=== PATIENT | female | born 1960 ===

== ENCOUNTER → 2020-05-23 11:11 | Outpatient (BNVA) | payer MEDICARE, SELFPAY | PROVIDERS: PCP Internal Medicine; Referring Provider Internal Medicine; Visit Provider Orthopaedic Surgery | DX: Z48.89 Encounter for other specified surgical aftercare (principal); L08.9 Local infection of the skin and subcutaneous tissue, unspecified | CPT/HCPCS: 99024; 99212 ==

== ENCOUNTER → 2020-05-30 13:20 | Outpatient (BNVA) | payer MEDICARE, SELFPAY | PROVIDERS: PCP Internal Medicine; Visit Provider Physician Assistant | DX: T84.7XXD Infection and inflammatory reaction due to other internal orthopedic prosthetic devices, implants and grafts, subsequent encounter (principal) | CPT/HCPCS: 99212 ==

== ENCOUNTER 2020-06-13 12:09 | Outpatient (REF) | payer MEDICARE, SELFPAY ==
--- NOTE | 2020-06-13 12:11 | XR_ITS ---
EXAMINATION: XR HAND, LEFT CLINICAL INFORMATION: Infection and inflammatory reaction due to orthopedic prosthetic devices. COMPARISON: 05/13/2020 and 04/15/2020 TECHNIQUE: PA, lateral and oblique views of the left hand. FINDINGS: There is again noted to be a healing fracture involving the left 3rd middle phalanx. There remain some lucent regions, however, there appears to be some progression in periosteal new bone formation. No significant degenerative change is seen involving the remainder of the left hand since previous study. There remains volar displacement of the major distal fracture fragment by approximately 2 mm. There remains stable medial angulation of the distal fracture fragment. There is some improvement in the soft tissue swelling compared to previous study. No gas within the soft tissues is evident. There is osteopenia of the visualized bones. XR/XR hand LT min 3V IMPRESSION: Progression in healing without change in alignment of fracture involving the left 3rd middle phalanx with some improvement in soft tissue swelling and no evidence of new erosive change.
== END 2020-06-13 12:10 | disposition home or self-care (01) ==
LOC: HO.XRAY 12:09
PROVIDERS: PCP Internal Medicine; Referring Provider Internal Medicine; Visit Provider Orthopaedic Surgery
DX: T84.7XXA Infection and inflammatory reaction due to other internal orthopedic prosthetic devices, implants and grafts, initial encounter (principal)
CPT/HCPCS: 73130; 99212

== ENCOUNTER 2020-06-19 08:21 | Outpatient (REF) | payer MEDICARE, SELFPAY ==
[2020-06-19 09:53] LABS: Anion Gap 11 (12-20); Blood Urea Nitrogen 23 mg/dL (9-16); Calcium 8.4 mg/dL (8.4-10.2); Carbon Dioxide 28 mmol/L (22-29); Chloride 107 mmol/L (96-108); Estimated Glomerular Filt Rate 58; Glucose Random 93 mg/dL (60-115); Potassium 4.4 mmol/l (3.3-5.1); Sodium 142 mmol/L (135-145)
[2020-06-19 10:18] LABS: Free T4 (Free Thyroxine) 1.13 ng/dL (0.71-1.85); Thyroid Stimulating Hormone 6.09 mIU/mL (0.32-4.0); Vitamin D 25-OH Total 30.2 ng/mL (>30)
== END 2020-06-19 08:22 | disposition home or self-care (01) ==
LOC: HO.LAB 08:21
PROVIDERS: PCP Internal Medicine; Visit Provider Internal Medicine
DX: E16.1 Other hypoglycemia (principal); E55.9 Vitamin D deficiency, unspecified; E03.9 Hypothyroidism, unspecified
CPT/HCPCS: 80048; 82306; 84439; 84443

== ENCOUNTER 2020-07-11 10:11 | Outpatient (REF) | payer MEDICARE, SELFPAY ==
--- NOTE | 2020-07-11 10:12 | XR_ITS ---
EXAMINATION: XR HAND, LEFT CLINICAL INFORMATION: Infection of the skin. COMPARISON: 06/13/2020 TECHNIQUE: PA, lateral, and oblique views of the left hand. FINDINGS: Irregularity of the third digit middle phalanx is again noted. This is consistent with healing fracture. There is some fragmentation remaining, though there is increased osseous bridging from prior. Soft tissue swelling noted. Remaining joint spaces are maintained. No acute osseous erosion. XR/XR hand LT min 3V IMPRESSION: Continued partial healing of the third digit middle phalanx fracture. Mild soft tissue swelling.
== END 2020-07-11 10:12 | disposition home or self-care (01) ==
LOC: HO.HOSX 10:11
PROVIDERS: Visit Provider Orthopaedic Surgery
DX: L08.9 Local infection of the skin and subcutaneous tissue, unspecified (principal)
CPT/HCPCS: 73130; 99212

== ENCOUNTER 2020-07-17 08:43 | Outpatient (REF) | payer MEDICARE, SELFPAY ==
[2020-07-17 09:32] LABS: MANUAL DIFF FLAG NO
[2020-07-17 09:35] LABS: Basophils Percent Auto 0.5 % (0-2); Eosinophils Absolute Auto 0.2 X10*3/uL (0.0-0.4); Eosinophils Percent Auto 5.7 % (0-4); Hematocrit 31.3 % (37-47); Hemoglobin 9.5 g/dl (12.0-16.0); Lymphocytes Absolute Auto 1.4 X10*3/uL (1.2-4.9); Lymphocytes Percent Auto 35.7 % (20-40); Mean Corpuscular HGB Conc 30.4 g/dl (31.0-35.0); Mean Corpuscular Hemoglobin 24.1 pg (27.0-33.0); Mean Corpuscular Volume 79.4 fL (80-98); Mean Platelet Volume 10.5 fL (9.4-12.3); Monocytes Absolute Auto 0.3 X10*3/uL (0.1-1.2); Monocytes Percent Auto 8.2 % (2-11); Neutrophils Percent Auto 49.9 % (45-73); Platelet Count 196 X10*3/uL (160-400); Red Blood Count 3.94 X10*6/uL (4.20-5.50); Red Cell Distribution Width 15.4 % (11.0-16.0)
[2020-07-17 09:44] LABS: Glucose Urine UA NEG (NEG); Leukocyte Esterase Urine NEG (NEG); Nitrite Urine NEG (NEG); Specific Gravity - Urine >= 1.030 (1.005-1.025); Urine Blood NEG (NEG); Urine Ketones NEG (NEG); Urine Protein NEG (NEG-TRACE)
[2020-07-17 09:46] LABS: Estimated Average Glucose 108 mg/dL; Hemoglobin A1c % 5.4 %
[2020-07-17 09:49] LABS: Appearance Urine CLEAR; Color Urine YELLOW
[2020-07-17 09:59] LABS: RBC Urine 0 /HPF (0); Squamous Epithelial Cell Urine 2+ /LPF; WBC Urine 0-2 /HPF (0-4)
[2020-07-17 10:00] LABS: Mucus Urine TRACE /LPF
[2020-07-17 10:05] LABS: Alanine Aminotransferase 18 U/L (0-31); Albumin Level 3.8 g/dL (3.5-5.0); Alkaline Phosphatase 117 U/L (39-117); Anion Gap 9 (12-20); Aspartate Amino Transferase 19 U/L (5-31); Bilirubin Total 0.3 mg/dL (0.0-1.0); Blood Urea Nitrogen 22 mg/dL (9-16); Calcium 8.7 mg/dL (8.4-10.2); Carbon Dioxide 31 mmol/L (22-29); Chloride 107 mmol/L (96-108); Cholesterol 138 mg/dL; Estimated Glomerular Filt Rate > 60; Glucose Fasting 104 mg/dL (60-99); HDL Cholesterol 51 mg/dL; LDL Cholesterol Calculated 70 mg/dl; Potassium 4.3 mmol/l (3.3-5.1); Sodium 143 mmol/L (135-145); Total Protein 6.6 g/dL (6.5-8.0); Triglycerides 86 mg/dL
[2020-07-17 10:24] LABS: Free T4 (Free Thyroxine) 1.22 ng/dL (0.71-1.85); Thyroid Stimulating Hormone 1.73 uIU/mL (0.32-4.0); Vitamin D 25-OH Total 30.3 ng/mL (>30)
[2020-07-17 10:37] LABS: Erythrocyte Sedimentation Rate 20 MM/HR (0-20)
== END 2020-07-17 08:44 | disposition home or self-care (01) ==
LOC: HO.LAB 08:43
PROVIDERS: PCP Internal Medicine; Visit Provider Internal Medicine
DX: E78.5 Hyperlipidemia, unspecified (principal); I10 Essential (primary) hypertension; R73.01 Impaired fasting glucose; E03.9 Hypothyroidism, unspecified; E66.9 Obesity, unspecified; M79.7 Fibromyalgia; K21.9 Gastro-esophageal reflux disease without esophagitis; N32.81 Overactive bladder; E55.9 Vitamin D deficiency, unspecified
CPT/HCPCS: 36415; 80053; 80061; 81001; 82306; 83036; 84439; 84443; 85025; 85652

== ENCOUNTER 2020-08-12 07:50 | Outpatient (REF) | payer MEDICARE, SELFPAY ==
--- NOTE | 2020-08-12 09:43 | XR_ITS ---
EXAMINATION: XR HAND, LEFT CLINICAL INFORMATION: Infection COMPARISON: 07/11/2020 and studies dating back to 03/15/2020. TECHNIQUE: PA, lateral, and oblique views of the left hand. FINDINGS: There is progression in healing of comminuted fracture involving the third middle phalanx which is intra-articular in the proximal interphalangeal joint. There is more bone fill-in with bony union. Fracture lines are still evident. No change in alignment. Mild soft tissue prominence remains. No gas within the soft tissues. No erosive changes appreciated. There is some spurring of the first carpometacarpal joint. Joint spaces are maintained. XR/XR hand LT min 3V IMPRESSION: Progression in healing of left third middle phalanx fracture. There remains some mild soft tissue prominence involving the third proximal interphalangeal joint.
== END 2020-08-12 07:51 | disposition home or self-care (01) ==
LOC: HO.HOSX 07:50
PROVIDERS: Visit Provider Orthopaedic Surgery
DX: T84.7XXA Infection and inflammatory reaction due to other internal orthopedic prosthetic devices, implants and grafts, initial encounter (principal); L08.9 Local infection of the skin and subcutaneous tissue, unspecified
CPT/HCPCS: 73130; 99212

== ENCOUNTER 2020-09-24 16:20 | Outpatient (REF) | payer MEDICARE, SELFPAY ==
--- NOTE | 2020-09-24 | MM_ITS ---
EXAMINATION: MM SCREENING DIGITAL BREAST TOMOSYNTHESIS, BILATERAL CLINICAL INFORMATION: Screening. Asymptomatic. The lifetime risk of breast cancer based on the Tyrer-Cuzick Model is 7.6%. COMPARISON: Mammography: September 22, 2019 and studies dating back to December 09, 2013 TECHNIQUE: Digital breast tomosynthesis is performed in both the craniocaudal and mediolateral oblique views along with computer-aided detection (CAD). Synthesized 2D images are generated from the tomosynthesis. FINDINGS: The breasts are almost entirely fatty (ACR BI-RADS breast composition Category a). There are no significant masses, abnormal calcifications, or other abnormalities. MM/MM tomosynthesis screening BI IMPRESSION: There are no significant changes from prior study. ASSESSMENT: BI-RADS 1: Negative RECOMMENDATION: Routine annual mammography screening. This patient's information was entered into a reminder system with a target due date for their next mammogram.
== END 2020-09-24 16:21 | disposition home or self-care (01) ==
LOC: HO.MAMMO 16:20
PROVIDERS: PCP Internal Medicine; Visit Provider Internal Medicine
DX: Z12.31 Encounter for screening mammogram for malignant neoplasm of breast (principal)
CPT/HCPCS: 77063; 77067

== ENCOUNTER 2020-10-16 10:07 | Outpatient (REF) | payer MEDICARE, SELFPAY ==
[2020-10-16 10:49] LABS: MANUAL DIFF FLAG NO
[2020-10-16 10:56] LABS: Basophils Percent Auto 0.5 % (0-2); Eosinophils Absolute Auto 0.2 X10*3/uL (0.0-0.4); Eosinophils Percent Auto 2.3 % (0-4); Hematocrit 31.4 % (37-47); Hemoglobin 9.4 g/dl (12.0-16.0); Imm Gran Abs Auto 0.03 X10*3/uL (0.00-0.03); Imm Gran Pct Auto 0.5 % (0.0-0.4); Lymphocytes Absolute Auto 1.7 X10*3/uL (1.2-4.9); Lymphocytes Percent Auto 26.8 % (20-40); Mean Corpuscular HGB Conc 29.9 g/dl (31.0-35.0); Mean Platelet Volume 9.7 fL (9.4-12.3); Monocytes Absolute Auto 0.4 X10*3/uL (0.1-1.2); Monocytes Percent Auto 6.6 % (2-11); Neutrophils Absolute Auto 4.1 X10*3/uL (2.0-8.3); Neutrophils Percent Auto 63.3 % (45-73); Platelet Count 285 X10*3/uL (160-400); Red Blood Count 4.08 X10*6/uL (4.20-5.50); Red Cell Distribution Width 17.6 % (11.0-16.0); White Blood Count 6.4 X10*3/uL (4.8-10.8)
[2020-10-16 11:23] LABS: Alanine Aminotransferase 45 U/L (0-31); Alkaline Phosphatase 121 U/L (39-117); Anion Gap 12 (12-20); Aspartate Amino Transferase 41 U/L (5-31); Bilirubin Total 0.3 mg/dL (0.0-1.0); Blood Urea Nitrogen 15 mg/dL (9-16); Calcium 9.1 mg/dL (8.4-10.2); Carbon Dioxide 28 mmol/L (22-29); Chloride 106 mmol/L (96-108); Cholesterol 167 mg/dL; Estimated Glomerular Filt Rate > 60; Glucose Fasting 98 mg/dL (60-99); HDL Cholesterol 56 mg/dL; LDL Cholesterol Calculated 81 mg/dl; Potassium 4.2 mmol/L (3.3-5.1); Sodium 142 mmol/L (135-145); Triglycerides 150 mg/dL
[2020-10-16 11:47] LABS: Free T4 (Free Thyroxine) 0.93 ng/dL (0.71-1.85); Thyroid Stimulating Hormone 3.62 uIU/mL (0.32-4.0)
== END 2020-10-16 10:08 | disposition home or self-care (01) ==
LOC: HO.LAB 10:07
PROVIDERS: PCP Internal Medicine; Referring Provider Internal Medicine; Visit Provider Internal Medicine
DX: E03.9 Hypothyroidism, unspecified (principal); E78.00 Pure hypercholesterolemia, unspecified; I10 Essential (primary) hypertension
CPT/HCPCS: 36415; 80053; 80061; 84439; 84443; 85025

== ENCOUNTER 2021-01-13 08:31 | Outpatient (REF) | payer MEDICARE, SELFPAY ==
[2021-01-13 09:07] LABS: MANUAL DIFF FLAG NO
[2021-01-13 09:20] LABS: Basophils Percent Auto 0.4 % (0-2); Eosinophils Absolute Auto 0.2 X10*3/uL (0.0-0.4); Eosinophils Percent Auto 3.3 % (0-4); Hematocrit 38.6 % (37-47); Hemoglobin 12.2 g/dl (12.0-16.0); Imm Gran Abs Auto 0.01 X10*3/uL (0.00-0.03); Imm Gran Pct Auto 0.2 % (0.0-0.4); Lymphocytes Absolute Auto 1.6 X10*3/uL (1.2-4.9); Lymphocytes Percent Auto 29.7 % (20-40); Mean Corpuscular HGB Conc 31.6 g/dl (31.0-35.0); Mean Corpuscular Hemoglobin 26.3 pg (27.0-33.0); Mean Corpuscular Volume 83.2 fL (80-98); Mean Platelet Volume 10.4 fL (9.4-12.3); Monocytes Absolute Auto 0.5 X10*3/uL (0.1-1.2); Monocytes Percent Auto 8.4 % (2-11); Neutrophils Absolute Auto 3.2 X10*3/uL (2.0-8.3); Platelet Count 218 X10*3/uL (160-400); Red Blood Count 4.64 X10*6/uL (4.20-5.50); Red Cell Distribution Width 17.7 % (11.0-16.0); White Blood Count 5.5 X10*3/uL (4.8-10.8)
[2021-01-13 09:35] LABS: Alanine Aminotransferase 23 U/L (0-31); Alkaline Phosphatase 141 U/L (39-117); Anion Gap 12 (12-20); Aspartate Amino Transferase 19 U/L (5-31); Bilirubin Total 0.5 mg/dL (0.0-1.0); Blood Urea Nitrogen 16 mg/dL (9-16); Calcium 9.1 mg/dL (8.4-10.2); Carbon Dioxide 26 mmol/L (22-29); Chloride 106 mmol/L (96-108); Cholesterol 155 mg/dL; Estimated Glomerular Filt Rate > 60; Glucose Fasting 107 mg/dL (60-99); HDL Cholesterol 58 mg/dL; Iron 68 mcg/dL (30-160); LDL Cholesterol Calculated 67 mg/dl; Percent Iron Saturation 19 % (15-50); Potassium 4.3 mmol/L (3.3-5.1); Sodium 140 mmol/L (135-145); Total Iron Binding Capacity 360 mcg/dL (228-428); Triglycerides 153 mg/dL; Unsaturated Iron Binding 292 ug/dL
[2021-01-13 11:01] LABS: Folate 17.3 ng/mL (> or = 4.0); Vitamin B12 666 pg/mL (200-900)
[2021-01-13 13:48] LABS: Free T4 (Free Thyroxine) 1.08 ng/dL (0.71-1.85); Thyroid Stimulating Hormone 0.69 uIU/mL (0.32-4.0)
== END 2021-01-13 08:32 | disposition home or self-care (01) ==
LOC: HO.LAB 08:31
PROVIDERS: Absent Provider Internal Medicine; PCP Internal Medicine; Visit Provider Internal Medicine
DX: E78.00 Pure hypercholesterolemia, unspecified (principal); D50.9 Iron deficiency anemia, unspecified; K90.9 Intestinal malabsorption, unspecified; R73.01 Impaired fasting glucose; I10 Essential (primary) hypertension; E03.9 Hypothyroidism, unspecified
CPT/HCPCS: 36415; 80053; 80061; 82607; 82746; 83540; 84439; 84443; 85025

== ENCOUNTER 2021-05-05 10:12 | Outpatient (REF) | payer MEDICARE, SELFPAY ==
[2021-05-05 10:53] LABS: MANUAL DIFF FLAG NO
[2021-05-05 10:59] LABS: Basophils Percent Auto 0.5 % (0-2); Eosinophils Absolute Auto 0.3 X10*3/uL (0.0-0.4); Eosinophils Percent Auto 6.3 % (0-4); Hematocrit 35.4 % (37-47); Hemoglobin 11.3 g/dl (12.0-16.0); Lymphocytes Absolute Auto 1.4 X10*3/uL (1.2-4.9); Lymphocytes Percent Auto 31.7 % (20-40); Mean Corpuscular HGB Conc 31.9 g/dl (31.0-35.0); Mean Corpuscular Volume 87.8 fL (80-98); Mean Platelet Volume 10.1 fL (9.4-12.3); Monocytes Absolute Auto 0.4 X10*3/uL (0.1-1.2); Monocytes Percent Auto 9.2 % (2-11); Neutrophils Absolute Auto 2.2 X10*3/uL (2.0-8.3); Neutrophils Percent Auto 52.3 % (45-73); Platelet Count 227 X10*3/uL (160-400); Red Blood Count 4.03 X10*6/uL (4.20-5.50); Red Cell Distribution Width 14.2 % (11.0-16.0); White Blood Count 4.3 X10*3/uL (4.8-10.8)
[2021-05-05 11:41] LABS: Alanine Aminotransferase 21 U/L (0-31); Albumin Level 3.9 g/dL (3.5-5.0); Alkaline Phosphatase 120 U/L (39-117); Anion Gap 12 (12-20); Aspartate Amino Transferase 21 U/L (5-31); Bilirubin Total 0.5 mg/dL (0.0-1.0); Blood Urea Nitrogen 16 mg/dL (9-16); Carbon Dioxide 26 mmol/L (22-29); Chloride 108 mmol/L (96-108); Cholesterol 140 mg/dL; Estimated Glomerular Filt Rate > 60; Glucose Fasting 100 mg/dL (60-99); HDL Cholesterol 58 mg/dL; Iron 51 mcg/dL (30-160); LDL Cholesterol Calculated 60 mg/dl; Percent Iron Saturation 14 % (15-50); Potassium 4.6 mmol/L (3.3-5.1); Sodium 141 mmol/L (135-145); Total Iron Binding Capacity 358 mcg/dL (228-428); Total Protein 6.7 g/dL (6.5-8.0); Triglycerides 112 mg/dL; Unsaturated Iron Binding 307 ug/dL
[2021-05-05 11:46] LABS: Erythrocyte Sedimentation Rate 23 MM/HR (0-20)
[2021-05-05 11:55] LABS: Estimated Average Glucose 108 mg/dL; Hemoglobin A1c % 5.4 %
[2021-05-05 12:02] LABS: Free T4 (Free Thyroxine) 1.08 ng/dL (0.71-1.85); Thyroid Stimulating Hormone 1.14 uIU/mL (0.32-4.0); Vitamin D 25-OH Total 26.7 ng/mL (>30)
[2021-05-05 12:20] LABS: Appearance Urine HAZY; Color Urine YELLOW; Glucose Urine UA NEG (NEG); Leukocyte Esterase Urine 2+ (NEG); Nitrite Urine POS (NEG); PH 5.5 (5.0-8.0); Specific Gravity - Urine >= 1.030 (1.005-1.025); UACC Culture Trigger YES; Urine Blood NEG (NEG); Urine Ketones NEG (NEG); Urine Protein NEG (NEG-TRACE)
[2021-05-05 12:33] LABS: Bacteria Urine 4+ /LPF; RBC Urine 0 /HPF (0); Squamous Epithelial Cell Urine 3+ /LPF
== END 2021-05-05 10:13 | disposition home or self-care (01) ==
LOC: HO.LAB 10:12
PROVIDERS: PCP Internal Medicine; Visit Provider Internal Medicine
DX: D50.9 Iron deficiency anemia, unspecified (principal); K21.9 Gastro-esophageal reflux disease without esophagitis; K52.839 Microscopic colitis, unspecified; E78.00 Pure hypercholesterolemia, unspecified; E03.9 Hypothyroidism, unspecified; E66.9 Obesity, unspecified; I10 Essential (primary) hypertension; R73.01 Impaired fasting glucose; M79.7 Fibromyalgia; E55.9 Vitamin D deficiency, unspecified
CPT/HCPCS: 36415; 80053; 80061; 81001; 82306; 83036; 83540; 84439; 84443; 85025; 85652; 87086

== ENCOUNTER 2021-05-19 10:39 | Outpatient (REF) | payer MEDICARE, SELFPAY ==
[2021-05-22 05:26] LABS: HPV mRNA E6/E7 rflx Not Detected (Not Detected)
== END 2021-05-19 10:40 | disposition home or self-care (01) ==
LOC: HO.LAB 10:39
PROVIDERS: PCP Internal Medicine; Visit Provider Obstetrics & Gynecology
DX: Z01.419 Encounter for gynecological examination (general) (routine) without abnormal findings (principal); Z11.51 Encounter for screening for human papillomavirus (HPV); N95.9 Unspecified menopausal and perimenopausal disorder; E66.9 Obesity, unspecified; E03.9 Hypothyroidism, unspecified; E78.00 Pure hypercholesterolemia, unspecified; E16.2 Hypoglycemia, unspecified; I10 Essential (primary) hypertension; Z68.41 Body mass index [BMI] 40.0-44.9, adult; Z88.6 Allergy status to analgesic agent
CPT/HCPCS: 87624; 88142

== ENCOUNTER → 2021-06-30 08:36 | Outpatient (BNVA) | payer MEDICARE, SELFPAY | PROVIDERS: PCP Internal Medicine; Visit Provider Internal Medicine | DX: E03.9 Hypothyroidism, unspecified (principal); E16.2 Hypoglycemia, unspecified; E55.9 Vitamin D deficiency, unspecified | CPT/HCPCS: Q3014 ==

== ENCOUNTER 2021-08-04 10:49 | Outpatient (REF) | payer MEDICARE, SELFPAY ==
[2021-08-04 11:11] LABS: MANUAL DIFF FLAG NO
[2021-08-04 11:56] LABS: Basophils Percent Auto 0.6 % (0-2); Eosinophils Absolute Auto 0.2 X10*3/uL (0.0-0.4); Eosinophils Percent Auto 3.6 % (0-4); Hematocrit 37.4 % (37.0-47.0); Hemoglobin 11.7 g/dl (12.0-16.0); Imm Gran Abs Auto 0.02 X10*3/uL (0.00-0.03); Imm Gran Pct Auto 0.4 % (0.0-0.4); Lymphocytes Absolute Auto 1.6 X10*3/uL (1.2-4.9); Lymphocytes Percent Auto 33.3 % (20-40); Mean Corpuscular HGB Conc 31.3 g/dl (31.0-35.0); Mean Corpuscular Hemoglobin 27.1 pg (27.0-33.0); Mean Corpuscular Volume 86.6 fL (80.0-98.0); Mean Platelet Volume 10.1 fL (9.4-12.3); Monocytes Absolute Auto 0.4 X10*3/uL (0.1-1.2); Monocytes Percent Auto 8.3 % (2-11); Neutrophils Absolute Auto 2.5 x10*3/uL (2.0-8.3); Neutrophils Percent Auto 53.8 % (45-73); Platelet Count 223 X10*3/uL (160-400); Red Blood Count 4.32 X10*6/uL (4.20-5.50); Red Cell Distribution Width 14.1 % (11.0-16.0); White Blood Count 4.7 X10*3/uL (4.8-10.8)
[2021-08-04 12:32] LABS: Anion Gap 11 (12-20); Blood Urea Nitrogen 15 mg/dL (9-16); Calcium 9.3 mg/dL (8.4-10.2); Carbon Dioxide 26 mmol/L (22-29); Chloride 109 mmol/L (96-108); Cholesterol 166 mg/dL; Estimated Glomerular Filt Rate > 60; Glucose Fasting 106 mg/dL (60-99); HDL Cholesterol 53 mg/dL; LDL Cholesterol Calculated 83 mg/dl; Potassium 4.3 mmol/L (3.3-5.1); Sodium 142 mmol/L (135-145); Triglycerides 151 mg/dL
[2021-08-04 12:33] LABS: Estimated Average Glucose 117 mg/dL; Hemoglobin A1c % 5.7 %; TSH reflex Free T4 1.72 uIU/mL (0.32-4.0)
== END 2021-08-04 10:50 | disposition home or self-care (01) ==
LOC: HO.LAB 10:49
PROVIDERS: PCP Internal Medicine; Visit Provider Nurse Practitioner Family
DX: E55.9 Vitamin D deficiency, unspecified (principal); D64.9 Anemia, unspecified; E03.9 Hypothyroidism, unspecified; R73.01 Impaired fasting glucose; I10 Essential (primary) hypertension; E70.0 Classical phenylketonuria
CPT/HCPCS: 36415; 80048; 80061; 82947; 83036; 84443; 85025

== ENCOUNTER 2021-09-25 15:47 | Outpatient (REF) | payer MEDICARE, SELFPAY ==
--- NOTE | ~2021-09-25 | MM_ITS ---
EXAMINATION: MM SCREENING DIGITAL BREAST TOMOSYNTHESIS, BILATERAL CLINICAL INFORMATION: Screening. Asymptomatic. The lifetime risk of breast cancer based on the Tyrer-Cuzick Model is 7.6%. COMPARISON: Mammography: September 24, 2020 and studies dating back to December 09, 2013 TECHNIQUE: Digital breast tomosynthesis is performed in both the craniocaudal and mediolateral oblique views along with computer-aided detection (CAD). Synthesized 2D images are generated from the tomosynthesis. FINDINGS: The breasts are almost entirely fatty (ACR BI-RADS breast composition Category a). There are no significant masses, abnormal calcifications, or other abnormalities. MM/MM tomosynthesis screening BI IMPRESSION: There are no significant changes from prior study. ASSESSMENT: BI-RADS 1: Negative RECOMMENDATION: Routine annual mammography screening. This patient's information was entered into a reminder system with a target due date for their next mammogram.
== END 2021-09-25 15:48 | disposition home or self-care (01) ==
LOC: HO.MAMMO 15:47
PROVIDERS: Visit Provider Internal Medicine
DX: Z12.31 Encounter for screening mammogram for malignant neoplasm of breast (principal); R35.0 Frequency of micturition; R32 Unspecified urinary incontinence
CPT/HCPCS: 51798; 77063; 77067; 99202

== ENCOUNTER 2021-09-30 08:22 | Outpatient (REF) | payer MEDICARE, SELFPAY ==
--- NOTE | ~2021-09-30 | US_ITS ---
EXAMINATION: US ABDOMEN COMPLETE CLINICAL INFORMATION: Right upper quadrant pain. COMPARISON: CT abdomen without and with contrast dated 11/10/2019. Ultrasound abdomen complete dated 11/03/2018 and 12/20/2015. TECHNIQUE: Real-time imaging of the abdominal viscera. FINDINGS: PANCREAS: Normal. ABDOMINAL AORTA: The proximal, mid, and distal segments are normal in caliber. INFERIOR VENA CAVA: Visualized portions are normal. LIVER: The liver is normal in size. The liver contour is normal. Parenchymal echogenicity is normal. There is no intrahepatic biliary duct dilatation seen. GALLBLADDER: The gallbladder is physiologically distended without evidence of stones, sludge, wall thickening or pericholecystic fluid. There are 2 small echogenic densities adjacent to the gallbladder wall measuring 3 and 4 mm that do not move or shadow probably representing gallbladder wall polyps. COMMON BILE DUCT: Normal in caliber measuring 0.47 cm in diameter. RIGHT KIDNEY: There is a 1.6 x 2.2 x 2 cm upper pole peripelvic cyst. No hydronephrosis or renal calculi. The kidney measures 10.3 cm in maximum dimension. LEFT KIDNEY: Normal. No hydronephrosis. No renal calculi or focal parenchymal lesions. The kidney measures 10.9 cm in maximum dimension. SPLEEN: Normal. The spleen measures 12.4 cm in maximum dimension. FREE FLUID: None. US/US abdomen complete IMPRESSION: Small gallbladder wall polyps. Right renal cyst.
== END 2021-09-30 08:23 | disposition home or self-care (01) ==
LOC: HO.HMGCX 08:22
PROVIDERS: PCP Internal Medicine; Visit Provider Nurse Practitioner Acute Care
DX: R10.11 Right upper quadrant pain (principal)
CPT/HCPCS: 76700

== ENCOUNTER → 2021-10-20 11:25 | Outpatient (BNVA) | payer MEDICARE, SELFPAY | PROVIDERS: PCP Internal Medicine; Referring Provider Internal Medicine; Visit Provider Surgery | DX: K82.4 Cholesterolosis of gallbladder (principal) | CPT/HCPCS: 99202 ==

== ENCOUNTER 2021-11-13 08:18 | Outpatient (REF) | payer MEDICARE, SELFPAY ==
[2021-11-13 08:46] LABS: MANUAL DIFF FLAG NO
[2021-11-13 09:21] LABS: Estimated Average Glucose 111 mg/dL; Hemoglobin A1c % 5.5 %
[2021-11-13 09:22] LABS: Basophils Percent Auto 0.4 % (0-2); Eosinophils Absolute Auto 0.3 X10*3/uL (0.0-0.4); Eosinophils Percent Auto 5.7 % (0-4); Hematocrit 37.4 % (37.0-47.0); Imm Gran Abs Auto 0.01 X10*3/uL (0.00-0.03); Imm Gran Pct Auto 0.2 % (0.0-0.4); Lymphocytes Absolute Auto 1.5 X10*3/uL (1.2-4.9); Lymphocytes Percent Auto 31.4 % (20-40); Mean Corpuscular HGB Conc 32.1 g/dl (31.0-35.0); Mean Corpuscular Hemoglobin 28.4 pg (27.0-33.0); Mean Corpuscular Volume 88.6 fL (80.0-98.0); Monocytes Absolute Auto 0.4 X10*3/uL (0.1-1.2); Monocytes Percent Auto 8.4 % (2-11); Neutrophils Absolute Auto 2.6 x10*3/uL (2.0-8.3); Neutrophils Percent Auto 53.9 % (45-73); Platelet Count 189 X10*3/uL (160-400); Red Blood Count 4.22 X10*6/uL (4.20-5.50); Red Cell Distribution Width 13.7 % (11.0-16.0); White Blood Count 4.9 X10*3/uL (4.8-10.8)
[2021-11-13 09:24] LABS: Appearance Urine HAZY; Color Urine YELLOW; Glucose Urine UA NEG (NEG); Leukocyte Esterase Urine TRACE (NEG); Nitrite Urine POS (NEG); PH 5.5 (5.0-8.0); Specific Gravity - Urine >= 1.030 (1.005-1.025); UACC Culture Trigger YES; Urine Blood NEG (NEG); Urine Ketones NEG (NEG); Urine Protein NEG (NEG-TRACE)
[2021-11-13 09:37] LABS: Bacteria Urine 3+ /LPF; Mucus Urine 2+ /LPF; RBC Urine 0 /HPF (0); Squamous Epithelial Cell Urine 3+ /LPF
[2021-11-13 09:56] LABS: Alanine Aminotransferase 25 U/L (0-31); Albumin Level 3.9 g/dL (3.5-5.0); Alkaline Phosphatase 106 U/L (39-117); Anion Gap 11 (12-20); Aspartate Amino Transferase 20 U/L (5-31); Bilirubin Total 0.4 mg/dL (0.0-1.0); Blood Urea Nitrogen 22 mg/dL (9-16); Calcium 9.1 mg/dL (8.4-10.2); Carbon Dioxide 25 mmol/L (22-29); Chloride 110 mmol/L (96-108); Cholesterol 147 mg/dL; Estimated Glomerular Filt Rate > 60; Glucose Fasting 106 mg/dL (60-99); HDL Cholesterol 54 mg/dL; LDL Cholesterol Calculated 68 mg/dl; Potassium 4.3 mmol/L (3.3-5.1); Sodium 142 mmol/L (135-145); Total Protein 6.7 g/dL (6.5-8.0); Triglycerides 129 mg/dL
[2021-11-13 10:09] LABS: Free T4 (Free Thyroxine) 1.01 ng/dL (0.71-1.85); Thyroid Stimulating Hormone 4.75 uIU/mL (0.32-4.0)
[2021-11-13 10:33] LABS: Creatinine Urine 152.96 mg/dL; Microalbum/Creatinine Ratio Ur 5.2 ug/mg cr
[2021-11-13 14:53] LABS: Vitamin D 25-OH Total 25.3 ng/mL (>30)
== END 2021-11-13 08:19 | disposition home or self-care (01) ==
LOC: HO.LAB 08:18
PROVIDERS: PCP Internal Medicine; Visit Provider Internal Medicine
DX: I10 Essential (primary) hypertension (principal); E78.00 Pure hypercholesterolemia, unspecified; E03.9 Hypothyroidism, unspecified; E11.9 Type 2 diabetes mellitus without complications; E55.9 Vitamin D deficiency, unspecified
CPT/HCPCS: 36415; 80053; 80061; 81001; 81003; 82043; 82306; 83036; 84439; 84443; 85025; 87086

== ENCOUNTER → 2021-12-26 09:48 | Outpatient (BNVA) | payer MEDICARE, SELFPAY | PROVIDERS: PCP Internal Medicine | DX: Z13.89 Encounter for screening for other disorder (principal) | CPT/HCPCS: Q3014 ==

== ENCOUNTER 2022-02-03 08:07 | Outpatient (REF) | payer MEDICARE, SELFPAY ==
[2022-02-03 08:43] LABS: MANUAL DIFF FLAG NO
[2022-02-03 09:30] LABS: Basophils Percent Auto 0.8 % (0-2); Eosinophils Absolute Auto 0.2 X10*3/uL (0.0-0.4); Eosinophils Percent Auto 4.8 % (0-4); Hematocrit 35.9 % (37.0-47.0); Hemoglobin 11.3 g/dl (12.0-16.0); Imm Gran Abs Auto 0.01 X10*3/uL (0.00-0.03); Imm Gran Pct Auto 0.3 % (0.0-0.4); Lymphocytes Absolute Auto 1.4 X10*3/uL (1.2-4.9); Lymphocytes Percent Auto 34.5 % (20-40); Mean Corpuscular HGB Conc 31.5 g/dl (31.0-35.0); Mean Corpuscular Volume 89.1 fL (80.0-98.0); Monocytes Absolute Auto 0.3 X10*3/uL (0.1-1.2); Monocytes Percent Auto 8.4 % (2-11); Neutrophils Percent Auto 51.2 % (45-73); Platelet Count 197 X10*3/uL (160-400); Red Blood Count 4.03 X10*6/uL (4.20-5.50); Red Cell Distribution Width 14.1 % (11.0-16.0); White Blood Count 3.9 X10*3/uL (4.8-10.8)
[2022-02-03 09:48] LABS: Estimated Average Glucose 108 mg/dL; Hemoglobin A1c % 5.4 %
[2022-02-03 10:04] LABS: Alanine Aminotransferase 39 U/L (0-31); Albumin Level 3.8 g/dL (3.5-5.0); Alkaline Phosphatase 123 U/L (39-117); Anion Gap 12 (12-20); Aspartate Amino Transferase 24 U/L (5-31); Bilirubin Total 0.4 mg/dL (0.0-1.0); Blood Urea Nitrogen 19 mg/dL (9-16); Calcium 8.9 mg/dL (8.4-10.2); Carbon Dioxide 26 mmol/L (22-29); Chloride 109 mmol/L (96-108); Cholesterol 145 mg/dL; Estimated Glomerular Filt Rate > 60; Glucose Fasting 113 mg/dL (60-99); HDL Cholesterol 49 mg/dL; LDL Cholesterol Calculated 63 mg/dl; Potassium 4.3 mmol/L (3.3-5.1); Sodium 143 mmol/L (135-145); Total Protein 6.6 g/dL (6.5-8.0); Triglycerides 166 mg/dL
[2022-02-03 10:08] LABS: Free T4 (Free Thyroxine) 1.17 ng/dL (0.71-1.85); Vitamin D 25-OH Total 21.8 ng/mL (>30)
[2022-02-03 10:39] LABS: Appearance Urine HAZY; Color Urine YELLOW; Glucose Urine UA NEG (NEG); Leukocyte Esterase Urine NEG (NEG); Nitrite Urine NEG (NEG); Specific Gravity - Urine 1.025 (1.005-1.025); Urine Blood NEG (NEG); Urine Ketones NEG (NEG); Urine Protein NEG (NEG-TRACE)
[2022-02-03 11:31] LABS: Creatinine Urine 95.56 mg/dL; Microalbumin Urine < 5.0 mg/L
== END 2022-02-03 08:08 | disposition home or self-care (01) ==
LOC: HO.LAB 08:07
PROVIDERS: PCP Internal Medicine; Visit Provider Internal Medicine
DX: I10 Essential (primary) hypertension (principal); E55.9 Vitamin D deficiency, unspecified; E78.00 Pure hypercholesterolemia, unspecified; E11.9 Type 2 diabetes mellitus without complications; E03.9 Hypothyroidism, unspecified
CPT/HCPCS: 36415; 80053; 80061; 81003; 82043; 82306; 83036; 84439; 84443; 85025

== ENCOUNTER 2022-02-04 11:55 | Outpatient (REF) | payer MEDICARE, SELFPAY ==
--- NOTE | ~2022-02-04 | XR_ITS ---
EXAMINATION: XR KNEE, BILATERAL CLINICAL INFORMATION: Bilateral knee pain. COMPARISON: 04/27/2019 TECHNIQUE: AP, lateral and sunrise views of each knee. FINDINGS: Right knee: Alignment is normal. No displaced fracture. Moderate patellofemoral joint space narrowing with marginal osteophytes. No significant joint effusion. Left knee: Alignment is normal. No displaced fracture. Mild medial tibiofemoral cartilage space loss. Moderate patellofemoral cartilage space loss. Tricompartmental osteophytes are present. No significant joint effusion. XR/XR knee LT 3V IMPRESSION: Moderate osteoarthritis of bilateral knees.
--- NOTE | ~2022-02-04 | XR_ITS ---
EXAMINATION: XR KNEE, BILATERAL CLINICAL INFORMATION: Bilateral knee pain. COMPARISON: 04/27/2019 TECHNIQUE: AP, lateral and sunrise views of each knee. FINDINGS: Right knee: Alignment is normal. No displaced fracture. Moderate patellofemoral joint space narrowing with marginal osteophytes. No significant joint effusion. Left knee: Alignment is normal. No displaced fracture. Mild medial tibiofemoral cartilage space loss. Moderate patellofemoral cartilage space loss. Tricompartmental osteophytes are present. No significant joint effusion. XR/XR knee RT 3V IMPRESSION: Moderate osteoarthritis of bilateral knees.
== END 2022-02-04 11:56 | disposition home or self-care (01) ==
LOC: HO.XRAY 11:55
PROVIDERS: PCP Internal Medicine; Visit Provider Internal Medicine
DX: M25.561 Pain in right knee (principal); M25.562 Pain in left knee
CPT/HCPCS: 73562

== ENCOUNTER 2022-03-14 10:55 | Outpatient (REF) | payer MEDICARE, SELFPAY ==
--- NOTE | ~2022-03-14 | XR_ITS ---
EXAMINATION: XR KNEE, RIGHT CLINICAL INFORMATION: Pain. COMPARISON: Most recent right knee radiographs dated 02/04/2022. TECHNIQUE: Four views of the right knee. FINDINGS: No acute fracture or dislocation. Tricompartmental joint space narrowing with marginal osteophytes, most prominent within the patellofemoral compartment. Redemonstration of lateral patellar unfused osteophytes versus loose bodies, unchanged. Trace joint effusion. XR/XR knee RT 4V IMPRESSION: Tricompartmental osteoarthritis and trace joint effusion, unchanged.
== END 2022-03-14 10:56 | disposition home or self-care (01) ==
LOC: HO.HMGCX 10:55
PROVIDERS: PCP Internal Medicine; Visit Provider Physician Assistant Medical
DX: M25.561 Pain in right knee (principal)
CPT/HCPCS: 73564

== ENCOUNTER 2022-04-30 10:36 | Outpatient (REF) | payer MEDICARE, SELFPAY ==
--- NOTE | 2022-05-01 08:37 | MHC.AU.AEV ---
Adult Audiological Evaluation Date of Visit: 04/30/22 Reason for Appointment: Patient has been noticing gradually increasing hearing difficulty. It has caused disagreements at home over words that were misheard or over the volume of the television. 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 Does patient feel they have a hearing loss?: Yes If Yes, Which Ear?: Both Ears When Was Hearing Difficulty First Noticed?: Several years Hearing Handicap Inventory Does a hearing problem cause you to feel embarrassed when meeting new people?: No Does a hearing problem cause you to feel frustrated when talking to members of your family?: Yes Do you have difficulty when someone speaks in a whisper?: Yes Do you feel handicapped by a hearing problem?: Sometimes Does a hearing problem cause you difficulty when visiting friends, relatives, or neighbors?: Yes Does a hearing problem cause you to attend faith service services less often than you would like?: Sometimes Does a hearing problem cause you to have arguments with family members?: Yes Does a hearing problem cause you difficulty when listening to TV or radio?: Yes Do you feel that any difficult with your hearing limits or hampers your personal or social life?: Yes Does a hearing problem cause you difficulty when in a restaurants with relatives or friends?: Yes HHIE SCORE: 32 Based on HHIE score, patient has: Severe perceived hearing handicap Ear History: Ear Deformity: None Reported Recent Ear Drainage: None Reported Recent Ear Pain: None Reported Family History of Hearing Loss?: Yes: Sisters and brother Recent Ear Infections: None Reported Ear Infections in Childhood: None Reported History of Ear Wax Buildup: None Reported Previous Ear Surgery: None Reported Bothersome Tinnitus/Ringing/Noises in Ears: None Reported Ear used on the phone: Right Ear Blocked/Full Sensation in Ear(s): None Reported History of occupational noise exposure?: Yes History: No Medical History: Medical History: Headache, High Blood Pressure, Thyroid Disease Otoscopy: Right Ear: Unremarkable Left Ear: Unremarkable Tympanometry: Tympanometry performed due to: To assess integrity of the middle ear system Right Ear: Normal Middle Ear System (Type A) Left Ear: Normal Middle Ear System (Type A) Hearing Evaluation: Transducer(s) Used: Insert Earphones Method: Conventional Audiometry Stimuli Used: Pure Tones Right Ear: Description of Hearing: Mild sensorineural hearing loss Left Ear: Description of Hearing: Mild sensorineural hearing loss Speech Recognition Threshold (SRT): Method Used: Recorded Lists Stimuli Used: Spondee Words Right Ear: 30 dBHL Left Ear: 30 dBHL Word Discrimination: Method: Recorded Lists Word Lists Used:: W-22 Right Ear: 96% at 70 dBHL Left Ear: 96% at 70 dBHL Most Comfortable Level (MCL): Right Ear: 70 dBHL Left Ear: 70 dBHL Recommendations: Audiological re-evaluation in one year. Patient is interested in amplification, as she feels the mild hearing loss is staring to impact her daily life. It is recommended that she contact her insurance to inquire about hearing aid benefits. If her insurance does not offer benefits, she would qualify for use of OTC hearing aids. As the FDA only recently approved the use of OTC hearing aids for mild hearing loss, they are not yet on the market, but this will change manager the next year as more companies receive FDA approval for their products. A product such as TV Ears may help with hearing the television. Diagnosis: Primary Diagnosis: H90.3 Bilateral Sensorineural Hearing Loss Signature: Provider: Hermelindo Hartman, CCC-A
== END 2022-04-30 10:37 | disposition home or self-care (01) ==
LOC: HO.SH 10:36
PROVIDERS: Visit Provider Internal Medicine
DX: Z01.118 Encounter for examination of ears and hearing with other abnormal findings (principal); H90.3 Sensorineural hearing loss, bilateral
CPT/HCPCS: 92557; 92567

== ENCOUNTER 2022-05-21 10:36 | Outpatient (REF) | payer MEDICARE, SELFPAY ==
[2022-05-22 09:20] LABS: BV Int Neg Control Negative (Negative); BV Int Pos Control Positive (Positive)
== END 2022-05-21 10:37 | disposition home or self-care (01) ==
LOC: HO.LNP 10:36
PROVIDERS: Visit Provider Advanced Practice Midwife
DX: N90.89 Other specified noninflammatory disorders of vulva and perineum (principal)
CPT/HCPCS: 87480; 87510; 87660

== ENCOUNTER 2022-06-08 11:43 | Outpatient (REF) | payer MEDICARE, SELFPAY ==
[2022-06-08 11:58] LABS: MANUAL DIFF FLAG NO
[2022-06-08 12:58] LABS: Basophils Percent Auto 0.7 % (0-2); Eosinophils Absolute Auto 0.2 X10*3/uL (0.0-0.4); Eosinophils Percent Auto 3.7 % (0-4); Hematocrit 37.8 % (37.0-47.0); Hemoglobin 12.2 g/dl (12.0-16.0); Imm Gran Abs Auto 0.02 X10*3/uL (0.00-0.03); Imm Gran Pct Auto 0.5 % (0.0-0.4); Lymphocytes Absolute Auto 1.5 X10*3/uL (1.2-4.9); Lymphocytes Percent Auto 34.3 % (20-40); Mean Corpuscular HGB Conc 32.3 g/dl (31.0-35.0); Mean Corpuscular Hemoglobin 27.7 pg (27.0-33.0); Mean Corpuscular Volume 85.9 fL (80.0-98.0); Mean Platelet Volume 10.3 fL (9.4-12.3); Monocytes Absolute Auto 0.3 X10*3/uL (0.1-1.2); Monocytes Percent Auto 7.7 % (2-11); Neutrophils Absolute Auto 2.3 x10*3/uL (2.0-8.3); Neutrophils Percent Auto 53.1 % (45-73); Platelet Count 216 X10*3/uL (160-400); White Blood Count 4.3 X10*3/uL (4.8-10.8)
[2022-06-08 13:25] LABS: Estimated Average Glucose 114 mg/dL; Hemoglobin A1c % 5.6 %
[2022-06-08 13:30] LABS: Alanine Aminotransferase 27 U/L (0-31); Alkaline Phosphatase 127 U/L (39-117); Anion Gap 15 (12-20); Aspartate Amino Transferase 23 U/L (5-31); Bilirubin Total 0.4 mg/dL (0.0-1.0); Blood Urea Nitrogen 20 mg/dL (9-16); Carbon Dioxide 27 mmol/L (22-29); Chloride 104 mmol/L (96-108); Cholesterol 177 mg/dL; Estimated Glomerular Filt Rate > 60; Glucose Fasting 113 mg/dL (60-99); HDL Cholesterol 56 mg/dL; LDL Cholesterol Calculated 97 mg/dl; Potassium 4.4 mmol/L (3.3-5.1); Sodium 142 mmol/L (135-145); Total Protein 6.9 g/dL (6.5-8.0); Triglycerides 122 mg/dL
[2022-06-08 13:31] LABS: Appearance Urine Cloudy; Color Urine Yellow; Glucose Urine UA Negative (Negative); Leukocyte Esterase Urine Large (3+) (Negative); Nitrite Urine Negative (Negative); PH 5.5 (5.0-9.0); Specific Gravity - Urine 1.025 (1.005-1.025); UMIC TRIGGER UACC YES; Urine Blood Negative (Negative); Urine Ketones Negative (Negative); Urine Protein Negative (Neg-Trace)
[2022-06-08 13:36] LABS: Bacteria Urine 1+ (None Seen); Hyaline Casts Urine 0-2 /LPF (0-2); RBC Urine 0-2 /HPF (0-2); UACC Culture Trigger YES; WBC Urine 21-50 /HPF (0-5)
[2022-06-08 13:50] LABS: Free T4 (Free Thyroxine) 0.85 ng/dL (0.71-1.85); Vitamin D 25-OH Total 24.3 ng/mL (>30)
[2022-06-08 13:54] LABS: Erythrocyte Sedimentation Rate 18 MM/HR (0-20)
== END 2022-06-08 11:44 | disposition home or self-care (01) ==
LOC: HO.LAB 11:43
PROVIDERS: Absent Provider Internal Medicine; PCP Internal Medicine; Visit Provider Internal Medicine
DX: E03.9 Hypothyroidism, unspecified (principal); R73.01 Impaired fasting glucose; I10 Essential (primary) hypertension; M25.561 Pain in right knee; M25.562 Pain in left knee; E55.9 Vitamin D deficiency, unspecified; E78.00 Pure hypercholesterolemia, unspecified
CPT/HCPCS: 36415; 80053; 80061; 81001; 82306; 83036; 84439; 84443; 85025; 85652; 87086; 87088; 87147; 87186

== ENCOUNTER 2022-06-14 09:53 | Emergency (ER) | payer MEDICARE, SELFPAY ==
--- NOTE | ~2022-06-14 | XR_ITS ---
EXAMINATION: LEFT ANKLE AND RIGHT ANKLE CLINICAL INFORMATION: Pain COMPARISON: Right foot from 08/15/2018 TECHNIQUE: 3 views of right ankle FINDINGS: There is soft tissue swelling laterally not associated with acute fracture there is healed fracture deformity of right C6 metatarsal bone with callus formation and linear lucency laterally as a residual from the fracture seen in 2018. Ankle mortise is unremarkable medial malleolus is normal. There is plantar calcaneal spur XR/XR ankle RT min 3V IMPRESSION: Soft tissue swelling. Healed fracture deformity of the fifth metatarsal bone and calcaneus spur. Left ankle 3 views CLINICAL INFORMATION: pain COMPARISON: October 2014 FINDINGS: Patient is status post repair of fifth metatarsal tarsal bone with [id number]. There is linear lucencies through the medial malleolus suggestive for acute fracture. There is no displacement of fragments. Lateral malleolus demonstrate no fractures. There is plantar calcaneal spur. IMPRESSION: undisplaced fracture of the medial malleolus
--- NOTE | ~2022-06-14 | XR_ITS ---
EXAMINATION: LEFT ANKLE AND RIGHT ANKLE CLINICAL INFORMATION: Pain COMPARISON: Right foot from 08/15/2018 TECHNIQUE: 3 views of right ankle FINDINGS: There is soft tissue swelling laterally not associated with acute fracture there is healed fracture deformity of right C6 metatarsal bone with callus formation and linear lucency laterally as a residual from the fracture seen in 2018. Ankle mortise is unremarkable medial malleolus is normal. There is plantar calcaneal spur XR/XR ankle LT min 3V IMPRESSION: Soft tissue swelling. Healed fracture deformity of the fifth metatarsal bone and calcaneus spur. Left ankle 3 views CLINICAL INFORMATION: pain COMPARISON: October 2014 FINDINGS: Patient is status post repair of fifth metatarsal tarsal bone with [id number]. There is linear lucencies through the medial malleolus suggestive for acute fracture. There is no displacement of fragments. Lateral malleolus demonstrate no fractures. There is plantar calcaneal spur. IMPRESSION: undisplaced fracture of the medial malleolus
--- NOTE | ~2022-06-14 | CT_ITS ---
EXAMINATION: CT HEAD WITHOUT CONTRAST CT CERVICAL SPINE WITHOUT CONTRAST CLINICAL INFORMATION: Status post fall. Right-sided neck pain. COMPARISON: No relevant prior imaging. TECHNIQUE: Leather Cartridge Belt Maker images were obtained. CT imaging of the head and cervical spine was performed without contrast. Data was reformatted into multiplanar images at the acquisition workstation. This CT examination was performed using dose optimization techniques as appropriate, including one or more of the following: Automated exposure control, iterative reconstruction, and adjustment of technique factors (mA and/or kVp) according to patient size (this includes techniques or standardized protocols for targeted exams where dose is matched to indication/reason for exam). Fleischner Society criteria for the followup of incidental pulmonary nodules was implemented if appropriate. DLP: 1288 mGy-cm. FINDINGS: Head: There is no acute intracranial hemorrhage or abnormal extra-axial collection. No intracranial mass effect or midline shift. Lateral and third ventricles are normal. No hydrocephalus. Cervantes-white matter differentiation is preserved and there is no evidence of acute territorial infarct. The calvarium and skull base are intact. Mastoid air cells and middle ear cavities are well aerated. No active paranasal sinus disease. Cervical spine: Alignment is normal. Vertebral body heights are preserved. No acute fracture. No abnormal prevertebral soft tissue swelling. There is loss of intervertebral disc height with associated hypertrophic disc osteophyte spurring with associated sclerotic degenerative endplate changes and disc osteophyte spurring at C5-C6 and C6-C7. Canal patency is not well assessed on this examination due to inherent limitations of CT without intrathecal contrast. Soft tissues of the neck including the thyroid gland are normal. Grossly no pathologically enlarged cervical lymph nodes. Lung apices are clear. CT/CT head/brain wo IV con IMPRESSION: Unremarkable examination in that there is no acute intracranial hemorrhage. No acute cervical spine fracture.
--- NOTE | ~2022-06-14 | CT_ITS ---
EXAMINATION: CT HEAD WITHOUT CONTRAST CT CERVICAL SPINE WITHOUT CONTRAST CLINICAL INFORMATION: Status post fall. Right-sided neck pain. COMPARISON: No relevant prior imaging. TECHNIQUE: Student Ministries Director images were obtained. CT imaging of the head and cervical spine was performed without contrast. Data was reformatted into multiplanar images at the acquisition workstation. This CT examination was performed using dose optimization techniques as appropriate, including one or more of the following: Automated exposure control, iterative reconstruction, and adjustment of technique factors (mA and/or kVp) according to patient size (this includes techniques or standardized protocols for targeted exams where dose is matched to indication/reason for exam). Fleischner Society criteria for the followup of incidental pulmonary nodules was implemented if appropriate. DLP: 1288 mGy-cm. FINDINGS: Head: There is no acute intracranial hemorrhage or abnormal extra-axial collection. No intracranial mass effect or midline shift. Lateral and third ventricles are normal. No hydrocephalus. Cervantes-white matter differentiation is preserved and there is no evidence of acute territorial infarct. The calvarium and skull base are intact. Mastoid air cells and middle ear cavities are well aerated. No active paranasal sinus disease. Cervical spine: Alignment is normal. Vertebral body heights are preserved. No acute fracture. No abnormal prevertebral soft tissue swelling. There is loss of intervertebral disc height with associated hypertrophic disc osteophyte spurring with associated sclerotic degenerative endplate changes and disc osteophyte spurring at C5-C6 and C6-C7. Canal patency is not well assessed on this examination due to inherent limitations of CT without intrathecal contrast. Soft tissues of the neck including the thyroid gland are normal. Grossly no pathologically enlarged cervical lymph nodes. Lung apices are clear. CT/CT cervical spine wo IV con IMPRESSION: Unremarkable examination in that there is no acute intracranial hemorrhage. No acute cervical spine fracture.
--- NOTE | ~2022-06-14 | XR_ITS ---
EXAMINATION: XR KNEE, RIGHT CLINICAL INFORMATION: Bilateral knee pain status post fall. COMPARISON: Right knee radiographs dated 04/27/2019. TECHNIQUE: Four views of the right knee. FINDINGS: There is generalized osteopenia. Mild to moderate tricompartmental degenerative joint changes are seen, most pronounced in the patellofemoral joint space. There is no acute fracture or dislocation. Trace suprapatellar joint effusion. The soft tissues are unremarkable. XR/XR knee RT 2V IMPRESSION: [id number] tricompartmental degenerative joint changes without acute osseous abnormality. Trace suprapatellar joint effusion without significant change.
--- NOTE | ~2022-06-14 | XR_ITS ---
EXAMINATION: XR KNEE, LEFT CLINICAL INFORMATION: Fall, knee pain COMPARISON: 02/04/2022 TECHNIQUE: Four views of the left knee. FINDINGS: No fracture or dislocation. Small to moderate suprapatellar joint effusion, new or increased in conspicuity from the prior study. Again seen is tricompartmental osteoarthritis greatest in the patellofemoral compartment. XR/XR knee LT 2V IMPRESSION: No fracture or dislocation. Tricompartmental osteoarthritis greatest in the patellofemoral compartment, similar to prior study 02/04/2022. New/increased suprapatellar joint effusion.
[2022-06-14 09:57] VITALS: BP 118/52; PULSE 65; RESP 16; TEMP 36.6; O2SAT 98; BMI 41.1
[2022-06-14] MEDS: Acetaminophen 325 MG TABLET 975 MG PO (12:01)
[2022-06-14] MEDS: Cyclobenzaprine HCl 10 MG TABLET PO (12:02)
--- NOTE | 2022-06-14 12:17 | ED_ITS ---
HPI - Fall General Chief Complaint: Fall Stated Complaint: Fall/Neck pain/Knee pain Time Seen by Provider: 06/14/22 11:35 Source: patient Mode of arrival: ambulatory Limitations: no limitations History of Present Illness HPI Narrative: 62yoF c PMHx of acquired hypothyroidism, anemia, anxiety, HTN, bradycardia, depression, fibromyalgia, GERD, HLD, overactive bladder, colitis, insomnia, vitamin-D deficiency and obesity who is presenting to the ER with complaints of right-sided neck pain and bilateral knee and ankle pain after she had a mechanical fall prior to arrival this morning. She reports that she was leaving her house in the concrete/sidewalk is uneven and she fell onto her bilateral knees and rolled onto her neck. She denies head injury loss of consciousness. She denies being on any blood thinners. She denies any symptoms prior to the fall. She denies any other symptoms after the fall other than pain to her neck and bilateral knees and ankle. She denies prolonged down time. 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 Fall witnessed: yes, by family Place fall occurred: home and street Loss of consciousness: none Prolonged down time: no Symptoms prior to fall: none Context: tripped/slipped Location of injury: neck Location of injury - extremities: bilateral: knee and ankle Severity: moderate Quality: aching and spasming Associated symptoms (after fall): neck pain Related Data Home Medications Medication Instructions Recorded Confirmed cholecalciferol (vitamin D3) 50 50 mcg PO DAILY 05/23/20 02/27/22 mcg (2,000 unit) capsule Previous Rx's Medication Instructions Recorded nitrofurantoin macrocrystal 100 mg 100 mg PO Q12H 5 days #10 caps 05/08/21 capsule acarbose 50 mg tablet 50 mg PO TID 90 days #270 tabs 06/30/21 levothyroxine 150 mcg tablet 150 mcg PO DAILY 30 days #30 tabs 06/30/21 ferrous sulfate 325 mg (65 mg 325 mg PO DAILY #90 tabs 11/25/21 iron) tablet naproxen 500 mg tablet 500 mg PO Q12H PRN for pain #180 11/25/21 tabs sertraline 100 mg tablet 200 mg PO DAILY 90 days #180 tabs 11/25/21 mirtazapine 7.5 mg tablet 7.5 mg PO BEDTIME 30 days #30 tabs 12/02/21 mirabegron 25 mg tablet,extended 25 mg PO DAILY 30 days #90 tabs 01/20/22 release 24 hr (Myrbetriq) meloxicam 7.5 mg tablet 7.5 mg PO DAILY #14 tabs 03/14/22 atorvastatin 40 mg tablet 40 mg PO DAILY #90 tabs 04/15/22 lisinopril 10 mg tablet 10 mg PO DAILY #90 tabs 05/03/22 omeprazole 40 mg capsule,delayed 40 mg PO DAILY #90 caps 05/03/22 release lorazepam 0.5 mg tablet 0.5 mg PO BID PRN anxiety 30 days 06/01/22 #60 tabs pregabalin 75 mg capsule (Lyrica) 75 mg PO TID 30 days #90 caps 06/01/22 acetaminophen 500 mg tablet 1,000 mg PO QID PRN fever or pain 06/14/22 (Tylenol Extra Strength) #14 tabs cyclobenzaprine 10 mg tablet 10 mg PO Q8H Muscle spasm #14 tabs 06/14/22 oxycodone 5 mg tablet 5 mg PO Q6H PRN pain #14 tabs 06/14/22 Allergies Allergy/AdvReac Type Severity Reaction Status Date / Time fentanyl AdvReac Unknown Nausea and Verified 05/21/22 10:14 Vomiting Review of Systems Review of Systems: Constitutional : No trauma, No Weight loss, No Fever, No Chills, ENT/Mouth : No Hearing loss, No Ear Pain, No Nasal Congestion, No Sinus Pain, No Hoarseness, No sore throat, No Rhinorrhea, No Swallowing Difficulty Cardiovascular : No Chest Pain, No SOB Respiratory : No Cough, No Dyspnea Gastrointestinal : No Nausea, No Vomiting, No Diarrhea, No abdominal Pain, No Hematochezia, No Melena Genitourinary : No Dysuria, No Urinary Frequency, No Hematuria, No Urinary or Bowel Incontinence/retention Musculoskeletal : + Neck pain, +b/l knee/ankle pain, No Back pain, No joint stiffness, No joint swelling Skin : No Skin Lesions, No rash or signs of infection Neuro : nO Tingling to b/l arms/legs, No Weakness, No radiation, No Numbness, No headache, no loss of bowel or bladder incontinence, no saddle anesthesia Denies history of IV drug usage. Yes all other systems are reviewed and are negative [facility] Past Medical History Attestation statement: The following information was validated with the patient. Source: old records reviewed, obtained from family and nursing notes reviewed Medical History Acquired hypothyroidism Anemia Anxiety ASCUS of cervix with negative high risk HPV Benign essential hypertension Bradycardia Depression Fibromyalgia GERD without esophagitis High cholesterol Hypertension Hypoglycemia Hypothyroidism Impaired fasting glucose Infected finger Infection at site of external fixator pin Microscopic colitis Obesity (BMI 30-39.9) Overactive bladder Primary insomnia Pure hypercholesterolemia Vitamin D deficiency Surgical History H/O arthroscopy of left knee H/O section History of colonoscopy History of gastrointestinal tract bypass History of hemorrhoidectomy Hx of bilateral breast reduction surgery S/P ORIF (open reduction internal fixation) fracture Status post debridement Family History Family History Father Diabetes Mental health disorder Mother CVD (cardiovascular disease) Myocardial infarction Mental health disorder Brother Colon cancer Social History Social History Household Members: Significant Other and Family Housing: House Alcohol intake: current Alcohol intake frequency: holidays/special occasions only Patient Tobacco Use Status: Never used Tobacco e-Cigarette/Vaping Use: Never Used Second Hand Smoke Exposure: No Advance Directives: No Advance Directives Information Provided: Yes service: No Current occupational status: disabled Cognitive needs: No Hearing needs: Yes Vision needs: Yes Physical Exam Vital Signs: Vital Signs: Last Vital Signs Temp 98 F 06/14/22 09:57 Pulse 65 06/14/22 09:57 Resp 16 06/14/22 09:57 BP 118/52 L 06/14/22 09:57 Pulse Ox 98 06/14/22 09:57 O2 Del Method 06/14/22 09:57 BMI result Body Mass Index 41.1 vital signs have been reviewed as normal and appeared to be correct. Blood p ressure 118/52. Heart rate normal. Respiration rate normal. Temperature normal. Oxygen saturation normal. Appearance: Alert. Oriented X3. No acute distress. Head: Normal external exam. Normocephalic. Atraumatic. Eyes: PERRLA. EOMI. Conjunctiva and sclera normal. Eyelids normal. No Nguyễn sign noted. No raccoon eyes noted. ENT: Pharynx normal. Uvula midline. Moist mucous membranes. No trismus noted. No drooling noted. No muffled voice noted. Neck: Normal inspection. Neck supple. FROM. No adenopathy. Thyroid Normal. Trachea midline. No meningeal signs. No neck mass noted. Tender to palpation of bilateral paracervical musculature and mid cervical tenderness. No step-offs or deformities noted. Patient neuro intact bilaterally and distally on all 4 ex tremities. Reflexes intact bilaterally and distally in all 4 extremities. No rashes/lesion/induration/fluctuance or signs of infection noted. No edema noted. CVS: Normal heart rate and rhythm. Heart sound normal. No murmurs noted. Pulses normal throughout. Respiratory: No respiratory distress. Painless inspiration. Breath sounds normal. No wheezes/rales/rhonchi noted. Chest nontender. No accessory muscle usage noted or decreased air movement noted. Back: Full range of motion noted. No obvious deformities, or edema. Full ROM in back and lower extremities. Skin: Skin warm and dry. Normal skin color. Normal skin turgor. No rashes/lesions/lacerations noted. Extremities: Patient mild tenderness palpation to bilateral knees and bilateral ankles although no obvious ligamentous or tendon injury noted. No obvious deformities noted to bilateral knees or ankles. Achilles tendon is intact not perforated. Negative Neumann test bilaterally. No obvious joint effusion noted. She has full range of motion of bilateral knees and bilateral ankle and foot joints. Otherwise all other extremities exhibit normal range of motion nontender. There is no lower extremity edema noted. Neuro: Oriented X 3. No motor deficit. No sensory deficit. Reflexes normal. Normal steady gait. Course Course Course Narrative: 11:50am - 62yoF c PMHx of acquired hypothyroidism, anemia, anxiety, HTN, bradycardia, depression, fibromyalgia, GERD, HLD, overactive bladder, colitis, insomnia, vitamin-D deficiency and obesity who is presenting to the ER with complaints of right-sided neck pain and bilateral knee and ankle pain after she had a mechanical fall prior to arrival this morning. She reports that she was leaving her house in the concrete/sidewalk is uneven and she fell onto her bilateral knees and rolled onto her neck. Bilateral knee x-rays obtained while the patient was in triage revealed [id number] tricompartmental degenerative joint changes without acute osseous abnormalities. Trace suprapatellar joint effusion without significant change to the right knee. Left knee revealed tricompartmental osteoarthritis with new/increased suprapatellar joint effusion. Otherwise no other acute processes noted. Plan: Therefore at this time will obtain a CT scan of brain/cervical spine and x-rays of bilateral ankles. Provide 975 mg of Tylenol and 10 mg of Flexeril and re-evaluate. Reevaluation(s) Reevaluation #1: - CT scan of brain/cervical spine negative for any acute processes only chronic changes noted. - right ankle x-ray revealed chronic changes no acute processes only soft tissue swelling noted. - left ankle x-ray reveals undisplaced fracture of the medial malleolus. Otherwise no other acute processes noted. - therefore at this time will place in an ortho boot. Treat symptomatic and in structed follow-up with PCP/Orthopedics and to return if any new or worsening symptoms. Patient understands agrees with this plan. Time: 13:39 Procedures Orthopedic Splinting/Casting Injury #1: Side: left Lower Extremity Injury Location: ankle Lower Extremity Immobilizer: boot orthosis MDM - Fall Medical Records Attestation: I reviewed the patient's medical records. Imaging Data Bilateral knee x-rays: Attestation: I personally reviewed and interpreted this imaging study as follows: Radiologist's impression: FINDINGS: There is generalized osteopenia. Mild to moderate tricompartmental degenerative joint changes are seen, most pronounced in the patellofemoral joint space. There is no acute fracture or dislocation. Trace suprapatellar joint effusion. The soft tissues are unremarkable. XR/XR knee RT 2V IMPRESSION: [id number] tricompartmental degenerative joint changes without acute osseous abnormality. Trace suprapatellar joint effusion without significant change. FINDINGS: No fracture or dislocation. Small to moderate suprapatellar joint effusion, new or increased in conspicuity from the prior study. Again seen is tricompartmental osteoarthritis greatest in the patellofemoral compartment. XR/XR knee LT 2V IMPRESSION: No fracture or dislocation. ? Tricompartmental osteoarthritis greatest in the patellofemoral compartment, similar to prior study 02/04/2022. ? New/increased suprapatellar joint effusion. CT scan of brain/cervical spine without contrast: Attestation: I personally reviewed and interpreted this imaging study as follows: Radiologist's impression: FINDINGS: Head: There is no acute intracranial hemorrhage or abnormal extra-axial collection. No intracranial mass effect or midline shift. Lateral and third ventricles are normal. No hydrocephalus. Cervantes-white matter differentiation is preserved and there is no evidence of acute territorial infarct. The calvarium and skull base are intact. Mastoid air cells and middle ear cavities are well aerated. No active paranasal sinus disease. Cervical spine: Alignment is normal. Vertebral body heights are preserved. No acute fracture. No abnormal prevertebral soft tissue swelling. There is loss of intervertebral disc height with associated hypertrophic disc osteophyte spurring with associated sclerotic degenerative endplate changes and disc osteophyte spurring at C5-C6 and C6-C7. Canal patency is not well assessed on this examination due to inherent limitations of CT without intrathecal contrast. Soft tissues of the neck including the thyroid gland are normal. Grossly no pathologically enlarged cervical lymph nodes. Lung apices are clear. CT/CT head/brain wo IV con IMPRESSION: Unremarkable examination in that there is no acute intracranial hemorrhage. No acute cervical spine fracture.? Bilateral ankle x-rays: Attestation: I personally reviewed and interpreted this imaging study as follows: Radiologist's impression: FINDINGS: There is soft tissue swelling laterally not associated with acute fracture there is healed fracture deformity of right C6 metatarsal bone with callus formation and linear lucency laterally as a residual from the fracture seen in 2018. Ankle mortise is unremarkable medial malleolus is normal. There is plantar calcaneal spur? XR/XR ankle RT min 3V IMPRESSION: Soft tissue swelling. Healed fracture deformity of the fifth metatarsal bone and calcaneus spur. ? Left ankle 3 views ? CLINICAL INFORMATION: pain ? COMPARISON: October 2014 ? FINDINGS: Patient is status post repair of fifth metatarsal tarsal bone with [id number]. There is linear lucencies through the medial malleolus suggestive for acute fracture. There is no displacement of fragments. Lateral malleolus demonstrate no fractures. There is plantar calcaneal spur. ? IMPRESSION: undisplaced fracture of the medial malleolus Discharge Plan Discharge Clinical Impression: Fall, Knee sprain, bilateral, Right ankle sprain, Cervical strain, Joint effusion, knee, Fracture of ankle, medial malleolus, left, closed Patient Disposition: Home, Self-Care Instructions: Cervical Strain (ED), Ankle Fracture (ED), Knee Sprain (ED), Swollen Knee Joint (ED) Prescriptions: New acetaminophen [Tylenol Extra Strength] 500 mg tablet 1,000 mg PO QID PRN (Reason: fever or pain) Qty: 14 0RF cyclobenzaprine 10 mg tablet 10 mg PO Q8H Qty: 14 0RF oxycodone 5 mg tablet 5 mg PO Q6H PRN (Reason: pain) Qty: 14 0RF Rx Instructions: Partial Fill upon patient request. No Action naproxen 500 mg tablet 500 mg PO Q12H PRN (Reason: for pain) Qty: 180 1RF sertraline 100 mg tablet 200 mg PO DAILY 90 Days Qty: 180 1RF ferrous sulfate 325 mg (65 mg iron) tablet 325 mg PO DAILY Qty: 90 1RF mirtazapine 7.5 mg tablet 7.5 mg PO BEDTIME 30 Days Qty: 30 3RF Myrbetriq 25 mg tablet extended release 24 hr 25 mg PO DAILY 30 Days Qty: 90 2RF atorvastatin 40 mg tablet 40 mg PO DAILY Qty: 90 0RF omeprazole 40 mg capsule,delayed release(DR/EC) 40 mg PO DAILY Qty: 90 3RF lisinopril 10 mg tablet 10 mg PO DAILY Qty: 90 3RF pregabalin [Lyrica] 75 mg capsule 75 mg PO TID 30 Days Qty: 90 1RF lorazepam 0.5 mg tablet 0.5 mg PO BID PRN (Reason: anxiety) 30 Days Qty: 60 0RF nitrofurantoin macrocrystal 100 mg capsule 100 mg PO Q12H 5 Days Qty: 10 0RF Rx Instructions: must administer with a meal/food meloxicam 7.5 mg tablet 7.5 mg PO DAILY Qty: 14 0RF cholecalciferol (vitamin D3) 50 mcg (2,000 unit) capsule 50 mcg PO DAILY levothyroxine 150 mcg tablet 150 mcg PO DAILY 30 Days Qty: 30 11RF acarbose 50 mg tablet 50 mg PO TID 90 Days Qty: 270 11RF Referrals: [facility] [Provider Group] (Call to make a follow-up appointment within the next few weeks for left ankle fracture) Obdulio Patel MD [Primary Care Provider] - 2 days Print Language: Sami
--- NOTE | 2022-06-14 14:34 | PC.NURSE ---
correction boot and amilcar applied to left ext
== END 2022-06-14 14:34 | disposition home or self-care (01) ==
PROVIDERS: Emergency Provider Emergency Medicine; PCP Internal Medicine
DX: S82.892A Other fracture of left lower leg, initial encounter for closed fracture (principal); S93.401A Sprain of unspecified ligament of right ankle, initial encounter; S93.402A Sprain of unspecified ligament of left ankle, initial encounter; S13.4XXA Sprain of ligaments of cervical spine, initial encounter; M25.572 Pain in left ankle and joints of left foot; M25.571 Pain in right ankle and joints of right foot; R51.9 Headache, unspecified; M54.2 Cervicalgia; W01.0XXA Fall on same level from slipping, tripping and stumbling without subsequent striking against object, initial encounter; Y93.9 Activity, unspecified; Y92.9 Unspecified place or not applicable; Y99.9 Unspecified external cause status; Z79.899 Other long term (current) drug therapy
CPT/HCPCS: 70450; 72125; 73560; 73610; 99283

== ENCOUNTER 2022-06-15 11:02 | Outpatient (REF) | payer MEDICARE, SELFPAY ==
--- NOTE | ~2022-06-15 | XR_ITS ---
EXAMINATION: XR WRIST, LEFT CLINICAL INFORMATION: Left wrist pain COMPARISON: 08/12/2020 TECHNIQUE: PA, lateral, and oblique views of the left wrist. FINDINGS: The bones and soft tissues are normal. No fracture. Alignment is anatomic with normal joint spaces. No erosions or abnormal soft tissue calcifications. XR/XR wrist LT min 3V IMPRESSION: Normal left wrist.
== END 2022-06-15 11:03 | disposition home or self-care (01) ==
LOC: HO.XRAY 11:02
PROVIDERS: PCP Internal Medicine; Visit Provider Internal Medicine
DX: M25.532 Pain in left wrist (principal); Z91.81 History of falling
CPT/HCPCS: 73110

== ENCOUNTER 2022-06-25 08:40 | Outpatient (REF) | payer MEDICARE, SELFPAY ==
--- NOTE | ~2022-06-25 | XR_ITS ---
EXAMINATION: XR KNEE AP STANDING CLINICAL INFORMATION: Pain COMPARISON: Right and left knee radiographs from 06/14/2022 TECHNIQUE: AP bilateral standing view of the knees was obtained. FINDINGS: No acute visible fracture or dislocation. Bilateral moderate multicompartment degenerative changes with narrowing of the medial femorotibial compartment, left greater than right and periarticular osteophytes along the tibial plateau, distal femoral condyle, and patella. Joint spaces and alignment are otherwise maintained. Soft tissues are unremarkable. XR/XR knee standing BI IMPRESSION: 1. No acute visible fracture or dislocation. 2. Bilateral moderate multicompartment degenerative changes.
== END 2022-06-25 08:41 | disposition home or self-care (01) ==
LOC: HO.HOSX 08:40
PROVIDERS: Visit Provider Orthopaedic Surgery
DX: M17.0 Bilateral primary osteoarthritis of knee (principal); R53.81 Other malaise; S93.402A Sprain of unspecified ligament of left ankle, initial encounter; X58.XXXA Exposure to other specified factors, initial encounter; Y93.9 Activity, unspecified; Y92.9 Unspecified place or not applicable; Y99.9 Unspecified external cause status
CPT/HCPCS: 20610; 73565; 99212; J1100

== ENCOUNTER → 2022-06-29 09:38 | Outpatient (BNVA) | payer MEDICARE, SELFPAY | PROVIDERS: PCP Internal Medicine; Visit Provider Internal Medicine | DX: E03.9 Hypothyroidism, unspecified (principal); E16.2 Hypoglycemia, unspecified | CPT/HCPCS: 99212 ==

== ENCOUNTER → 2022-07-24 14:30 | Outpatient (BNVA) | payer MEDICARE, SELFPAY | PROVIDERS: PCP Internal Medicine; Visit Provider Urology | DX: N32.81 Overactive bladder (principal); N39.41 Urge incontinence | CPT/HCPCS: Q3014 ==

== ENCOUNTER 2022-08-12 11:00 | Outpatient (RCR) | payer MEDICARE, SELFPAY ==
--- NOTE | 2022-07-15 12:07 | MHC.PT.EP ---
[facility] [place] Office [place] Office [place] Office [address] Vanita Arce [address] [phone] F: [phone] F: [phone] F: [phone] F: [phone] Physical Therapy Plan of Care Date of Evaluation: Date of Surgery: Diagnosis: bilateral primary OA of knees Sprain of unspecified ligament L ankle (x-ray shows med malleoli fx) Assessment: Patient is pleasant 62 y/o female who is referred to PT by Dr. Anthony Spangler MD with Dx of bilateral knee OA and L ankle sprain, PT diagnosis is consistent with MD referral for knee OA, however, imaging showed fx of L ankle medial malleoli vs sprain. Her current impairments include pain, weakness, limited ROM, gait and reduced balance. Her current functional limitations include difficulty walking, performing reciprocal stairs, squats, prolonged standing, getting in/out of tub. Skilled PT will address impairments and functional limitations to meet goals. Frequency and Duration: The patient will be seen 1x/week for 6 weeks Short Term Goals: 3 weeks Patient presents with increased ankle DF 0 degrees to improve heel to toe gait pattern with cane use. Patient demonstrates consistency and independence with HEP to self manage chronic symptoms of OA. Correction Goals: 6 weeks Patient presents with increased bilateral knee extension 0 degrees to be able to ambulate level surfaces with LRAD safely. Patient presents with increased bilateral knee extension 4+/5 to be able to perform reciprocal steps at home with railing. Treatment Plan: Modalities to reduce pain, spasms and effusion. Manual therapy to restore motion and function. Therapeutic exercise to improve strength and flexibility. Neuromuscular re-education for posture and balance. Therapeutic activities to return to functional activities of daily living. Electronically signed by: Kristian Ferro, PT, DPT Please sign and return to therapist. Thank you for your referral.
--- NOTE | 2022-09-14 10:19 | MHC.PT.EP ---
[facility] [place] Office [place] [facility] [place] [facility] [address] Vanita Arce [address] [phone] F: [phone] F: [phone] F: [phone] F: [phone] Physical Therapy Plan of Care Date of Evaluation: Date of Surgery: Diagnosis: bilateral primary OA of knees Sprain of unspecified ligament L ankle (x-ray shows med malleoli fx) Assessment: Patient is pleasant 62 y/o female who is referred to PT by Dr. Anthony Spangler MD with Dx of bilateral knee OA and L ankle sprain, PT diagnosis is consistent with MD referral for knee OA, however, imaging showed fx of L ankle medial malleoli vs sprain. Her current impairments include pain, weakness, limited ROM, gait and reduced balance. Her current functional limitations include difficulty walking, performing reciprocal stairs, squats, prolonged standing, getting in/out of tub. Skilled PT will address impairments and functional limitations to meet goals. Frequency and Duration: The patient will be seen 1x/week for 6 weeks Short Term Goals: 3 weeks Patient presents with increased ankle DF 0 degrees to improve heel to toe gait pattern with cane use. Patient demonstrates consistency and independence with HEP to self manage chronic symptoms of OA. Chcf Goals: 6 weeks Patient presents with increased bilateral knee extension 0 degrees to be able to ambulate level surfaces with LRAD safely. Patient presents with increased bilateral knee extension 4+/5 to be able to perform reciprocal steps at home with railing. Treatment Plan: Modalities to reduce pain, spasms and effusion. Manual therapy to restore motion and function. Therapeutic exercise to improve strength and flexibility. Neuromuscular re-education for posture and balance. Therapeutic activities to return to functional activities of daily living. Electronically signed by: Kristian Ferro, PT, DPT Please sign and return to therapist. Thank you for your referral.
--- NOTE | 2022-09-14 10:20 | MHC.PT.DC ---
[facility] [place] Office [place] Office [place] Office [address] Vanita Arce [address] [phone] F: [phone] F: [phone] F: [phone] F: [phone] Physical Therapy Discharge Report Diagnosis: bilateral primary OA of knees Sprain of unspecified ligament L ankle (x-ray shows med malleoli fx) Date of Surgery: Date of Evaluation: 07/15/22 Date of Discharge: 09/14/22 Treatments to Date: 3 Cancellations to Date: No Shows to Date: Discharge Status: Improved Function Independent with HEP Discharge Summary: From patient's last treatment on 08/12/22: Pt exs at home. Pt I with HEP. Pt wishes to cont with program I. No pain after RX, only c/o fatigue. Pt challenged with balance exs. Electronically signed by: Kristian eFrro, PT, DPT Please sign and return to therapist. Thank you for your referral.
== END 2022-09-14 10:20 | disposition home or self-care (01) ==
LOC: HO.PTCHIC 11:00
PROVIDERS: PCP Internal Medicine; Visit Provider Orthopaedic Surgery
DX: M17.0 Bilateral primary osteoarthritis of knee (principal); R53.81 Other malaise; S93.402A Sprain of unspecified ligament of left ankle, initial encounter
CPT/HCPCS: 97110; 97112; 97116; 97162

== ENCOUNTER 2022-09-07 09:35 | Day surgery (SDC) | payer MEDICARE, SELFPAY ==
--- NOTE | 2022-09-04 09:07 | P.CONAN_ITS ---
Documented by User: Marcy Pfeiffer NP 09/04/22 09:09 HPI - Anesthesia Eval Consult details Narrative: 62yo F for Colonoscopy PMFSH Active Problems Active Problems: All Active Problems (Updated 07/24/22 @ 15:01 by Isidro Weems MD) Urge incontinence of urine (Acute) OAB (overactive bladder) (Acute) Neck muscle strain (Acute) Left ankle sprain (Acute) Bilateral primary osteoarthritis of knee (Acute) Status post fall (Acute) Left wrist pain (Acute) Primary osteoarthritis of right knee (Acute) Closed left ankle fracture (Acute) Vulvar irritation (Acute) Encounter for annual routine gynecological examination (Acute) Screening for colon cancer (Acute) Morbid obesity with BMI of 40.0-44.9, adult (Acute) Hearing impairment (Acute) Knee pain, bilateral (Acute) Gallbladder polyp (Acute) Right upper quadrant abdominal pain (Acute) Mucocele of salivary gland (Acute) Well woman exam (Acute) Urinary incontinence in female (Acute) Urinary frequency (Acute) Adult general medical exam (Acute) Cervical cancer screening (Acute) Anemia (Acute) Infection at site of external fixator pin (Acute) Obesity (BMI 30-39.9) (Acute) Depression (Acute) Anxiety (Acute) Primary insomnia (Acute) Microscopic colitis (Acute) GERD without esophagitis (Acute) Fibromyalgia (Acute) Acquired hypothyroidism (Acute) Impaired fasting glucose (Acute) Benign essential hypertension (Acute) Pure hypercholesterolemia (Acute) Hypoglycemia (Acute) Hypothyroidism (Acute) Vitamin D deficiency (Acute) Overactive bladder (Acute) Past Medical History Medical History Acquired hypothyroidism Anemia Anxiety ASCUS of cervix with negative high risk HPV Benign essential hypertension Bradycardia Depression Fibromyalgia GERD without esophagitis High cholesterol Hypertension Hypoglycemia Hypothyroidism Impaired fasting glucose Infected finger Infection at site of external fixator pin Microscopic colitis Obesity (BMI 30-39.9) Overactive bladder Primary insomnia Pure hypercholesterolemia Vitamin D deficiency Family History Family History Father Diabetes Mental health disorder Mother CVD (cardiovascular disease) Myocardial infarction Mental health disorder Brother Colon cancer Surgical History Surgical History H/O arthroscopy of left knee H/O section History of colonoscopy History of gastrointestinal tract bypass History of hemorrhoidectomy Hx of bilateral breast reduction surgery S/P ORIF (open reduction internal fixation) fracture Status post debridement Social History Social History Household Members: Significant Other and Family Housing: House Alcohol intake: current Alcohol intake frequency: holidays/special occasions only Patient Tobacco Use Status: Never used Tobacco e-Cigarette/Vaping Use: Never Used Second Hand Smoke Exposure: No Use of substances other than those prescribed or required for medical reasons: No Are you DNR?: No Advance Directives: No Advance Directives Information Provided: Yes service: No Current occupational status: disabled Cognitive needs: No Hearing needs: Yes Vision needs: Yes Meds Allergies Allergy/AdvReac Type Severity Reaction Status Date / Time fentanyl AdvReac Unknown Nausea and Verified 07/24/22 14:34 Vomiting Home Medications Medication Instructions Recorded Confirmed Last Taken Type cholecalciferol (vitamin D3) 50 50 mcg PO DAILY 05/23/20 09/07/22 Unknown History mcg (2,000 unit) capsule Exam Exam Date and Time: September 04, 2022 09 Pertinent Lab Results Pertinent Lab Results: Laboratory Tests 06/08/22 06/08/22 11:57 11:57 WBC 4.3 L Hgb 12.2 Hct 37.8 Plt Count 216 Sodium 142 Potassium 4.4 Chloride 104 Carbon Dioxide 27 BUN 20 H Creatinine 0.95 Assessment and Plan Assessment Anesthesia Assessment: Chart Reviewed Documented by User: Mae Hankins MD 09/07/22 12:08 [facility] Past Medical History Medical History Acquired hypothyroidism Anemia Anxiety ASCUS of cervix with negative high risk HPV Benign essential hypertension Bradycardia Depression Fibromyalgia GERD without esophagitis High cholesterol Hypertension Hypoglycemia Hypothyroidism Impaired fasting glucose Infected finger Infection at site of external fixator pin Microscopic colitis Obesity (BMI 30-39.9) Overactive bladder Primary insomnia Pure hypercholesterolemia Vitamin D deficiency Family History Family History Father Diabetes Mental health disorder Mother CVD (cardiovascular disease) Myocardial infarction Mental health disorder Brother Colon cancer Family history of problems with anesthesia: No Surgical History Surgical History H/O arthroscopy of left knee H/O section History of colonoscopy History of gastrointestinal tract bypass History of hemorrhoidectomy Hx of bilateral breast reduction surgery S/P ORIF (open reduction internal fixation) fracture Status post debridement History of Problems with Anesthesia: Yes (Nausa) Social History Social History Household Members: Significant Other and Family Housing: House Alcohol intake: current Alcohol intake frequency: holidays/special occasions only Patient Tobacco Use Status: Never used Tobacco e-Cigarette/Vaping Use: Never Used Second Hand Smoke Exposure: No Use of substances other than those prescribed or required for medical reasons: No Are you DNR?: No Advance Directives: No Advance Directives Information Provided: Yes service: No Current occupational status: disabled Cognitive needs: No Hearing needs: Yes Vision needs: Yes Meds Allergies Allergy/AdvReac Type Severity Reaction Status Date / Time fentanyl AdvReac Unknown Nausea and Verified 07/24/22 14:34 Vomiting Home Medications Medication Instructions Recorded Confirmed Last Taken Type cholecalciferol (vitamin D3) 50 50 mcg PO DAILY 05/23/20 09/07/22 Unknown History mcg (2,000 unit) capsule Exam Airway Mallampati Class: II TM Dist: >3cm Neck ROM: Full Denture: Upper and Lower Loose/Missing/Broken Teeth: Upper and Lower Assessment and Plan Final Anesthetic Review Family History of Problems with Anesthesia: No History of Problems with Anesthesia: Yes (Nausa) NPO: Yes ASA Class: III Final Preanesthetic Review: No Changes in Pt Med Stat, Meds/Allgs Chart Reviewed, Consent Obtained/Reviewed and Anes Risks/Benef Reviewed Patient Risk: Low Procedure Risk: Low Anesthetic Plan Anesthetic Plan: MAC:
[2022-09-07 09:55] VITALS: BP 111/62; PULSE 88; RESP 18; TEMP 35.9; O2SAT 98
[2022-09-07 10:40] VITALS: BMI 40.6
[2022-09-07] MEDS: Lactated Ringers 1,000 ML 100 ML IVCONT (10:42)
--- NOTE | 2022-09-07 12:35 | P.BOP_ITS ---
Brief Operative Note Date of Service: 09/07/22 Pre-op diagnosis: Screening Post-op diagnosis: other (Diverticulosis) Procedure: Colonoscopy to the cecum and TI Surgeon: Mickey Kline Anesthesia: MAC Was an [employer] used for this Procedure?: No Estimated blood loss (mL): 0 Pathology: none sent Condition: stable Disposition: PACU
[2022-09-07 12:37] VITALS: BP 101/39; PULSE 52; RESP 16; TEMP 37; O2SAT 96
[2022-09-07 12:52] VITALS: BP 104/57; PULSE 59; RESP 16; TEMP 37; O2SAT 96
--- NOTE | 2022-09-07 22:21 | OP_ITS ---
SURGEON: Mickey Kline MD INDICATIONS: The patient presents for evaluation of colorectal cancer screening. Full consent has been obtained from her for this, including risks of bleeding and perforation. PREOPERATIVE DIAGNOSIS: Colorectal cancer screening. POSTOPERATIVE DIAGNOSIS: Colorectal cancer screening, sigmoid diverticulosis, and internal hemorrhoids. PROCEDURE PERFORMED: Colonoscopy to the cecum and terminal ileum. ESTIMATED BLOOD LOSS: COMPLICATIONS: ANESTHESIA: Monitored anesthesia care. ASSISTANTS: SPECIMENS: DESCRIPTION OF PROCEDURE: The patient was placed in the left lateral decubitus position. The digital rectal exam revealed no abnormalities. The Olympus video pediatric colonoscope was entered into the rectum and advanced easily to the cecum. Once in the cecum, I did identify normal-appearing cecal pouch with appendiceal orifice and a normal-appearing ileocecal valve. The terminal ileum was cannulated and appeared normal. Scope withdrawn back in the colon. The entire cecum and ileocecal valve appeared normal. The scope was slowly withdrawn assessing all mucosal surfaces carefully. Preparation was excellent. I did not visualize any sign of polyps, colitis, nor angiodysplasia. There was a mild amount of sigmoid diverticulosis. In the rectum, scope was retroflexed visualizing small internal hemorrhoids, but no other pathology. The rectal mucosa appeared normal. The scope was straightened and withdrawn from the patient. She tolerated the procedure well and was returned to the recovery area in stable condition. IMPRESSION: 1. Sigmoid diverticulosis. 2. Internal hemorrhoids. PLAN: Given today's negative exam and negative family history, I would recommend a followup colonoscopy in 10 years for further screening. She will otherwise see me on a p.r.n. basis. MD DAYNA Tay/BEVL / [id number]
== END 2022-09-07 13:38 | disposition home or self-care (01) ==
PROVIDERS: PCP Internal Medicine; Visit Provider Internal Medicine
PROC: 0DJD8ZZ Inspection of Lower Intestinal Tract, Via Natural or Artificial Opening Endoscopic (ICD-10-PCS; CPT 45378; principal; 2022-09-07 10:50)
DX: Z12.11 Encounter for screening for malignant neoplasm of colon (principal); Z83.71 Family history of colonic polyps; K57.30 Diverticulosis of large intestine without perforation or abscess without bleeding; K64.8 Other hemorrhoids; K52.89 Other specified noninfective gastroenteritis and colitis; K21.9 Gastro-esophageal reflux disease without esophagitis; M79.7 Fibromyalgia; E03.9 Hypothyroidism, unspecified; E78.00 Pure hypercholesterolemia, unspecified; F41.8 Other specified anxiety disorders; Z79.899 Other long term (current) drug therapy; Z79.84 Long term (current) use of oral hypoglycemic drugs
CPT/HCPCS: G0105; J2405

== ENCOUNTER → 2022-09-28 14:00 | Outpatient (BNVA) | payer MEDICARE, SELFPAY | PROVIDERS: PCP Internal Medicine; Visit Provider Orthopaedic Surgery | DX: M17.0 Bilateral primary osteoarthritis of knee (principal) | CPT/HCPCS: 20610; 99212; J1100 ==

== ENCOUNTER 2022-10-01 15:45 | Outpatient (REF) | payer MEDICARE, SELFPAY ==
--- NOTE | ~2022-10-01 | MM_ITS ---
EXAMINATION: MM SCREENING DIGITAL BREAST TOMOSYNTHESIS, BILATERAL CLINICAL INFORMATION: Screening. Asymptomatic. First bilateral breast reduction surgery. The lifetime risk of breast cancer based on the Tyrer-Cuzick Model is 7.1%. COMPARISON: Mammography: September 25, 2021 and studies dating back to March 18, 2016 TECHNIQUE: Digital breast tomosynthesis is performed in both the craniocaudal and mediolateral oblique views along with computer-aided detection (CAD). Synthesized 2D images are generated from the tomosynthesis. FINDINGS: The breasts are almost entirely fatty (ACR BI-RADS breast composition Category a). There are no new significant masses, abnormal calcifications, or other abnormalities. Stable postsurgical change noted bilaterally. MM/MM tomosynthesis screening BI IMPRESSION: No significant changes from prior exam. ASSESSMENT: BI-RADS 2: Benign RECOMMENDATION: Routine annual mammography screening. This patient's information was entered into a reminder system with a target due date for their next mammogram.
== END 2022-10-01 15:46 | disposition home or self-care (01) ==
LOC: HO.MAMMO 15:45
PROVIDERS: PCP Internal Medicine; Visit Provider Internal Medicine
DX: Z12.31 Encounter for screening mammogram for malignant neoplasm of breast (principal)
CPT/HCPCS: 77063; 77067

== ENCOUNTER 2022-10-06 08:07 | Outpatient (REF) | payer MEDICARE, SELFPAY ==
[2022-10-06 10:19] LABS: Alanine Aminotransferase 25 U/L (0-31); Albumin Level 3.9 g/dL (3.5-5.0); Alkaline Phosphatase 102 U/L (39-117); Anion Gap 14 (12-20); Aspartate Amino Transferase 21 U/L (5-31); Bilirubin Total 0.5 mg/dL (0.0-1.0); Blood Urea Nitrogen 24 mg/dL (9-16); Calcium 8.9 mg/dL (8.4-10.2); Carbon Dioxide 21 mmol/L (22-29); Chloride 110 mmol/L (96-108); Cholesterol 146 mg/dL; Estimated Glomerular Filt Rate 59; Glucose Fasting 105 mg/dL (60-99); HDL Cholesterol 44 mg/dL; LDL Cholesterol Calculated 75 mg/dl; Potassium 4.1 mmol/L (3.3-5.1); Sodium 141 mmol/L (135-145); Total Protein 6.8 g/dL (6.5-8.0); Triglycerides 135 mg/dL
[2022-10-06 10:36] LABS: Thyroid Stimulating Hormone 4.16 uIU/mL (0.32-4.0)
[2022-10-06 10:42] LABS: Free T4 (Free Thyroxine) 0.92 ng/dL (0.71-1.85)
== END 2022-10-06 08:08 | disposition home or self-care (01) ==
LOC: HO.LAB 08:07
PROVIDERS: Internal Medicine; PCP Internal Medicine; Visit Provider Internal Medicine
DX: E78.00 Pure hypercholesterolemia, unspecified (principal); E03.9 Hypothyroidism, unspecified
CPT/HCPCS: 36415; 80053; 80061; 84439; 84443

== ENCOUNTER → 2022-11-09 09:22 | Outpatient (BNVA) | payer MEDICARE, SELFPAY | PROVIDERS: PCP Internal Medicine; Visit Provider Urology | DX: N32.81 Overactive bladder (principal); N39.41 Urge incontinence | CPT/HCPCS: 51798; 99212 ==

== ENCOUNTER → 2022-11-11 14:20 | Outpatient (BNVA) | payer MEDICARE, SELFPAY | PROVIDERS: PCP Internal Medicine; Visit Provider Orthopaedic Surgery | DX: Z01.812 Encounter for preprocedural laboratory examination (principal) ==

== ENCOUNTER 2022-11-11 15:17 | Outpatient (REF) | payer MEDICARE, SELFPAY ==
--- NOTE | 2022-11-11 15:24 | ECG_ITS ---
Test Reason : preop Blood Pressure : / mmHG Vent. Rate : 064 BPM Atrial Rate : 064 BPM P-R Int : 174 ms QRS Dur : 082 ms QT Int : 414 ms P-R-T Axes : 051 025 043 degrees QTc Int : 427 ms Normal sinus rhythm Normal ECG When compared with ECG of 01-JUL-2019 19:43, QRS duration has decreased QT has shortened Referred By: Anthony Spangler Electronically Signed By:CATHY ROBLEDO MD
[2022-11-11 15:36] LABS: MANUAL DIFF FLAG NO
[2022-11-11 16:04] LABS: Basophils Percent Auto 0.5 % (0-2); Eosinophils Absolute Auto 0.1 X10*3/uL (0.0-0.4); Hemoglobin 12.1 g/dl (12.0-16.0); Imm Gran Abs Auto 0.01 X10*3/uL (0.00-0.03); Imm Gran Pct Auto 0.2 % (0.0-0.4); Lymphocytes Absolute Auto 1.9 X10*3/uL (1.2-4.9); Lymphocytes Percent Auto 32.5 % (20-40); Mean Corpuscular HGB Conc 31.8 g/dl (31.0-35.0); Mean Corpuscular Hemoglobin 28.5 pg (27.0-33.0); Mean Corpuscular Volume 89.6 fL (80.0-98.0); Mean Platelet Volume 10.6 fL (9.4-12.3); Monocytes Absolute Auto 0.6 X10*3/uL (0.1-1.2); Monocytes Percent Auto 9.9 % (2-11); Neutrophils Absolute Auto 3.3 x10*3/uL (2.0-8.3); Neutrophils Percent Auto 54.9 % (45-73); Platelet Count 189 X10*3/uL (160-400); Red Blood Count 4.24 X10*6/uL (4.20-5.50); Red Cell Distribution Width 13.5 % (11.0-16.0); White Blood Count 5.9 X10*3/uL (4.8-10.8)
[2022-11-11 16:13] LABS: Estimated Average Glucose 111 mg/dL; Hemoglobin A1c % 5.5 %
[2022-11-11 16:39] LABS: Anion Gap 13 (12-20); Blood Urea Nitrogen 25 mg/dL (9-16); Calcium 9.3 mg/dL (8.4-10.2); Carbon Dioxide 26 mmol/L (22-29); Chloride 107 mmol/L (96-108); Estimated Glomerular Filt Rate > 60; Glucose Random 92 mg/dL (60-115); Potassium 4.3 mmol/L (3.3-5.1); Sodium 142 mmol/L (135-145)
== END 2022-11-11 15:18 | disposition home or self-care (01) ==
LOC: HO.LAB 15:17
PROVIDERS: PCP Internal Medicine; Visit Provider Orthopaedic Surgery
DX: Z01.818 Encounter for other preprocedural examination (principal); E11.9 Type 2 diabetes mellitus without complications
CPT/HCPCS: 36415; 80048; 83036; 85025; 93005

== ENCOUNTER → 2022-12-10 13:22 | Outpatient (BNVA) | payer MEDICARE, SELFPAY | PROVIDERS: PCP Internal Medicine; Visit Provider Physician Assistant | DX: Z01.818 Encounter for other preprocedural examination (principal); M17.12 Unilateral primary osteoarthritis, left knee | CPT/HCPCS: 99212 ==

== ENCOUNTER 2022-12-15 08:24 | Inpatient (IN) | payer MEDICARE, SELFPAY ==
[2022-12-01 12:20] VITALS: BP 103/60; PULSE 63; RESP 16; O2SAT 97; BMI 41.8
--- NOTE | 2022-12-01 12:40 | P.CONAN_ITS ---
Documented by User: Marcy Pfeiffer NP 12/09/22 08:29 HPI - Anesthesia Eval Consult details Narrative: 62yo F for Left Knee Replacement Total 12/15/22 PCP cleared Hx N/V with spinal in 2012 [facility] Active Problems Active Problems: All Active Problems (Updated 11/24/22 @ 14:24 by Obdulio Patel MD) Cervical cancer screening (Acute) Adult general medical exam (Acute) Urinary frequency (Acute) Urinary incontinence in female (Acute) Well woman exam (Acute) Mucocele of salivary gland (Acute) Right upper quadrant abdominal pain (Acute) Gallbladder polyp (Acute) Knee pain, bilateral (Acute) Hearing impairment (Acute) Morbid obesity with BMI of 40.0-44.9, adult (Acute) Screening for colon cancer (Acute) Encounter for annual routine gynecological examination (Acute) Vulvar irritation (Acute) Closed left ankle fracture (Acute) Primary osteoarthritis of right knee (Acute) Left wrist pain (Acute) Status post fall (Acute) Bilateral primary osteoarthritis of knee (Acute) Left ankle sprain (Acute) Neck muscle strain (Acute) OAB (overactive bladder) (Acute) Urge incontinence of urine (Acute) Bronchitis (Acute) Preoperative examination (Acute) Anemia (Acute) Infection at site of external fixator pin (Acute) Obesity (BMI 30-39.9) (Acute) Depression (Acute) Anxiety (Acute) Primary insomnia (Acute) Microscopic colitis (Acute) GERD without esophagitis (Acute) Fibromyalgia (Acute) Acquired hypothyroidism (Acute) Impaired fasting glucose (Acute) Benign essential hypertension (Acute) Pure hypercholesterolemia (Acute) Hypoglycemia (Acute) Hypothyroidism (Acute) Vitamin D deficiency (Acute) Overactive bladder (Acute) Past Medical History Medical History Acquired hypothyroidism Anemia Anxiety ASCUS of cervix with negative high risk HPV Benign essential hypertension Bradycardia Depression Fibromyalgia GERD without esophagitis Hypoglycemia Hypothyroidism Impaired fasting glucose Infection at site of external fixator pin Microscopic colitis Obesity (BMI 30-39.9) OSMANI (obstructive sleep apnea) Overactive bladder Primary insomnia Pure hypercholesterolemia Vitamin D deficiency Family History Family History Father Diabetes Mental health disorder Mother CVD (cardiovascular disease) Myocardial infarction Mental health disorder Brother Colon cancer Family history of problems with anesthesia: No Surgical History Surgical History H/O arthroscopy of left knee H/O section History of colonoscopy History of gastrointestinal tract bypass History of hemorrhoidectomy Hx of bilateral breast reduction surgery Hx of cystoscopy Hx of foot surgery Hx of foot surgery S/P ORIF (open reduction internal fixation) fracture Status post debridement History of Problems with Anesthesia: Yes (N/V with spinal) Social History Social History Household Members: Significant Other and Family Housing: House Are you a primary small animal caretaker to a significant other at home: No Do you presently have visiting nurse or other home services: No Alcohol intake: current Alcohol intake frequency: holidays/special occasions only Patient Tobacco Use Status: Never used Tobacco e-Cigarette/Vaping Use: Never Used Second Hand Smoke Exposure: No Use of substances other than those prescribed or required for medical reasons: No Have you been hit, kicked, punched, or otherwise hurt by someone within the past year? If so, by whom?: No Are you DNR?: No Advance Directives: No Advance Directives Information Provided: Yes Advance Directives on File: No Recently lost weight without trying: No service: No Current occupational status: disabled Cognitive needs: No Hearing needs: Yes Vision needs: Yes Narrative Narrative: No recent illness No CP/SOB with Water aerobics Meds Allergies Allergy/AdvReac Type Severity Reaction Status Date / Time fentanyl AdvReac Unknown Nausea and Verified 12/10/22 13:30 Vomiting Home Medications Medication Instructions Recorded Confirmed Last Taken Type cholecalciferol (vitamin D3) 50 50 mcg PO DAILY 05/23/20 12/10/22 12/01/22 History mcg (2,000 unit) capsule Exam Exam Date and Time: December 01, 2022 1240 Height,Weight and Vital Signs: Height 5 ft Weight 97.2 kg Last Vital Signs Pulse 63 12/01/22 12:20 Resp 16 12/01/22 12:20 BP 103/60 12/01/22 12:20 Pulse Ox 97 12/01/22 12:20 O2 Del Method Room Air 12/01/22 12:20 Pertinent Lab Results Pertinent Lab Results: Laboratory Tests 11/11/22 11/11/22 15:33 15:33 WBC 5.9 Hgb 12.1 Hct 38.0 Plt Count 189 Sodium 142 Potassium 4.3 Chloride 107 Carbon Dioxide 26 BUN 25 H Creatinine 0.92 Narrative Narrative: EKG 10/2022 Vent. Rate : 064 BPM ? ? Atrial Rate : 064 BPM ?? P-R Int : 174 ms? QRS Dur : 082 ms ? ? QT Int : 414 ms ? ? ? P-R-T Axes : 051 025 043 degrees ?? QTc Int : 427 ms ? Normal sinus rhythm Normal ECG When compared with ECG of 01-JUL-2019 19:43, QRS duration has decreased QT has shortened Airway Mallampati Class: I TM Dist: >3cm Neck ROM: Limited Denture: Upper and Lower Heart: RRR Lungs: CTAB Assessment and Plan Assessment Anesthesia Assessment: Anesthesia Plan Discussed and PAT Visit Final Anesthetic Review Family History of Problems with Anesthesia: No History of Problems with Anesthesia: Yes (N/V with spinal) Documented by User: Jann Barth MD 12/15/22 11:20 PMFSH Past Medical History Medical History Acquired hypothyroidism Anemia Anxiety ASCUS of cervix with negative high risk HPV Benign essential hypertension Bradycardia Depression Fibromyalgia GERD without esophagitis Hypoglycemia Hypothyroidism Impaired fasting glucose Infection at site of external fixator pin Microscopic colitis Obesity (BMI 30-39.9) OSMANI (obstructive sleep apnea) Overactive bladder Primary insomnia Pure hypercholesterolemia Vitamin D deficiency Family History Family History Father Diabetes Mental health disorder Mother CVD (cardiovascular disease) Myocardial infarction Mental health disorder Brother Colon cancer Surgical History Surgical History H/O arthroscopy of left knee H/O section History of colonoscopy History of gastrointestinal tract bypass History of hemorrhoidectomy Hx of bilateral breast reduction surgery Hx of cystoscopy Hx of foot surgery Hx of foot surgery S/P ORIF (open reduction internal fixation) fracture Status post debridement Social History Social History Household Members: Significant Other and Family Housing: House Are you a primary small animal caretaker to a significant other at home: No Do you presently have visiting nurse or other home services: No Alcohol intake: current Alcohol intake frequency: holidays/special occasions only Patient Tobacco Use Status: Never used Tobacco e-Cigarette/Vaping Use: Never Used Second Hand Smoke Exposure: No Use of substances other than those prescribed or required for medical reasons: No Have you been hit, kicked, punched, or otherwise hurt by someone within the past year? If so, by whom?: No Are you DNR?: No Advance Directives: No Advance Directives Information Provided: Yes Advance Directives on File: No Recently lost weight without trying: No service: No Current occupational status: disabled Cognitive needs: No Hearing needs: Yes Vision needs: Yes Meds Allergies Allergy/AdvReac Type Severity Reaction Status Date / Time fentanyl AdvReac Unknown Nausea and Verified 12/10/22 13:30 Vomiting Home Medications Medication Instructions Recorded Confirmed Last Taken Type cholecalciferol (vitamin D3) 50 50 mcg PO DAILY 05/23/20 12/10/22 12/01/22 History mcg (2,000 unit) capsule Assessment and Plan Final Anesthetic Review NPO: Yes ASA Class: III Final Preanesthetic Review: No Changes in Pt Med Stat, Meds/Allgs Chart Reviewed, Consent Obtained/Reviewed and Anes Risks/Benef Reviewed Patient Risk: Intermediate Procedure Risk: Intermediate Anesthetic Plan Anesthetic Plan: MAC:, Spinal and Regional Block Disposition: Standard PACU
[2022-12-01 14:48] LABS: MRSA Nasal PCR NEGATIVE (Negative); SA Nasal PCR NEGATIVE (Negative)
[2022-12-15] VITALS (16 sets, daily range): BP systolic 106–158; BP diastolic 41–89; PULSE 44–82; RESP 16–20; TEMP 36.2–36.8; O2SAT 61–99
--- NOTE | ~2022-12-15 | XR_ITS ---
EXAMINATION: XR KNEE, LEFT CLINICAL INFORMATION: Postop COMPARISON: 06/25/2022 TECHNIQUE: Four views of the left knee. FINDINGS: Prosthetic components of the left total knee arthroplasty are appropriately aligned. No periprosthetic fracture. Gas from recent surgery is present in the joint and surrounding soft tissues. A joint effusion is present. XR/XR knee LT 2V IMPRESSION: Appropriate alignment of the left total knee arthroplasty.
--- NOTE | 2022-12-15 08:39 | PHA.MEDREC ---
Pharmacy Consult ? Medication Reconciliation Pharmacy has completed the medication reconciliation. Reviewed med rec done by nursing
[2022-12-15 10:02] LABS: Hematocrit 39.4 % (37.0-47.0); Hemoglobin 12.7 g/dl (12.0-16.0)
[2022-12-15] MEDS: Lactated Ringers 1,000 ML 100 ML IVCONT ×2 (10:10→14:28)
--- NOTE | 2022-12-15 10:19 | MHC.SHP ---
Pre-Procedural Eval Section A Date of Service: 12/15/22 The patient is an INPATIENT: No Changes since office visit: No Cold of Flu in the past 2 weeks, No New Medical Problems, No Changes in Medication and No Patient answered all questions The History & Physical has been completed within 30 days and I have reviewed it.: Yes Section B Chief Complaint: LT TKA Allergies: Allergies Allergy/AdvReac Type Severity Reaction Status Date / Time fentanyl AdvReac Unknown Nausea and Verified 12/10/22 13:30 Vomiting Plan I have reviewed the history and physical and performed a pertinent physical examination on my patient. No changes have occurred unless specified. Time Spent With Patient Time: Total time managing care of this patient today ____ minutes.
--- NOTE | 2022-12-15 12:20 | P.BOP_ITS ---
Brief Operative Note Date of Service: 12/15/22 Pre-op diagnosis: Left knee OA Post-op diagnosis: same Procedure: Left TKA Implants: [place] Triathlon Press fit posterior stabilized 10/24/11S/a Surgeon: Anthony Spangler MD Anesthesia: regional and spinal Was an Medical Assistant Ob Gyn used for this Procedure?: Yes Medical Assistant Ob Gyn: Alber Walters Estimated blood loss (mL): 200 IV fluids (mL): 1,000 Pathology: other Condition: stable Disposition: PACU
[2022-12-15] MEDS: HYDROmorphone HCl 0.5 MG/0.5 ML SYRINGE 0.25 MG IVPUSH ×6 (12:58→19:34)
[2022-12-15] MEDS: oxyCODONE HCl Immed Release 5 MG TABLET PO ×3 (12:58→22:12)
[2022-12-15] MEDS: Acetaminophen 1,000 MG/100 ML PIGGYBACK 400 MG IV (13:10)
--- NOTE | 2022-12-15 14:50 | HO.PM.IMCN ---
History of Present Illness Data of Consult Service Date: 12/15/22 Requesting physician: Alber Walters Primary Care Provider: Obdulio Patel MD HPI Reason for consult: medical management 62-year-old female with history of hypertension, hypothyroidism, vitamin-D deficiency, GERD, fibromyalgia, depression/anxiety, insomnia, impaired flashing glucose, hyperlipidemia, and urinary urgency admitted to Orthopedic surgery for management of osteoarthritis of the left knee s/p TKA with consult placed to hospitalist service for medical management. At this time, she is reporting mild discomfort in the left knee but otherwise has no complaints. Denies any alcohol use, illicit drug use, marijuana use, or cigarette smoking. Review of Systems Review of Systems: General: No fevers, malaise, unintentional weight loss HEENT: No blurred vision, diplopia. No sore throat, nasal congestion, rhinorrhea, sinus pain, ear pain Cardiovascular: No chest pain, palpitations, or leg edema Respiratory: No shortness of breath, wheezing, cough GI: No abdominal pain, nausea, vomiting, diarrhea, constipation, melena, hematochezia : No dysuria, hematuria, increased urinary frequency, decreased urinary output MSK: No myalgia, back pain. +left knee pain Neuro: No headaches, weakness, paresthesias Skin: No rashes or lesions PMFSH Medical History Acquired hypothyroidism Anemia Anxiety ASCUS of cervix with negative high risk HPV Benign essential hypertension Bradycardia Depression Fibromyalgia GERD without esophagitis Hypoglycemia Hypothyroidism Impaired fasting glucose Infection at site of external fixator pin Microscopic colitis Obesity (BMI 30-39.9) OSMANI (obstructive sleep apnea) Overactive bladder Primary insomnia Pure hypercholesterolemia Vitamin D deficiency Family History Father Diabetes Mental health disorder Mother CVD (cardiovascular disease) Myocardial infarction Mental health disorder Brother Colon cancer Surgical History H/O arthroscopy of left knee H/O section History of colonoscopy History of gastrointestinal tract bypass History of hemorrhoidectomy Hx of bilateral breast reduction surgery Hx of cystoscopy Hx of foot surgery Hx of foot surgery S/P ORIF (open reduction internal fixation) fracture Status post debridement Social History Household Members: Spouse and Children Housing: House Are you a primary child care leader to a significant other at home: No Do you presently have visiting nurse or other home services: No Alcohol intake: current Alcohol intake frequency: holidays/special occasions only Patient Tobacco Use Status: Never used Tobacco e-Cigarette/Vaping Use: Never Used Second Hand Smoke Exposure: No Use of substances other than those prescribed or required for medical reasons: No Have you been hit, kicked, punched, or otherwise hurt by someone within the past year? If so, by whom?: No Do you feel safe in your current relationship?: Yes Is there a partner from a previous relationship who is making you feel unsafe now?: No Are you made to feel afraid or neglected: No Are you DNR?: No Advance Directives: No Advance Directives Information Provided: Yes Advance Directives on File: No Do you have thoughts of harming others: None Do you have a plan to hurt others: No Plan Recently lost weight without trying: No How much weight loss: Not applicable Eating poorly because of decreased appetite: No Nutrition screen score: 0 Nutrition Risks: No Nutritional Risk Patient : No : No Poor oral hygiene: No service: No Current occupational status: disabled Cognitive needs: No Hearing needs: Yes Vision needs: Yes Meds Allergies Allergy/AdvReac Type Severity Reaction Status Date / Time fentanyl AdvReac Unknown Nausea and Verified 12/10/22 13:30 Vomiting Active Medications: Current Medications Acetaminophen (Acetaminophen 325 Mg Tablet) 650 mg PO Q6H PRN PRN Reason: Pain, Mild (Pain Scale 1-3) Celecoxib (Celecoxib 200 Mg Capsule) 200 mg PO BID [place]ANS[place] Docusate Sodium (Docusate Sodium 100 Mg Capsule) 100 mg PO BID [place]ANS[place] Enoxaparin Sodium (Enoxaparin Sodium 40 Mg/0.4 Ml Syringe) 40 mg SUBCUT Q24H [place]ANS[place] Ferrous Sulfate (Ferrous Sulfate 324 Mg Tablet.Dr) 324 mg PO DAILY [place]ANS[place] Hydromorphone HCl (Hydromorphone Hcl 0.5 Mg/0.5 Ml Syringe) 0.25 mg IVPUSH Q4H PRN; Protocol PRN Reason: Pain, Severe (Pain Scale 7-10) Lactated Ringer's (Lr) 1,000 mls @ 100 mls/hr IVCONT .Q10H FRANSICO Stop: 12/16/22 13:59 Last Admin: 12/15/22 14:28 Dose: 100 mls/hr Cefazolin Sodium/Dextrose (Ancef) 2 gm in 50 mls @ 100 mls/hr IV POSTOP ONE Stop: 12/15/22 17:14 Levothyroxine Sodium (Levothyroxine Sodium 175 Mcg Tablet) 175 mcg PO DAILY@0600 [facility] Lorazepam (Lorazepam 0.5 Mg Tablet) 0.5 mg PO BID PRN PRN Reason: anxiety Mirtazapine (Mirtazapine 7.5 Mg Tablet) 7.5 mg PO BEDTIME [facility] Omeprazole (Omeprazole 40 Mg Capsule.Dr) 40 mg PO DAILY@0630 [facility] Ondansetron HCl (Ondansetron Hcl 4 Mg/2 Ml Vial) 4 mg IVPUSH Q8H PRN PRN Reason: Nausea and Vomiting Oxybutynin Chloride (Oxybutynin Chloride Er 5 Mg Tab.Er.24) 15 mg PO DAILY [facility] Oxycodone HCl (Oxycodone Hcl Immed Release 5 Mg Tablet) 5 mg PO Q4H PRN PRN Reason: Pain, Moderate (Pain Scale 4-6 Oxycodone HCl (Oxycodone Hcl Er 10 Mg Tab.Er.12h) 10 mg PO BID [facility] Pregabalin (Pregabalin 75 Mg Capsule) 75 mg PO TID [facility] Sertraline HCl (Sertraline Hcl 100 Mg Tablet) 200 mg PO DAILY [facility] Sodium Chloride (0.9 % Sodium Chloride Flush 3 Ml Syringe) 3 ml IVFLUSH QSHIFT [facility] Home Medications Medication Instructions Recorded Confirmed Last Taken Type cholecalciferol (vitamin D3) 50 50 mcg PO DAILY 05/23/20 12/10/22 12/01/22 History mcg (2,000 unit) capsule Physical Exam Vital Signs and Narrative: Vital Signs: Last Vital Signs Temp 97.1 F 12/15/22 13:53 Pulse 50 12/15/22 13:53 Resp 16 12/15/22 13:53 BP 152/62 H 12/15/22 13:53 Pulse Ox 98 12/15/22 13:53 O2 Del Method Room Air 12/15/22 13:53 BMI result Body Mass Index 41.8 Constitutional - Awake and Alert, No apparent distress Eyes - PERRLA, EOMI Cardiovascular - S1S2, RRR, 1+ble edema Respiratory - Normal lung expansion, Normal respiratory effort, No respiratory distress, CTA bilaterally Gastrointestinal - NT / ND; +BS; No rebound or guarding Extremities - no calf tenderness bilaterally Musculoskeletal - post-op bandage and compression wrap in place left knee Skin - Warm/Dry Neurological - Alert & oriented x3 Psychological - Appropriate affect Results Labs 12/15/22 09:58 12/15/22 14:26 Assessment and Plan (1) Osteoarthritis of left knee: Status: Acute Plan 62-year-old female with history of hypertension, hypothyroidism, vitamin-D deficiency, GERD, fibromyalgia, depression/anxiety, insomnia, impaired flashing glucose, hyperlipidemia, and urinary urgency admitted to Orthopedic surgery for management of osteoarthritis of the left knee s/p TKA with consult placed to hospitalist service for medical management. # osteoarthritis left knee s/p TKA pod 0 -plan per orthopedic surgery # hypertension-reasonably controlled -resume antihypertensives a.m. # hypothyroidism -continue Synthroid # GERD -continue PPI # urinary urgency -continue oxybutynin # fibromyalgia/mood disorder -continue home meds Thank you for allowing me to participate in this consult. Signing off at this time. Please do not hesitate to call for further questions. Time Spent With Patient Time: Total time managing care of this patient today ____ minutes.
[2022-12-15] MEDS: 0.9 % Sodium Chloride Flush 3 ML SYRINGE IVFLUSH ×2 (15:11→19:35)
[2022-12-15 15:12] LABS: Creatinine Clr Calc Pharmacy 63.8; Estimated Glomerular Filt Rate 58
[2022-12-15] MEDS: ceFAZolin Sodium/Dextrose,Iso 2 GM/50 ML PIGGYBACK IV (16:31)
[2022-12-15] MEDS: Pregabalin 75 MG CAPSULE PO ×2 (17:54→19:35)
[2022-12-15] MEDS: Celecoxib 200 MG CAPSULE PO (19:34)
[2022-12-15] MEDS: oxyCODONE HCl ER 10 MG TAB.ER.12H PO (19:34)
[2022-12-15] MEDS: Docusate Sodium 100 MG CAPSULE PO (19:34)
[2022-12-15] MEDS: Mirtazapine 7.5 MG TABLET PO (19:35)
[2022-12-15] MEDS: Acetaminophen 325 MG TABLET 650 MG PO (22:12)
[2022-12-16] MEDS: Lactated Ringers 1,000 ML 100 ML IVCONT ×2 (00:39→09:34)
[2022-12-16] MEDS: HYDROmorphone HCl 0.5 MG/0.5 ML SYRINGE 0.25 MG IVPUSH ×2 (00:44→07:47)
[2022-12-16 03:43] VITALS: BP 153/76; PULSE 68; RESP 18; TEMP 36.8; O2SAT 98
[2022-12-16] MEDS: Acetaminophen 325 MG TABLET 650 MG PO ×3 (04:13→18:11)
[2022-12-16] MEDS: oxyCODONE HCl Immed Release 5 MG TABLET PO ×4 (04:13→20:21)
[2022-12-16] MEDS: Levothyroxine Sodium 175 MCG TABLET PO (05:44)
[2022-12-16] MEDS: Omeprazole 40 MG CAPSULE.DR PO (05:44)
--- NOTE | 2022-12-16 05:49 | P.PNOP_ITS ---
Subjective Subjective Date of Service: 12/16/22 Interval history: POD 1 s/p LT TKA Physical Exam Vital Signs: Vital Signs: Last Vital Signs Temp 98.3 F 12/16/22 03:43 Pulse 68 12/16/22 03:43 Resp 18 12/16/22 03:43 BP 153/76 H 12/16/22 03:43 Pulse Ox 98 12/16/22 03:43 O2 Del Method Room Air 12/16/22 03:43 BMI result Body Mass Index 41.8 Const: General: cooperative, healthy appearing and no acute distress Resp: Effort & Inspection: normal respiratory effort and able to speak in c omplete sentences Cardio: Rate: regular rate Peripheral pulses: Peripheral pulses 2+ throughout GI: Palpation (GI): Soft to palpation Skin: General skin exam: no rashes or lesions noted Extrem: Other: bandage clean dry and intact. [place] intact. No erythema or joint effusion. Calf supple nontender. Ankle and foot ROM intact. Neurovascularly intact. Progress Note: A&P Assessment and plan (1) Status post total left knee replacement: Status: Acute Assessment and Plan: * Continue pain mgmnt * Begin Lovenox for dvt ppx * begin PT for LT TKA * Dispo planning-Pending PT eval, pain mgmnt Time Spent With Patient Time: Total time managing care of this patient today ____ minutes.
[2022-12-16 06:38] LABS: MANUAL DIFF FLAG NO
[2022-12-16 07:00] LABS: Basophils Percent Auto 0.2 % (0-2); Eosinophils Percent Auto 0.2 % (0-4); Hematocrit 29.9 % (37.0-47.0); Hemoglobin 9.7 g/dl (12.0-16.0); Imm Gran Abs Auto 0.01 X10*3/uL (0.00-0.03); Imm Gran Pct Auto 0.2 % (0.0-0.4); Lymphocytes Percent Auto 14.9 % (20-40); Mean Corpuscular HGB Conc 32.4 g/dl (31.0-35.0); Mean Corpuscular Hemoglobin 28.4 pg (27.0-33.0); Mean Corpuscular Volume 87.7 fL (80.0-98.0); Mean Platelet Volume 10.3 fL (9.4-12.3); Monocytes Absolute Auto 0.8 X10*3/uL (0.1-1.2); Monocytes Percent Auto 12.1 % (2-11); Neutrophils Absolute Auto 4.6 x10*3/uL (2.0-8.3); Neutrophils Percent Auto 72.4 % (45-73); Platelet Count 171 X10*3/uL (160-400); Red Blood Count 3.41 X10*6/uL (4.20-5.50); Red Cell Distribution Width 13.6 % (11.0-16.0); White Blood Count 6.4 X10*3/uL (4.8-10.8)
--- NOTE | 2022-12-16 07:05 | PM.PNORT ---
Subjective Subjective Date of Service: 12/16/22 Interval history: POD1 s/p LTKA. Patient is resting in bed comfortably. No overnight events. Pain is managed. No additional complaints. Physical Exam Vital Signs: Vital Signs: Last Vital Signs Temp 98.3 F 12/16/22 03:43 Pulse 68 12/16/22 03:43 Resp 18 12/16/22 03:43 BP 153/76 H 12/16/22 03:43 Pulse Ox 98 12/16/22 03:43 O2 Del Method Room Air 12/16/22 03:43 BMI result Body Mass Index 41.8 Const: General: cooperative, healthy appearing and no acute distress Resp: Effort & Inspection: normal respiratory effort and able to speak in complete sentences Cardio: Rate: regular rate Peripheral pulses: Peripheral pulses 2+ throughout GI: Palpation (GI): Soft to palpation Skin: Lesions: no lesions Rashes: no rashes Extrem: Other: Left knee Aquacel is c/d/i. Able to dorsiflex and plantarflex. NVI. Procedures Date of Service Date of Service: 12/16/22 Progress Note: A&P Assessment and plan (1) Status post total left knee replacement: Status: Acute Plan Continue pain mgmnt Begin Lovenox for dvt ppx begin PT for LTKA Dispo planning-Pending PT eval, pain mgmnt Time Spent With Patient Time: Total time managing care of this patient today ____ minutes. Quality Stroke Does the patient have a stroke diagnosis?: No VTE Prior VTE?: No VTE Risk Level:: Medical - moderate - high VTE Device Contraindication: N/A - Device Ordered VTE Drug Contraindication: N/A - Med Ordered
[2022-12-16 07:09] VITALS: BP 143/70; PULSE 72; RESP 19; TEMP 36.1; O2SAT 97
[2022-12-16 07:19] LABS: Anion Gap 13 (12-20); Blood Urea Nitrogen 12 mg/dL (9-16); Calcium 8.1 mg/dL (8.4-10.2); Carbon Dioxide 24 mmol/L (22-29); Chloride 106 mmol/L (96-108); Estimated Glomerular Filt Rate > 60; Glucose Fasting 113 mg/dL (60-99); Potassium 4.3 mmol/L (3.3-5.1); Sodium 139 mmol/L (135-145)
[2022-12-16] MEDS: oxyBUTYnin chloride ER 5 MG TAB.ER.24 15 MG PO (07:44)
[2022-12-16] MEDS: Ferrous Sulfate 324 MG TABLET.DR PO (07:45)
[2022-12-16] MEDS: Docusate Sodium 100 MG CAPSULE PO ×2 (07:45→19:37)
[2022-12-16] MEDS: Sertraline HCL 100 MG TABLET 200 MG PO (07:45)
[2022-12-16] MEDS: oxyCODONE HCl ER 10 MG TAB.ER.12H PO ×2 (07:45→19:38)
[2022-12-16] MEDS: Celecoxib 200 MG CAPSULE PO ×2 (07:45→19:37)
[2022-12-16] MEDS: 0.9 % Sodium Chloride Flush 3 ML SYRINGE IVFLUSH ×3 (07:46→23:00)
[2022-12-16] MEDS: Pregabalin 75 MG CAPSULE PO ×3 (07:46→19:37)
[2022-12-16 09:41] VITALS: PULSE 84; O2SAT 98
[2022-12-16] MEDS: Enoxaparin Sodium 40 MG/0.4 ML SYRINGE SUBCUT (11:16)
--- NOTE | 2022-12-16 12:41 | HO.POSTANES ---
Post Anesthesia Evaluation Post Anesthesia Evaluation Vital Signs: Vital Signs Temp Pulse Resp BP Pulse Ox O2 Del Method 12/16/22 09:41 84 98 12/16/22 07:09 97 F 72 19 143/70 H 97 Room Air 12/16/22 03:43 98.3 F 68 18 153/76 H 98 Room Air Anesthesia: Spinal and Nerve Block Mental Status: Awake Pain Control: Satisfactory Nausea/Vomiting: None Hydration: Adequate Anesthesia-Related Issues: No Anes. Related Issues
--- NOTE | 2022-12-16 13:37 | MHC.CM.PN ---
IMM 12/16/22 Female 62 S/P L TKA She lives w spouse. Needs assist adls. HCP on file vaxxed x 5 DP home with family support and transport. [facility] referred for home services as Pts request.
--- NOTE | 2022-12-16 14:34 | MHC.CM.PN ---
Addendum entered by Elyssa Joshi 12/17/22 10:14: NOTE WRITTEN ON WRONG PT. DCP: HOME WITH PT Original Note: pt will need 6 weeks iv antibiotics referral to [facility]
[2022-12-16 15:41] VITALS: BP 143/67; PULSE 70; RESP 18; TEMP 37; O2SAT 98
[2022-12-16] MEDS: Mirtazapine 7.5 MG TABLET PO (19:37)
[2022-12-16 20:00] VITALS: BP 101/50; PULSE 92; RESP 17; TEMP 36.1; O2SAT 97
[2022-12-17 03:27] VITALS: BP 151/65; PULSE 66; RESP 18; TEMP 36.6; O2SAT 97
[2022-12-17] MEDS: Levothyroxine Sodium 175 MCG TABLET PO (05:12)
[2022-12-17] MEDS: Omeprazole 40 MG CAPSULE.DR PO (05:13)
[2022-12-17 06:53] LABS: MANUAL DIFF FLAG NO
[2022-12-17 07:01] LABS: Basophils Percent Auto 0.3 % (0-2); Eosinophils Percent Auto 0.5 % (0-4); Hematocrit 30.4 % (37.0-47.0); Hemoglobin 9.8 g/dl (12.0-16.0); Imm Gran Abs Auto 0.01 X10*3/uL (0.00-0.03); Imm Gran Pct Auto 0.2 % (0.0-0.4); Lymphocytes Absolute Auto 1.2 X10*3/uL (1.2-4.9); Lymphocytes Percent Auto 19.5 % (20-40); Mean Corpuscular HGB Conc 32.2 g/dl (31.0-35.0); Mean Corpuscular Hemoglobin 27.8 pg (27.0-33.0); Mean Corpuscular Volume 86.4 fL (80.0-98.0); Mean Platelet Volume 10.7 fL (9.4-12.3); Monocytes Absolute Auto 0.8 X10*3/uL (0.1-1.2); Monocytes Percent Auto 12.4 % (2-11); Neutrophils Absolute Auto 4.3 x10*3/uL (2.0-8.3); Neutrophils Percent Auto 67.1 % (45-73); Platelet Count 169 X10*3/uL (160-400); Red Blood Count 3.52 X10*6/uL (4.20-5.50); Red Cell Distribution Width 13.9 % (11.0-16.0); White Blood Count 6.4 X10*3/uL (4.8-10.8)
[2022-12-17 07:12] VITALS: BP 155/71; PULSE 90; RESP 16; TEMP 36.1; O2SAT 96
[2022-12-17 07:15] LABS: Anion Gap 14 (12-20); Blood Urea Nitrogen 11 mg/dL (9-16); Calcium 8.2 mg/dL (8.4-10.2); Carbon Dioxide 24 mmol/L (22-29); Chloride 106 mmol/L (96-108); Creatinine Clr Calc Pharmacy 85.6; Estimated Glomerular Filt Rate > 60; Glucose Fasting 118 mg/dL (60-99); Potassium 3.9 mmol/L (3.3-5.1); Sodium 140 mmol/L (135-145)
[2022-12-17] MEDS: oxyCODONE HCl Immed Release 5 MG TABLET PO ×2 (07:37→11:15)
[2022-12-17] MEDS: Acetaminophen 325 MG TABLET 650 MG PO (07:38)
[2022-12-17] MEDS: oxyCODONE HCl ER 10 MG TAB.ER.12H PO (07:38)
[2022-12-17] MEDS: Sertraline HCL 100 MG TABLET 200 MG PO (07:38)
[2022-12-17] MEDS: Pregabalin 75 MG CAPSULE PO (07:38)
[2022-12-17] MEDS: Celecoxib 200 MG CAPSULE PO (07:38)
[2022-12-17] MEDS: Docusate Sodium 100 MG CAPSULE PO (07:39)
[2022-12-17] MEDS: oxyBUTYnin chloride ER 5 MG TAB.ER.24 15 MG PO (07:39)
[2022-12-17] MEDS: Ferrous Sulfate 324 MG TABLET.DR PO (07:39)
[2022-12-17] MEDS: 0.9 % Sodium Chloride Flush 3 ML SYRINGE IVFLUSH (07:43)
--- NOTE | 2022-12-17 08:51 | P.DS_ITS ---
DS: Providers Provider Date of Service: 12/17/22 Date of admission: 12/15/22 08:24 Primary care physician: Obdulio Patel MD Consults: 12/15/22 14:00 Consult to Hospitalist Routine Comment: Consulting Provider: Hospitalist Reason For Exam: medical management - h/o dumping syndrome DS: Diagnosis Discharge Diagnosis (1) Status post total left knee replacement: Status: Acute DS: Summary Hospital Course Hospital Course: The patient underwent a successful left total knee arthroplasty, they were transferred to PACU and then to the floor to recover. During their stay, their vitals were stable, afebrile at 96.9. Labs were unremarkable, H/H 9.8/30.4. POD 1 they were started on Lovenox for DVT ppx, they also received Physical Therapy services twice a day. Prior to discharge, their dressing was changed, incision clean dry and intact, new Aquacel dressing applied and the plan was to be discharged home with [facility] services. Time Spent with Patient Time attestation: Total time managing care of this patient today ____ minutes. Discharge coordination time: Less than 30 minutes Quality: Safe Use of Opioids Does Pt have an Active Cancer Diagnosis on the Problem List?: No Quality: Stroke Does the patient have a stroke diagnosis?: No Physical Exam Vital Signs: Vital Signs: Last Vital Signs Temp 96.9 F 12/17/22 07:12 Pulse 90 12/17/22 07:12 Resp 16 12/17/22 07:12 BP 155/71 H 12/17/22 07:12 Pulse Ox 96 12/17/22 07:12 O2 Del Method Room Air 12/17/22 07:12 BMI result Body Mass Index 41.8 Const: General: cooperative, healthy appearing and no acute distress Resp: Effort & Inspection: normal respiratory effort and able to speak in complete sentences Cardio: Rate: regular rate Peripheral pulses: Peripheral pulses 2+ throughout GI: Palpation (GI): Soft to palpation Skin: Lesions: no lesions Rashes: no rashes Extrem: Other: Left knee Aquacel is c/d/i. Able to dorsiflex and plantarflex. [place] intact. No signs of infection. NVI. DS: Data Data Completed and Pending Pending studies at discharge: Pending at discharge 12/15/22 11:45 Surgical [PTH] Routine Labs on day of discharge: Laboratory Results - last 24 hr 12/17/22 12/17/22 05:47 05:47 WBC 6.4 RBC 3.52 L Hgb 9.8 L Hct 30.4 L MCV 86.4 MCH 27.8 MCHC 32.2 RDW 13.9 Plt Count 169 MPV 10.7 Immature Gran % (Auto) 0.2 Neut % (Auto) 67.1 Lymph % (Auto) 19.5 L [place] % (Auto) 12.4 H Eos % (Auto) 0.5 Baso % (Auto) 0.3 Lymph # (Auto) 1.2 [place] # (Auto) 0.8 Eos # (Auto) 0.0 Baso # (Auto) 0.0 Abs Immat Gran (auto) 0.01 Absolute Neuts (auto) 4.3 Absolute Nucleated RBC 0.000 Nucleated RBC % (auto) 0.0 Sodium 140 Potassium 3.9 Chloride 106 Carbon Dioxide 24 Anion Gap 14 BUN 11 Creatinine 0.73 Estim Creat Clear Calc 85.6 Estimated GFR > 60 Fasting Glucose 118 H Calcium 8.2 L Discharge Plan Discharge Anticipated Discharge Date/Time: 12/17/22 08:45 Patient Disposition: Left Against Medical Advice Discharge Diagnosis: s/p LTKA Referrals: Alber Walters PA-C [Physician Blow Mold Machine Operator] - 12/31/22 1:30 pm Discharge Medications: New enoxaparin 40 mg/0.4 mL Syringe 40 mg subcut Q24H 42 Days Qty: 16.8 0RF celecoxib 200 mg Capsule 200 mg PO BID 30 Days Qty: 60 0RF acetaminophen 325 mg Tablet 650 mg PO Q6H PRN (Reason: Pain, Mild (Pain Scale 1-3)) Qty: 240 0RF docusate sodium 100 mg Capsule 100 mg PO BID 30 Days Qty: 60 0RF oxycodone 5 mg Tablet 5 mg PO Q4H PRN (Reason: Pain, Moderate (Pain Scale 4-6) 7 Days Qty: 42 0RF Rx Instructions: Partial Fill upon patient request. Continued ferrous sulfate 325 mg (65 mg iron) tablet 325 mg PO DAILY Qty: 90 1RF omeprazole 40 mg capsule,delayed release(DR/EC) 40 mg PO DAILY Qty: 90 3RF lisinopril 10 mg tablet 10 mg PO DAILY Qty: 90 3RF sertraline 100 mg tablet 200 mg PO DAILY 90 Days Qty: 180 1RF atorvastatin 40 mg tablet 40 mg PO DAILY Qty: 90 1RF acarbose 50 mg tablet 50 mg PO TID 90 Days Qty: 270 11RF levothyroxine 175 mcg tablet 175 mcg PO DAILY 30 Days Qty: 30 3RF oxybutynin chloride 15 mg tablet extended release 24hr 15 mg PO DAILY Qty: 90 2RF mirtazapine 7.5 mg tablet 7.5 mg PO BEDTIME 30 Days Qty: 30 3RF lorazepam 0.5 mg tablet 0.5 mg PO BID PRN (Reason: anxiety) 30 Days Qty: 60 0RF pregabalin [Lyrica] 75 mg capsule 75 mg PO TID 30 Days Qty: 90 1RF (DME) LIGHTWEIGHT CANE See Rx Instructions .Route .MEDSUPPLY Qty: 1 0RF Rx Instructions: As directed cholecalciferol (vitamin D3) 50 mcg (2,000 unit) capsule 50 mcg PO DAILY Discontinued naproxen 500 mg tablet 500 mg PO Q12H PRN (Reason: for pain) Qty: 180 1RF acetaminophen [Tylenol Extra Strength] 500 mg tablet 1,000 mg PO QID PRN (Reason: fever or pain) Qty: 14 0RF Discharge Orders: Discharge Order (Routine); Ordered 12/17/22 Ordered By: Candace Escobar Diet: Advance to usual diet Activity on Discharge: Use cane or walker Stand Alone Forms: Patient Portal Discharge page Care Plan Goals: Restore fxn to left knee Health Concerns: None Plan of Treatment: Physical Therapy for ROM 0-120, quad strength, gait training. Use walker for ambulation Limit stair climbing, No shower, No tub bath, No driving Continue anticoagulant Keep Aquacel dressing clean, dry and intact. Follow up with orthopedics in 2 weeks Assessment: Stable for d/c
--- NOTE | 2022-12-17 08:52 | W.MHC.F2F ---
Service Date Service Date: 12/17/22 Encounter Date of encounter: 12/17/22 Reasons for Services Signs and symptoms assessed: S/p LTKA. Pt. is considered homebound due to recent surgery. Unable to drive, poor balance, poor gait mechanics. Reason for physical therapy: home safety and mobility, therapeutic exercises, restore joint function, gait/transfer training, assess need for DME and ADL training Homebound: Leaving the home is medically contraindicated at this time without the asist of a device and/or another person due th the listed conditions above and below. Reason homebound: unsteady gait / fall risk, leg weakness, pain with ambulation, pain with transfers, poor balance / fall risk and unable to drive Certification: Based on the above findings, I certify that this patient is confined to the home and needs intermittent intermediate care, physical therapy and/or speech therapy, or continues to need occupational therapy. The patient is under my care, and I have initiated the establishment of the plan of care. The patient will be followed by a physician who will periodically review the plan of care. Time Spent With Patient Time: Total time managing care of this patient today ____ minutes.
[2022-12-17] MEDS: Enoxaparin Sodium 40 MG/0.4 ML SYRINGE SUBCUT (11:05)
--- NOTE | 2022-12-17 11:12 | MHC.CM.PN ---
IMM 12/16/22 Female S/P LTKA is discharged to home with [facility]. Transportation will be provided by the pts .
--- NOTE | 2022-12-21 15:13 | P.OP_ITS ---
Operative Note Operative Note Date of Service: 12/15/22 Narrative: Date of Service: 12/15/22 Pre-op diagnosis: Left knee OA Post-op diagnosis: same Procedure: Left TKA Implants: [place] Triathlon Press fit posterior stabilized 10/23/12PS/32a Surgeon: Anthony Spangler MD Anesthesia: regional and spinal Was an Workday Senior Associate used for this Procedure?: Yes Workday Senior Associate: Alber Walters Estimated blood loss (mL): 200 IV fluids (mL): 1,000 Pathology: other Condition: stable Disposition: PACU Procedure in detail: The patient was brought to the operating room and prepped and draped in standard sterile fashion. A time-out was called to identify proper site proper procedure proper surgeon and IV antibiotics were administered. 1 g of IV tranexamic acid was administered. I began by making a midline incision to the retinaculum and performed a medial parapatellar arthrotomy. The patella was translated laterally and the knee was flexed up. There was tricompartmental OA. I performed a small medial peel and resected the infrapatellar fat pad. Geneva's line was then used to drill my intramedullary femoral guide and my distal femur cut of 12 mm was made in 5 degrees of valgus while protecting the soft tissues. I then measured a # 3 femur and placed my cutting guide and made my anterior posterior and chamfer cuts protecting the soft tissues at all times. I then made my box but removing the PCL. Once I was satisfied with my cuts I turned my attention to the tibia. I removed the meniscus medially and laterally and , using an external cutting guide, in line with the tibial crest and the third ray, I made my distal tibial cut in 0 deg slope of while protecting the posterior soft tissues at all times. An extension block was used to confirm appropriate amount of bony resection. I then sized a #3 tibia and once I was satisfied that there was complete tibial coverage I placed my trial and with the trial femur in place took the knee through range of motion. I was satisfied with the extension and flexion as well as the stability at 0, 30 and 90 degrees. I then turned my attention to the patella where I removed 1 cm from the undersurface of the patella and then trialed a 32a patellar button. Again the knee was taken through range of motion I was satisfied with the tracking. I then returned to the femur and drilled my femoral lug holes and prepared the tibia. A femoral bone plug was placed and the knee was irrigated copiously. I then press fit the patella, tibia and femur in standard fashion. I trialed different inserts until I selected a #12 insert. The final insert was placed and a 3 minutes iodine soak with local TXA was performed. A Werewolf cautery wand was used to maintain hemostasis over the capsule and meniscal beds, the gutters and peripatellar soft tissues. The knee was then closed with a running Quill suture, a 3 0 Vicryl and gael on the skin. Patient was then placed in sterile dressing and brought to recovery room in stable condition there were no known complications.
== END 2022-12-17 13:15 | disposition home health service (06) | DRG 470 ==
LOC: HO.SSSA 08:25 → HO.S3 13:51
PROVIDERS: Physician Assistant; Admitting Provider Orthopaedic Surgery; PCP Internal Medicine; Visit Provider Orthopaedic Surgery
PROC: 0SRD0JA Replacement of Left Knee Joint with Synthetic Substitute, Uncemented, Open Approach (ICD-10-PCS; CPT 27447; principal; 2022-12-15 11:50)
DX: M17.12 Unilateral primary osteoarthritis, left knee (principal); Z68.41 Body mass index [BMI] 40.0-44.9, adult; E03.9 Hypothyroidism, unspecified; M79.7 Fibromyalgia; E66.01 Morbid (severe) obesity due to excess calories; G47.33 Obstructive sleep apnea (adult) (pediatric); R39.15 Urgency of urination; F41.9 Anxiety disorder, unspecified; F32.A Depression, unspecified; Z88.5 Allergy status to narcotic agent; Z79.890 Hormone replacement therapy; Z79.899 Other long term (current) drug therapy
CPT/HCPCS: 36415; 73560; 80048; 82565; 85014; 85018; 85025; 86850; 86900; 86901; 87640; 87641; 88305; 88311; 97110; 97116; 97162; 97530; C1776; J0131; J0690; J1100; J1170; J1650; J2250; J2550; J2795

== ENCOUNTER → 2022-12-31 13:01 | Outpatient (BNVA) | payer MEDICARE, SELFPAY | PROVIDERS: PCP Internal Medicine; Visit Provider Physician Assistant | DX: Z96.652 Presence of left artificial knee joint (principal) | CPT/HCPCS: 99212 ==

== ENCOUNTER 2023-01-06 07:18 | Outpatient (REF) | payer MEDICARE, SELFPAY ==
[2023-01-06 07:37] LABS: MANUAL DIFF FLAG NO
[2023-01-06 08:10] LABS: Basophils Percent Auto 0.5 % (0-2); Eosinophils Absolute Auto 0.2 X10*3/uL (0.0-0.4); Hematocrit 36.1 % (37.0-47.0); Hemoglobin 11.1 g/dl (12.0-16.0); Imm Gran Abs Auto 0.01 X10*3/uL (0.00-0.03); Imm Gran Pct Auto 0.3 % (0.0-0.4); Lymphocytes Absolute Auto 1.7 X10*3/uL (1.2-4.9); Lymphocytes Percent Auto 42.8 % (20-40); Mean Corpuscular HGB Conc 30.7 g/dl (31.0-35.0); Mean Corpuscular Hemoglobin 27.6 pg (27.0-33.0); Mean Corpuscular Volume 89.8 fL (80.0-98.0); Mean Platelet Volume 9.5 fL (9.4-12.3); Monocytes Absolute Auto 0.3 X10*3/uL (0.1-1.2); Monocytes Percent Auto 7.8 % (2-11); Neutrophils Absolute Auto 1.8 x10*3/uL (2.0-8.3); Neutrophils Percent Auto 44.6 % (45-73); Platelet Count 275 X10*3/uL (160-400); Red Blood Count 4.02 X10*6/uL (4.20-5.50); Red Cell Distribution Width 14.6 % (11.0-16.0)
[2023-01-06 08:11] LABS: Appearance Urine Cloudy; Color Urine Dark Yellow; Glucose Urine UA Negative (Negative); Leukocyte Esterase Urine Moderate (2+) (Negative); Nitrite Urine Negative (Negative); PH 5.5 (5.0-9.0); Specific Gravity - Urine >= 1.030 (1.005-1.025); UMIC TRIGGER UACC YES; Urine Blood Negative (Negative); Urine Ketones Trace mg/dL (Negative); Urine Protein Trace mg/dL (Neg-Trace)
[2023-01-06 08:14] LABS: Bacteria Urine 4+ (None Seen); Hyaline Casts Urine 0-2 /LPF (0-2); RBC Urine 0-2 /HPF (0-2); UACC Culture Trigger YES; WBC Urine 21-50 /HPF (0-5)
[2023-01-06 08:39] LABS: Estimated Average Glucose 97 mg/dL
[2023-01-06 08:53] LABS: Alanine Aminotransferase 29 U/L (0-31); Alkaline Phosphatase 131 U/L (39-117); Anion Gap 12 (12-20); Aspartate Amino Transferase 22 U/L (5-31); Bilirubin Total 0.4 mg/dL (0.0-1.0); Blood Urea Nitrogen 23 mg/dL (9-16); Calcium 9.5 mg/dL (8.4-10.2); Carbon Dioxide 29 mmol/L (22-29); Chloride 106 mmol/L (96-108); Cholesterol 167 mg/dL; Estimated Glomerular Filt Rate > 60; Glucose Fasting 103 mg/dL (60-99); HDL Cholesterol 52 mg/dL; LDL Cholesterol Calculated 87 mg/dl; Potassium 4.5 mmol/L (3.3-5.1); Sodium 142 mmol/L (135-145); Total Protein 6.9 g/dL (6.5-8.0); Triglycerides 142 mg/dL
[2023-01-06 09:14] LABS: Free T4 (Free Thyroxine) 1.02 ng/dL (0.71-1.85); Thyroid Stimulating Hormone 8.04 uIU/mL (0.32-4.0); Vitamin D 25-OH Total 33.7 ng/mL (>30)
== END 2023-01-06 07:19 | disposition home or self-care (01) ==
LOC: HO.LAB 07:18
PROVIDERS: PCP Internal Medicine; Referring Provider Internal Medicine; Visit Provider Internal Medicine
DX: E03.9 Hypothyroidism, unspecified (principal); E78.00 Pure hypercholesterolemia, unspecified; E55.9 Vitamin D deficiency, unspecified; I10 Essential (primary) hypertension; R73.01 Impaired fasting glucose; R82.90 Unspecified abnormal findings in urine
CPT/HCPCS: 36415; 80053; 80061; 81001; 82306; 83036; 84439; 84443; 85025; 87086; 87088; 87186

== ENCOUNTER → 2023-01-14 09:38 | Outpatient (BNVA) | payer MEDICARE, SELFPAY | PROVIDERS: PCP Internal Medicine; Visit Provider Physician Assistant | DX: Z47.1 Aftercare following joint replacement surgery (principal); Z96.652 Presence of left artificial knee joint | CPT/HCPCS: 99212 ==

== ENCOUNTER → 2023-01-28 15:02 | Outpatient (BNVA) | payer MEDICARE, SELFPAY | PROVIDERS: PCP Internal Medicine; Visit Provider Physician Assistant | DX: Z47.1 Aftercare following joint replacement surgery (principal); Z96.652 Presence of left artificial knee joint | CPT/HCPCS: 99212 ==

== ENCOUNTER 2023-02-02 11:00 | Outpatient (RCR) | payer MEDICARE, SELFPAY ==
--- NOTE | 2022-12-31 14:25 | MHC.PT.EP ---
[facility] [place] Office [place] Office [place] Office [address] [phone] F: [phone] F: [phone] F: [phone] F: [phone] Physical Therapy Plan of Care Date of Evaluation: Date of Surgery: 12/15/22 Diagnosis: S/P LEFT TKA Assessment: 62 YO FEMALE REF TO PT S/P Lt TKR ON 12/15/22- SHE RESIDES W HER SPOUSE IN A 1 LEVEL HOME AND IS CURRENTLY AMB W A W/WALKER . OBJECTIVE FINDINGS: LIMITED AROM Lt KNEE, TIGHT PSOAS MM MOHSEN AND DECR ANKLE DF MOHSEN; DECR STRENGTH IN PROX / LUMBOPELVIC AND Lt LE, POST-OP PAIN IN LEFT KNEE ,AND HEALING ANT Lt KNEE INCISION. FUNCTIONALLY, Pt IS AMB W A W/WALKER- SHE HAS COMPENSATORY GAIT, MODIFIED STAIR MGMT, DECR STANDING, SLEEPING, AND DECR KENNY TO ADLs REQ Rt KNEE FLEX. Pt IS A VERY GOOD PT CANDIDATE TO GUIDE HER IN HER POST-OP TKR COURSE, ADDRESSING THE ABOVE FINDINGS, PAIN MGMT, AND MAXIMIZING FUNCTIONAL INDEPENDENCE. Frequency and Duration: The patient will be seen 2 x WK x 10 WKS Short Term Goals: *Pt'S LEFT KNEE PAIN DECR TO 2-3/10 *Pt INCREASE Lt KNEE ROM -> 0* EXTEN AND PROGRESSIVELY TO 120* FLEX *INCR FLEXIB IN PSOAS/ CALF MM TO IMPROVE EFFICIENCY OF GAIT ON LEVEL AND STAIRS *REDUCE Lt LE EDEMA AND MONITOR/ ADDRESS SCAR MOB NEEDED Copy Cutter Goals: Pt INDEP W HEP PROGRESSION AND SELF-SX MGMT STRATEGIES IN 10 WKS Pt RESUME REG ADLs EVIDENT W IMPROVED LEFI SCORE BY 8-10 POINTS (AT EVAL 12/ ) IN 10 WKS Pt INCR LEFT LE STRENGTH BY 1 GRADE IN 10 WKS Treatment Plan: Modalities to reduce pain, spasms and effusion. Manual therapy to restore motion and function. Therapeutic exercise to improve strength and flexibility. Neuromuscular re-education for posture and balance. Therapeutic activities to return to functional activities of daily living. Electronically signed by: QUEENIE BURNS,PT Please sign and return to therapist. Thank you for your referral.
--- NOTE | 2023-03-05 10:28 | MHC.PT.DC ---
[facility] [place] Office [place] Office [place] Office [address] Vanita Arce [address] [phone] F: [phone] F: [phone] F: [phone] F: [phone] Physical Therapy Discharge Report Diagnosis: S/P LEFT TKA Date of Surgery: 12/15/22 Date of Evaluation: 12/31/22 Date of Discharge: 03/05/23 Treatments to Date: 7 Cancellations to Date: 0 No Shows to Date: 0 Discharge Status: Achieved Goals Improved Function Independent with HEP Patient Elected to Stop Discharge Summary: Educated on importance of continuation of HEP, also educated on application of KT and to call our office if needed (will keep her chart open for 30 days). She tolerated 0-120 degs today with OP from PT and 118 with strap on own. She is an avid gym goer. DC to HEP. Electronically signed by: Dawn Walsh PT Please sign and return to therapist. Thank you for your referral.
== END 2023-03-05 10:28 | disposition home or self-care (01) ==
LOC: HO.PTCHIC 11:00
PROVIDERS: Visit Provider Physician Assistant
DX: M17.0 Bilateral primary osteoarthritis of knee (principal)
CPT/HCPCS: 97110; 97140; 97162; 97530

== ENCOUNTER 2023-02-13 08:30 | Outpatient (REF) | payer MEDICARE, SELFPAY ==
[2023-02-13 10:32] LABS: Free T4 (Free Thyroxine) 1.39 ng/dL (0.71-1.85); Thyroid Stimulating Hormone 0.08 uIU/mL (0.32-4.0)
== END 2023-02-13 08:31 | disposition home or self-care (01) ==
LOC: HO.LAB 08:30
PROVIDERS: PCP Internal Medicine; Visit Provider Internal Medicine
DX: E03.9 Hypothyroidism, unspecified (principal)
CPT/HCPCS: 36415; 84439; 84443

== ENCOUNTER 2023-03-02 10:09 | Outpatient (AMB) | payer MEDICARE, SELFPAY ==
[2023-03-02 10:11] VITALS: BP 118/74; PULSE 69; O2SAT 97; BMI 36.2
--- NOTE | 2023-03-02 10:11 | A.OFFVIS_ITS ---
Intake Vital Signs 03/02/23 10:11 Height 5 ft 2 in Weight 198 lb BMI 36.2 BP 118/74 Blood Pressure Location Lt brachial Position Sitting Pulse 69 Pulse Source Pulse Oximeter Temp Source Skin Pulse Oximetry (%) 97 Oxygen Delivery Method Room Air Intake Visit Reasons: [facility] G0439 Intake Note: Patient is here for an Annual Wellness Visit. 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: No Allergies fentanyl Adverse Reaction (Unknown, Verified 03/02/23 10:26) Nausea and Vomiting Medication List - Last Reconciled 03/02/23 by JINNY Winston acarbose 50 mg PO TID 90 days acetaminophen 650 mg (2 x 325 mg) PO Q6H PRN atorvastatin 40 mg PO DAILY celecoxib 200 mg PO BID 30 days cholecalciferol (vitamin D3) 50 mcg PO DAILY docusate sodium 100 mg PO BID 30 days ferrous sulfate 325 mg PO DAILY levothyroxine 175 mcg PO DAILY 3 months [LIGHTWEIGHT CANE As directed] lisinopril 10 mg PO DAILY lorazepam 0.5 mg PO BID PRN 30 days mirtazapine 7.5 mg PO BEDTIME 30 days omeprazole 40 mg PO DAILY oxybutynin chloride ER 15 mg PO DAILY oxycodone 5 mg PO Q6H PRN 7 days pregabalin (Lyrica) 75 mg PO TID 30 days sertraline 200 mg (2 x 100 mg) PO DAILY 90 days Fall Risk Assessment Fall risk assessment: No Falls in past year Date Fall Risk Assessed: 03/02/23 HPI [facility] G0439 HPI Details Patient is a 63-year-old female presents today for subsequent wellness visit. Patient of Dr. Patel. Patient is up-to-date with her health preventative screenings and immunizations. Pap smear normal 04/2021 with [facility]. Mammogram normal 09/2022. Up-to-date with colonoscopy. Up-to-date with immunizations. [place] of care was reviewed with the patient and she was provided with a screening schedule. End of life planning was discussed the patient and she was provided with healthcare proxy and MOLST forms. [facility] Medical History (Updated 03/02/23 @ 13:29 by JINNY Winston) Acquired hypothyroidism Anemia Anxiety ASCUS of cervix with negative high risk HPV Benign essential hypertension Bradycardia Depression Fibromyalgia GERD without esophagitis Hypoglycemia Hypothyroidism Impaired fasting glucose Infection at site of external fixator pin Microscopic colitis Morbid obesity with BMI of 40.0-44.9, adult Obesity (BMI 30-39.9) OSMANI (obstructive sleep apnea) Osteoarthritis of left knee Overactive bladder Primary insomnia Pure hypercholesterolemia Vitamin D deficiency Surgical History (Updated 03/02/23 @ 13:29 by JINNY Winston) H/O arthroscopy of left knee H/O section History of colonoscopy History of gastrointestinal tract bypass History of hemorrhoidectomy Hx of bilateral breast reduction surgery Hx of cystoscopy Hx of foot surgery Hx of foot surgery S/P ORIF (open reduction internal fixation) fracture Status post debridement Status post total left knee replacement (~12/15/22) Family History Father Diabetes Mental health disorder Mother CVD (cardiovascular disease) Myocardial infarction Mental health disorder Brother Colon cancer Social History Household Members: Spouse and Children Housing: House Are you a primary progressive care unit registered nurse to a significant other at home: No Do you presently have visiting nurse or other home services: No Alcohol intake: current Alcohol intake frequency: holidays/special occasions only Patient Tobacco Use Status: Never used Tobacco e-Cigarette/Vaping Use: Never Used Second Hand Smoke Exposure: No service: No Current occupational status: disabled Cognitive needs: No Hearing needs: Yes Vision needs: Yes Female Reproductive History Menstrual Age of Menarche: 14 Questionnaire Medicare Wellness Checkup What [age] What gender do you identify with?: female During the past 4 weeks, how much have you been bothered by emotional problems such as feeling anxious, depressed, irritable, sad or downhearted, and blue?: slightly During the past 4 weeks, has your physical & emotional health limited your social activities with family, friends, neighbors, or groups?: slightly During the past 4 weeks, how much bodily pain have you generally had?: mild pain During the past 4 weeks, was someone available to help you if you needed & wanted help?: yes, a little During the past 4 weeks, what was the hardest physical activity you could do for at least 2 minutes?: light Can you get to places out of walking distance without help? (For eg., can you travel alone on buses, taxis or drive your car?): Yes Can you go shopping for groceries or clothes without someone's help?: Yes Can you prepare your own meals?: Yes Can you do your housework without help?: Yes Because of any health problems, do you need the help of another person with your personal care needs such as eating, bathing, dressing or getting around the house?: No Can you handle your own money without help?: Yes During the past 4 weeks, how would you rate your health in general?: good During the past 4 weeks how have things been going for you?: good & bad parts about equal Are you having difficulties driving your car?: not applicable, I don't use a car Do you always fasten your seat belt when you are in a car?: yes, usually During past 4 weeks, have you been bothered by the following: never: Falling or dizzy when standing up, Sexual problems?, Trouble eating well?, Teeth or denture problems?, Problems using the telephone? and Tiredness or fatigue? Have you fallen 2 or more times in the past year?: No Are you afraid of falling?: Yes Are you a smoker?: no During the past 4 weeks, how many drinks of wine, beer, or other alcoholic beverages did you have?: no alcohol at all Do you exercise for about 20 minutes 3 or more times a week?: yes, some of the time Have you been given information to help with the following?: no: Hazards in your house that might hurt you? and no: Keeping track of your medications? How often do you have trouble taking medicines the way you have been told to take them?: I always take medicine as prescribed How confident are you that you can control & manage most of your health problems?: very confident What is your race?: White Mini Mental State Exam (MMSE) Orientation What is the (year) (season) (date) (day) (month)?: year, season, date, day and month Score Score: 5 Activity of Daily Living Bathing - sponge bath, tub bath or shower: receives no assistance (gets in/out by self, if usual bathing means Dressing - getting clothes from closets & drawers, including inner/outer garments & fasteners.: gets clothes & gets completely dressed without help Toileting - going to the 'toilet room' for urine/bowel elimination & cleaning self/arranging clothes: goes to toilet room, cleans self, arranges clothes without help Transfer: moves in & out of bed and chair without help (may use support object) Continence: controls urination/bowel movements completely by self Feeding: feeds self without help Total Score: 0 Information obtained from: patient Using telephone: independent Traveling: dependent Shopping: independent Preparing meals: independent Housework: independent Taking medicine: independent Managing money: independent PHQ-9 Over the last 2 weeks, how often have you been bothered by any of the following problems? 1. Little interest or pleasure in doing things: not at all 2. Feeling down, depressed, or hopeless: not at all 3. Trouble falling or staying asleep, or sleeping too much: not at all 4. Feeling tired or having little energy: not at all 5. Poor appetite or overeating: not at all 6. Feeling bad about yourself - or that you are a failure or have let yourself or your family down: not at all 7. Trouble concentrating on things, such as reading the newspaper or watching television: not at all 8. Moving or speaking so slowly that other people could have noticed. Or the opposite - being so fidgety or restless that you have been moving around a lot more than usual: not at all 9. Thoughts that you would be better off or of hurting yourself in some way: not at all Total score: 0 Depression Screening Interpretation: Negative 63211 - PHQ-9 Billing: Yes Source: Developed by Drs. Mickey Arce, Paige Barton, Luis A Hull and colleagues, with an educational roger from [employer]. EVANGELINA-7 AMB Questionnaire EVANGELINA-7 Date EVANGELINA - 7 assessed: 03/02/23 Feeling nervous, anxious, or on edge: 0 = Not at all Not being able to stop or control worryin = Not at all Worrying too much about different things: 0 = Not at all Trouble relaxin = Not at all Being so restless that it is hard to sit still: 0 = Not at all Becoming easily annoyed or irritable: 0 = Not at all Feeling afraid as if something awful might happen: 0 = Not at all Total EVANGELINA-7 score (0-4 normal; 5-9 mild; 10-14 moderate; 15-21 severe): 0 Source: Developed by Drs. Mickey Arce, Paige Barton, Luis A Hull and colleagues, with an educational roger from [employer]. EVANGELINA-7 Assessment Billing EVANGELINA-7 Assessment Tool: EVANGELINA-7 Assessment 22953 AUDIT C Alcohol Use Questionnaire (AUDIT-C) 1. How often do you have a drink containing alcohol?: Never 3. How often do you have six or more drinks on one occasion?: Never Total Score: 0 Score Reviewed/Action Taken: No Thrive Questionnaire Date Thrive assessed: 03/02/23 I am a: Patient What is your living situation today?: I have a steady place to live Within the past 12 months, did the food you bought not last and you didn't have the money to get more?: Never true Within the past 12 months, did you worry whether your food would run out before you got money to buy more?: Never true Currently or been in a relationship where the following occur: no concerns reported Physical Exam Vital Signs: Last Vital Signs Pulse 69 03/02/23 10:11 BP 118/74 03/02/23 10:11 Pulse Ox 97 03/02/23 10:11 Oxygen Delivery Method Room Air 03/02/23 10:11 BMI result Body Mass Index 36.2 Const General: cooperative and no acute distress Orientation/consciousness: patient oriented x3 HEENT Other: Whisper test: fail Neuro Other: Balance: Normal Get up and walk: unable to Romberg: negative Tandem gait: able to General: patient oriented x3 Assessment & Plan Assessment & Plan (1) Urinary incontinence in female: Code(s): R32 - Unspecified urinary incontinence Plan: Continue to follow-up with urology as scheduled (2) Adult general medical exam: Code(s): Z00.00 - Encounter for general adult medical examination without abnormal findings (3) Depression: Code(s): F32.9 - Major depressive disorder, single episode, unspecified Qualifiers: Depression Type: major depressive disorder Major depression recurrence: recurrent Active/Remission status: currently active Major depression episode severity: unspecified Qualified Code(s): F33.9 - Major depressive disorder, recurrent, unspecified Plan: Continue sertraline 200 mg daily (4) Anxiety: Code(s): F41.9 - Anxiety disorder, unspecified Plan: Continue lorazepam 0.5 mg b.i.d. as needed (5) Primary insomnia: Code(s): F51.01 - Primary insomnia Plan: Continue mirtazapine 7.5 mg at bedtime Reinforced sleep hygiene (6) GERD without esophagitis: Code(s): K21.9 - Gastro-esophageal reflux disease without esophagitis Plan: Omeprazole 40 mg daily Encouraged to avoid GERD trigger foods Do not lay down 2-3 hours after evening meal (7) Fibromyalgia: Code(s): M79.7 - Fibromyalgia Plan: Continue Lyrica 75 mg t.i.d. (8) Acquired hypothyroidism: Code(s): E03.9 - Hypothyroidism, unspecified Plan: Levothyroxine 175 mcg daily (9) Impaired fasting glucose: Code(s): R73.01 - Impaired fasting glucose Plan: A1c 5 12/2022 Low-carbohydrate diet (10) Benign essential hypertension: Code(s): I10 - Essential (primary) hypertension Plan: Lisinopril 10 mg daily Low-sodium diet (11) Pure hypercholesterolemia: Code(s): E78.00 - Pure hypercholesterolemia, unspecified Plan: Atorvastatin 40 mg daily Low-cholesterol diet (12) Hypoglycemia: Code(s): E16.2 - Hypoglycemia, unspecified Plan: Acarbose 50 mg t.i.d. Continue to follow-up with endocrinology (13) Obesity (BMI 30-39.9): Code(s): E66.9 - Obesity, unspecified Plan: Healthy food choices and exercise as tolerated Quality Reporting (2019) Fall Risk Screening ([facility] 139) Last assessed Fall Risk: 03/02/23 Fall risk assessment: No Falls in past year Depression/Bipolar (159/160/161/177) PHQ-9: Total score: 0 Coding Level of Care Code Medicare Subsequent (G0439) Diagnoses Urinary incontinence in female R32 Adult general medical exam Z00.00 Depression F33.9 Depression Type: major depressive disorder Major depression recurrence: recurrent Active/Remission status: currently active Major depression episode severity: unspecified Anxiety F41.9 Primary insomnia F51.01 GERD without esophagitis K21.9 Fibromyalgia M79.7 Acquired hypothyroidism E03.9 Impaired fasting glucose R73.01 Benign essential hypertension I10 Pure hypercholesterolemia E78.00 Hypoglycemia E16.2 Obesity (BMI 30-39.9) E66.9 CPT Codes Advance Care Planning - Time spent: 1-15 minutes, not on file ([id number]) Additional Codes EVANGELINA-7 Assessment Billing - EVANGELINA-7 Assessment Tool: EVANGELIAN-7 Assessment 69411 ([id number]) Advance Care Planning Date of discussion: 03/02/23 Who was present: 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
== END 2023-03-02 10:38 | disposition home or self-care (01) ==
PROVIDERS: PCP Internal Medicine; Visit Provider Nurse Practitioner Family
DX: R32 Unspecified urinary incontinence (principal); Z00.00 Encounter for general adult medical examination without abnormal findings; F33.9 Major depressive disorder, recurrent, unspecified; F41.9 Anxiety disorder, unspecified; F51.01 Primary insomnia; K21.9 Gastro-esophageal reflux disease without esophagitis; M79.7 Fibromyalgia; E03.9 Hypothyroidism, unspecified; R73.01 Impaired fasting glucose; I10 Essential (primary) hypertension; E78.00 Pure hypercholesterolemia, unspecified; E16.2 Hypoglycemia, unspecified
CPT/HCPCS: 1124F; G0439

== ENCOUNTER 2023-03-11 09:41 | Outpatient (AMB) | payer MEDICARE, SELFPAY ==
--- NOTE | 2023-03-11 09:59 | MHC.OFFVIS ---
Intake Vital Signs 03/11/23 10:03 Height 5 ft 2 in Weight 198 lb BMI 36.2 Intake Visit Reasons: 6 wk postop LT TKA 12/15/22 NE Intake Note: Lolly is a 63 year old female who presents today for a post operative follow up of her left knee. Left TKA 12/15/22. Patient reports that she is doing well overall. She has some mild pain on the medial aspect of the knee. She is no longer working with physical therapy but she is active in water aerobics and home exercise program given by physical therapy. Allergies fentanyl Adverse Reaction (Unknown, Verified 03/11/23 10:04) Nausea and Vomiting HPI 6 wk postop LT TKA 12/15/22 NE HPI Details Lolly is a 63 year old woman who presents ~3 months left TKA. She says she is doing well, with only some mild medial knee pain. She has completed her course of PT, and continues to stay active with water aerobics and at-home activities. [facility] Medical History (Updated 03/02/23 @ 13:29 by JINNY Winston) Acquired hypothyroidism Anemia Anxiety ASCUS of cervix with negative high risk HPV Benign essential hypertension Bradycardia Depression Fibromyalgia GERD without esophagitis Hypoglycemia Hypothyroidism Impaired fasting glucose Infection at site of external fixator pin Microscopic colitis Morbid obesity with BMI of 40.0-44.9, adult Obesity (BMI 30-39.9) OSMANI (obstructive sleep apnea) Osteoarthritis of left knee Overactive bladder Primary insomnia Pure hypercholesterolemia Vitamin D deficiency Surgical History (Updated 03/02/23 @ 13:29 by JINNY Winston) H/O arthroscopy of left knee H/O section History of colonoscopy History of gastrointestinal tract bypass History of hemorrhoidectomy Hx of bilateral breast reduction surgery Hx of cystoscopy Hx of foot surgery Hx of foot surgery S/P ORIF (open reduction internal fixation) fracture Status post debridement Status post total left knee replacement (~12/15/22) Family History Father Diabetes Mental health disorder Mother CVD (cardiovascular disease) Myocardial infarction Mental health disorder Brother Colon cancer Social History Household Members: Spouse and Children Housing: House Are you a primary personal care service provider to a significant other at home: No Do you presently have visiting nurse or other home services: No Alcohol intake: current Alcohol intake frequency: holidays/special occasions only Patient Tobacco Use Status: Never used Tobacco e-Cigarette/Vaping Use: Never Used Second Hand Smoke Exposure: No service: No Current occupational status: disabled Cognitive needs: No Hearing needs: Yes Vision needs: Yes Female Reproductive History Menstrual Age of Menarche: 14 Review of Systems Const All systems reviewed & are unremarkable except as noted in HPI and below Physical Exam Vital Signs: BMI result Body Mass Index 36.2 Const General: no acute distress and alert Orientation/consciousness: patient oriented x3 Neuro General: patient oriented x3 Extrem Other: Left Knee: Well healed incision 0-130 degrees ROM Stable to V/V stress No effusion Psych Appearance: grossly normal Affect: normal affect Attitude: cooperative Assessment & Plan Assessment & Plan (1) Status post total left knee replacement: Onset Date: ~12/15/22 Code(s): Z96.652 - Presence of left artificial knee joint Plan: This is a 63 year old woman S/P left TKA, DOS: 12/15/22. She is doing very well, with mild occasional medial knee pain, but she says this is tolerable. She has finished her PT and continues to stay active with at-home exercises & water aerobics. I recommend she continue to remain active. She can follow up in 1 year. Discussed dental prophylaxis. Plan Scribed for Anthony Spangler MD by Jarred Del Real, medical billing coordinator, on 03/11/23 at 10:15 AM, EST. Coding Level of Care Code Global (62572) Diagnoses Status post total left knee replacement Z96.652
[2023-03-11 10:03] VITALS: BMI 36.2
== END 2023-03-11 10:20 | disposition home or self-care (01) ==
LOC: HO.HOS 09:41
PROVIDERS: PCP Internal Medicine; Visit Provider Orthopaedic Surgery
DX: Z96.652 Presence of left artificial knee joint (principal)
CPT/HCPCS: 99024

== ENCOUNTER → 2023-03-11 09:41 | Outpatient (BNVA) | payer MEDICARE, SELFPAY | PROVIDERS: PCP Internal Medicine; Visit Provider Orthopaedic Surgery ==

== ENCOUNTER 2023-03-16 08:36 | Outpatient (AMB) | payer MEDICARE, SELFPAY ==
--- NOTE | 2023-03-16 09:16 | MHC.OFFWIV ---
Intake Vital Signs 03/16/23 09:18 BP 116/76 Blood Pressure Location Lt brachial Position Sitting Pulse 65 Pulse Source Pulse Oximeter Temp 98.2 F Temp Source Oral Pulse Oximetry (%) 96 Oxygen Delivery Method Room Air Intake Visit Reasons: EP RT foot pain Intake Note: Patient here because she had a fall about 1 week ago and her right foot was painful and some swelling around ankle and hard to walk. She states it is very tender now under the right foot and hard to put pressure on it. Patient Tobacco Use Status: Never used Tobacco Allergies fentanyl Adverse Reaction (Unknown, Verified 03/16/23 09:17) Nausea and Vomiting Do you need a note to return to daycare/school/sports/work: No HPI HPI Comments History of Present Illness Details 63-year-old female presents with right-sided foot pain that started about a week ago. Patient states that she tripped while she was walking, and for the 1st 2 days could not put any weight on it. She presents today because the pain persists. She has been using a compression bandage, and does ambulate with a cane. She does not report any swelling or bruising, but is concerned that there might be a fracture. She does not report loss of sensation, or loss of balance. [facility] Medical History Acquired hypothyroidism Anemia Anxiety ASCUS of cervix with negative high risk HPV Benign essential hypertension Bradycardia Depression Fibromyalgia GERD without esophagitis Hypoglycemia Hypothyroidism Impaired fasting glucose Infection at site of external fixator pin Microscopic colitis Morbid obesity with BMI of 40.0-44.9, adult Obesity (BMI 30-39.9) OSMANI (obstructive sleep apnea) Osteoarthritis of left knee Overactive bladder Primary insomnia Pure hypercholesterolemia Vitamin D deficiency Surgical History H/O arthroscopy of left knee H/O section History of colonoscopy History of gastrointestinal tract bypass History of hemorrhoidectomy Hx of bilateral breast reduction surgery Hx of cystoscopy Hx of foot surgery Hx of foot surgery S/P ORIF (open reduction internal fixation) fracture Status post debridement Status post total left knee replacement (~12/15/22) Family History Father Diabetes Mental health disorder Mother CVD (cardiovascular disease) Myocardial infarction Mental health disorder Brother Colon cancer Social History Household Members: Spouse and Children Housing: House Are you a primary career services representative to a significant other at home: No Do you presently have visiting nurse or other home services: No Alcohol intake: current Alcohol intake frequency: holidays/special occasions only Patient Tobacco Use Status: Never used Tobacco e-Cigarette/Vaping Use: Never Used Second Hand Smoke Exposure: No service: No Current occupational status: disabled Cognitive needs: No Hearing needs: Yes Vision needs: Yes Female Reproductive History Menstrual Age of Menarche: 14 Review of Systems Const Details: Constitutional: No Fever, No Chills Musculoskeletal: positive right foot pain, No Myalgias, No Joint Swelling Skin: No Skin lacerations, No rash Neuro: No Weakness, No Numbness, No Paresthesias All systems reviewed & are unremarkable except as noted in HPI and below Physical Exam Vital Signs: Last Vital Signs Temp 98.2 F 03/16/23 09:18 Pulse 65 03/16/23 09:18 BP 116/76 03/16/23 09:18 Pulse Ox 96 03/16/23 09:18 Oxygen Delivery Method Room Air 03/16/23 09:18 Appearance: Alert. Oriented X3. No acute distress. Eyes: Pupils equal, round and reactive to light. Neck: Normal inspection. Neck supple. CVS: Normal heart rate and rhythm. Pulses normal. Respiratory: No respiratory distress. Skin: Skin warm and dry. Normal skin color. Normal skin turgor. Extremities: No lower extremity edema. Gait balance and coordinated with assistive device. Patient has full flexion-extension internal-external rotation of the foot. No tenderness to the 5th metatarsal space. Able to flex and extend all toes without difficulty. Neuro: No motor deficit. No sensory deficit. Cranial nerves 2-12 intact. Assessment & Plan Assessment & Plan (1) Foot pain, right: Code(s): M79.671 - Pain in right foot Plan 63-year-old female presents with over 1 week of right-sided foot pain. States that she tripped last Wednesday, and had some pain in the middle of her foot. She was unable to ambulate on the foot for the 2 days, has been using a compression bandage for comfort. She presents today because pain is still present, mostly on ambulation. She is concerned about fracture. She does not report any loss of sensation, or decreased range of motion to the foot. Patient has tenderness to the arch, has full flexion and extension of the toes. I do have concerns for possible fracture. Will order x-ray. X-rays are negative for acute findings. Will place patient in an Kishore wrap, supportive measures with Tylenol, Motrin, rest ice and elevation. Patient verbalized understanding of discharge instructions. Verbalized understandings of signs and symptoms indicating need for emergent intervention. 11:09 FINDINGS: There is no acute fracture or dislocation. Old proximal fifth metatarsal fracture with associated chronic deformity without significant change. The tarsal bones are normally aligned. Moderate plantar and small retrocalcaneal spurs. Mild dilatation proximally in the plantar fossa. The soft tissues are unremarkable. XR/XR foot RT min 3V IMPRESSION: Chronic changes detailed above most of which show no significant change. Mild increased calcifications proximally in the plantar fossa. No definitive acute abnormality. Orders: Orders XR foot RT min 3V Today M79.671 - Pain in right foot Patient Instructions: You were evaluated for right-sided foot pain. X-rays indicate an old fracture, but does not report anything new or acute. Please keep Kishore wrap in place as needed for comfort. Rest ice and elevate the extremity to help reduce pain and swelling. Alternate Tylenol 650 mg every 6 hours and Motrin 600 mg every 6 hours as needed for pain management. Consider taking these medications 3 hours apart so you have pain and fever management every 3 hours. Write down what time you take these medications to prevent accidental overdose. Motrin is the same medication as Advil and ibuprofen. Tylenol is the same medication as acetaminophen. Thank you for choosing this urgent care for evaluation. Please follow-up with primary care physician as needed. Return to the emergency department for any new, concerning, or worsening symptoms. Coding Level of Care Code Est Pt Level 3 (47652) Diagnoses Foot pain, right M79.671
[2023-03-16 09:18] VITALS: BP 116/76; PULSE 65; TEMP 36.8; O2SAT 96
== END 2023-03-16 11:16 | disposition home or self-care (01) ==
PROVIDERS: PCP Internal Medicine; Visit Provider Nurse Practitioner Family
DX: M79.671 Pain in right foot (principal)
CPT/HCPCS: 99213

== ENCOUNTER 2023-03-16 09:36 | Outpatient (REF) | payer MEDICARE, SELFPAY ==
--- NOTE | ~2023-03-16 | XR_ITS ---
EXAMINATION: XR FOOT, RIGHT CLINICAL INFORMATION: Right foot pain. COMPARISON: Right ankle radiographs dated 06/14/2022. TECHNIQUE: AP, lateral, and oblique views of the right foot. FINDINGS: There is no acute fracture or dislocation. Old proximal fifth metatarsal fracture with associated chronic deformity without significant change. The tarsal bones are normally aligned. Moderate plantar and small retrocalcaneal spurs. Mild dilatation proximally in the plantar fossa. The soft tissues are unremarkable. XR/XR foot RT min 3V IMPRESSION: Chronic changes detailed above most of which show no significant change. Mild increased calcifications proximally in the plantar fossa. No definitive acute abnormality.
== END 2023-03-16 09:37 | disposition home or self-care (01) ==
LOC: HO.HMGCX 09:36
PROVIDERS: PCP Internal Medicine; Visit Provider Nurse Practitioner Family
DX: M79.671 Pain in right foot (principal)
CPT/HCPCS: 73630

== ENCOUNTER 2023-05-14 10:02 | Outpatient (AMB) | payer MEDICARE, SELFPAY ==
--- NOTE | 2023-05-14 10:08 | A.OFFVIS_ITS ---
Intake Intake Visit Reasons: 6m/OAB Intake Note: Patient presents today for a follow-up on OAB: Meds- Oxybutynin Allergies to Antibiotic- No Known Allergies Blood Thinner- None PVR- 251 Allergies fentanyl Adverse Reaction (Unknown, Verified 06/17/23 09:59) Nausea and Vomiting HPI HPI Comments History of Present Illness Details Lolly is a 63-year-old female who presents today to the office for a follow-up. 05/14/2023- She is followed today for OAB. She was last seen by me on 11/09/2022 and was advised to continue Anticholinergic management during that time.?She has been taking oxybutynin daily with benefit. She mentions having urine leakage at night time. She denies any urine leakage during the day. She denies any other urinary tract infections at this time. She has had symptoms of dry mouth. I reviewed the urine culture results from 01/06/2023 which came back Escherichia coli? > 100,000 cfu/mL 05/14/2023: Evaluation today?UA? luekocy delia: 15 Jackelyn; blood: negative. 05/14/2023: Plan: Ordered Gemtesa 75 mg daily. Discontinue taking oxybutynin 15 mg. Advised the patient to limit caffeine, and alcohol intake in the evening time. Follow-up in 6 months. [facility] Medical History Osteoarthritis of left knee OSMANI (obstructive sleep apnea) Morbid obesity with BMI of 40.0-44.9, adult ASCUS of cervix with negative high risk HPV Anemia Obesity (BMI 30-39.9) Depression Anxiety Primary insomnia Microscopic colitis GERD without esophagitis Fibromyalgia Acquired hypothyroidism Impaired fasting glucose Benign essential hypertension Pure hypercholesterolemia Vitamin D deficiency Hypothyroidism Hypoglycemia Bradycardia Infection at site of external fixator pin Overactive bladder Surgical History Status post total left knee replacement (~12/15/22) Hx of cystoscopy Hx of foot surgery Hx of foot surgery History of colonoscopy History of gastrointestinal tract bypass S/P ORIF (open reduction internal fixation) fracture History of hemorrhoidectomy Hx of bilateral breast reduction surgery H/O section H/O arthroscopy of left knee Status post debridement Family History Father Diabetes Mental health disorder Mother CVD (cardiovascular disease) Myocardial infarction Mental health disorder Brother Colon cancer Social History Household Members: Spouse and Children Housing: House Are you a primary care administrative tech to a significant other at home: No Do you presently have visiting nurse or other home services: No Alcohol intake: current Alcohol intake frequency: holidays/special occasions only Patient Tobacco Use Status: Never used Tobacco e-Cigarette/Vaping Use: Never Used Second Hand Smoke Exposure: No service: No Current occupational status: disabled Cognitive needs: No Hearing needs: Yes Vision needs: Yes Female Reproductive History Menstrual Age of Menarche: 14 Review of Systems Const All systems reviewed & are unremarkable except as noted in HPI and below Reports no additional complaints Eyes Reports no additional complaints ENT Reports no additional complaints Card Denies dyspnea Resp Denies cough and Denies dyspnea GI Reports no additional complaints Reports no additional complaints Musc Reports no additional complaints Skin/Breast Details: Denies rash and Denies unusual bruising Neuro Reports no additional complaints Psych Reports no additional complaints Endo Reports no additional complaints Tray/Lymph Reports no additional complaints Aller/Immun Reports no additional complaints Physical Exam Const General: cooperative, healthy appearing and no acute distress Orientation/consciousness: patient oriented x3 HEENT Head: Yes normal to inspection, Yes normocephalic and Yes atraumatic Eyes Conjunctivae: conjunctivae normal Neck Neck: Yes normal visual inspection and Yes trachea midline Chest Chest palpation & inspection: normal inspection of the chest Resp Effort & Inspection: normal respiratory effort Cardio Rate: regular rate GI Inspection: Yes normal to inspection Skin General skin exam: no rashes or lesions noted Neuro General: patient oriented x3 Extrem General: No edema Psych Appearance: grossly normal Results AMB Urinalysis, Automated UA Leukoctes 15 Jackelyn/uL Last Edit by KELLY James on 05/14/23 16:20 UA Nitrite Negative Last Edit by KELLY James on 05/14/23 16:20 UA Urobilinogen 0.2 mg/dL Last Edit by KELLY James on 05/14/23 16:2 0 UA Protein 0 mg/dL Last Edit by KELLY James on 05/14/23 16:20 UA pH 6.0 Last Edit by Roldan Bazziirez, RMA on 05/14/23 16:20 UA Blood 0 John/uL Last Edit by Roldan Lafleur, RMA on 05/14/23 16:20 UA Specific [place] 1.030 Last Edit by Perlaerik Miquel, RMA on 05/14/23 16: 20 UA Ketone Negative Last Edit by Roldan Miquel, RMA on 05/14/23 16:20 UA Bilirubin 0 mg/dL Last Edit by Perlaerik Miquel, RMA on 05/14/23 16:20 UA Glucose 0 mg/dL Last Edit by Roldan Lafleur, RMA on 05/14/23 16:20 Results Reviewed Results Reviewed: Laboratory Last Values Urine pH (Auto) 6.0 05/14/23 16:19 Specific [place] (Auto) 1.030 05/14/23 16:19 Urine Protein (Auto) 0 mg/dL 05/14/23 16:19 Glucose (UA)(Auto) 0 mg/dL 05/14/23 16:19 Urine Ketones (Auto) Negative 05/14/23 16:19 Urine Blood (Auto) 0 John/uL 05/14/23 16:19 Urine Nitrite (Auto) Negative 05/14/23 16:19 Urine Bilirubin (Auto) 0 mg/dL 05/14/23 16:19 Urine Urobilinogen (Auto) 0.2 mg/dL 05/14/23 16:19 Leukocyte Esterase (Auto) 15 Jackelyn/uL 05/14/23 16:19 Ordered:? Urine Culture? Procedure?Result?Verified?Site ? Urine Culture? Final?01/08/23-748 ? ? ?Organism 1?Escherichia coli ? Quant?> 100,000 cfu/mL ? E coli? M.I.C.? ? RX? --------- ---?Ampicillin?>=32?R?Ceftriaxone? <=0.25? ? ?S?Gentamicin?<=1? S?Levofloxacin?<=0.12? ? ?S?Nitrofurantoin?<=16?S?Trimethoprim/Sulfamethoxazole? <=20?S Assessment & Plan Assessment & Plan (1) OAB (overactive bladder): Code(s): N32.81 - Overactive bladder (2) Urge incontinence of urine: Code(s): N39.41 - Urge incontinence Plan Ordered Gemtesa 75 mg daily. Discontinue taking oxybutynin 15 mg. Advised the patient to limit caffeine, and alcohol intake in the evening time. Follow-up in 6 months. Orders: Orders AMB Post Void Residual by ultrasound 05/14/23 R32 - Unspecified urinary incontinence AMB Urinalysis Automated 05/14/23 Z13.9 - Encounter for screening, unspecified Medications: New vibegron (Gemtesa) to replace the oxybutynin 75 mg PO DAILY 90 tabs 1RF Discontinued oxybutynin chloride ER Discontinued Reason: Doctor's Order 15 mg PO DAILY 90 tabs 2RF Patient Instructions: The patient had an opportunity to ask questions regarding treatment plan. All questions were answered. Imaging, Laboratory studies and physical exam results were discussed and reviewed in detail. No major barriers to understanding were identified. The patient expressed understanding and agreement with the above stiven atment plan.? ? ? The patient is aware they should contact our office by phone for worsening of their current condition or the appearance of new symptoms. Compliance is encouraged with any medications and followup testing that is ordered.? ? ? It is a privilege to be allowed the opportunity to participate in the urologic care of your patient. If you have any questions or concerns regarding treatment for the above conditions please do not hesitate to contact me. The office telephone contact is [phone].? ? ? This note is constructed in part using voice recognition software. While every effort has been made to ensure accuracy carpenter general errors may have been included.? ? ? Yours sincerely,? ? ? Isidro Weems MD? Coding Level of Care Code Est Pt Level 4 (32285) Diagnoses OAB (overactive bladder) N32.81 Urge incontinence of urine N39.41
== END 2023-05-14 10:49 | disposition home or self-care (01) ==
PROVIDERS: PCP Internal Medicine; Visit Provider Urology
DX: N32.81 Overactive bladder (principal); N39.41 Urge incontinence
CPT/HCPCS: 99214

== ENCOUNTER → 2023-05-14 10:02 | Outpatient (BNVA) | payer MEDICARE, SELFPAY | PROVIDERS: Visit Provider Urology | DX: N32.81 Overactive bladder (principal); N39.41 Urge incontinence | CPT/HCPCS: 81003; 99212 ==

== ENCOUNTER 2023-06-17 09:37 | Outpatient (AMB) | payer MEDICARE, SELFPAY ==
[2023-06-17 09:40] VITALS: BP 124/86; PULSE 68; O2SAT 96; BMI 34.9
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
== END 2023-06-17 10:11 | disposition home or self-care (01) ==
PROVIDERS: PCP Internal Medicine; Visit Provider Internal Medicine
DX: R07.81 Pleurodynia (principal); F33.9 Major depressive disorder, recurrent, unspecified; E66.01 Morbid (severe) obesity due to excess calories; Z68.41 Body mass index [BMI] 40.0-44.9, adult; E78.00 Pure hypercholesterolemia, unspecified; E03.9 Hypothyroidism, unspecified; I10 Essential (primary) hypertension; R73.01 Impaired fasting glucose; D50.8 Other iron deficiency anemias; K21.9 Gastro-esophageal reflux disease without esophagitis; M17.0 Bilateral primary osteoarthritis of knee; M79.7 Fibromyalgia
CPT/HCPCS: 99214

== ENCOUNTER 2023-06-17 10:30 | Outpatient (REF) | payer MEDICARE, SELFPAY ==
--- NOTE | ~2023-06-17 | XR_ITS ---
EXAMINATION: XR RIBS, LEFT CLINICAL INFORMATION: Pleurodynia COMPARISON: None available. TECHNIQUE: 4 views of the left ribs were obtained. FINDINGS: No focal consolidation. No pneumothorax. Trachea is midline. Cardiac mediastinal silhouette is not enlarged. No large pleural effusion. Soft tissues are unremarkable. Surgical clips in the left upper abdomen. Osseous structures are intact. No acute left-sided rib fractures. XR/XR ribs LT min 3V w CXR1V IMPRESSION: 1. No acute cardiopulmonary process. 2. No acute left-sided rib fractures.
--- NOTE | ~2023-06-17 | XR_ITS ---
EXAMINATION: XR FOOT, RIGHT CLINICAL INFORMATION: Pain right foot COMPARISON: Right foot radiograph from 03/16/2023 TECHNIQUE: AP, lateral, and oblique views of the right foot. FINDINGS: Redemonstration of chronic changes/fracture of the base of the fifth metatarsal, stable. No acute visible fracture or dislocation. Plantar calcaneal heel spur with calcified calcification is along the plantar aponeurosis. Enthesopathy at the Achilles tendon insertion site. Joint spaces and alignment are otherwise maintained. Soft tissues are unremarkable. XR/XR foot RT min 3V IMPRESSION: 1. No acute visible fracture or dislocation. 2. Redemonstration of chronic changes/fracture of the base of the fifth metatarsal, stable. 3. Plantar calcaneal heel spur with calcified calcification is along the plantar aponeurosis.
== END 2023-06-17 10:31 | disposition home or self-care (01) ==
LOC: HO.HMGCX 10:30
PROVIDERS: PCP Internal Medicine; Visit Provider Internal Medicine
DX: M79.671 Pain in right foot (principal); R07.81 Pleurodynia
CPT/HCPCS: 71101; 73630

== ENCOUNTER 2023-07-01 10:01 | Outpatient (AMB) | payer MEDICARE, SELFPAY ==
--- NOTE | 2023-07-01 10:03 | A.OFFVIS_ITS ---
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 Naturopathic Physician: Naturopathic Physician Present (Nathalie) Allergies fentanyl Adverse Reaction (Unknown, Verified 07/01/23 10:22) Nausea and Vomiting HPI HPI Comments History of Present Illness Details She is a postmenopausal woman presenting for annual exam. Doing well with no research and development researcher concerns. Tries to eat healthy and stays active with exercise. She performs swimming and Yoga. She has medical management trainer for exercises. She reports eating well with adequate calcium and vitamin D intake. , not sexually active. Denies vaginal itching and irritation. She has occasional vaginal itching. Denies family hx of colon or ovarian cancer. Her sister was diagnosed with breast cancer. Last pap smear 2020-negative. She takes calcium supplement and protein shake in the morning. She has an intimate relationship with . Vaginal dryness, itching, or drainage. Colonoscopy UTD ~ 2022. [facility] Medical History Osteoarthritis of left knee OSMANI (obstructive sleep apnea) Morbid obesity with BMI of 40.0-44.9, adult ASCUS of cervix with negative high risk HPV Anemia Obesity (BMI 30-39.9) Depression Anxiety Primary insomnia Microscopic colitis GERD without esophagitis Fibromyalgia Acquired hypothyroidism Impaired fasting glucose Benign essential hypertension Pure hypercholesterolemia Vitamin D deficiency Hypothyroidism Hypoglycemia Bradycardia Infection at site of external fixator pin Overactive bladder Surgical History Status post total left knee replacement (~12/15/22) Hx of cystoscopy Hx of foot surgery Hx of foot surgery History of colonoscopy History of gastrointestinal tract bypass S/P ORIF (open reduction internal fixation) fracture History of hemorrhoidectomy Hx of bilateral breast reduction surgery H/O section H/O arthroscopy of left knee Status post debridement Family History Father Diabetes Mental health disorder Mother CVD (cardiovascular disease) Myocardial infarction Mental health disorder Brother Colon cancer Sister Lung cancer Social History Household Members: Spouse and Children Housing: House Are you a primary lawn care worker to a significant other at home: No Do you presently have visiting nurse or other home services: No Alcohol intake: current Alcohol intake frequency: holidays/special occasions only Patient Tobacco Use Status: Never used Tobacco e-Cigarette/Vaping Use: Never Used Second Hand Smoke Exposure: No service: No Current occupational status: disabled Cognitive needs: No Hearing needs: Yes Vision needs: Yes Female Reproductive History Menstrual Age of Menarche: 14 Menopause type: natural Total pregnancies: 2 Full term: 2 Number of Living Children: 2 Date of last pap smear: 05/19/21 (neg pap and hpv) Date of Mammogram: 10/01/22 (Birad 2) Review of Systems Const All systems reviewed & are unremarkable except as noted in HPI and below Reports as per HPI Eyes Reports no additional complaints ENT Reports no additional complaints Card Reports no additional complaints Resp Reports no additional complaints GI Reports no additional complaints Reports as per HPI Musc Reports no additional complaints Skin/Breast Reports as per HPI Neuro Reports no additional complaints Psych Reports no additional complaints Endo Reports no additional complaints Tray/Lymph Reports no additional complaints Aller/Immun Reports no additional complaints Physical Exam Vital Signs: Last Vital Signs BP 120/80 07/01/23 10:18 BMI result Body Mass Index 35.7 Const General: cooperative, healthy appearing, no acute distress, well developed and alert Orientation/consciousness: patient oriented x3 HEENT Head: Yes normal to inspection Eyes General: appearance normal, both eyes and all related structures Neck Neck: Yes normal visual inspection Thyroid: Thyroid normal Chest Chest palpation & inspection: normal inspection of the chest Breast/axilla inspection: normal inspection of the breasts (no puckering, dimpling, peau de orange, retraction, discharge, masses) and Other (She has bilateral breast reduction scarring.) Breast/axilla palpation: normal palpation of the breasts Resp Effort & Inspection: normal respiratory effort GI Inspection: Yes normal to inspection Palpation (GI): Soft to palpation Rectal Exam - Female: deferred Other: Vaginal atrophic changes. General: Yes bladder normal to palpation External Female Exam: normal external appearance and normal appearance of the urethra Speculum Exam - Vagina: normal appearance of the vagina, normal palpation and normal vaginal discharge Speculum Exam - Cervix: normal appearance of the cervix and normal palpation Bimanual exam- vagina & uterus: normal bimanual exam, normal palpation, uterine size normal, bladder normal to palpation and normal palpation Bimanual Exam- Adnexa, other: normal adnexae and no masses Skin General skin exam: no rashes or lesions noted Neuro General: patient oriented x3 Cognition (Neuro): normal cognition Extrem General: Yes normal to inspection Psych Attitude: cooperative Thought process: Normal thought process present Assessment & Plan Assessment & Plan (1) Encounter for annual routine gynecological examination: Code(s): Z01.419 - Encounter for gynecological examination (general) (routine) without abnormal findings Plan: Discussed: Current recommendations for pap smears per ASCCP guidelines. Breast awareness and periodic self breast exams. Encouraged yearly mammograms. Maintaining a healthy lifestyle including a well balanced diet including Calcium and Vitamin D and routine exercise. Contact office with any PMB. All of her questions and concerns were addressed to the best of my ability. RTO in one year for AG. Coding Level of Care Code Est Pt Prev Care 40-64y(51176) Diagnoses Encounter for annual routine gynecological examination Z01.419
[2023-07-01 10:18] VITALS: BP 120/80; BMI 35.7
== END 2023-07-01 10:47 | disposition home or self-care (01) ==
PROVIDERS: PCP Internal Medicine; Visit Provider Advanced Practice Midwife
DX: Z01.419 Encounter for gynecological examination (general) (routine) without abnormal findings (principal)
CPT/HCPCS: 99396

== ENCOUNTER → 2023-07-01 10:01 | Outpatient (BNVA) | payer MEDICARE, SELFPAY | PROVIDERS: PCP Internal Medicine; Visit Provider Advanced Practice Midwife ==

== ENCOUNTER 2023-08-25 16:43 | Emergency (ER) | payer MEDICARE, SELFPAY ==
--- NOTE | 2023-08-25 16:48 | ED.GENADULT ---
HPI - General Adult General Chief complaint: Syncope Stated complaint: blacked out/ fell. Time Seen by Provider: 08/26/23 02:31 Source: patient Mode of arrival: ambulatory Limitations: no limitations History of Present Illness HPI narrative: Patient history of vertigo stood up to turn on the light, became lightheaded felt dizzy everything spinning around and collapse without hitting her head history of same in the past no chest pain or palpitation patient had similar history in the past Related Data Home Medications Medication Instructions Recorded Confirmed cholecalciferol (vitamin D3) 50 50 mcg PO DAILY 05/23/20 06/17/23 mcg (2,000 unit) capsule Previous Rx's Medication Instructions Recorded ferrous sulfate 325 mg (65 mg 325 mg PO DAILY #90 tabs 11/25/21 iron) tablet LIGHTWEIGHT CANE #1 ea 06/15/22 acarbose 50 mg tablet 50 mg PO TID 90 days #270 tabs 07/22/22 mirtazapine 7.5 mg tablet 7.5 mg PO BEDTIME 30 days #30 tabs 11/30/22 acetaminophen 325 mg tablet 650 mg (2 x 325 mg) PO Q6H PRN 12/17/22 Pain, Mild (Pain Scale 1-3) #240 tabs docusate sodium 100 mg capsule 100 mg PO BID 30 days #60 caps 12/17/22 celecoxib 200 mg capsule 200 mg PO BID 30 days #60 caps 03/11/23 atorvastatin 40 mg tablet 40 mg PO DAILY #90 tabs 04/04/23 lisinopril 10 mg tablet 10 mg PO DAILY #90 tabs 05/03/23 omeprazole 40 mg capsule,delayed 40 mg PO DAILY #90 caps 05/03/23 release lorazepam 0.5 mg tablet 0.5 mg PO BID PRN anxiety 30 days 05/05/23 #60 tabs tizanidine 4 mg tablet 4 mg PO Q8H PRN muscle spasms 10 06/08/23 days #30 tabs mirabegron 50 mg tablet,extended 50 mg PO DAILY 30 days #30 tabs 06/09/23 release 24 hr (Myrbetriq) solifenacin 5 mg tablet (Vesicare) 5 mg PO DAILY 30 days #30 tabs 06/09/23 levothyroxine 200 mcg tablet 200 mcg PO DAILY #90 tabs 07/21/23 pregabalin 75 mg capsule (Lyrica) 75 mg PO TID 30 days #90 caps 08/10/23 sertraline 100 mg tablet 200 mg (2 x 100 mg) PO DAILY 90 08/10/23 days #180 tabs meclizine 25 mg tablet 25 mg PO TID PRN dizziness #20 tabs 08/26/23 Allergies Allergy/AdvReac Type Severity Reaction Status Date / Time fentanyl AdvReac Unknown Nausea and Verified 08/25/23 16:52 Vomiting Review of Systems Review of Systems: Yes all other systems are reviewed and are negative PMFSH Past Medical History Onset Date is defined in the Problem List Problems that require an onset date and time if occurred within 24 hrs of arrival to the ED Aortic Dissection and Rupture; Neurologic impairment; Cardiopulmonary Arrest; Endotracheal Intubation; Insertion or Replacement of Mechanical Circulatory Assist Device Medical History Osteoarthritis of left knee OSMANI (obstructive sleep apnea) Morbid obesity with BMI of 40.0-44.9, adult ASCUS of cervix with negative high risk HPV Anemia Obesity (BMI 30-39.9) Depression Anxiety Primary insomnia Microscopic colitis GERD without esophagitis Fibromyalgia Acquired hypothyroidism Impaired fasting glucose Benign essential hypertension Pure hypercholesterolemia Vitamin D deficiency Hypothyroidism Hypoglycemia Bradycardia Infection at site of external fixator pin Overactive bladder Surgical History Status post total left knee replacement (~12/15/22) Hx of cystoscopy Hx of foot surgery Hx of foot surgery History of colonoscopy History of gastrointestinal tract bypass S/P ORIF (open reduction internal fixation) fracture History of hemorrhoidectomy Hx of bilateral breast reduction surgery H/O section H/O arthroscopy of left knee Status post debridement Family History Family History Father Diabetes Mental health disorder Mother CVD (cardiovascular disease) Myocardial infarction Mental health disorder Brother Colon cancer Sister Lung cancer Social History Social History Household Members: Spouse and Children Housing: House Are you a primary health careers instructor to a significant other at home: No Do you presently have visiting nurse or other home services: No Alcohol intake: current Alcohol intake frequency: holidays/special occasions only Comment: aware of trip hazards Patient Tobacco Use Status: Never used Tobacco e-Cigarette/Vaping Use: Never Used Second Hand Smoke Exposure: No Advance Directives: No Advance Directives Information Provided: Yes service: No Current occupational status: disabled Cognitive needs: No Hearing needs: Yes Vision needs: Yes Physical Exam ED Vital Signs: Vital Signs - 24 hr 08/25/23 16:50 08/26/23 03:09 08/26/23 03:14 Temperature 96.4 F L 98.1 F Pulse Rate 67 52 52 Respiratory Rate 18 18 Blood Pressure 114/62 130/51 L 115/76 Pulse Oximetry 96 97 Oxygen Delivery Method Room Air Room Air 08/26/23 03:55 08/26/23 03:56 08/26/23 03:56 Temperature Pulse Rate 49 L 54 58 Respiratory Rate Blood Pressure 138/62 128/65 136/70 Pulse Oximetry Oxygen Delivery Method BMI result Body Mass Index 34.7 Appearance: Alert. Oriented X3. No acute distress. Eyes: PERRLA, No Nystagmus ENT: Pharynx normal. Oral Mucosa moist Neck: Normal inspection. Neck supple. CVS: Normal heart rate and rhythm. Pulses normal. Respiratory: No respiratory distress. Equal air entry bilateral, no wheezing/rales/rhonchi Abdomen: Soft and nontender. Bowel sounds are present, no mass palpable, no CVA tenderness Skin: Skin warm and dry. Normal skin color. Normal skin turgor. Extremities: No lower extremity edema. No calf tenderness Neuro: Oriented X 3. No motor deficit. 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 admits to increasing dizziness & lightheadedness x3 days. Admits to hx sugar issues in the past requiring ICU stay. denies head trauma, or taking AC. Also reports DOYLE EKG, labs, UA, CXR, orthos ordered Full HPI, ROS and PE to be performed by primary ED provider. Medications Administered Discontinued Medications Generic Name Dose Route Start Last Admin Trade Name Freq PRN Reason Stop Dose Admin Lorazepam 1 mg 08/26/23 05:22 08/26/23 05:34 Lorazepam 1 Mg Tablet PO 08/26/23 05:23 1 mg ONCE ONE Administration Meclizine HCl 25 mg 08/26/23 02:47 08/26/23 03:06 Meclizine Hcl 25 Mg Tablet PO 08/26/23 02:48 25 mg ONCE ONE Administration Medical Decision Making Medical Decision Making [facility] Narrative: Patient with benign positional vertigo with similar episodes in the past comes in with acute onset of dizziness with near fall patient feeling better with meclizine no orthostatic hypotension will discharge patient home on meclizine patient's orthostatics were normal Differential Diagnosis Differential Diagnoses: The differential diagnosis associated with the presentation includes Benign positional vertigo/near syncope/dizziness Lab Data [facility] Lab Attestation statement: I reviewed the patient's lab results. 08/25/23 17:08 08/25/23 17:08 Labs: Lab Results 08/25/23 08/25/23 Range/Units 17:05 17:08 WBC 4.2 L (4.8-10.8) X10*3/uL RBC 4.45 (4.20-5.50) X10*6/uL Hgb 12.3 (12.0-16.0) g/dl Hct 38.4 (37.0-47.0) % MCV 86.3 (80.0-98.0) fL MCH 27.6 (27.0-33.0) pg MCHC 32.0 (31.0-35.0) g/dl RDW 13.2 (11.0-16.0) % Plt Count 172 D (160-400) X10*3/uL MPV 10.5 (9.4-12.3) fL Immature Gran % (Auto) 0.2 (0.0-0.4) % Neut % (Auto) 51.6 (45-73) % Lymph % (Auto) 37.0 (20-40) % Owsley % (Auto) 8.6 (2-11) % Eos % (Auto) 2.1 (0-4) % Baso % (Auto) 0.5 (0-2) % Lymph # (Auto) 1.6 (1.2-4.9) X10*3/uL Owsley # (Auto) 0.4 (0.1-1.2) X10*3/uL Eos # (Auto) 0.1 (0.0-0.4) X10*3/uL Baso # (Auto) 0.0 (0.0-0.2) X10*3/uL Abs Immat Gran (auto) 0.01 (0.00-0.03) X10*3/uL Absolute Neuts (auto) 2.2 (2.0-8.3) x10*3/uL Absolute Nucleated RBC 0.000 (0.0-0.012) X10*3/uL Nucleated RBC % (auto) 0.0 (0.0-0.2) /100WBC PT 12.2 (11.1-13.3) SEC INR 1.0 (0.9-1.1) Sodium 145 (135-145) mmol/L Potassium 4.3 (3.3-5.1) mmol/L Chloride 108 (96-108) mmol/L Carbon Dioxide 30 H (22-29) mmol/L Anion Gap 11 L (12-20) BUN 21 H (9-16) mg/dL Creatinine 0.85 (0.5-1.4) mg/dL Estim Creat Clear Calc 70.8 Estimated GFR > 60 Random Glucose 93 (60-115) mg/dL Calcium 9.4 (8.4-10.2) mg/dL Magnesium 2.0 (1.6-2.6) mg/dL Total Bilirubin 0.3 (0.0-1.0) mg/dL Direct Bilirubin 0.1 (0.0-0.5) mg/dL AST 25 (5-31) U/L ALT 25 (0-31) U/L Alkaline Phosphatase 122 H (39-117) U/L Troponin I High Sens < 2.7 (<3.5-17.0) ng/L Total Protein 7.5 (6.5-8.0) g/dL Albumin 4.2 (3.5-5.0) g/dL Influenza Type A (PCR) NEGATIVE (Negative) Influenza Type B (PCR) NEGATIVE (Negative) RSV RNA Qual (PCR) NEGATIVE (Negative) SARS-CoV-2 RNA (RT-PCR) NEGATIVE (Negative) Independent Interpretation I performed an independent interpretation of an: EKG Interpretation: Normal sinus rhythm heart rate 66 beats per minute normal interval normal axis no acute ST-T changes of acute ischemia Discharge Plan Discharge Clinical Impression: Benign paroxysmal positional vertigo Patient Disposition: Home, Self-Care Instructions: Benign Paroxysmal Positional Vertigo (ED) Additional Instructions: Care and caution is advised Take meclizine 1 tablet every 8 hours as needed for severe dizziness Follow up with your PCP as needed Prescriptions: New meclizine 25 mg tablet 25 mg PO TID PRN (Reason: dizziness) Qty: 20 0RF No Action ferrous sulfate 325 mg (65 mg iron) tablet 325 mg PO DAILY Qty: 90 1RF acarbose 50 mg tablet 50 mg PO TID 90 Days Qty: 270 11RF mirtazapine 7.5 mg tablet 7.5 mg PO BEDTIME 30 Days Qty: 30 3RF celecoxib 200 mg capsule 200 mg PO BID 30 Days Qty: 60 3RF atorvastatin 40 mg tablet 40 mg PO DAILY Qty: 90 1RF omeprazole 40 mg capsule,delayed release(DR/EC) 40 mg PO DAILY Qty: 90 3RF lisinopril 10 mg tablet 10 mg PO DAILY Qty: 90 3RF lorazepam 0.5 mg tablet 0.5 mg PO BID PRN (Reason: anxiety) 30 Days Qty: 60 0RF tizanidine 4 mg tablet 4 mg PO Q8H PRN (Reason: muscle spasms) 10 Days Qty: 30 3RF solifenacin [Vesicare] 5 mg tablet 5 mg PO DAILY 30 Days Qty: 30 1RF Rx Instructions: take in PM Myrbetriq 50 mg tablet extended release 24 hr 50 mg PO DAILY 30 Days Qty: 30 1RF Rx Instructions: take in AM levothyroxine 200 mcg tablet 200 mcg PO DAILY Qty: 90 1RF sertraline 100 mg tablet 200 mg PO DAILY 90 Days Qty: 180 1RF pregabalin [Lyrica] 75 mg capsule 75 mg PO TID 30 Days Qty: 90 1RF acetaminophen 325 mg Tablet 650 mg PO Q6H PRN (Reason: Pain, Mild (Pain Scale 1-3)) Qty: 240 0RF docusate sodium 100 mg Capsule 100 mg PO BID 30 Days Qty: 60 0RF (DME) LIGHTWEIGHT CANE See Rx Instructions .Route .MEDSUPPLY Qty: 1 0RF Rx Instructions: As directed cholecalciferol (vitamin D3) 50 mcg (2,000 unit) capsule 50 mcg PO DAILY
[2023-08-25 16:50] VITALS: BP 114/62; PULSE 67; RESP 18; TEMP 35.8; O2SAT 96; BMI 34.7
[2023-08-26 03:09] VITALS: BP 130/51; PULSE 52
[2023-08-26 03:14] VITALS: BP 115/76; PULSE 52; RESP 18; TEMP 36.7; O2SAT 97
--- NOTE | 2023-08-26 03:21 | PC.NURSE ---
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 pt reports sitting up felt too dizzy. will recheck dr strange made aware
[2023-08-26 03:55] VITALS: BP 138/62; PULSE 49
[2023-08-26 03:56] VITALS: BP 128/65; BP 136/70; PULSE 54; PULSE 58
--- NOTE | 2023-08-26 03:56 | MHC.EDTECH ---
Ortho Static vitals were completed, patient was dizzy on sitting,RN made aware.
--- NOTE | 2023-08-26 05:17 | PC.NURSE ---
pt sat up and still felt funkie dizzy per pt. Provider and rn made aware.
--- NOTE | 2023-08-26 06:25 | PC.NURSE ---
ambulation trial done at discharge. pt calm and cooperative utilized wheelchair at discharge. pt at bedside for discharge. pt provided with discharge packet pt verbalized understanding of discharge plan
== END 2023-08-26 06:25 | disposition home or self-care (01) ==
PROVIDERS: Emergency Provider Internal Medicine; PCP Internal Medicine
DX: H81.10 Benign paroxysmal vertigo, unspecified ear (principal); Z20.822 Contact with and (suspected) exposure to COVID-19; Z20.828 Contact with and (suspected) exposure to other viral communicable diseases; R55 Syncope and collapse; I10 Essential (primary) hypertension; E78.00 Pure hypercholesterolemia, unspecified; E55.9 Vitamin D deficiency, unspecified; D64.9 Anemia, unspecified; Z79.02 Long term (current) use of antithrombotics/antiplatelets; Z79.899 Other long term (current) drug therapy
CPT/HCPCS: 0241U; 71045; 80048; 80076; 83735; 84484; 85025; 85610; 93005; 99283; 99284

== ENCOUNTER → 2023-08-25 16:52 | Outpatient (BNV) | payer MEDICARE, SELFPAY | PROVIDERS: Emergency Provider Internal Medicine; PCP Internal Medicine; Visit Provider Internal Medicine Cardiovascular Disease | DX: R55 Syncope and collapse (principal) | CPT/HCPCS: 93010 ==

== ENCOUNTER 2023-08-31 11:04 | Outpatient (REF) | payer MEDICARE, SELFPAY ==
[2023-08-31 11:18] LABS: MANUAL DIFF FLAG NO
[2023-08-31 11:39] LABS: Basophils Percent Auto 0.2 % (0-2); Eosinophils Absolute Auto 0.1 X10*3/uL (0.0-0.4); Eosinophils Percent Auto 3.2 % (0-4); Hematocrit 38.2 % (37.0-47.0); Hemoglobin 12.3 g/dl (12.0-16.0); Imm Gran Abs Auto 0.01 X10*3/uL (0.00-0.03); Imm Gran Pct Auto 0.2 % (0.0-0.4); Lymphocytes Absolute Auto 1.5 X10*3/uL (1.2-4.9); Lymphocytes Percent Auto 36.9 % (20-40); Mean Corpuscular HGB Conc 32.2 g/dl (31.0-35.0); Mean Corpuscular Volume 86.8 fL (80.0-98.0); Mean Platelet Volume 10.5 fL (9.4-12.3); Monocytes Absolute Auto 0.3 X10*3/uL (0.1-1.2); Monocytes Percent Auto 7.5 % (2-11); Neutrophils Absolute Auto 2.1 x10*3/uL (2.0-8.3); Platelet Count 178 X10*3/uL (160-400); Red Cell Distribution Width 12.7 % (11.0-16.0); White Blood Count 4.1 X10*3/uL (4.8-10.8)
[2023-08-31 12:05] LABS: Estimated Average Glucose 108 mg/dL; Hemoglobin A1c % 5.4 % (<6.0)
[2023-08-31 12:56] LABS: Appearance Urine Cloudy; Color Urine Yellow; Glucose Urine UA Negative (Negative); Leukocyte Esterase Urine Small (1+) (Negative); Nitrite Urine Positive (Negative); PH 5.5 (5.0-9.0); UMIC TRIGGER UACC YES; Urine Blood Negative (Negative); Urine Ketones Negative (Negative); Urine Protein Negative (Neg-Trace)
[2023-08-31 13:13] LABS: Bacteria Urine 4+ (None Seen); Hyaline Casts Urine 0-2 /LPF (0-2); RBC Urine 0-2 /HPF (0-2); UACC Culture Trigger YES; WBC Urine 0-5 /HPF (0-5)
[2023-08-31 13:47] LABS: Alanine Aminotransferase 26 U/L (0-31); Albumin Level 3.7 g/dL (3.5-5.0); Alkaline Phosphatase 118 U/L (39-117); Anion Gap 10 (12-20); Aspartate Amino Transferase 22 U/L (5-31); Bilirubin Total 0.4 mg/dL (0.0-1.0); Blood Urea Nitrogen 14 mg/dL (9-16); Carbon Dioxide 29 mmol/L (22-29); Chloride 108 mmol/L (96-108); Cholesterol 136 mg/dL (<200); Estimated Glomerular Filt Rate > 60; Glucose Fasting 105 mg/dL (60-99); HDL Cholesterol 45 mg/dL (>40); LDL Cholesterol Calculated 61 mg/dL (<100); Potassium 3.9 mmol/L (3.3-5.1); Sodium 143 mmol/L (135-145); Total Protein 6.8 g/dL (6.5-8.0); Triglycerides 152 mg/dL (<150)
[2023-08-31 13:49] LABS: Free T4 (Free Thyroxine) 1.38 ng/dL (0.71-1.85); Thyroid Stimulating Hormone 0.04 uIU/mL (0.32-4.0); Vitamin D 25-OH Total 22.4 ng/mL (>30)
== END 2023-08-31 11:05 | disposition home or self-care (01) ==
LOC: HO.LAB 11:04
PROVIDERS: PCP Internal Medicine; Visit Provider Internal Medicine
DX: E03.9 Hypothyroidism, unspecified (principal); E78.00 Pure hypercholesterolemia, unspecified; R73.01 Impaired fasting glucose; E55.9 Vitamin D deficiency, unspecified; I10 Essential (primary) hypertension; R82.90 Unspecified abnormal findings in urine
CPT/HCPCS: 36415; 80053; 80061; 81001; 82306; 83036; 84439; 84443; 85025; 87086

== ENCOUNTER 2023-09-03 15:00 | Outpatient (AMB) | payer MEDICARE, SELFPAY ==
--- NOTE | 2023-09-03 15:01 | A.OFFPC_ITS ---
Vital Signs 09/03/23 15:02 Height 5 ft 2 in Weight 189 lb BMI 34.6 BP 114/64 Blood Pressure Location Lt brachial Position Sitting Pulse 69 Pulse Source Pulse Oximeter Pulse Oximetry (%) 98 Oxygen Delivery Method Room Air Intake Visit Reasons: ED follow up Roller Printer Required: No Accompanied by: Self / Same As Patient Allergies fentanyl Adverse Reaction (Unknown, Verified 09/07/23 09:47) Nausea and Vomiting Medication List - Last Reconciled 09/03/23 by Obdulio Patel MD acarbose 50 mg PO TID 90 days acetaminophen 650 mg (2 x 325 mg) PO Q6H PRN atorvastatin 40 mg PO DAILY celecoxib 200 mg PO BID 30 days cholecalciferol (vitamin D3) 50 mcg PO DAILY docusate sodium 100 mg PO BID 30 days ferrous sulfate 325 mg PO DAILY levothyroxine 200 mcg PO DAILY [LIGHTWEIGHT CANE As directed] lisinopril 10 mg PO DAILY lorazepam 0.5 mg PO BID PRN 30 days meclizine 25 mg PO TID PRN mirabegron ER (Myrbetriq) 50 mg PO DAILY 30 days mirtazapine 7.5 mg PO BEDTIME 30 days omeprazole 40 mg PO DAILY pregabalin (Lyrica) 75 mg PO TID 30 days sertraline 200 mg (2 x 100 mg) PO DAILY 90 days solifenacin (Vesicare) 5 mg PO DAILY 30 days tizanidine 4 mg PO Q8H PRN 10 days Tobacco use date assessed: 09/03/23 Dental Screening Dental Screen Date: 09/03/23 Did you have a dental visit in the last 12 months?: Yes Did you have a dental problem in the last 6 months where you did not have access to dental care?: No Was dental information given to patient?: Patient has dentist HPI ED follow up HPI Details Patient comes in today for her HDF follow up visit Patient went to the ER last week when she suddenly became lightheaded and dizzy after standing up to turn on the light at home Relates that she collapsed but did not hit her head when she fell She was examined in the ER and had some labs / work ups done - her lab results all came back normal; EKG was also normal with no acute changes Patient also reports experiencing similar symptoms in the past Was diagnosed with paroxysmal vertigo and she was discharged home with some Rx for Meclizine States that her symptoms gradually subsided over the next few days and so far have not recurred since and states that she presently feels okay She currently denies any headaches or dizziness Denies any chest pains, no SOB No nausea/vomiting, no abdominal pain No change in bowel habits noted PENDING SALE TO [facility] Medical History Osteoarthritis of left knee OSMANI (obstructive sleep apnea) Morbid obesity with BMI of 40.0-44.9, adult ASCUS of cervix with negative high risk HPV Anemia Obesity (BMI 30-39.9) Depression Anxiety Primary insomnia Microscopic colitis GERD without esophagitis Fibromyalgia Acquired hypothyroidism Impaired fasting glucose Benign essential hypertension Pure hypercholesterolemia Vitamin D deficiency Hypothyroidism Hypoglycemia Bradycardia Infection at site of external fixator pin Overactive bladder Surgical History Status post total left knee replacement (~12/15/22) Hx of cystoscopy Hx of foot surgery Hx of foot surgery History of colonoscopy History of gastrointestinal tract bypass S/P ORIF (open reduction internal fixation) fracture History of hemorrhoidectomy Hx of bilateral breast reduction surgery H/O section H/O arthroscopy of left knee Status post debridement Family History Father Diabetes Mental health disorder Mother CVD (cardiovascular disease) Myocardial infarction Mental health disorder Brother Colon cancer Sister Lung cancer Social History Household Members: Spouse and Children Housing: House Are you a primary youth care professional to a significant other at home: No Do you presently have visiting nurse or other home services: No Alcohol intake: current Alcohol intake frequency: does not drink Comment: aware of trip hazards Patient Tobacco Use Status: Never used Tobacco e-Cigarette/Vaping Use: Never Used Second Hand Smoke Exposure: No service: No Current occupational status: disabled Cognitive needs: No Hearing needs: Yes Vision needs: Yes Female Reproductive History Menstrual Age of Menarche: 14 Questionnaire PHQ-9 Over the last 2 weeks, how often have you been bothered by any of the following problems? 1. Little interest or pleasure in doing things: not at all 2. Feeling down, depressed, or hopeless: not at all 3. Trouble falling or staying asleep, or sleeping too much: not at all 4. Feeling tired or having little energy: not at all 5. Poor appetite or overeating: not at all 6. Feeling bad about yourself - or that you are a failure or have let yourself or your family down: not at all 7. Trouble concentrating on things, such as reading the newspaper or watching television: not at all 8. Moving or speaking so slowly that other people could have noticed. Or the opposite - being so fidgety or restless that you have been moving around a lot more than usual: not at all 9. Thoughts that you would be better off or of hurting yourself in some way: not at all Total score: 0 Depression Screening Interpretation: Negative Depression Screening Done: Yes 64938 - PHQ-9 Billing: Yes Source: Developed by Drs. Mickey Arce, Paige Barton, Luis A Hull and colleagues, with an educational roger from [employer]. Thrive Questionnaire Date Thrive assessed: 09/03/23 I am a: Patient What is your living situation today?: I have a steady place to live Within the past 12 months, did the food you bought not last and you didn't have the money to get more?: Never true Within the past 12 months, did you worry whether your food would run out before you got money to buy more?: Never true Do you have trouble paying for medicines?: No Do you have trouble getting transportation to medical appointments?: No Do you have trouble paying your heating and electricity bill?: No Do you have trouble taking care of your child, family member or friend?: No Do you have trouble with day-to-day activities such as bathing, preparing meals, shopping, managing finances, etc.?: No Are you currently unemployed and looking for a job?: No Are you interested in more education?: No Please select the resources that you would like help with: None Currently or been in a relationship where the following occur: no concerns reported AUDIT C Alcohol Use Questionnaire (AUDIT-C) 1. How often do you have a drink containing alcohol?: Never 3. How often do you have six or more drinks on one occasion?: Never Total Score: 0 Score Reviewed/Action Taken: Yes EVANGELINA-7 AMB Questionnaire EVANGELINA-7 Date EVANGELINA - 7 assessed: 09/03/23 Feeling nervous, anxious, or on edge: 0 = Not at all Not being able to stop or control worryin = Not at all Worrying too much about different things: 0 = Not at all Trouble relaxin = Not at all Being so restless that it is hard to sit still: 0 = Not at all Becoming easily annoyed or irritable: 0 = Not at all Feeling afraid as if something awful might happen: 0 = Not at all Total EVANGELINA-7 score (0-4 normal; 5-9 mild; 10-14 moderate; 15-21 severe): 0 Source: Developed by Drs. Mickey Arce, Paige Barton, Luis A Hull and colleagues, with an educational roger from [employer]. EVANGELINA-7 Assessment Billing EVANGELINA-7 Assessment Tool: EVANGELINA-7 Assessment 53570 Review of Systems Const Denies chills, Denies fatigue, Denies fever(s) and Denies headache(s) ENT Denies dysphagia, Denies dizziness, Denies otalgia, Denies headache(s), Reports hearing loss (in both ears), Denies neck pain, Denies odynophagia and Denies sore throat Card Denies chest pain, Denies palpitations and Denies dyspnea Resp Denies chest congestion, Denies cough and Denies dyspnea GI Denies abdominal pain, Denies bloating, Denies constipation, Denies dysphagia, Denies heartburn, Denies diarrhea, Denies nausea, Denies odynophagia and Denies vomiting Denies difficulty voiding, Reports nocturia (at times), Denies dysuria and Re ports urinary incontinence (mostly at night) Musc Reports arthralgias (both knees - s/p left knee TKA a few months ago) and Denies neck pain Skin/Breast Denies rash Neuro Denies dizziness and Denies headache(s) Psych Reports anxiety and Reports depression (better controlled) Endo Denies fatigue and Denies palpitations Physical exam (Primary Care) Vital Signs: Last Vital Signs Pulse 69 09/03/23 15:02 BP 114/64 09/03/23 15:02 Pulse Ox 98 09/03/23 15:02 Oxygen Delivery Method Room Air 09/03/23 15:02 BMI result Body Mass Index 34.6 Tobacco/Smoking Status: Tobacco use Status Tobacco use date assessed 09/03/23 09/03/23 15:08 Patient Tobacco Use Status Never used Tobacco 09/03/23 15:08 e-Cigarette/Vaping Use Never Used 09/03/23 15:08 PHQ-9: PHQ-9 Score PHQ-9: Total score 0 09/03/23 15:53 Depression Screening Interpretation: Negative Thrive Assessment: Date of Thrive Assessment Date Thrive assessed 09/03/23 09/03/23 15:08 Currently or been in a relationship where the following occur: no concerns reported Const General: no acute distress and alert HENMT Ears: TM's normal bilaterally and EAC's normal Throat: Yes posterior oropharynx normal and Yes tonsils normal (no TP congestion noted) Neck Neck: Yes no lymphadenopathy and Yes supple Resp Auscultation: clear to auscultation bilaterally, no rales and no wheezes Cardio Rate: regular rate Rhythm: regular rhythm Heart sounds: no murmurs GI Palpation (GI): Soft to palpation and nontender Auscultation: normal bowel sounds Back/Spine/Pelvis Cervical Spine: No Cervical spine tenderness Thoracic/Lumbar Spine: lumbar spinal tenderness Skin Rashes: no rashes Extrem General: Yes no clubbing, cyanosis or edema Results Reviewed Results Reviewed: Laboratory Tests 08/31/23 08/31/23 08/31/23 11:12 11:16 11:16 WBC 4.1 L Hgb 12.3 Hct 38.2 Plt Count 178 Sodium 143 Potassium 3.9 Creatinine 0.83 Estimated GFR > 60 Fasting Glucose 105 H Hemoglobin A1c % 5.4 Calcium 9.0 AST 22 ALT 26 Triglycerides 152 H Cholesterol 136 LDL Cholesterol, Calc 61 HDL Cholesterol 45 25-OH Vitamin D Total 22.4 L TSH 0.04 L Free T4 1.38 Ur Specific [place] 1.020 Urine Protein Negative Urine Glucose (UA) Negative Urine Blood Negative Assessment and Plan Assessment & Plan (1) Dizziness: Code(s): R42 - Dizziness and giddiness Plan: Discussed that her symptoms are likely due to benign paroxysmal vertigo, which can recur at any time with no advanced warning She has been seen by neurology in the past but last visit was over 4 years ago in 2019 Will refer her back to Dr. Martínez for neurology evaluation and management (2) Pure hypercholesterolemia: Code(s): E78.00 - Pure hypercholesterolemia, unspecified Plan: Reinforced low cholesterol diet Continue Atorvastatin 40 mg QD She is reminded to get her labs and fasting lipids done as scheduled next month for follow up (3) Benign essential hypertension: Code(s): I10 - Essential (primary) hypertension Plan: Reinforced low sodium diet - goal is systolic BP of at least 120 to 130 mm or less Continue Lisinopril 10 mg QD Patient is reminded to continue monitoring her blood pressure regularly (4) Impaired fasting glucose: Code(s): R73.01 - Impaired fasting glucose Plan: HgbA1c remained normal at 5.0% on her labs done a few months ago (was previously at 5.5%) - will continue to monitor her HgbA1c and blood sugar regularly Continue Acarbose 50 mg TID - was started on Acarbose 50 mg TID by endocrinology 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 Flood a few months ago Will continue to monitor her TFTs regularly Follow-up with endocrinology as scheduled (6) Anemia: Code(s): D64.9 - Anemia, unspecified Qualifiers: Anemia type: iron deficiency Iron deficiency anemia type: inadequate dietary iron intake Qualified Code(s): D50.8 - Other iron deficiency anemias Plan: Improved/corrected with iron supplementation Continue Ferrous Sulfate 325 mg QD Will continue to monitor her CBC regularly (7) GERD without esophagitis: Code(s): K21.9 - Gastro-esophageal reflux disease without esophagitis Plan: Dietary restrictions reinforced Continue Omeprazole 40 mg QD (8) Bilateral primary osteoarthritis of knee: Code(s): M17.0 - Bilateral primary osteoarthritis of knee Plan: S/P total left knee arthroplasty under general anesthesia with Dr. Spangler on 12/15/2022 Follow up with orthopedics as scheduled (9) Fibromyalgia: Code(s): M79.7 - Fibromyalgia Plan: Continue Lyrica 75 mg 3 times a day and Naproxen 500 mg twice a day with food as needed Patient is again encouraged to exercise regularly and to stay active to help manage her symptoms better (10) Vitamin D deficiency: Code(s): E55.9 - Vitamin D deficiency, unspecified Plan: Continue Vitamin D3 5000 units QD (11) Microscopic colitis: Code(s): K52.839 - Microscopic colitis, unspecified Qualifiers: Microscopic colitis type: unspecified Qualified Code(s): K52.839 - Microscopic colitis, unspecified Plan: In remission with no recent flare ups Follow-up with GI (Dr. Kline) as scheduled or as needed (12) Primary insomnia: Code(s): F51.01 - Primary insomnia Plan: Sleep hygiene reinforced Mirtazapine at bedtime is helping with her sleeping issues (13) Anxiety: Code(s): F41.9 - Anxiety disorder, unspecified Plan: Continue Lorazepam 0.5 mg BID PRN (14) Depression: Code(s): F32.9 - Major depressive disorder, single episode, unspecified Qualifiers: Depression Type: major depressive disorder Major depression recurrence: recurrent Active/Remission status: currently active Major depression episode severity: unspecified Qualified Code(s): F33.9 - Major depressive disorder, recurrent, unspecified Plan: Continue Mirtazapine 7.5 mg Q HS (15) Morbid obesity with BMI of 40.0-44.9, adult: Code(s): E66.01 - Morbid (severe) obesity due to excess calories; Z68.41 - Body mass index [BMI] 40.0-44.9, adult Plan: Reinforced diet/exercise as tolerated/lose weight Plan Follow up as scheduled next month Orders: Referrals Neurology Referral R42 - Dizziness and giddiness, R55 - Syncope and collapse Coding Level of Care Code Est Pt Level 3 (83753) Diagnoses Dizziness R42 Pure hypercholesterolemia E78.00 Benign essential hypertension I10 Impaired fasting glucose R73.01 Acquired hypothyroidism E03.9 Iron deficiency anemia secondary to inadequate dietary iron intake D50.8 Anemia type: iron deficiency Iron deficiency anemia type: inadequate dietary iron intake GERD without esophagitis K21.9 Bilateral primary osteoarthritis of knee M17.0 Fibromyalgia M79.7 Vitamin D deficiency E55.9 Microscopic colitis, unspecified microscopic colitis type K52.839 Microscopic colitis type: unspecified Primary insomnia F51.01 Anxiety F41.9 Episode of recurrent major depressive disorder, unspecified depression episode severity F33.9 Depression Type: major depressive disorder Major depression recurrence: recurrent Active/Remission status: currently active Major depression episode severity: unspecified Morbid obesity with BMI of 40.0-44.9, adult E66.01; Z68.41 Additional Codes EVANGELINA-7 Assessment Billing - EVANGELINA-7 Assessment Tool: EVANGELINA-7 Assessment [id number] ([id number])
[2023-09-03 15:02] VITALS: BP 114/64; PULSE 69; O2SAT 98; BMI 34.6
== END 2023-09-03 15:58 | disposition home or self-care (01) ==
PROVIDERS: PCP Internal Medicine; Visit Provider Internal Medicine
DX: R42 Dizziness and giddiness (principal); F33.9 Major depressive disorder, recurrent, unspecified; E66.01 Morbid (severe) obesity due to excess calories; Z68.41 Body mass index [BMI] 40.0-44.9, adult; E78.00 Pure hypercholesterolemia, unspecified; I10 Essential (primary) hypertension; R73.01 Impaired fasting glucose; E03.9 Hypothyroidism, unspecified; D50.8 Other iron deficiency anemias; K21.9 Gastro-esophageal reflux disease without esophagitis; M17.0 Bilateral primary osteoarthritis of knee; M79.7 Fibromyalgia
CPT/HCPCS: 99213

== ENCOUNTER 2023-09-07 09:35 | Outpatient (AMB) | payer MEDICARE, SELFPAY ==
[2023-09-07 09:39] VITALS: BP 120/58; PULSE 54; BMI 35.9
--- NOTE | 2023-09-07 09:39 | MHC.OFFVIS ---
Intake Vital Signs 09/07/23 09:39 Height 5 ft 2 in Weight 196 lb 6.91 oz BMI 35.9 BP 120/58 L Blood Pressure Location Lt brachial Position Sitting Pulse 54 Pulse Source Pulse Oximeter Intake Visit Reasons: F/U Hypoglycemia-confirmed Intake Note: Patient present today for Hypoglycemia follow up visit. Senior Contract Specialist Required: No Accompanied by: Spouse Allergies fentanyl Adverse Reaction (Unknown, Verified 09/07/23 09:47) Nausea and Vomiting Medication List - Last Reconciled 09/07/23 by Mickey Farnsworth MD acarbose 50 mg PO TID acetaminophen 650 mg (2 x 325 mg) PO Q6H PRN atorvastatin 40 mg PO DAILY celecoxib 200 mg PO BID 30 days cholecalciferol (vitamin D3) 50 mcg PO DAILY docusate sodium 100 mg PO BID 30 days ferrous sulfate 325 mg PO DAILY levothyroxine 200 mcg PO DAILY [LIGHTWEIGHT CANE As directed] lorazepam 0.5 mg PO BID PRN 30 days meclizine 25 mg PO TID PRN mirtazapine 7.5 mg PO BEDTIME 30 days omeprazole 40 mg PO DAILY pregabalin (Lyrica) 75 mg PO TID 30 days sertraline 200 mg (2 x 100 mg) PO DAILY 90 days tizanidine 4 mg PO Q8H PRN 10 days HPI HPI Comments History of Present Illness Details 63 YO Female with a PMHx of morbid obesity S/P Migdalia-En-Y gastric bypass surgery in 2015, after which she lost 130 lbs who is seen in F/U for Hypoglycemia. The patient last saw Dr. Flood 06/29/2022 Since 2019 she has been having episodes of loss of consciousness. The first episode happened while out for a walk with her when she lost consciousness and fell to the floor. EMS was called and she was brought to the ED. She underwent an extensive cardiac workup at that time and even wore a holter monitor 30 days. She reports no cardiac etiology was identified. The second episode happened 07/01/19 while cooking dinner with her . He noted she was slurring her speech and began to slump over. EMS was called. Blood sugar was noted to be 30. She was hypothyermic, hypotensive and bradycardic as well. She had no evidence of infectious etiology and was ruled out for sepsis. Cortisol was assesed (reported prior) to administering stress dose steroids and was noted to be 22. She was treated with stress dose steroids and IV antibiotics. She improved shortly after. She did undergo ACTH Stimulation testing 07/05/19 with baseline Cortisol 14.9, 30 min cortisol 26.3 and 60 minute cortisol 26.5. Baseline ACTH was 29. This was adequate for ruling out adrenal insufficiency. TSH was 2.01. She did have insulin and proinsulin levels checked, but there was no corresponding serum glucose to correlate these with. She was subsequently referred to Endocrinology. She was asked to continue to check finger sticks, and if she had another low sugar to present to the lab for evaluation. 10/02/2019 Serum Glucose was 65 with Proinsulin level 38.5, C peptide level 3.99 and Insulin level 10.7, consistent with insulin hypersecretion in the setting of hypoglycemia. She underwent a CT of the abdomen which revealed no mass within the pancreas, as we were concerned about insulinoma. She was diagnosed with NIPHS and was started on Acarbose 25 mg PO TID prior to each meal. She continued with hypoglycemia, so the dose was increased to 50 mg PO TID. She does report drastic improvement in her symptoms. She reports rare episodes of hypoglycemia only if she eats a carb heavy meal with low protein. If she sticks to the low carbohydrate high protein diet and uses her acarbose with every meal sugars remain at goal. She also has a history of hypothyroidism and is using Levothyroxine 200 mcg PO daily. She reports good compliance. TSH is in hypothyroid range. Labs: Laboratory Tests 06/08/22 11:57 Creatinine 0.95 Estimated GFR > 60 TSH 4.70 H Free T4 0.85 Had an episode of syncope. Hypoglycemia controlled with acarbose. [facility] Medical History Osteoarthritis of left knee OSMANI (obstructive sleep apnea) Morbid obesity with BMI of 40.0-44.9, adult ASCUS of cervix with negative high risk HPV Anemia Obesity (BMI 30-39.9) Depression Anxiety Primary insomnia Microscopic colitis GERD without esophagitis Fibromyalgia Acquired hypothyroidism Impaired fasting glucose Benign essential hypertension Pure hypercholesterolemia Vitamin D deficiency Hypothyroidism Hypoglycemia Bradycardia Infection at site of external fixator pin Overactive bladder Surgical History Status post total left knee replacement (~12/15/22) Hx of cystoscopy Hx of foot surgery Hx of foot surgery History of colonoscopy History of gastrointestinal tract bypass S/P ORIF (open reduction internal fixation) fracture History of hemorrhoidectomy Hx of bilateral breast reduction surgery H/O section H/O arthroscopy of left knee Status post debridement Family History Father Diabetes Mental health disorder Mother CVD (cardiovascular disease) Myocardial infarction Mental health disorder Brother Colon cancer Sister Lung cancer Social History Household Members: Spouse and Children Housing: House Are you a primary care program director to a significant other at home: No Do you presently have visiting nurse or other home services: No Alcohol intake: current Alcohol intake frequency: does not drink Comment: aware of trip hazards Patient Tobacco Use Status: Never used Tobacco e-Cigarette/Vaping Use: Never Used Second Hand Smoke Exposure: No service: No Current occupational status: disabled Cognitive needs: No Hearing needs: Yes Vision needs: Yes Female Reproductive History Menstrual Age of Menarche: 14 Physical Exam Vital Signs: Last Vital Signs Pulse 54 09/07/23 09:39 BP 120/58 L 09/07/23 09:39 BMI result Body Mass Index 35.9 Const Other: Thyroid gland is normal size weighs about 15 g . There are no thyroid nodules palpated Assessment & Plan Assessment & Plan (1) Acquired hypothyroidism: Code(s): E03.9 - Hypothyroidism, unspecified Plan: This 63-year-old white female with a history of hypothyroidism currently being treated with 200 mcg of levothyroxine. She appears to be clinically euthyroid but has suppressed TSH. Plan is to decrease levothyroxine to 175 mcg and recheck TSH and free T4 in 6 weeks time (2) Hypoglycemia: Code(s): E16.2 - Hypoglycemia, unspecified Plan: NIPHS currently being managed with acarbose good control. Continue current manage Orders: Orders Thyroid Stimulating Hormone 6 Weeks E03.9 - Hypothyroidism, unspecified Free T4 (Free Thyroxine) 6 Weeks E03.9 - Hypothyroidism, unspecified Medications: New levothyroxine 175 mcg PO DAILY 30 tabs 4RF Discontinued levothyroxine Discontinued Reason: Doctor's Order 200 mcg PO DAILY 90 tabs 1RF Coding Level of Care Code Est Pt Level 3 (46578) Diagnoses Acquired hypothyroidism E03.9 Hypoglycemia E16.2
== END 2023-09-07 10:10 | disposition home or self-care (01) ==
PROVIDERS: PCP Internal Medicine; Visit Provider Internal Medicine Endocrinology, Diabetes & Metabolism
DX: E03.9 Hypothyroidism, unspecified (principal); E16.2 Hypoglycemia, unspecified
CPT/HCPCS: 99213

== ENCOUNTER → 2023-09-07 09:35 | Outpatient (BNVA) | payer MEDICARE, SELFPAY | PROVIDERS: Visit Provider Internal Medicine Endocrinology, Diabetes & Metabolism | DX: E03.9 Hypothyroidism, unspecified (principal); E16.2 Hypoglycemia, unspecified; Z79.899 Other long term (current) drug therapy | CPT/HCPCS: 99212 ==

== ENCOUNTER 2023-09-23 10:39 | Outpatient (AMB) | payer MEDICARE, SELFPAY ==
[2023-09-23 10:42] VITALS: BP 120/60; PULSE 57; TEMP 36.6; O2SAT 97; BMI 35.5
--- NOTE | 2023-09-23 10:42 | MHC.OFFWIV ---
Intake Vital Signs 09/23/23 10:42 Height 5 ft 2 in Weight 194 lb BMI 35.5 BP 120/60 Blood Pressure Location Lt brachial Position Sitting Pulse 57 Pulse Source Pulse Oximeter Temp 97.8 F Temp Source Oral Pulse Oximetry (%) 97 Oxygen Delivery Method Room Air Intake Visit Reasons: EST/left shoulder pain (lobby) Intake Note: pt is here for c.o left should pain travels to arm. patient states she hit her left shoulder while sweeping and bent down and came up under a granite counter top. Patient Tobacco Use Status: Never used Tobacco Allergies fentanyl Adverse Reaction (Unknown, Verified 09/23/23 10:43) Nausea and Vomiting Medication List - Last Reconciled 09/23/23 by Debra Bach, KRISTY acarbose 50 mg PO TID acetaminophen 650 mg (2 x 325 mg) PO Q6H PRN atorvastatin 40 mg PO DAILY cholecalciferol (vitamin D3) 50 mcg PO DAILY docusate sodium 100 mg PO BID 30 days ferrous sulfate 325 mg PO DAILY levothyroxine 175 mcg PO DAILY [LIGHTWEIGHT CANE As directed] lorazepam 0.5 mg PO BID PRN 30 days meclizine 25 mg PO TID PRN mirtazapine 7.5 mg PO BEDTIME 30 days omeprazole 40 mg PO DAILY pregabalin (Lyrica) 75 mg PO TID 30 days sertraline 200 mg (2 x 100 mg) PO DAILY 90 days tizanidine 4 mg PO Q8H PRN 10 days Do you need a note to return to daycare/school/sports/work: No HPI HPI Comments History of Present Illness Details 63 y/o female patient presents to walk in clinic with c/o right shoulder pain. She injured it at home two days ago. Reports that pain is radiating down to her arm. [facility] Medical History Osteoarthritis of left knee OSMANI (obstructive sleep apnea) Morbid obesity with BMI of 40.0-44.9, adult ASCUS of cervix with negative high risk HPV Anemia Obesity (BMI 30-39.9) Depression Anxiety Primary insomnia Microscopic colitis GERD without esophagitis Fibromyalgia Acquired hypothyroidism Impaired fasting glucose Benign essential hypertension Pure hypercholesterolemia Vitamin D deficiency Hypothyroidism Hypoglycemia Bradycardia Infection at site of external fixator pin Overactive bladder Surgical History Status post total left knee replacement (~12/15/22) Hx of cystoscopy Hx of foot surgery Hx of foot surgery History of colonoscopy History of gastrointestinal tract bypass S/P ORIF (open reduction internal fixation) fracture History of hemorrhoidectomy Hx of bilateral breast reduction surgery H/O section H/O arthroscopy of left knee Status post debridement Family History Father Diabetes Mental health disorder Mother CVD (cardiovascular disease) Myocardial infarction Mental health disorder Brother Colon cancer Sister Lung cancer Social History Household Members: Spouse and Children Housing: House Are you a primary customer care representative to a significant other at home: No Do you presently have visiting nurse or other home services: No Alcohol intake: current Alcohol intake frequency: does not drink Comment: aware of trip hazards Patient Tobacco Use Status: Never used Tobacco e-Cigarette/Vaping Use: Never Used Second Hand Smoke Exposure: No service: No Current occupational status: disabled Cognitive needs: No Hearing needs: Yes Vision needs: Yes Female Reproductive History Menstrual Age of Menarche: 14 Review of Systems Const All systems reviewed & are unremarkable except as noted in HPI and below Physical Exam Vital Signs: Last Vital Signs Temp 97.8 F 09/23/23 10:42 Pulse 57 09/23/23 10:42 BP 120/60 09/23/23 10:42 Pulse Ox 97 09/23/23 10:42 Oxygen Delivery Method Room Air 09/23/23 10:42 BMI result Body Mass Index 35.5 Const Orientation/consciousness: patient oriented x3 Neuro General: patient oriented x3 Cranial nerves: Yes CN's II-XII intact bilaterally Gait exam (Neuro): Normal gait present Motor exam (neuro): 5/5 motor strength present throughout (RIGHT 5/5 AND LEFT 4/5 ) Extrem General: Yes normal to inspection, Yes no joint enlargement and Yes no clubbing, cyanosis or edema Right upper extremity: normal to inspection, full ROM, no joint enlargement and shoulder/upper arm Details: normal to inspection; no cyanosis and no edema Left upper extremity: normal to inspection and shoulder/upper arm Details: tenderness Location: of the proximal humerus, abnormal ROM (limited due to pain) and ecchymosis; no swelling, no crepitus, no deformity and no unsual warmth Assessment & Plan Assessment & Plan (1) Pain in left shoulder: Code(s): M25.512 - Pain in left shoulder Qualifiers: Chronicity: acute Qualified Code(s): M25.512 - Pain in left shoulder Plan: - Left shoulder Xrau negative - Warm/cold compress - Acetaminophen for pain relief. Orders: Orders XR shoulder LT min 2V Today M25.512 - Pain in left shoulder Medications: Refilled acetaminophen 650 mg (2 x 325 mg) PO Q6H PRN 60 tabs 0RF Pain, Mild (Pain Scale 1-3) tizanidine 4 mg PO Q8H 10 days PRN 30 tabs 3RF muscle spasms Coding Level of Care Code Est Pt Level 3 (58520) Diagnoses Acute pain of left shoulder M25.512 Chronicity: acute Comment 15
== END 2023-09-23 12:15 | disposition home or self-care (01) ==
PROVIDERS: PCP Internal Medicine; Visit Provider Nurse Practitioner Family
DX: M25.512 Pain in left shoulder (principal)
CPT/HCPCS: 99213

== ENCOUNTER 2023-09-23 11:01 | Outpatient (REF) | payer MEDICARE, SELFPAY ==
--- NOTE | ~2023-09-23 | XR_ITS ---
EXAMINATION: XR SHOULDER, LEFT CLINICAL INFORMATION: Pain in the left shoulder for 2 days COMPARISON: None available. TECHNIQUE: AP external rotation, Grashey, scapular Y, and axillary views of the left shoulder. FINDINGS: The bones and soft tissues are normal. No fracture. Glenohumeral and acromioclavicular alignment is anatomic with normal joint space. No abnormal soft tissue calcifications. XR/XR shoulder LT min 2V IMPRESSION: Normal left shoulder.
== END 2023-09-23 11:02 | disposition home or self-care (01) ==
LOC: HO.HMGCX 11:01
PROVIDERS: PCP Internal Medicine; Visit Provider Nurse Practitioner Family
DX: M25.512 Pain in left shoulder (principal)
CPT/HCPCS: 73030

== ENCOUNTER 2023-10-11 14:06 | Outpatient (REF) | payer MEDICARE, SELFPAY | END 2023-10-11 14:07 | disposition home or self-care (01) | LOC: HO.MAMMO 14:06 | PROVIDERS: PCP Internal Medicine; Visit Provider Internal Medicine | DX: Z12.31 Encounter for screening mammogram for malignant neoplasm of breast (principal) | CPT/HCPCS: 77063; 77067 ==

== ENCOUNTER → 2023-10-11 14:15 | Outpatient (BNV) | payer MEDICARE, SELFPAY | PROVIDERS: PCP Internal Medicine; Visit Provider Radiology Diagnostic Radiology | DX: Z12.31 Encounter for screening mammogram for malignant neoplasm of breast (principal) | CPT/HCPCS: 77063; 77067 ==

== ENCOUNTER 2023-10-12 09:28 | Outpatient (REF) | payer MEDICARE, SELFPAY ==
[2023-10-12 11:12] LABS: Free T4 (Free Thyroxine) 1.06 ng/dL (0.71-1.85); Thyroid Stimulating Hormone 0.18 uIU/mL (0.32-4.0)
== END 2023-10-12 09:29 | disposition home or self-care (01) ==
LOC: HO.LAB 09:28
PROVIDERS: PCP Internal Medicine; Visit Provider Internal Medicine Endocrinology, Diabetes & Metabolism
DX: E03.9 Hypothyroidism, unspecified (principal)
CPT/HCPCS: 36415; 84439; 84443

== ENCOUNTER 2023-10-15 09:41 | Outpatient (AMB) | payer MEDICARE, SELFPAY ==
--- NOTE | 2023-10-15 09:45 | MHC.PC.OV ---
Vital Signs 10/15/23 09:46 Height 5 ft 2 in Weight 189 lb 6 oz BMI 34.6 BP 110/68 Blood Pressure Location Lt brachial Position Sitting Respiration 17 Pulse 74 Pulse Source Pulse Oximeter Pulse Oximetry (%) 98 Oxygen Delivery Method Room Air Intake Visit Reasons: 4 month f/u Operating Room Assistant Required: No Accompanied by: Spouse Allergies fentanyl Adverse Reaction (Unknown, Verified 10/15/23 10:28) Nausea and Vomiting Medication List - Last Reconciled 10/15/23 by Obdulio Patel MD acarbose 50 mg PO TID acetaminophen 650 mg (2 x 325 mg) PO Q6H PRN atorvastatin 40 mg PO DAILY cholecalciferol (vitamin D3) 50 mcg PO DAILY docusate sodium 100 mg PO BID 30 days ferrous sulfate 325 mg PO DAILY levothyroxine 150 mcg PO DAILY [LIGHTWEIGHT CANE As directed] lorazepam 0.5 mg PO BID PRN 30 days meclizine 25 mg PO TID PRN mirtazapine 7.5 mg PO BEDTIME 30 days omeprazole 40 mg PO DAILY pregabalin (Lyrica) 75 mg PO TID 30 days sertraline 200 mg (2 x 100 mg) PO DAILY 90 days tizanidine 4 mg PO Q8H PRN 10 days Tobacco use date assessed: 09/03/23 HPI 4 month f/u HPI Details Patient comes in today for her follow up visit She continues to complain of increased diffuse pain, both of her multiple joints as well as myalgias She was recently instructed to try increasing her bedtime dose of Pregabalin from 75 mg to 150 mg and her states that this has at least allowed her to get some sleep at night She is now inquiring if her other doses can be increased as well She continues to complain of frequent numbness and tingling sensation in her hands as well as increased neck pain also She was also seen by Dr. Martínez a couple of weeks ago and was diagnosed with cerebellar ataxia Had her EEG done yesterday and states that she has a follow up appt with Dr. Martínez next Wednesday She denies any increased headaches; still has on and off dizziness Denies any chest pains, no increased SOB No nausea/vomiting, no abdominal pain No change in bowel habits noted PFSH Medical History Osteoarthritis of left knee OSMANI (obstructive sleep apnea) Morbid obesity with BMI of 40.0-44.9, adult ASCUS of cervix with negative high risk HPV Anemia Obesity (BMI 30-39.9) Depression Anxiety Primary insomnia Microscopic colitis GERD without esophagitis Fibromyalgia Acquired hypothyroidism Impaired fasting glucose Benign essential hypertension Pure hypercholesterolemia Vitamin D deficiency Hypothyroidism Hypoglycemia Bradycardia Infection at site of external fixator pin Overactive bladder Surgical History Status post total left knee replacement (~12/15/22) Hx of cystoscopy Hx of foot surgery Hx of foot surgery History of colonoscopy History of gastrointestinal tract bypass S/P ORIF (open reduction internal fixation) fracture History of hemorrhoidectomy Hx of bilateral breast reduction surgery H/O section H/O arthroscopy of left knee Status post debridement Family History Father Diabetes Mental health disorder Mother CVD (cardiovascular disease) Myocardial infarction Mental health disorder Brother Colon cancer Sister Lung cancer Social History Household Members: Spouse and Children Housing: House Are you a primary animal caretaker to a significant other at home: No Do you presently have visiting nurse or other home services: No Alcohol intake: current Alcohol intake frequency: does not drink Comment: aware of trip hazards Patient Tobacco Use Status: Never used Tobacco e-Cigarette/Vaping Use: Never Used Second Hand Smoke Exposure: No service: No Current occupational status: disabled Cognitive needs: No Hearing needs: Yes Vision needs: Yes Female Reproductive History Menstrual Age of Menarche: 14 Questionnaire PHQ-9 Over the last 2 weeks, how often have you been bothered by any of the following problems? 1. Little interest or pleasure in doing things: not at all 2. Feeling down, depressed, or hopeless: not at all 3. Trouble falling or staying asleep, or sleeping too much: not at all 4. Feeling tired or having little energy: not at all 5. Poor appetite or overeating: not at all 6. Feeling bad about yourself - or that you are a failure or have let yourself or your family down: not at all 7. Trouble concentrating on things, such as reading the newspaper or watching television: not at all 8. Moving or speaking so slowly that other people could have noticed. Or the opposite - being so fidgety or restless that you have been moving around a lot more than usual: not at all 9. Thoughts that you would be better off or of hurting yourself in some way: not at all Total score: 0 Depression Screening Interpretation: Negative Depression Screening Done: Yes 17584 - PHQ-9 Billing: Yes Source: Developed by Drs. Mickey Arce, Paige Barton, Luis A Hull and colleagues, with an educational roger from [employer]. Thrive Questionnaire Date Thrive assessed: 09/03/23 Currently or been in a relationship where the following occur: no concerns reported THRIVE Score: 0 EVANGELINA-7 AMB Questionnaire EVANGELINA-7 Date EVANGELINA - 7 assessed: 09/03/23 Source: Developed by Drs. Mickey Arce, Paige Barton, Luis A Hull and colleagues, with an educational roger from [employer]. Review of Systems Const Denies chills, Denies fatigue, Denies fever(s) and Denies headache(s) ENT Denies dysphagia, Reports dizziness (occasional), Denies otalgia, Denies headache(s), Reports hearing loss (in both ears), Denies neck pain, Denies odynophagia and Denies sore throat Card Denies chest pain, Denies palpitations and Denies dyspnea Resp Denies chest congestion, Denies cough and Denies dyspnea GI Denies abdominal pain, Denies bloating, Denies constipation, Denies dysphagia, Denies heartburn, Denies diarrhea, Denies nausea, Denies odynophagia and Denies vomiting Denies difficulty voiding, Reports nocturia (at times), Denies dysuria and Reports urinary incontinence (mostly at night) Musc Reports arthralgias (both knees - s/p left knee TKA a few months ago), Denies neck pain, Reports numbness (of fingers of both hands, recurrent) and Reports tingling (of fingers of both hands, recurrent) Skin/Breast Denies rash Neuro Reports dizziness (occasional), Denies headache(s), Reports numbness (of fingers of both hands, recurrent) and Reports tingling (of fingers of both hands, recurrent) Psych Reports anxiety and Reports depression (better controlled) Endo Denies fatigue and Denies palpitations Physical exam (Primary Care) Vital Signs: Last Vital Signs Pulse 74 10/15/23 09:46 Resp 17 10/15/23 09:46 BP 110/68 10/15/23 09:46 Pulse Ox 98 10/15/23 09:46 Oxygen Delivery Method Room Air 10/15/23 09:46 BMI result Body Mass Index 34.6 Tobacco/Smoking Status: Tobacco use Status Tobacco use date assessed 09/03/23 10/15/23 09:46 Patient Tobacco Use Status Never used Tobacco 10/15/23 09:46 e-Cigarette/Vaping Use Never Used 10/15/23 09:46 PHQ-9: PHQ-9 Score PHQ-9: Total score 0 10/15/23 10:56 Depression Screening Interpretation: Negative Thrive Assessment: Date of Thrive Assessment Date Thrive assessed 09/03/23 10/15/23 09:46 Currently or been in a relationship where the following occur: no concerns reported Const General: no acute distress and alert HENMT Ears: TM's normal bilaterally and EAC's normal Throat: Yes posterior oropharynx normal and Yes tonsils normal (no TP congestion noted) Neck Neck: Yes no lymphadenopathy Resp Auscultation: clear to auscultation bilaterally, no rales and no wheezes Cardio Rate: regular rate Rhythm: regular rhythm Heart sounds: no murmurs GI Palpation (GI): Soft to palpation and nontender Auscultation: normal bowel sounds Back/Spine/Pelvis Cervical Spine: Cervical spine tenderness Thoracic/Lumbar Spine: lumbar spinal tenderness Skin Rashes: no rashes Extrem General: Yes no clubbing, cyanosis or edema Assessment and Plan Assessment & Plan (1) Dizziness: Code(s): R42 - Dizziness and giddiness Plan: Her symptoms were initially thought to be due to benign paroxysmal vertigo but she was diagnosed with cerebellar ataxia at her recent office visit with neurology a couple of weeks ago on 10/01/2023 and this explains a lot of her recent symptoms States that she just had an EEG done by Dr. Martínez yesterday and she has a follow up appointment with Dr. Martínez to discuss this further next Wednesday (10/18/2023) It is also possible that her symptoms of neuropathy and unsteadiness may be related to her cerebellar ataxia (CANVAS - Cerebellar Ataxia, Neuropathy and Vestibular Areflexia Syndrome) Follow up with neurology as scheduled (2) Pure hypercholesterolemia: Code(s): E78.00 - Pure hypercholesterolemia, unspecified Plan: Reinforced low cholesterol diet Continue Atorvastatin 40 mg QD Will recheck her labs and fasting lipids in about 4 months for follow up (3) Benign essential hypertension: Code(s): I10 - Essential (primary) hypertension Plan: Reinforced low sodium diet - goal is systolic BP of at least 120 to 130 mm or less Continue Lisinopril 10 mg QD Patient is reminded to continue monitoring her blood pressure regularly (4) Impaired fasting glucose: Code(s): R73.01 - Impaired fasting glucose Plan: HgbA1c remained normal at 5.0% on her labs done a few months ago (was previously at 5.5%) - will continue to monitor her HgbA1c and blood sugar regularly Continue Acarbose 50 mg TID - was started on Acarbose 50 mg TID by endocrinology for NIPHS that appeared to be a complication of her bariatric surgery from a few years ago Patient recalls experiencing recurrent hypoglycemic symptoms initially when she started on the Rx but her symptoms have reportedly stabilized after some time Follow up with endocrinology as scheduled (5) Acquired hypothyroidism: Code(s): E03.9 - Hypothyroidism, unspecified Plan: Continue Levothyroxine 175 mcg QD Will continue to monitor her TFTs regularly Follow-up with endocrinology as scheduled (6) Anemia: Code(s): D64.9 - Anemia, unspecified Qualifiers: Anemia type: iron deficiency Iron deficiency anemia type: inadequate dietary iron intake Qualified Code(s): D50.8 - Other iron deficiency anemias Plan: Improved/corrected with iron supplementation Continue Ferrous Sulfate 325 mg QD Will continue to monitor her CBC regularly (7) GERD without esophagitis: Code(s): K21.9 - Gastro-esophageal reflux disease without esophagitis Plan: Dietary restrictions reinforced Continue Omeprazole 40 mg QD (8) Bilateral primary osteoarthritis of knee: Code(s): M17.0 - Bilateral primary osteoarthritis of knee Plan: S/P total left knee arthroplasty with Dr. Spangler on 12/15/2022 Follow up with orthopedics as scheduled (9) Fibromyalgia: Code(s): M79.7 - Fibromyalgia Plan: Continue Naproxen 500 mg twice a day with food as needed; will try increasing her Pregabalin gradually from 75 mg TID to 150 mg TID - she is instructed on titrating this up gradually to help avoid any side effects/adverse symptoms Patient is again encouraged to exercise regularly and to stay active to help manage her symptoms better but now with her diagnosis of cerebellar ataxia, reinforced fall precautions as well (10) Vitamin D deficiency: Code(s): E55.9 - Vitamin D deficiency, unspecified Plan: Continue Vitamin D3 5000 units QD (11) Microscopic colitis: Code(s): K52.839 - Microscopic colitis, unspecified Qualifiers: Microscopic colitis type: unspecified Qualified Code(s): K52.839 - Microscopic colitis, unspecified Plan: In remission with no recent flare ups Follow-up with GI (Dr. Kline) as scheduled or as needed (12) Primary insomnia: Code(s): F51.01 - Primary insomnia Plan: Sleep hygiene reinforced Mirtazapine at bedtime is helping with her sleeping issues (13) Anxiety: Code(s): F41.9 - Anxiety disorder, unspecified Plan: Continue Lorazepam 0.5 mg BID PRN (14) Depression: Code(s): F32.9 - Major depressive disorder, single episode, unspecified Qualifiers: Active/Remission status: currently active Depression Type: major depressive disorder Major depression episode severity: unspecified Major depression recurrence: recurrent Qualified Code(s): F33.9 - Major depressive disorder, recurrent, unspecified Plan: Continue Mirtazapine 7.5 mg Q HS (15) Obesity (BMI 30-39.9): Code(s): E66.9 - Obesity, unspecified Plan: Reinforced diet/exercise as tolerated/lose weight Plan To return as scheduled on 03/03/2024 for her annual Medicare Wellness Exam; will combine that with her regular 4 months' follow up visit to help cut down on her trips and appointments Orders: Orders Comprehensive [place]. Panel Fast 02/21/24 E78.00 - Pure hypercholesterolemia, unspecified, M25.50 - Pain in unspecified joint, M79.7 - Fibromyalgia Thyroid Stimulating Hormone 02/21/24 E03.9 - Hypothyroidism, unspecified, M25.50 - Pain in unspecified joint, M79.7 - Fibromyalgia UA CC w/rflx Micro + Cult 02/21/24 M25.50 - Pain in unspecified joint, M79.7 - Fibromyalgia, R30.0 - Dysuria Complete Blood Count Auto Diff 02/21/24 D64.9 - Anemia, unspecified, M25.50 - Pain in unspecified joint, M79.7 - Fibromyalgia Lipid Panel 02/21/24 E78.00 - Pure hypercholesterolemia, unspecified, M25.50 - Pain in unspecified joint, M79.7 - Fibromyalgia Free T4 (Free Thyroxine) 02/21/24 E03.9 - Hypothyroidism, unspecified, M25.50 - Pain in unspecified joint, M79.7 - Fibromyalgia Vitamin D 25-OH Total 02/21/24 E55.9 - Vitamin D deficiency, unspecified, M25.50 - Pain in unspecified joint, M79.7 - Fibromyalgia Hemoglobin A1c 02/21/24 E11.9 - Type 2 diabetes mellitus without complications, M25.50 - Pain in unspecified joint, M79.7 - Fibromyalgia C Reactive Protein 02/21/24 M25.50 - Pain in unspecified joint, M79.7 - Fibromyalgia Erythrocyte Sedimentation Rate 02/21/24 M25.50 - Pain in unspecified joint, M79.7 - Fibromyalgia Vitamin B12 and Folate 02/21/24 E53.8 - Deficiency of other specified B group vitamins Medications: Changed From pregabalin (Lyrica) 75 mg PO TID 30 days 90 caps 1RF M79.7 - Fibromyalgia To pregabalin 150 mg PO TID 30 days 90 caps 1RF M79.7 - Fibromyalgia Coding Level of Care Code Est Pt Level 4 (36941) Diagnoses Dizziness R42 Pure hypercholesterolemia E78.00 Benign essential hypertension I10 Impaired fasting glucose R73.01 Acquired hypothyroidism E03.9 Iron deficiency anemia secondary to inadequate dietary iron intake D50.8 Anemia type: iron deficiency Iron deficiency anemia type: inadequate dietary iron intake GERD without esophagitis K21.9 Bilateral primary osteoarthritis of knee M17.0 Fibromyalgia M79.7 Vitamin D deficiency E55.9 Microscopic colitis, unspecified microscopic colitis type K52.839 Microscopic colitis type: unspecified Primary insomnia F51.01 Anxiety F41.9 Episode of recurrent major depressive disorder, unspecified depression episode severity F33.9 Active/Remission status: currently active Depression Type: major depressive disorder Major depression episode severity: unspecified Major depression recurrence: recurrent Obesity (BMI 30-39.9) E66.9
[2023-10-15 09:46] VITALS: BP 110/68; PULSE 74; RESP 17; O2SAT 98; BMI 34.6
== END 2023-10-15 10:47 | disposition home or self-care (01) ==
PROVIDERS: PCP Internal Medicine; Visit Provider Internal Medicine
DX: R42 Dizziness and giddiness (principal); F33.9 Major depressive disorder, recurrent, unspecified; E78.00 Pure hypercholesterolemia, unspecified; I10 Essential (primary) hypertension; R73.01 Impaired fasting glucose; E03.9 Hypothyroidism, unspecified; D50.8 Other iron deficiency anemias; K21.9 Gastro-esophageal reflux disease without esophagitis; M17.0 Bilateral primary osteoarthritis of knee; M79.7 Fibromyalgia; E55.9 Vitamin D deficiency, unspecified; K52.839 Microscopic colitis, unspecified
CPT/HCPCS: 99214

== ENCOUNTER 2023-11-04 15:12 | Outpatient (REF) | payer MEDICARE, SELFPAY | END 2023-11-04 15:13 | disposition home or self-care (01) | LOC: HO.SH 15:12 | PROVIDERS: Visit Provider Internal Medicine | DX: Z01.118 Encounter for examination of ears and hearing with other abnormal findings (principal); H91.93 Unspecified hearing loss, bilateral | CPT/HCPCS: 92557 ==

== ENCOUNTER 2023-11-19 12:25 | Outpatient (AMB) | payer MEDICARE, SELFPAY ==
--- NOTE | 2023-11-19 12:29 | MHC.OFFVIS ---
Intake Intake Visit Reasons: 6M Follow-up Intake Note: Patient presents today for a follow-up on OAB: Meds- Oxybutynin Allergies to Antibiotic- No Known Allergies Blood Thinner- None PVR 0 mL Drywall Installer Required: No Accompanied by: Significant Other Allergies fentanyl Adverse Reaction (Unknown, Verified 11/29/23 09:43) Nausea and Vomiting Medication List - Last Reconciled 11/19/23 by Isidro Weems MD acarbose 50 mg PO TID acetaminophen 650 mg (2 x 325 mg) PO Q6H PRN atorvastatin 40 mg PO DAILY cholecalciferol (vitamin D3) 50 mcg PO DAILY docusate sodium 100 mg PO BID 30 days ferrous sulfate 325 mg PO DAILY levothyroxine 150 mcg PO DAILY [LIGHTWEIGHT CANE As directed] lorazepam 0.5 mg PO BID PRN 30 days meclizine 25 mg PO TID PRN mirtazapine 7.5 mg PO BEDTIME 30 days omeprazole 40 mg PO DAILY oxybutynin chloride ER 10 mg PO DAILY pregabalin 150 mg PO TID 30 days sertraline 200 mg (2 x 100 mg) PO DAILY 90 days tizanidine 4 mg PO Q8H PRN 10 days HPI HPI Comments History of Present Illness Details 11/19/2023 Lolly is a 63-year-old female who presents today to the office for a follow-up. She states the the co-payment on the [employer] co-pay was 200 dollars so she did not fill it. She wants to go back on the oxybutynin. We will try lower dose which has less side effects 10 mg of oxybutynin sent to the pharmacy. Review of chart: 05/14/2023- She is followed today for OAB. She was last seen by me on 11/09/2022 and was advised to continue Anticholinergic management during that time.?She has been taking oxybutynin daily with benefit. She mentions having urine leakage at night time. She denies any urine leakage during the day. She denies any other urinary tract infections at this time. She has had symptoms of dry mouth. I reviewed the urine culture results from 01/06/2023 which came back Escherichia coli? > 100,000 cfu/mL 05/14/2023: Evaluation today?UA? luekocytes: 15 Jackelyn; blood: negative. Plan-Ordered Gemtesa 75 mg daily. Discontinue taking oxybutynin 15 mg. Advised the patient to limit caffeine, and alcohol intake in the evening time. Follow-up in 6 months. 11/19/23-- Resume oxybutynin at decreased dose 10 mg daily PFSH Medical History Osteoarthritis of left knee OSMANI (obstructive sleep apnea) Morbid obesity with BMI of 40.0-44.9, adult ASCUS of cervix with negative high risk HPV Anemia Obesity (BMI 30-39.9) Depression Anxiety Primary insomnia Microscopic colitis GERD without esophagitis Fibromyalgia Acquired hypothyroidism Impaired fasting glucose Benign essential hypertension Pure hypercholesterolemia Vitamin D deficiency Hypothyroidism Hypoglycemia Bradycardia Infection at site of external fixator pin Overactive bladder Surgical History Status post total left knee replacement (~12/15/22) Hx of cystoscopy Hx of foot surgery Hx of foot surgery History of colonoscopy History of gastrointestinal tract bypass S/P ORIF (open reduction internal fixation) fracture History of hemorrhoidectomy Hx of bilateral breast reduction surgery H/O section H/O arthroscopy of left knee Status post debridement Family History Father Diabetes Mental health disorder Mother CVD (cardiovascular disease) Myocardial infarction Mental health disorder Brother Colon cancer Sister Lung cancer Social History Household Members: Spouse and Children Housing: House Are you a primary resident caregiver to a significant other at home: No Do you presently have visiting nurse or other home services: No Alcohol intake: current Alcohol intake frequency: does not drink Comment: aware of trip hazards Patient Tobacco Use Status: Never used Tobacco e-Cigarette/Vaping Use: Never Used Second Hand Smoke Exposure: No service: No Current occupational status: disabled Cognitive needs: No Hearing needs: Yes Vision needs: Yes Female Reproductive History Menstrual Age of Menarche: 14 Review of Systems Const All systems reviewed & are unremarkable except as noted in HPI and below Reports no additional complaints Eyes Reports no additional complaints ENT Reports no additional complaints Card Reports no additional complaints Resp Reports no additional complaints GI Reports no additional complaints Reports as per HPI Musc Reports no additional complaints Skin/Breast Reports system reviewed and no additional complaints, except as documented Neuro Reports no additional complaints Psych Reports no additional complaints Endo Reports no additional complaints Tray/Lymph Reports no additional complaints Aller/Immun Reports no additional complaints Office Procedures Post Void Residual Post Residual Void Post Void Residual (PVR): 0 [id number]-[id number] Void Residual by ultrasound Results AMB Urinalysis, Automated UA Leukoctes 15 Jackelyn/uL Last Edit by Roldan Lafleur Janelle on 11/19/23 13:06 UA Nitrite Negative Last Edit by Roldan Lafleur [facility] on 11/19/23 13:06 UA Urobilinogen 0.2 mg/dL Last Edit by Roldan Lafleur [facility] on 11/19/23 13:06 UA Protein 0 mg/dL Last Edit by Roldan Lafleur [facility] on 11/19/23 13:06 UA pH 6.0 Last Edit by Roldan Lafleur [facility] on 11/19/23 13:06 UA Blood 0 John/uL Last Edit by Roldan Lafleur Janelle on 11/19/23 13:06 UA Specific [place] 1.020 Last Edit by Roldan Lafleur [facility] on 11/19/23 13:06 UA Ketone Negative Last Edit by Roldan Lafleur [facility] on 11/19/23 13:06 UA Bilirubin 0 mg/dL Last Edit by Roldan Lafleur [facility] on 11/19/23 13:06 UA Glucose 0 mg/dL Last Edit by Roldan Lafleur [facility] on 11/19/23 13:06 Results Reviewed Results Reviewed: Laboratory Last Values Urine pH (Auto) 6.0 11/19/23 12:34 Specific [place] (Auto) 1.020 11/19/23 12:34 Urine Protein (Auto) 0 mg/dL 11/19/23 12:34 Glucose (UA)(Auto) 0 mg/dL 11/19/23 12:34 Urine Ketones (Auto) Negative 11/19/23 12:34 Urine Blood (Auto) 0 John/uL 11/19/23 12:34 Urine Nitrite (Auto) Negative 11/19/23 12:34 Urine Bilirubin (Auto) 0 mg/dL 11/19/23 12:34 Urine Urobilinogen (Auto) 0.2 mg/dL 11/19/23 12:34 Leukocyte Esterase (Auto) 15 Jackelyn/uL 11/19/23 12:34 Assessment & Plan Assessment & Plan (1) OAB (overactive bladder): Code(s): N32.81 - Overactive bladder (2) Urge incontinence of urine: Code(s): N39.41 - Urge incontinence Plan oxybutynin 10 mg daily Orders: Orders AMB Urinalysis Automated 11/19/23 Z13.9 - Encounter for screening, unspecified AMB Post Void Residual by ultrasound 11/19/23 N39.8 - Other specified disorders of urinary system Medications: New oxybutynin chloride ER 10 mg PO DAILY 90 tabs 3RF Patient Instructions: The patient had an opportunity to ask questions regarding treatment plan. All questions were answered. The patient expressed understanding and agreement with the above treatment plan. The patient is aware they should contact our office by phone for worsening of their current condition or the appearance of new symptoms. Compliance is encouraged with any medications and followup testing that is ordered. It is a privilege to be allowed the opportunity to participate in the urologic care of your patient. If you have any questions or concerns regarding treatment for the above conditions please do not hesitate to contact me. The office telephone contact is [phone]. This note is constructed in part using voice recognition software. While every effort has been made to ensure accuracy production worker errors may have been included. Yours sincerely, Isidro Weems MD Coding Level of Care Code Est Pt Level 4 (15973) Diagnoses OAB (overactive bladder) N32.81 Urge incontinence of urine N39.41 CPT Codes Post Residual Void - PVR CPT Code: 09380-[id number] Void Residual by ultrasound ([id number])
== END 2023-11-19 13:25 | disposition home or self-care (01) ==
PROVIDERS: PCP Internal Medicine; Visit Provider Urology
DX: N32.81 Overactive bladder (principal); N39.41 Urge incontinence
CPT/HCPCS: 99214

== ENCOUNTER → 2023-11-19 12:25 | Outpatient (BNVA) | payer MEDICARE, SELFPAY | PROVIDERS: PCP Internal Medicine; Visit Provider Urology | DX: N32.81 Overactive bladder (principal); N39.41 Urge incontinence; N39.8 Other specified disorders of urinary system; Z79.899 Other long term (current) drug therapy | CPT/HCPCS: 51798; 81003; 99212 ==

== ENCOUNTER 2023-11-24 10:00 | Outpatient (REF) | payer MEDICARE, SELFPAY ==
[2023-11-24 11:53] LABS: Free T4 (Free Thyroxine) 1.02 ng/dL (0.71-1.85); Thyroid Stimulating Hormone 1.74 uIU/mL (0.32-4.0)
== END 2023-11-24 10:01 | disposition home or self-care (01) ==
LOC: HO.LAB 10:00
PROVIDERS: PCP Internal Medicine; Visit Provider Internal Medicine Endocrinology, Diabetes & Metabolism
DX: E03.9 Hypothyroidism, unspecified (principal)
CPT/HCPCS: 36415; 84439; 84443

== ENCOUNTER 2023-11-29 08:55 | Outpatient (REF) | payer MEDICARE, SELFPAY ==
--- NOTE | ~2023-11-29 | XR_ITS ---
EXAMINATION: XR KNEE, LEFT CLINICAL INFORMATION: Pain unspecified knee. COMPARISON: X-ray of the left knee 12/15/2022. X-ray the right knee May 2022. TECHNIQUE: AP upright both knees with additional lateral and patellofemoral view of the left knee. FINDINGS: LEFT KNEE: There is a total knee arthroplasty in place. The components are in the usual position and are unchanged. There is no periprosthetic fracture or surrounding abnormal lucency. There is an ossification along the proximal pole of the patella, less evident previously and likely related to prior surgery, but cannot exclude fracture of the proximal pole of the patella. Correlate clinically. This could reflect heterotopic ossification. There is no effusion. The surrounding soft tissues are normal. LIMITED RIGHT KNEE: There is osteoarthritis of the medial and lateral compartments manifested by marginal osteophytes with additional joint space narrowing of the medial compartment. Possible loose body in the intercondylar notch. This is unchanged. XR/XR knee LT 3V IMPRESSION: LEFT KNEE: 1. Left total knee arthroplasty without complication by x-ray. 2. Ossification along the proximal pole of the patella less evident previously, likely related to prior surgery or heterotopic ossification, but cannot exclude fracture of the proximal pole of patella. Correlate clinically to help determine likelihood of fracture. RIGHT KNEE: 1. Stable osteoarthritis, possible loose body. This is unchanged.
== END 2023-11-29 08:56 | disposition home or self-care (01) ==
LOC: HO.HOSX 08:55
PROVIDERS: Visit Provider Orthopaedic Surgery
DX: R20.0 Anesthesia of skin (principal); Z47.1 Aftercare following joint replacement surgery; Z96.652 Presence of left artificial knee joint
CPT/HCPCS: 73562; 99212

== ENCOUNTER 2023-11-29 09:19 | Outpatient (AMB) | payer MEDICARE, SELFPAY ==
--- NOTE | 2023-11-29 09:22 | A.OFFVIS_ITS ---
Intake Vital Signs 11/29/23 09:40 Height 5 ft 2 in Weight 192 lb BMI 35.1 Intake Visit Reasons: OV-LT TKA 12/15/22 NE-F/U Intake Note: Lolly is a 63 year old female who presents today for a follow up of her left knee s/p Left TKA 12/15/22. Patient presents today with a walker for ambulation assistance, and states mild numbness on lateral aspect of left knee. Allergies fentanyl Adverse Reaction (Unknown, Verified 11/29/23 09:43) Nausea and Vomiting HPI OV-LT TKA 12/15/22 NE-F/U HPI Details Lolly is a 63 year old female who presents today for a follow up of her left knee s/p Left TKA 12/15/22. Patient presents today with a walker for ambulation assistance, and states mild numbness on lateral aspect of left knee. Overall she is doing well. [facility] Medical History Osteoarthritis of left knee OSMANI (obstructive sleep apnea) Morbid obesity with BMI of 40.0-44.9, adult ASCUS of cervix with negative high risk HPV Anemia Obesity (BMI 30-39.9) Depression Anxiety Primary insomnia Microscopic colitis GERD without esophagitis Fibromyalgia Acquired hypothyroidism Impaired fasting glucose Benign essential hypertension Pure hypercholesterolemia Vitamin D deficiency Hypothyroidism Hypoglycemia Bradycardia Infection at site of external fixator pin Overactive bladder Surgical History Status post total left knee replacement (~12/15/22) Hx of cystoscopy Hx of foot surgery Hx of foot surgery History of colonoscopy History of gastrointestinal tract bypass S/P ORIF (open reduction internal fixation) fracture History of hemorrhoidectomy Hx of bilateral breast reduction surgery H/O section H/O arthroscopy of left knee Status post debridement Family History Father Diabetes Mental health disorder Mother CVD (cardiovascular disease) Myocardial infarction Mental health disorder Brother Colon cancer Sister Lung cancer Social History Household Members: Spouse and Children Housing: House Are you a primary women's health care nurse practitioner to a significant other at home: No Do you presently have visiting nurse or other home services: No Alcohol intake: current Alcohol intake frequency: does not drink Comment: aware of trip hazards Patient Tobacco Use Status: Never used Tobacco e-Cigarette/Vaping Use: Never Used Second Hand Smoke Exposure: No service: No Current occupational status: disabled Cognitive needs: No Hearing needs: Yes Vision needs: Yes Female Reproductive History Menstrual Age of Menarche: 14 Physical Exam Vital Signs: BMI result Body Mass Index 35.1 Extrem Other: 0-125 deg motion Stable arc of motion Assessment & Plan Assessment & Plan (1) Status post total left knee replacement: Onset Date: ~12/15/22 Code(s): Z96.652 - Presence of left artificial knee joint Plan: S/p left TKA doing well She has ataxia and some unsteadiness with gait. This is chronic Continue activity as tolerated. May follow up as needed Orders: Orders XR knee standing BI Today M25.569 - Pain in unspecified knee Coding Level of Care Code Est Pt Level 3 (07627) Diagnoses Status post total left knee replacement Z96.652
[2023-11-29 09:40] VITALS: BMI 35.1
== END 2023-11-29 13:14 | disposition home or self-care (01) ==
PROVIDERS: PCP Internal Medicine; Visit Provider Orthopaedic Surgery
DX: Z47.1 Aftercare following joint replacement surgery (principal); Z96.652 Presence of left artificial knee joint
CPT/HCPCS: 99213

== ENCOUNTER 2024-02-23 08:49 | Outpatient (REF) | payer MEDICARE, SELFPAY ==
[2024-02-23 09:29] LABS: MANUAL DIFF FLAG NO
[2024-02-23 09:58] LABS: Basophils Percent Auto 0.9 % (0-2); Eosinophils Absolute Auto 0.2 X10*3/uL (0.0-0.4); Eosinophils Percent Auto 5.1 % (0-4); Hematocrit 36.3 % (37.0-47.0); Hemoglobin 11.6 g/dl (12.0-16.0); Imm Gran Abs Auto 0.01 X10*3/uL (0.00-0.03); Imm Gran Pct Auto 0.2 % (0.0-0.4); Lymphocytes Absolute Auto 1.2 X10*3/uL (1.2-4.9); Lymphocytes Percent Auto 26.7 % (20-40); Mean Corpuscular Hemoglobin 27.8 pg (27.0-33.0); Mean Corpuscular Volume 86.8 fL (80.0-98.0); Mean Platelet Volume 9.8 fL (9.4-12.3); Monocytes Absolute Auto 0.3 X10*3/uL (0.1-1.2); Monocytes Percent Auto 6.2 % (2-11); Neutrophils Absolute Auto 2.7 x10*3/uL (2.0-8.3); Neutrophils Percent Auto 60.9 % (45-73); Platelet Count 221 X10*3/uL (160-400); Red Blood Count 4.18 X10*6/uL (4.20-5.50); Red Cell Distribution Width 13.8 % (11.0-16.0); White Blood Count 4.5 X10*3/uL (4.8-10.8)
[2024-02-23 10:02] LABS: Appearance Urine Clear; Color Urine Yellow; Glucose Urine UA Negative (Negative); Leukocyte Esterase Urine Negative (Negative); Nitrite Urine Positive (Negative); PH 5.5 (5.0-9.0); UMIC TRIGGER UACC YES; Urine Blood Negative (Negative); Urine Ketones Negative (Negative); Urine Protein Negative (Neg-Trace)
[2024-02-23 10:06] LABS: Estimated Average Glucose 111 mg/dL; Hemoglobin A1c % 5.5 % (<6.0)
[2024-02-23 10:06] LABS: Bacteria Urine 4+ (None Seen); Hyaline Casts Urine 0-2 /LPF (0-2); RBC Urine 0-2 /HPF (0-2); UACC Culture Trigger YES; WBC Urine 0-5 /HPF (0-5)
[2024-02-23 10:37] LABS: Alanine Aminotransferase 19 U/L (0-31); Albumin Level 3.9 g/dL (3.5-5.0); Alkaline Phosphatase 118 U/L (39-117); Anion Gap 11 (12-20); Aspartate Amino Transferase 19 U/L (5-31); Bilirubin Total 0.3 mg/dL (0.0-1.0); Blood Urea Nitrogen 18 mg/dL (9-16); C Reactive Protein 0.82 mg/dL (< or = 0.50); Calcium 9.4 mg/dL (8.4-10.2); Carbon Dioxide 29 mmol/L (22-29); Chloride 106 mmol/L (96-108); Cholesterol 146 mg/dL (<200); Estimated Glomerular Filt Rate > 60; Glucose Fasting 107 mg/dL (60-99); HDL Cholesterol 63 mg/dL (>40); LDL Cholesterol Calculated 67 mg/dL (<100); Potassium 4.4 mmol/L (3.3-5.1); Sodium 142 mmol/L (135-145); Total Protein 6.9 g/dL (6.5-8.0); Triglycerides 84 mg/dL (<150)
[2024-02-23 10:44] LABS: Free T4 (Free Thyroxine) 0.96 ng/dL (0.71-1.85); Thyroid Stimulating Hormone 1.45 uIU/mL (0.32-4.0); Vitamin D 25-OH Total 36.3 ng/mL (>30)
[2024-02-23 10:54] LABS: Folate 8.9 ng/mL (> or = 4.0); Vitamin B12 294 pg/mL (200-900)
[2024-02-23 11:11] LABS: Erythrocyte Sedimentation Rate 27 MM/HR (0-20)
== END 2024-02-23 08:50 | disposition home or self-care (01) ==
LOC: HO.LAB 08:49
PROVIDERS: PCP Internal Medicine; Visit Provider Internal Medicine
DX: E78.00 Pure hypercholesterolemia, unspecified (principal); M79.7 Fibromyalgia; M25.50 Pain in unspecified joint; E03.9 Hypothyroidism, unspecified; D64.9 Anemia, unspecified; E55.9 Vitamin D deficiency, unspecified; E11.9 Type 2 diabetes mellitus without complications; E53.8 Deficiency of other specified B group vitamins; R30.0 Dysuria
CPT/HCPCS: 36415; 80053; 80061; 81001; 81003; 82306; 82607; 82746; 83036; 84439; 84443; 85025; 85652; 86140; 87086; 87088; 87186

== ENCOUNTER 2024-03-03 09:55 | Outpatient (AMB) | payer MEDICARE, SELFPAY ==
[2024-03-03 09:58] VITALS: BP 112/74; PULSE 54; O2SAT 98; BMI 38.5
--- NOTE | 2024-03-03 09:59 | A.OFFVIS_ITS ---
Intake Vital Signs 03/03/24 09:58 Height 5 ft 2 in Weight 210 lb 5.136 oz BMI 38.5 BP 112/74 Blood Pressure Location Lt brachial Position Sitting Pulse 54 Pulse Source Pulse Oximeter Pulse Oximetry (%) 98 Oxygen Delivery Method Room Air Intake Visit Reasons: PHILLIP G0439 Month F/U Intake Note: Patient is here for an Annual Wellness Visit. Allergies fentanyl Adverse Reaction (Unknown, Verified 03/03/24 11:03) Nausea and Vomiting Medication List - Last Reconciled 03/03/24 by Obdulio Patel MD acarbose 50 mg PO TID acetaminophen 650 mg (2 x 325 mg) PO Q6H PRN atorvastatin 40 mg PO DAILY cholecalciferol (vitamin D3) 50 mcg PO DAILY docusate sodium 100 mg PO BID 30 days ferrous sulfate 325 mg PO DAILY levothyroxine 150 mcg PO DAILY [LIGHTWEIGHT CANE As directed] lorazepam 0.5 mg PO BID PRN 30 days meclizine 25 mg PO TID PRN mirtazapine 7.5 mg PO BEDTIME 30 days omeprazole 40 mg PO DAILY oxybutynin chloride ER 10 mg PO DAILY pregabalin 150 mg PO TID 30 days sertraline 200 mg (2 x 100 mg) PO DAILY 90 days tizanidine 4 mg PO Q8H PRN 10 days HPI [facility] G0439 Month F/U HPI Details Patient comes in today for her Annual Medicare Wellness Exam AND follow up visit States that she feels okay except for increased pain over her neck again lately Relates that she has been feeling a lot of cracking in her neck lately even when she is just turning her head She denies any recent injury or trauma to her neck She denies any headaches or dizziness lately Denies any chest pains, no increased SOB No nausea/vomiting, no abdominal pain No change in bowel habits noted Need her Pregabalin Rx refilled Had her follow up labs done last week - to discuss her results She last had her annual mammogram done back in September 2023 Had her screening colonoscopy done with Dr. Kline last year in August 2022 - was advised to have repeat colonoscopy done in 10 yrs (2032) She has her annual gynecology exam and pap smear scheduled in June 2024 IPPE/AWV: c/o of Annual Wellness Visit, subsequent visit. Medical / Social History Reviewed Past Medical History Yes . [place] of Care / Care Team list updated Yes . Surgical/Hospitalization History Yes . Current Medications (including OTC and supplements) Yes . Family History Yes . Tobacco Control form Yes . AUDIT-C (Alcohol use) form Yes . Illicit drug use in Social History Yes . Current diagnosis of depression? No Appropriate PHQ2/PHQ9 completed Yes . Data entered by Ceo [employer] Board Director and reviewed by provider Home Safety Throw rugs? No Grab bars? No Raised toilet seats? No Working smoke detectors? Yes Working carbon monoxide detectors? Yes Data entered by Ceo & Board Director and reviewed by provider Activities of Daily Living (ADLs) Difficulty bathing or showering? No Difficulty dressing? No Difficulty using the toilet? No Difficulty getting in and out of bed? No Difficulty walking? No Receives help from another person with any of the above tasks? No Instrumental Activities of Daily Living (IADLs) Uses the telephone without help Gets to places out of walking distance without help Goes shopping for groceries without help Prepares own meals without help Does own minor home maintenance without help Does own laundry without help Does own housework without help Manages own money without help Currently takes medications? Yes Takes medication without help End-of-Life Planning Discussed advance directive Yes Advance directive on file Discussed wishes expressed in advance directive agreed to following patient's wishes Fall Risk: Fall History Have you had any falls with injury in the past year? No . Have you had two or more falls in the past year? No . Fall Risk Assessment: No falls in the past year . HRA filled out by the patient, reviewed by Provider and scanned. ON LICENSE OF [facility] Medical History (Updated 03/03/24 @ 12:17 by Obdulio Patel MD) Cerebellar ataxia Osteoarthritis of left knee OSMANI (obstructive sleep apnea) Morbid obesity with BMI of 40.0-44.9, adult ASCUS of cervix with negative high risk HPV Anemia Obesity (BMI 30-39.9) Depression Anxiety Primary insomnia Microscopic colitis GERD without esophagitis Fibromyalgia Acquired hypothyroidism Impaired fasting glucose Benign essential hypertension Pure hypercholesterolemia Vitamin D deficiency Hypothyroidism Hypoglycemia Bradycardia Infection at site of external fixator pin Overactive bladder Surgical History Status post total left knee replacement (~12/15/22) Hx of cystoscopy Hx of foot surgery Hx of foot surgery History of colonoscopy History of gastrointestinal tract bypass S/P ORIF (open reduction internal fixation) fracture History of hemorrhoidectomy Hx of bilateral breast reduction surgery H/O section H/O arthroscopy of left knee Status post debridement Family History Father Diabetes Mental health disorder Mother CVD (cardiovascular disease) Myocardial infarction Mental health disorder Brother Colon cancer Sister Lung cancer Social History Household Members: Spouse and Children Housing: House Are you a primary early breastfeeding care specialist to a significant other at home: No Do you presently have visiting nurse or other home services: No Alcohol intake: current Alcohol intake frequency: does not drink Comment: aware of trip hazards Patient Tobacco Use Status: Never used Tobacco e-Cigarette/Vaping Use: Never Used Second Hand Smoke Exposure: No service: No Current occupational status: disabled Cognitive needs: No Hearing needs: Yes Vision needs: Yes Female Reproductive History Menstrual Age of Menarche: 14 Questionnaire Medicare Wellness Checkup [age] What gender do you identify with?: female During the past 4 weeks, how much have you been bothered by emotional problems such as feeling anxious, depressed, irritable, sad or downhearted, and blue?: moderately During the past 4 weeks, has your physical & emotional health limited your social activities with family, friends, neighbors, or groups?: not at all During the past 4 weeks, how much bodily pain have you generally had?: severe pain During the past 4 weeks, was someone available to help you if you needed & wanted help?: yes, as much as I wanted During the past 4 weeks, what was the hardest physical activity you could do for at least 2 minutes?: light Can you get to places out of walking distance without help? (For eg., can you travel alone on buses, taxis or drive your car?): Yes Can you go shopping for groceries or clothes without someone's help?: No Can you prepare your own meals?: Yes Can you do your housework without help?: No Because of any health problems, do you need the help of another person with your personal care needs such as eating, bathing, dressing or getting around the house?: No Can you handle your own money without help?: Yes During the past 4 weeks, how would you rate your health in general?: poor During the past 4 weeks how have things been going for you?: good & bad parts about equal Are you having difficulties driving your car?: not applicable, I don't use a car Do you always fasten your seat belt when you are in a car?: yes, usually During past 4 weeks, have you been bothered by the following: never: Falling or dizzy when standing up, Sexual problems?, Trouble eating well?, Teeth or denture problems? and Problems using the telephone? and sometimes: Tiredness or fatigue? Have you fallen 2 or more times in the past year?: Yes Are you afraid of falling?: Yes Are you a smoker?: no During the past 4 weeks, how many drinks of wine, beer, or other alcoholic beverages did you have?: 1 drink or less per week Do you exercise for about 20 minutes 3 or more times a week?: no, I usually do not exercise this much Have you been given information to help with the following?: yes: Hazards in your house that might hurt you? and yes: Keeping track of your medications? How often do you have trouble taking medicines the way you have been told to take them?: I always take medicine as prescribed How confident are you that you can control & manage most of your health p angelic?: not very confident What is your race?: White Mini Mental State Exam (MMSE) Orientation What is the (year) (season) (date) (day) (month)?: year, season, date, day and month Where are we (state) (county) (town or city) (hospital) (floor)?: state, county, town or city, hospital/clinic and floor Score Score: 10 Activity of Daily Living Bathing - sponge bath, tub bath or shower: receives no assistance (gets in/out by self, if usual bathing means Dressing - getting clothes from closets & drawers, including inner/outer garments & fasteners.: gets clothes & gets completely dressed without help Toileting - going to the 'toilet room' for urine/bowel elimination & cleaning self/arranging clothes: goes to toilet room, cleans self, arranges clothes without help Transfer: moves in & out of bed and chair without help (may use support object) Continence: controls urination/bowel movements completely by self Feeding: feeds self without help Total Score: 0 Information obtained from: patient Using telephone: independent Traveling: dependent Shopping: independent Preparing meals: independent Housework: independent Taking medicine: independent Managing money: independent PHQ-9 Over the last 2 weeks, how often have you been bothered by any of the following problems? 1. Little interest or pleasure in doing things: several days 2. Feeling down, depressed, or hopeless: several days 3. Trouble falling or staying asleep, or sleeping too much: not at all 4. Feeling tired or having little energy: not at all 5. Poor appetite or overeating: not at all 6. Feeling bad about yourself - or that you are a failure or have let yourself or your family down: not at all 7. Trouble concentrating on things, such as reading the newspaper or watching television: not at all 8. Moving or speaking so slowly that other people could have noticed. Or the opposite - being so fidgety or restless that you have been moving around a lot more than usual: more than half the days 9. Thoughts that you would be better off or of hurting yourself in some way: not at all Total score: 4 Depression Screening Interpretation: Positive Depression Screening Follow-up: Existing condition and In treatment Depression Screening Done: Yes 97370 - PHQ-9 Billing: Yes Source: Developed by Drs. Mickey Arce, Paige Barton, Luis A Hull and colleagues, with an educational roger from [employer]. Review of Systems Const Denies chills, Denies fatigue, Denies fever(s) and Denies headache(s) ENT Denies dysphagia, Reports dizziness (occasionally), Denies otalgia, Denies headache(s), Reports hearing loss (in both ears), Reports neck pain (increased again lately), Denies odynophagia and Denies sore throat Card Denies chest pain, Denies palpitations and Denies dyspnea Resp Denies chest congestion, Denies cough and Denies dyspnea GI Denies abdominal pain, Denies bloating, Denies constipation, Denies dysphagia, Denies heartburn, Denies diarrhea, Denies nausea, Denies odynophagia and Denies vomiting Denies difficulty voiding, Reports nocturia (at times), Denies dysuria and Reports urinary incontinence (mostly at night) Musc Reports abnormal gait (unsteady - now uses a walker when ambulating), Reports arthralgias (both knees - s/p left knee TKA a few months ago), Reports neck pain (increased again lately), Reports numbness (of fingers of both hands, recurrent) and Reports tingling (of fingers of both hands, recurrent) Skin/Breast Denies rash Neuro Reports abnormal gait (unsteady - now uses a walker when ambulating), Reports dizziness (occasionally), Denies headache(s), Reports numbness (of fingers of both hands, recurrent) and Reports tingling (of fingers of both hands, recurrent) Psych Reports anxiety and Reports depression (better controlled) Endo Denies fatigue and Denies palpitations Physical Exam Vital Signs: Last Vital Signs Pulse 54 03/03/24 09:58 BP 112/74 03/03/24 09:58 Pulse Ox 98 03/03/24 09:58 Oxygen Delivery Method Room Air 03/03/24 09:58 BMI result Body Mass Index 38.5 IPPE/AWV: Balance Romberg No . Tandem walk No . Walk and Turn No . Rise from sit to stand Yes . Vision Corrective lens No Vision screen pass Hearing Whisper test pass . Urinary incont. no. EKG Not clinically necessary. Const General: no acute distress and alert Limitations: physical limitations (unsteady gait) and ambulation with walker HEENT Ears: TM's normal bilaterally and EAC's normal Throat: Yes posterior oropharynx normal and Yes tonsils normal (no TP congestion noted) Neck Neck: Yes no lymphadenopathy and Yes tender Thyroid: Thyroid normal Resp Auscultation: clear to auscultation bilaterally, no rales and no wheezes Cardio Rate: regular rate Rhythm: regular rhythm Heart sounds: no murmurs GI Palpation (GI): Soft to palpation and nontender Auscultation: normal bowel sounds General: Yes no CVA tenderness Back/Spine/Pelvis Back: no CVA tenderness Cervical Spine: cervical muscular tenderness and Cervical spine tenderness Thoracic/Lumbar Spine: No lumbar spinal tenderness Skin Rashes: no rashes Neuro Cognition (Neuro): normal cognition Extrem General: Yes no clubbing, cyanosis or edema Psych Thought process: Normal thought process present Thought content: Normal thought content present Results Reviewed Results Reviewed: Laboratory Tests 08/31/23 02/23/24 02/23/24 11:16 09:21 09:28 WBC 4.1 L 4.5 L Hgb 12.3 11.6 L Hct 36.3 L Plt Count 221 ESR 27 H Sodium 142 Potassium 4.4 Creatinine 0.93 Estimated GFR > 60 Fasting Glucose 107 H Hemoglobin A1c % 5.5 Calcium 9.4 AST 19 ALT 19 C-Reactive Protein 0.82 H Triglycerides 84 Cholesterol 146 LDL Cholesterol, Calc 67 HDL Cholesterol 63 Vitamin B12 294 25-OH Vitamin D Total 36.3 TSH 1.45 Free T4 0.96 Ur Specific [place] 1.020 Urine Protein Negative Urine Glucose (UA) Negative Urine Blood Negative Urine Nitrite Positive H Ur Leukocyte Esterase Negative Assessment & Plan Assessment & Plan (1) Medicare annual wellness visit, subsequent: Code(s): Z00.00 - Encounter for general adult medical examination without abnormal findings Plan: HRA form discussed with and completed with patient; form will be scanned into patient's chart She is currently up-to-date with all of her cancer screenings and exams (2) Cervical spine arthritis: Code(s): M47.812 - Spondylosis without myelopathy or radiculopathy, cervical region Plan: Cervical spine CT done back in May 2022 revealed (+) loss of intervertebral disc height with associated hypertrophic disc osteophyte spurring with associated sclerotic degenerative endplate changes and disc osteophyte spurring at C5-C6 and C6-C7 Will refer her to physical therapy for further evaluation and management (3) Cerebellar ataxia: Code(s): G11.9 - Hereditary ataxia, unspecified Plan: She was diagnosed with cerebellar ataxia by neurology (Dr. Martínez) on 10/01/2023 Follow up with neurology as scheduled (4) Pure hypercholesterolemia: Code(s): E78.00 - Pure hypercholesterolemia, unspecified Plan: Results of her labs done last week reviewed and discussed with patient Reinforced low cholesterol diet Continue Atorvastatin 40 mg QD Will recheck her labs and fasting lipids in 4 months for follow up (5) Benign essential hypertension: Code(s): I10 - Essential (primary) hypertension Plan: Reinforced low sodium diet - goal is systolic BP of at least 120 to 130 mm or less Continue Lisinopril 10 mg QD Patient is reminded to continue monitoring her blood pressure regularly (6) Impaired fasting glucose: Code(s): R73.01 - Impaired fasting glucose Plan: Her FBS was slightly elevated at 107 mg/dl but her HgbA1c was normal at 5.5% on her labs done last week Continue Acarbose 50 mg TID - she was started on Acarbose 50 mg TID by endocrinology for NIPHS that appeared to be a complication of her bariatric surgery from a few years ago Patient recalls experiencing recurrent hypoglycemic symptoms initially when she started on the Rx but her symptoms have reportedly stabilized after some time Follow up with endocrinology as scheduled (7) Acquired hypothyroidism: Code(s): E03.9 - Hypothyroidism, unspecified Plan: Continue Levothyroxine 175 mcg QD Will continue to monitor her TFTs regularly Follow-up with endocrinology as scheduled (8) Anemia: Code(s): D64.9 - Anemia, unspecified Qualifiers: Anemia type: iron deficiency Iron deficiency anemia type: inadequate dietary iron intake Qualified Code(s): D50.8 - Other iron deficiency anemias Plan: Her H/H was at 11.6/36.3 on her labs done last week Continue Ferrous Sulfate 325 mg QD Will continue to monitor her CBC regularly (9) GERD without esophagitis: Code(s): K21.9 - Gastro-esophageal reflux disease without esophagitis Plan: Dietary restrictions reinforced Continue Omeprazole 40 mg QD (10) Fibromyalgia: Code(s): M79.7 - Fibromyalgia Plan: Continue Naproxen 500 mg BID with food as needed and Pregabalin 150 mg TID (Rx refilled) Patient is again encouraged to exercise regularly and to stay active to help manage her symptoms better (11) Bilateral primary osteoarthritis of knee: Code(s): M17.0 - Bilateral primary osteoarthritis of knee Plan: S/P total left knee arthroplasty with Dr. Spangler on 12/15/2022 Follow up with orthopedics as scheduled (12) Microscopic colitis: Code(s): K52.839 - Microscopic colitis, unspecified Qualifiers: Microscopic colitis type: unspecified Qualified Code(s): K52.839 - Microscopic colitis, unspecified Plan: This remains in remission with no recent flare ups Follow-up with GI (Dr. Kline) as scheduled or as needed (13) Vitamin D deficiency: Code(s): E55.9 - Vitamin D deficiency, unspecified Plan: Continue Vitamin D3 5000 units QD (14) Overactive bladder: Code(s): N32.81 - Overactive bladder Plan: Continue Oxybutynin ER 10 mg QD Follow up with urology as scheduled (15) Primary insomnia: Code(s): F51.01 - Primary insomnia Plan: Sleep hygiene reinforced Mirtazapine at bedtime is helping with her sleep issues (16) Anxiety: Code(s): F41.9 - Anxiety disorder, unspecified Plan: Continue Lorazepam 0.5 mg BID PRN (17) Depression: Code(s): F32.9 - Major depressive disorder, single episode, unspecified Qualifiers: Depression Type: major depressive disorder Major depression recurrence: recurrent Active/Remission status: currently active Major depression episode severity: unspecified Qualified Code(s): F33.9 - Major depressive disorder, recurrent, unspecified Plan: Continue Mirtazapine 7.5 mg Q HS (18) Obesity (BMI 30-39.9): Code(s): E66.9 - Obesity, unspecified Plan: Reinforced diet; exercise and weight loss are not realistic at this time, especially given patient's gait instability and recent diagnosis of cerebellar ataxia Plan Follow up in 4 months Orders: Orders PT Evaluation and Treatment Today M47.812 - Spondylosis without myelopathy or radiculopathy, cervical region Lipid Panel 4 Months E78.00 - Pure hypercholesterolemia, unspecified Thyroid Stimulating Hormone 4 Months E03.9 - Hypothyroidism, unspecified Free T4 (Free Thyroxine) 4 Months E03.9 - Hypothyroidism, unspecified Complete Blood Count Auto Diff 4 Months D64.9 - Anemia, unspecified Comprehensive [place]. Panel Fast 4 Months E78.00 - Pure hypercholesterolemia, unspecified Medications: Refilled pregabalin 150 mg PO TID 30 days 90 caps 1RF M79.7 - Fibromyalgia Quality Reporting (2019) Depression/Bipolar (159/160/161/177) PHQ-9: Total score: 4 Coding Level of Care Code Medicare Subsequent (G0439) Est Pt Level 4 (99311) Diagnoses Medicare annual wellness visit, subsequent Z00.00 Cervical spine arthritis M47.812 Cerebellar ataxia G11.9 Pure hypercholesterolemia E78.00 Benign essential hypertension I10 Impaired fasting glucose R73.01 Acquired hypothyroidism E03.9 Iron deficiency anemia secondary to inadequate dietary iron intake D50.8 Anemia type: iron deficiency Iron deficiency anemia type: inadequate dietary iron intake GERD without esophagitis K21.9 Fibromyalgia M79.7 Bilateral primary osteoarthritis of knee M17.0 Microscopic colitis, unspecified microscopic colitis type K52.839 Microscopic colitis type: unspecified Vitamin D deficiency E55.9 Overactive bladder N32.81 Primary insomnia F51.01 Anxiety F41.9 Episode of recurrent major depressive disorder, unspecified depression episode severity F33.9 Depression Type: major depressive disorder Major depression recurrence: recurrent Active/Remission status: currently active Major depression episode severity: unspecified Obesity (BMI 30-39.9) E66.9
== END 2024-03-03 11:16 | disposition home or self-care (01) ==
PROVIDERS: PCP Internal Medicine; Visit Provider Internal Medicine
DX: Z00.00 Encounter for general adult medical examination without abnormal findings (principal); G11.9 Hereditary ataxia, unspecified; F33.9 Major depressive disorder, recurrent, unspecified; M47.812 Spondylosis without myelopathy or radiculopathy, cervical region; E78.00 Pure hypercholesterolemia, unspecified; I10 Essential (primary) hypertension; R73.01 Impaired fasting glucose; E03.9 Hypothyroidism, unspecified; D50.8 Other iron deficiency anemias; K21.9 Gastro-esophageal reflux disease without esophagitis; M79.7 Fibromyalgia; M17.0 Bilateral primary osteoarthritis of knee
CPT/HCPCS: 99214; G0439

== ENCOUNTER 2024-03-07 09:12 | Outpatient (AMB) | payer MEDICARE, SELFPAY ==
[2024-03-07 09:14] VITALS: BP 102/66; PULSE 90; BMI 38.3
--- NOTE | 2024-03-07 09:14 | MHC.OFFVIS ---
Vital Signs 03/07/24 09:14 Height 5 ft 2 in Weight 209 lb 10.554 oz BMI 38.3 BP 102/66 Blood Pressure Location Lt brachial Position Sitting Pulse 90 Pulse Source Pulse Oximeter Intake Visit Reasons: f/u hypothyroidism, post-bariatric hypoglycemia Intake Note: Patient present today for Hypothyroidism, post-bariatric hypoglycemia follow up visit. Fancy Stitcher Required: No Accompanied by: Spouse Allergies fentanyl Adverse Reaction (Unknown, Verified 03/07/24 09:19) Nausea and Vomiting Medication List - Last Reconciled 03/07/24 by Mickey Farnsworth MD acarbose 50 mg PO TID acetaminophen 650 mg (2 x 325 mg) PO Q6H PRN atorvastatin 40 mg PO DAILY cholecalciferol (vitamin D3) 50 mcg PO DAILY docusate sodium 100 mg PO BID 30 days ferrous sulfate 325 mg PO DAILY lamotrigine 50 mg PO DAILY levothyroxine 150 mcg PO DAILY [LIGHTWEIGHT CANE As directed] lorazepam 0.5 mg PO BID PRN 30 days meclizine 25 mg PO TID PRN mirtazapine 7.5 mg PO BEDTIME 30 days omeprazole 40 mg PO DAILY oxybutynin chloride ER 10 mg PO DAILY pregabalin 150 mg PO TID 30 days sertraline 200 mg (2 x 100 mg) PO DAILY 90 days tizanidine 4 mg PO Q8H PRN 10 days HPI Comments Details: 64 YO Female with a PMHx of morbid obesity S/P Migdalia-En-Y gastric bypass surgery in 2015, after which she lost 130 lbs who is seen in F/U for Hypoglycemia. Since 2019 she has been having episodes of loss of consciousness. The first episode happened while out for a walk with her when she lost consciousness and fell to the floor. EMS was called and she was brought to the ED. She underwent an extensive cardiac workup at that time and even wore a holter monitor 30 days. She reports no cardiac etiology was identified. The second episode happened 07/01/19 while cooking dinner with her . He noted she was slurring her speech and began to slump over. EMS was called. Blood sugar was noted to be 30. She was hypothyermic, hypotensive and bradycardic as well. She had no evidence of infectious etiology and was ruled out for sepsis. Cortisol was assesed (reported prior) to administering stress dose steroids and was noted to be 22. She was treated with stress dose steroids and IV antibiotics. She improved shortly after. She did undergo ACTH Stimulation testing 07/05/19 with baseline Cortisol 14.9, 30 min cortisol 26.3 and 60 minute cortisol 26.5. Baseline ACTH was 29. This was adequate for ruling out adrenal insufficiency. TSH was 2.01. She did have insulin and proinsulin levels checked, but there was no corresponding serum glucose to correlate these with. She was subsequently referred to Endocrinology. She was asked to continue to check finger sticks, and if she had another low sugar to present to the lab for evaluation. 10/02/2019 Serum Glucose was 65 with Proinsulin level 38.5, C peptide level 3.99 and Insulin level 10.7, consistent with insulin hypersecretion in the setting of hypoglycemia. She underwent a CT of the abdomen which revealed no mass within the pancreas, as we were concerned about insulinoma. She was diagnosed with NIPHS and was started on Acarbose 25 mg PO TID prior to each meal. She continued with hypoglycemia, so the dose was increased to 50 mg PO TID. She does report drastic improvement in her symptoms. She reports rare episodes of hypoglycemia only if she eats a carb heavy meal with low protein. If she sticks to the low carbohydrate high protein diet and uses her acarbose with every meal sugars remain at goal. She also has a history of hypothyroidism and is using Levothyroxine 1500 mcg PO daily. She reports good compliance. TSH is nl Labs: Laboratory Tests 06/08/22 11:57 Creatinine 0.95 Estimated GFR > 60 TSH 4.70 H Free T4 0.85 Had an episode of syncope. Hypoglycemia controlled with acarbose. [facility] Medical History (Updated 03/03/24 @ 12:17 by Obdulio Patel MD) Cerebellar ataxia Osteoarthritis of left knee OSMANI (obstructive sleep apnea) Morbid obesity with BMI of 40.0-44.9, adult ASCUS of cervix with negative high risk HPV Anemia Obesity (BMI 30-39.9) Depression Anxiety Primary insomnia Microscopic colitis GERD without esophagitis Fibromyalgia Acquired hypothyroidism Impaired fasting glucose Benign essential hypertension Pure hypercholesterolemia Vitamin D deficiency Hypothyroidism Hypoglycemia Bradycardia Infection at site of external fixator pin Overactive bladder Surgical History Status post total left knee replacement (~12/15/22) Hx of cystoscopy Hx of foot surgery Hx of foot surgery History of colonoscopy History of gastrointestinal tract bypass S/P ORIF (open reduction internal fixation) fracture History of hemorrhoidectomy Hx of bilateral breast reduction surgery H/O section H/O arthroscopy of left knee Status post debridement Family History Father Diabetes Mental health disorder Mother CVD (cardiovascular disease) Myocardial infarction Mental health disorder Brother Colon cancer Sister Lung cancer Social History Household Members: Spouse and Children Housing: House Are you a primary gericare aide teacher to a significant other at home: No Do you presently have visiting nurse or other home services: No Alcohol intake: current Alcohol intake frequency: does not drink Comment: aware of trip hazards Patient Tobacco Use Status: Never used Tobacco e-Cigarette/Vaping Use: Never Used Second Hand Smoke Exposure: No service: No Current occupational status: disabled Cognitive needs: No Hearing needs: Yes Vision needs: Yes Female Reproductive History Menstrual Age of Menarche: 14 Physical Exam Vital Signs: Last Vital Signs Pulse 90 03/07/24 09:14 BP 102/66 03/07/24 09:14 BMI result Body Mass Index 38.3 Const Other: Thyroid gland is normal size weighs about 15 g . There are no thyroid nodules palpated Assessment & Plan Assessment & Plan (1) Acquired hypothyroidism: Code(s): E03.9 - Hypothyroidism, unspecified Category: Medical Plan: This 63-year-old white female with a history of hypothyroidism currently being treated with 150 mcg of levothyroxine. She appears to be clinically and biochemically euthyroid Plan is to continue the current regimen. At this point, patient returned to the care of her primary care provider returned back to endocrinology as needed (2) Hypoglycemia: Code(s): E16.2 - Hypoglycemia, unspecified Category: Medical Plan: NIPHS currently being managed with acarbose good control. Continue current manage. Patient returned back to the care of her primary care provider and back to endocrinology as needed Coding Level of Care Code Est Pt Level 3 (45435) Diagnoses Acquired hypothyroidism E03.9 Hypoglycemia E16.2
== END 2024-03-07 09:28 | disposition home or self-care (01) ==
PROVIDERS: PCP Internal Medicine; Visit Provider Internal Medicine Endocrinology, Diabetes & Metabolism
DX: E03.9 Hypothyroidism, unspecified (principal); E16.2 Hypoglycemia, unspecified
CPT/HCPCS: 99213

== ENCOUNTER → 2024-03-07 09:12 | Outpatient (BNVA) | payer MEDICARE, SELFPAY | PROVIDERS: PCP Internal Medicine; Visit Provider Internal Medicine Endocrinology, Diabetes & Metabolism | DX: E03.9 Hypothyroidism, unspecified (principal); E16.2 Hypoglycemia, unspecified | CPT/HCPCS: 99212 ==

== ENCOUNTER 2024-06-15 15:35 | Outpatient (AMB) | payer MEDICARE, SELFPAY ==
--- NOTE | 2024-06-15 16:08 | MHC.OFFVIS ---
Intake Visit Reasons: 6m follow up/PVR Intake Note: Patient is Present for PVR Urology Med: Oxybutynin Antibiotic Allergy:None Blood Thinner:None Last PVR: 0 Todays PVR:20ml Patient states she has some slight burning when urinating Competitive Shopper Required: No Mold Clamper: Mold Clamper Present Accompanied by: Spouse Allergies fentanyl Adverse Reaction (Unknown, Verified 07/12/24 10:51) Nausea and Vomiting HPI Comments Details: 06/15/24--Lolly is a 64-year-old female who presents today to the office for a follow-up. She has been taking oxybutynin daily She is complaining of some irritative voiding symptoms. Will empirically start macrobid. US renal. Review of chart: 11/19/2023 Lolly is a 63-year-old female who presents today to the office for a follow-up. She states the the co-payment on the Gemtesa co-pay was 200 dollars so she did not fill it. She wants to go back on the oxybutynin. We will try lower dose which has less side effects 10 mg of oxybutynin sent to the pharmacy. 05/14/2023-She is followed today for OAB. She was last seen by me on 11/09/2022 and was advised to continue Anticholinergic management during that time.?She has been taking oxybutynin daily with benefit. She mentions having urine leakage at night time. She denies any urine leakage during the day. She denies any other urinary tract infections at this time. She has had symptoms of dry mouth. I reviewed the urine culture results from 01/06/2023 which came back Escherichia coli? > 100,000 cfu/mL 05/14/2023: Evaluation today?UA? luekocytes: 15 Jackelyn; blood: negative. Plan-Ordered Gemtesa 75 mg daily. Discontinue taking oxybutynin 15 mg. Advised the patient to limit caffeine, and alcohol intake in the evening time. Follow-up in 6 months. [facility] Medical History Cerebellar ataxia Osteoarthritis of left knee OSMANI (obstructive sleep apnea) Morbid obesity with BMI of 40.0-44.9, adult ASCUS of cervix with negative high risk HPV Anemia Obesity (BMI 30-39.9) Depression Anxiety Primary insomnia Microscopic colitis GERD without esophagitis Fibromyalgia Acquired hypothyroidism Impaired fasting glucose Benign essential hypertension Pure hypercholesterolemia Vitamin D deficiency Hypothyroidism Hypoglycemia Bradycardia Infection at site of external fixator pin Overactive bladder Surgical History Status post total left knee replacement (~12/15/22) Hx of cystoscopy Hx of foot surgery Hx of foot surgery History of colonoscopy History of gastrointestinal tract bypass S/P ORIF (open reduction internal fixation) fracture History of hemorrhoidectomy Hx of bilateral breast reduction surgery H/O section H/O arthroscopy of left knee Status post debridement Family History Father Diabetes Mental health disorder Mother CVD (cardiovascular disease) Myocardial infarction Mental health disorder Brother Colon cancer Sister Lung cancer Social History Household Members: Spouse and Children Housing: House Are you a primary child day care center worker to a significant other at home: No Do you presently have visiting nurse or other home services: No Alcohol intake: current Alcohol intake frequency: does not drink Comment: aware of trip hazards Patient Tobacco Use Status: Never used Tobacco e-Cigarette/Vaping Use: Never Used Second Hand Smoke Exposure: No service: No Current occupational status: disabled Cognitive needs: No Hearing needs: Yes Vision needs: Yes Female Reproductive History Menstrual Age of Menarche: 14 Review of Systems Const All systems reviewed & are unremarkable except as noted in HPI and below Reports no additional complaints Eyes Reports no additional complaints ENT Reports no additional complaints Card Reports no additional complaints Resp Reports no additional complaints GI Reports no additional complaints Reports as per HPI Musc Reports no additional complaints Skin/Breast Reports system reviewed and no additional complaints, except as documented Neuro Reports no additional complaints Psych Reports no additional complaints Endo Reports no additional complaints Tray/Lymph Reports no additional complaints Aller/Immun Reports no additional complaints Office Procedures Post Void Residual Post Residual Void Post Void Residual (PVR): 20 53688-[id number] Void Residual by ultrasound Results AMB Urinalysis, Automated UA Leukoctes 0 Jackelyn/uL Last Edit by KELLY La on 06/15/24 16:19 UA Nitrite Negative Last Edit by KELLY La on 06/15/24 16:19 UA Urobilinogen 0.2 mg/dL Last Edit by Torri Medrano, RMA on 06/15/24 16:19 UA Protein 0 mg/dL Last Edit by Torri Medrano, RMA on 06/15/24 16:19 UA pH 5.5 Last Edit by Torri Medrano, RMA on 06/15/24 16:19 UA Blood 10 John/uL Last Edit by Torri Medrano, RMA on 06/15/24 16:19 UA Specific Gilbert 1.030 Last Edit by Torrikareem Medrano, RMA on 06/15/24 16:19 UA Ketone Negative Last Edit by Torri Medrano, RMA on 06/15/24 16:19 UA Bilirubin 0 mg/dL Last Edit by Torri Medrano, RMA on 06/15/24 16:19 UA Glucose 0 mg/dL Last Edit by Torri Harkinsro, RMA on 06/15/24 16:19 Results Reviewed Results Reviewed: Laboratory Last Values Urine pH (Auto) 5.5 06/15/24 16:18 Specific Gilbert (Auto) 1.030 06/15/24 16:18 Urine Protein (Auto) 0 mg/dL 06/15/24 16:18 Glucose (UA)(Auto) 0 mg/dL 06/15/24 16:18 Urine Ketones (Auto) Negative 06/15/24 16:18 Urine Blood (Auto) 10 John/uL 06/15/24 16:18 Urine Nitrite (Auto) Negative 06/15/24 16:18 Urine Bilirubin (Auto) 0 mg/dL 06/15/24 16:18 Urine Urobilinogen (Auto) 0.2 mg/dL 06/15/24 16:18 Leukocyte Esterase (Auto) 0 Jackelyn/uL 06/15/24 16:18 Date of Service: 09/30/21 EXAMINATION: US ABDOMEN COMPLETE CLINICAL INFORMATION: Right upper quadrant pain. COMPARISON: CT abdomen without and with contrast dated 11/10/2019. Ultrasound abdomen complete dated 11/03/2018 and 12/20/2015. TECHNIQUE: Real-time imaging of the abdominal viscera. FINDINGS: PANCREAS: Normal. ABDOMINAL AORTA: The proximal, mid, and distal segments are normal in caliber. INFERIOR VENA CAVA: Visualized portions are normal. LIVER: The liver is normal in size. The liver contour is normal. Parenchymal echogenicity is normal. There is no intrahepatic biliary duct dilatation seen. GALLBLADDER: The gallbladder is physiologically distended without evidence of stones, sludge, wall thickening or pericholecystic fluid. There are 2 small echogenic densities adjacent to the gallbladder wall measuring 3 and 4 mm that do not move or shadow probably representing gallbladder wall polyps. COMMON BILE DUCT: Normal in caliber measuring 0.47 cm in diameter. RIGHT KIDNEY: There is a 1.6 x 2.2 x 2 cm upper pole peripelvic cyst. No hydronephrosis or renal calculi. The kidney measures 10.3 cm in maximum dimension. LEFT KIDNEY: Normal. No hydronephrosis. No renal calculi or focal parenchymal lesions. The kidney measures 10.9 cm in maximum dimension. SPLEEN: Normal. The spleen measures 12.4 cm in maximum dimension. FREE FLUID: None. IMPRESSION: Small gallbladder wall polyps. Right renal cyst. Assessment & Plan Assessment & Plan (1) Urinary frequency: Code(s): R35.0 - Frequency of micturition Category: Medical (2) OAB (overactive bladder): Code(s): N32.81 - Overactive bladder Category: Medical Plan Continue oxybutynin, US renal Orders: Orders US renal BI 06/22/24 R35.0 - Frequency of micturition, N39.0 - Urinary tract infection, site not specified, Z00.00 - Encounter for general adult medical examination without abnormal findings AMB Urinalysis Automated 06/15/24 Z13.9 - Encounter for screening, unspecified AMB Post Void Residual by ultrasound 06/15/24 R32 - Unspecified urinary incontinence Urine Culture 06/15/24 R32 - Unspecified urinary incontinence Medications: New nitrofurantoin monohyd/m-cryst 100 mg (Macrobid) must administer with a meal/food 100 mg PO BID 20 caps 0RF 10 days Refilled oxybutynin chloride ER 10 mg PO DAILY 90 tabs 3RF Patient Instructions: The patient had an opportunity to ask questions regarding treatment plan. The patient expressed understanding and agreement with the above treatment plan. The patient is aware they should contact our office by phone for worsening of their current condition or the appearance of new symptoms. Compliance is encouraged with any medications and followup testing that is ordered. It is a privilege to be allowed the opportunity to participate in the urologic care of your patient. If you have any questions or concerns regarding treatment for the above conditions please do not hesitate to contact me. The office telephone contact is [phone]. This note is constructed in part using voice recognition software. While every effort has been made to ensure accuracy technical sales support manager errors may have been included. Yours sincerely, Isidro Weems MD Coding Level of Care Code Est Pt Level 4 (68085) Diagnoses Urinary frequency R35.0 OAB (overactive bladder) N32.81 CPT Codes Post Residual Void - PVR CPT Code: 98349-[id number] Void Residual by ultrasound ([id number])
== END 2024-06-15 16:25 | disposition home or self-care (01) ==
PROVIDERS: PCP Internal Medicine; Visit Provider Urology
DX: R35.0 Frequency of micturition (principal); N32.81 Overactive bladder
CPT/HCPCS: 99214

== ENCOUNTER 2024-06-15 15:35 | Outpatient (REF) | payer MEDICARE, SELFPAY | END 2024-06-15 15:36 | disposition home or self-care (01) | LOC: HO.LAB 15:35 | PROVIDERS: PCP Internal Medicine; Visit Provider Urology | DX: R32 Unspecified urinary incontinence (principal); N32.81 Overactive bladder; N39.0 Urinary tract infection, site not specified; Z79.899 Other long term (current) drug therapy | CPT/HCPCS: 51798; 81003; 87086; 87088; 87186; 99212 ==

== ENCOUNTER 2024-06-22 12:04 | Outpatient (REF) | payer MEDICARE, SELFPAY | END 2024-06-22 12:05 | disposition home or self-care (01) | LOC: HO.US 12:04 | PROVIDERS: PCP Internal Medicine; Visit Provider Urology | DX: R35.0 Frequency of micturition (principal); N39.0 Urinary tract infection, site not specified | CPT/HCPCS: 76775 ==

== ENCOUNTER 2024-07-03 08:18 | Outpatient (REF) | payer MEDICARE, SELFPAY ==
[2024-07-03 10:11] LABS: MANUAL DIFF FLAG NO
[2024-07-03 10:18] LABS: Basophils Percent Auto 0.7 % (0-2); Eosinophils Absolute Auto 0.2 X10*3/uL (0.0-0.4); Eosinophils Percent Auto 3.1 % (0-4); Hematocrit 37.9 % (37.0-47.0); Hemoglobin 11.8 g/dl (12.0-16.0); Imm Gran Abs Auto 0.01 X10*3/uL (0.00-0.03); Imm Gran Pct Auto 0.2 % (0.0-0.4); Lymphocytes Absolute Auto 1.4 X10*3/uL (1.2-4.9); Lymphocytes Percent Auto 23.3 % (20-40); Mean Corpuscular HGB Conc 31.1 g/dl (31.0-35.0); Mean Corpuscular Hemoglobin 26.9 pg (27.0-33.0); Mean Corpuscular Volume 86.5 fL (80.0-98.0); Mean Platelet Volume 10.7 fL (9.4-12.3); Monocytes Absolute Auto 0.5 X10*3/uL (0.1-1.2); Neutrophils Absolute Auto 3.8 x10*3/uL (2.0-8.3); Neutrophils Percent Auto 64.7 % (45-73); Platelet Count 198 X10*3/uL (160-400); Red Blood Count 4.38 X10*6/uL (4.20-5.50); Red Cell Distribution Width 14.6 % (11.0-16.0); White Blood Count 5.8 X10*3/uL (4.8-10.8)
[2024-07-03 10:56] LABS: Alanine Aminotransferase 27 U/L (0-31); Albumin Level 3.8 g/dL (3.5-5.0); Alkaline Phosphatase 121 U/L (39-117); Anion Gap 11 (12-20); Aspartate Amino Transferase 26 U/L (5-31); Bilirubin Total 0.4 mg/dL (0.0-1.0); Blood Urea Nitrogen 13 mg/dL (9-16); Calcium 8.6 mg/dL (8.4-10.2); Carbon Dioxide 28 mmol/L (22-29); Chloride 108 mmol/L (96-108); Cholesterol 157 mg/dL (<200); Estimated Glomerular Filt Rate > 60; Glucose Fasting 101 mg/dL (60-99); HDL Cholesterol 57 mg/dL (>40); LDL Cholesterol Calculated 73 mg/dL (<100); Potassium 4.1 mmol/L (3.3-5.1); Sodium 143 mmol/L (135-145); Total Protein 6.9 g/dL (6.5-8.0); Triglycerides 138 mg/dL (<150)
[2024-07-03 11:27] LABS: Free T4 (Free Thyroxine) 0.96 ng/dL (0.71-1.85); Thyroid Stimulating Hormone 2.63 uIU/mL (0.32-4.0)
== END 2024-07-03 08:19 | disposition home or self-care (01) ==
LOC: HO.HMGCLDS 08:18
PROVIDERS: PCP Internal Medicine; Visit Provider Internal Medicine
DX: D64.9 Anemia, unspecified (principal); E78.00 Pure hypercholesterolemia, unspecified; E03.9 Hypothyroidism, unspecified
CPT/HCPCS: 36415; 80053; 80061; 84439; 84443; 85025

== ENCOUNTER 2024-07-07 07:51 | Outpatient (AMB) | payer MEDICARE, SELFPAY ==
--- NOTE | 2024-07-07 07:58 | A.OFFVIS_ITS ---
Vital Signs 07/07/24 08:02 Height 5 ft 2 in BP 118/72 Blood Pressure Location Lt brachial Position Standing Pulse 77 Pulse Source Pulse Oximeter Intake Visit Reasons: hypothyroidism, post-bariatric hypoglycemia-lvm Intake Note: Patient present today for Hypothyrodism, post-bariatric hypoglycemia office visit. Drapery And Upholstery Estimator Required: No Accompanied by: Spouse Allergies fentanyl Adverse Reaction (Unknown, Verified 07/07/24 08:06) Nausea and Vomiting Medication List - Last Reconciled 07/07/24 by Shirley Andrade MD acarbose 50 mg PO TID acetaminophen 650 mg (2 x 325 mg) PO Q6H PRN atorvastatin 40 mg PO DAILY cholecalciferol (vitamin D3) 50 mcg PO DAILY docusate sodium 100 mg PO BID 30 days ferrous sulfate 325 mg PO DAILY lamotrigine 50 mg PO DAILY levothyroxine 150 mcg PO DAILY [LIGHTWEIGHT CANE As directed] lisinopril 10 mg PO DAILY 90 days lorazepam 0.5 mg PO BID PRN 30 days mirtazapine 7.5 mg PO BEDTIME 30 days nitrofurantoin monohyd/m-cryst 100 mg (Macrobid) 100 mg PO BID 10 days omeprazole 40 mg PO DAILY oxybutynin chloride ER 10 mg PO DAILY pregabalin 150 mg PO TID 30 days sertraline 200 mg (2 x 100 mg) PO DAILY 90 days tizanidine 4 mg PO Q8H PRN 10 days HPI Comments Details: 64 YO Female with a PMHx of morbid obesity S/P Migdalia-En-Y gastric bypass surgery in 2016, followed for NIPHS and hypothyroidism. HPI from prior visit S/P Migdalia-En-Y gastric bypass surgery in 2016 after which she lost 130 lbs Since 2019 she has been having episodes of loss of consciousness. The first episode happened while out for a walk with her when she lost con sciousness and fell to the floor. EMS was called and she was brought to the ED. She underwent an extensive cardiac workup at that time and even wore a holter monitor 30 days. She reports no cardiac etiology was identified. The second episode happened 07/01/19 while cooking dinner with her . He noted she was slurring her speech and began to slump over. EMS was called. Blood sugar was noted to be 30. She was hypothyermic, hypotensive and bradycardic as well. She had no evidence of infectious etiology and was ruled out for sepsis. Cortisol was assesed (reported prior) to administering stress dose steroids and was noted to be 22. She was treated with stress dose steroids and IV antibiotics. She improved shortly after. She did undergo ACTH Stimulation testing 07/05/19 with baseline Cortisol 14.9, 30 min cortisol 26.3 and 60 minute cortisol 26.5. Baseline ACTH was 29. This was adequate for ruling out adrenal insufficiency. TSH was 2.01. She did have insulin and proinsulin levels checked, but there was no corresponding serum glucose to correlate these with. She was subsequently referred to Endocrinology. She was asked to continue to check finger sticks, and if she had another low s ugar to present to the lab for evaluation. 10/02/2019 Serum Glucose was 65 with Proinsulin level 38.5, C peptide level 3.99 and Insulin level 10.7, consistent with insulin hypersecretion in the setting of hypoglycemia. She underwent a CT of the abdomen which revealed no mass within the pancreas, as we were concerned about insulinoma. She was diagnosed with NIPHS and was started on Acarbose 25 mg PO TID prior to each meal. She continued with hypoglycemia, so the dose was increased to 50 mg PO TID. Subsequenlty had drastic improvement in her symptoms. Interval history No recent hypoglycemic episodes. continues on acarbose 50 mg TID Hypothyroidism She also has a history of hypothyroidism and is using Levothyroxine 150 mcg PO daily. She is taking it appropriately and reports good adherence. Earlier this year in 2023 she had fluctuations in TSH, requiring adjustment of levothyroxine dose up and down. However now has remained stable and TSH is nl from June 2024. Reports some weight gain, otherwise No symptoms of hypothyroidism or hyperthyroidism Physical exam General: sitting comfortably in no acute distress HEENT: normocephalic/atraumatic,moist oral mucosa Neck: supple, symmetrical, no thyromegaly , no dorsocervical or supraclavicular fat pads Cardiac: normal heart sounds Pulm: normal breath sounds B/L, no added breath sounds Abd: not distended, no tenderness Extremities: no edema, no signs of myxedema Neuro: AAO x3, Speech: normal, no facial droop Laboratory Tests 02/03/22 06/08/22 10/06/22 08:40 11:57 08:30 TSH 1.20 4.70 H 4.16 H Free T4 01/06/23 02/13/23 08/31/23 07:36 09:03 11:16 TSH 8.04 H 0.08 L 0.04 L Free T4 1.02 1.39 1.38 10/12/23 11/24/23 02/23/24 09:37 10:20 09:28 TSH 0.18 L 1.74 1.45 Free T4 1.06 1.02 0.96 Laboratory Tests 07/03/24 08:26 TSH 2.63 Free T4 0.96 Laboratory Tests 06/08/22 11:57 Creatinine 0.95 Estimated GFR > 60 TSH 4.70 H Free T4 0.85 PFSH Medical History Cerebellar ataxia Osteoarthritis of left knee OSMANI (obstructive sleep apnea) Morbid obesity with BMI of 40.0-44.9, adult ASCUS of cervix with negative high risk HPV Anemia Obesity (BMI 30-39.9) Depression Anxiety Primary insomnia Microscopic colitis GERD without esophagitis Fibromyalgia Acquired hypothyroidism Impaired fasting glucose Benign essential hypertension Pure hypercholesterolemia Vitamin D deficiency Hypothyroidism Hypoglycemia Bradycardia Infection at site of external fixator pin Overactive bladder Surgical History Status post total left knee replacement (~12/15/22) Hx of cystoscopy Hx of foot surgery Hx of foot surgery History of colonoscopy History of gastrointestinal tract bypass S/P ORIF (open reduction internal fixation) fracture History of hemorrhoidectomy Hx of bilateral breast reduction surgery H/O section H/O arthroscopy of left knee Status post debridement Family History Father Diabetes Mental health disorder Mother CVD (cardiovascular disease) Myocardial infarction Mental health disorder Brother Colon cancer Sister Lung cancer Social History Household Members: Spouse and Children Housing: House Are you a primary restorative care technician to a significant other at home: No Do you presently have visiting nurse or other home services: No Alcohol intake: current Alcohol intake frequency: does not drink Comment: aware of trip hazards Patient Tobacco Use Status: Never used Tobacco e-Cigarette/Vaping Use: Never Used Second Hand Smoke Exposure: No service: No Current occupational status: disabled Cognitive needs: No Hearing needs: Yes Vision needs: Yes Female Reproductive History Menstrual Age of Menarche: 14 Assessment & Plan Assessment & Plan (1) Acquired hypothyroidism: Code(s): E03.9 - Hypothyroidism, unspecified Category: Medical Plan: 64-year-old white female with a history of hypothyroidism currently being treated with 150 mcg of levothyroxine. Had fluctuations in TSH over this past year in 2023, however most recent TSH with a normal limits from June 2024. She is clinically and biochemically euthyroid Plan: -continue levothyroxine 150 mcg daily -TSH and free T4 to be done prior to annual follow up in 1 year (2) Hypoglycemia: Code(s): E16.2 - Hypoglycemia, unspecified Category: Medical Plan: NIPHS currently being managed with acarbose good control. Continue acarbose 50 mg t.i.d. before meals. Reiterated importance of following dietary management with low glycemic index foods, high protein diet. . Follow up in 1 year. Plan I spent 30 minutes in reviewing the record, seeing the patient and documenting in the medical record. Orders: Orders Free T4 (Free Thyroxine) 1 Year E03.9 - Hypothyroidism, unspecified Thyroid Stimulating Hormone 1 Year E03.9 - Hypothyroidism, unspecified Coding Level of Care Code Est Pt Level 4 (50863) Diagnoses Acquired hypothyroidism E03.9 Hypoglycemia E16.2 Time Spent (min) 30
[2024-07-07 08:02] VITALS: BP 118/72; PULSE 77
== END 2024-07-07 08:22 | disposition home or self-care (01) ==
PROVIDERS: PCP Internal Medicine; Visit Provider Student in an Organized Health Care Education/Training Program
DX: E03.9 Hypothyroidism, unspecified (principal); E16.2 Hypoglycemia, unspecified
CPT/HCPCS: 99214

== ENCOUNTER → 2024-07-07 07:51 | Outpatient (BNVA) | payer MEDICARE, SELFPAY | PROVIDERS: PCP Internal Medicine; Visit Provider Student in an Organized Health Care Education/Training Program | DX: E03.9 Hypothyroidism, unspecified (principal); E16.2 Hypoglycemia, unspecified | CPT/HCPCS: 99212 ==

== ENCOUNTER 2024-07-12 09:55 | Outpatient (AMB) | payer MEDICARE, SELFPAY ==
[2024-07-12 10:01] VITALS: BP 120/76; PULSE 57; O2SAT 97; BMI 39.0
--- NOTE | 2024-07-12 10:01 | A.OFFPC_ITS ---
Vital Signs 07/12/24 10:01 Height 5 ft 2 in Weight 213 lb 8 oz BMI 39.0 BP 120/76 Blood Pressure Location Lt brachial Position Sitting Pulse 57 Pulse Source Pulse Oximeter Pulse Oximetry (%) 97 Oxygen Delivery Method Room Air Intake Visit Reasons: 4 MO F/U hyperlipidemia, hypothyroidism Receiving Worker Required: No Accompanied by: Self / Same As Patient Allergies fentanyl Adverse Reaction (Unknown, Verified 07/12/24 10:51) Nausea and Vomiting Medication List - Last Reconciled 07/12/24 by Obdulio Patel MD acarbose 50 mg PO TID acetaminophen 650 mg (2 x 325 mg) PO Q6H PRN atorvastatin 40 mg PO DAILY cholecalciferol (vitamin D3) 50 mcg PO DAILY docusate sodium 100 mg PO BID 30 days ferrous sulfate 325 mg PO DAILY lamotrigine 50 mg PO DAILY levothyroxine 150 mcg PO DAILY [LIGHTWEIGHT CANE As directed] lisinopril 10 mg PO DAILY 90 days lorazepam 0.5 mg PO BID PRN 30 days mirtazapine 7.5 mg PO BEDTIME 30 days nitrofurantoin monohyd/m-cryst 100 mg (Macrobid) 100 mg PO BID 10 days omeprazole 40 mg PO DAILY oxybutynin chloride ER 10 mg PO DAILY pregabalin 150 mg PO TID 30 days sertraline 200 mg (2 x 100 mg) PO DAILY 90 days tizanidine 4 mg PO Q8H PRN 10 days Tobacco use date assessed: 07/12/24 Dental Screening Dental Screen Date: 07/12/24 Did you have a dental visit in the last 12 months?: No Did you have a dental problem in the last 6 months where you did not have access to dental care?: No Was dental information given to patient?: No HPI 4 MO F/U hyperlipidemia, hypothyroidism HPI Details Patient comes in today for her follow up visit States that she started bleeding rectally this morning after passing out some rubbery/plastic-like material (also rectally) for the second time States that she also passed out the same rubbery/plastic-like material last week while in the shower but did not have any rectal bleeding at the time She reports experiencing some right-sided and mid-abdominal cramping pain prior to passing out blood rectally this morning Relates (+) on and off diarrhea lately; denies any constipation; also denies any nausea or vomiting She denies any chest pains, no increased SOB and denies any headaches or dizziness lately She had her follow up labs done last week - to discuss her results [facility] Medical History Cerebellar ataxia Osteoarthritis of left knee OSMANI (obstructive sleep apnea) Morbid obesity with BMI of 40.0-44.9, adult ASCUS of cervix with negative high risk HPV Anemia Obesity (BMI 30-39.9) Depression Anxiety Primary insomnia Microscopic colitis GERD without esophagitis Fibromyalgia Acquired hypothyroidism Impaired fasting glucose Benign essential hypertension Pure hypercholesterolemia Vitamin D deficiency Hypothyroidism Hypoglycemia Bradycardia Infection at site of external fixator pin Overactive bladder Surgical History Status post total left knee replacement (~12/15/22) Hx of cystoscopy Hx of foot surgery Hx of foot surgery History of colonoscopy History of gastrointestinal tract bypass S/P ORIF (open reduction internal fixation) fracture History of hemorrhoidectomy Hx of bilateral breast reduction surgery H/O section H/O arthroscopy of left knee Status post debridement Family History Father Diabetes Mental health disorder Mother CVD (cardiovascular disease) Myocardial infarction Mental health disorder Brother Colon cancer Sister Lung cancer Social History Household Members: Spouse and Children Housing: House Are you a primary geriatric personal care aide to a significant other at home: No Do you presently have visiting nurse or other home services: No Alcohol intake: current Alcohol intake frequency: does not drink Comment: aware of trip hazards Patient Tobacco Use Status: Never used Tobacco e-Cigarette/Vaping Use: Never Used Second Hand Smoke Exposure: No service: No Current occupational status: disabled Cognitive needs: No Hearing needs: Yes Vision needs: Yes Female Reproductive History Menstrual Age of Menarche: 14 Questionnaire PHQ-9 Over the last 2 weeks, how often have you been bothered by any of the following problems? 1. Little interest or pleasure in doing things: several days 2. Feeling down, depressed, or hopeless: several days 3. Trouble falling or staying asleep, or sleeping too much: not at all 4. Feeling tired or having little energy: not at all 5. Poor appetite or overeating: not at all 6. Feeling bad about yourself - or that you are a failure or have let yourself or your family down: not at all 7. Trouble concentrating on things, such as reading the newspaper or watching television: not at all 8. Moving or speaking so slowly that other people could have noticed. Or the opposite - being so fidgety or restless that you have been moving around a lot more than usual: more than half the days 9. Thoughts that you would be better off or of hurting yourself in some way: not at all Total score: 4 Depression Screening Interpretation: Positive Depression Screening Follow-up: Existing condition and In treatment Depression Screening Done: Yes 63493 - PHQ-9 Billing: Yes Source: Developed by Drs. Mickey Arce, Paige Barton, Luis A uHll and colleagues, with an educational roger from [employer]. Thrive Questionnaire Date Thrive assessed: 07/12/24 I am a: Patient What is your living situation today?: I have a steady place to live Within the past 12 months, did the food you bought not last and you didn't have the money to get more?: Never true Within the past 12 months, did you worry whether your food would run out before you got money to buy more?: Never true Do you have trouble paying for medicines?: No Do you have trouble getting transportation to medical appointments?: No Do you have trouble paying your heating and electricity bill?: No Do you have trouble taking care of your child, family member or friend?: No Do you have trouble with day-to-day activities such as bathing, preparing meals, shopping, managing finances, etc.?: No Are you currently unemployed and looking for a job?: No Are you interested in more education?: No Please select the resources that you would like help with: None Currently or been in a relationship where the following occur: No concerns reported THRIVE Score: 0 AUDIT C Alcohol Use Questionnaire (AUDIT-C) 1. How often do you have a drink containing alcohol?: Never 3. How often do you have six or more drinks on one occasion?: Never Total Score: 0 Score Reviewed/Action Taken: Yes EVANGELINA-7 AMB Questionnaire EVANGELINA-7 Date EVANGELINA - 7 assessed: 07/12/24 Feeling nervous, anxious, or on edge: 0 = Not at all Not being able to stop or control worryin = Not at all Worrying too much about different things: 0 = Not at all Trouble relaxin = Not at all Being so restless that it is hard to sit still: 0 = Not at all Becoming easily annoyed or irritable: 0 = Not at all Feeling afraid as if something awful might happen: 0 = Not at all Total EVANGELINA-7 score (0-4 normal; 5-9 mild; 10-14 moderate; 15-21 severe): 0 Source: Developed by Drs. Mickey Arce, Paige Barton, Luis A Hull and colleagues, with an educational roger from [employer]. Review of Systems Const Denies chills, Denies fatigue, Denies fever(s) and Denies headache(s) ENT Denies dysphagia, Denies dizziness, Denies otalgia, Denies headache(s), Reports hearing loss (in both ears), Reports neck pain (chronic), Denies odynophagia and Denies sore throat Card Denies chest pain, Denies palpitations and Denies dyspnea Resp Denies chest congestion, Denies cough and Denies dyspnea GI Reports abdominal pain (as per HPI - right-sided and mid-abdominal cramping pain), Reports hematochezia (started this morning), Denies constipation, Denies dysphagia, Denies heartburn, Reports diarrhea (on and off lately), Denies nausea, Denies odynophagia and Denies vomiting Denies difficulty voiding, Reports nocturia (at times), Denies dysuria and Reports urinary incontinence (mostly at night) Musc Reports abnormal gait (unsteady - uses a walker or cane when ambulating), R eports arthralgias (both knees - s/p left knee TKA with (+)improvement of symptoms), Reports neck pain (chronic), Reports numbness (of fingers of both hands, recurrent) and Reports tingling (of fingers of both hands, recurrent) Skin/Breast Denies rash Neuro Reports abnormal gait (unsteady - uses a walker or cane when ambulating), Denies dizziness, Denies headache(s), Reports numbness (of fingers of both hands, recurrent) and Reports tingling (of fingers of both hands, recurrent) Psych Reports anxiety and Reports depression (better controlled) Endo Denies fatigue and Denies palpitations Physical exam (Primary Care) Vital Signs: Last Vital Signs Pulse 57 07/12/24 10:01 BP 120/76 07/12/24 10:01 Pulse Ox 97 07/12/24 10:01 Oxygen Delivery Method Room Air 07/12/24 10:01 BMI result Body Mass Index 39.0 Tobacco/Smoking Status: Tobacco use Status Tobacco use date assessed 07/12/24 07/12/24 10:07 Patient Tobacco Use Status Never used Tobacco 07/12/24 10:07 e-Cigarette/Vaping Use Never Used 07/12/24 10:07 PHQ-9: PHQ-9 Score PHQ-9: Total score 4 07/12/24 11:06 Depression Screening Interpretation: Positive Depression Screening Follow-up: Existing condition and In treatment Thrive Assessment: Date of Thrive Assessment Date Thrive assessed 07/12/24 07/12/24 10:07 Currently or been in a relationship where the following occur: No concerns reported Const General: no acute distress and alert HENMT Ears: TM's normal bilaterally and EAC's normal Throat: Yes posterior oropharynx normal and Yes tonsils normal (no TP congestion noted) Neck Neck: Yes no lymphadenopathy Thyroid: Thyroid normal Resp Auscultation: clear to auscultation bilaterally, no rales and no wheezes Cardio Rate: regular rate Rhythm: regular rhythm Heart sounds: no murmurs GI Palpation (GI): Soft to palpation and nontender Auscultation: normal bowel sounds General: Yes no CVA tenderness Back/Spine/Pelvis Back: no CVA tenderness Cervical Spine: Cervical spine tenderness Thoracic/Lumbar Spine: lumbar spinal tenderness Skin Rashes: no rashes Extrem General: Yes no clubbing, cyanosis or edema Results Reviewed Results Reviewed: Laboratory Tests 07/03/24 07/03/24 08:24 08:26 WBC 5.8 Hgb 11.8 L Hct 37.9 Plt Count 198 Sodium 143 Potassium 4.1 Creatinine 0.85 Estimated GFR > 60 Fasting Glucose 101 H Calcium 8.6 D AST 26 ALT 27 Triglycerides 138 Cholesterol 157 LDL Cholesterol, Calc 73 HDL Cholesterol 57 TSH 2.63 Free T4 0.96 Coding Level of Care Code Est Pt Level 4 (55197) Diagnoses Rectal bleeding K62.5 Microscopic colitis, unspecified microscopic colitis type K52.839 Microscopic colitis type: unspecified Cervical spine arthritis M47.812 Cerebellar ataxia G11.9 Pure hypercholesterolemia E78.00 Benign essential hypertension I10 Impaired fasting glucose R73.01 Acquired hypothyroidism E03.9 Iron deficiency anemia secondary to inadequate dietary iron intake D50.8 Anemia type: iron deficiency Iron deficiency anemia type: inadequate dietary iron intake GERD without esophagitis K21.9 Fibromyalgia M79.7 Bilateral primary osteoarthritis of knee M17.0 Vitamin D deficiency E55.9 Overactive bladder N32.81 Primary insomnia F51.01 Anxiety F41.9 Episode of recurrent major depressive disorder, unspecified depression episode severity F33.9 Depression Type: major depressive disorder Major depression recurrence: recurrent Active/Remission status: currently active Major depression episode severity: unspecified Obesity (BMI 30-39.9) E66.9 Additional Codes PHQ-9 - 71594 - PHQ-9 Billing: Yes ([id number]) Assessment & Plan Assessment & Plan (1) Rectal bleeding: Code(s): K62.5 - Hemorrhage of anus and rectum Category: Medical Plan: She reports passing out blood rectally this morning, with some right-sided abdominal cramping pain Her last colonoscopy with Dr. Kline in August 2022 revealed only (+) mild sigmoid diverticulosis and small internal hemorrhoids She is also concerned about passing out some rubbery-like material twice already in the past week - she does not know what it is and based on its appearance (they brought in said material in a sealed plastic bottle/container), it is hard to determine what it is Will refer her back to Dr. Kline for further evaluation and management - have advised patient that she may need a repeat colonoscopy or at least a proctosigmoidoscopy especially if she bleeds again (2) Microscopic colitis: Code(s): K52.839 - Microscopic colitis, unspecified Category: Medical Qualifiers: Microscopic colitis type: unspecified Qualified Code(s): K52.839 - Long roscopic colitis, unspecified Plan: Patient has been in remission with no flare ups for a while now; unclear if her current rectal bleeding is related to this or not We are referring her back to Dr. Kline for further evaluation of her recent rectal bleeding (3) Cervical spine arthritis: Code(s): M47.812 - Spondylosis without myelopathy or radiculopathy, cervical region Category: Medical Plan: Cervical spine CT done back in May 2022 revealed (+) loss of intervertebral disc height with associated hypertrophic disc osteophyte spurring with associated sclerotic degenerative endplate changes and disc osteophyte spurring at C5-C6 and C6-C7 We referred her previously to physical therapy, with some improvement of her neck pain with Tx (4) Cerebellar ataxia: Code(s): G11.9 - Hereditary ataxia, unspecified Category: Medical Plan: She was diagnosed with cerebellar ataxia by neurology (Dr. Martínez) on 10/01/2023 Follow up with neurology as scheduled (5) Pure hypercholesterolemia: Code(s): E78.00 - Pure hypercholesterolemia, unspecified Category: Medical Plan: Results of her labs done last week reviewed and discussed with patient Reinforced low cholesterol diet Continue Atorvastatin 40 mg QD Will recheck her labs and fasting lipids in 4 months for follow up (6) Benign essential hypertension: Code(s): I10 - Essential (primary) hypertension Category: Medical Plan: Reinforced low sodium diet - goal is systolic BP of at least 120 to 130 mm or less Continue Lisinopril 10 mg QD Patient is reminded to continue monitoring her blood pressure regularly (7) Impaired fasting glucose: Code(s): R73.01 - Impaired fasting glucose Category: Medical Plan: Her FBS was at 101 mg/dl on her labs done last week; HgbA1c was normal at 5.5% when previously checked Continue Acarbose 50 mg TID - she was started on Acarbose 50 mg TID by endocrinology for NIPHS that appeared to be a complication of her bariatric surgery from a few years ago Patient recalls experiencing recurrent hypoglycemic symptoms initially when she started on the Rx but her symptoms have reportedly stabilized after some time Follow up with endocrinology as scheduled (8) Acquired hypothyroidism: Code(s): E03.9 - Hypothyroidism, unspecified Category: Medical Plan: Continue Levothyroxine 150 mcg QD Will continue to monitor her TFTs regularly Follow-up with endocrinology as scheduled (9) Anemia: Code(s): D64.9 - Anemia, unspecified Category: Medical Qualifiers: Anemia type: iron deficiency Iron deficiency anemia type: inadequate dietary iron intake Qualified Code(s): D50.8 - Other iron deficiency anemias Plan: Improving - her H/H was at 11.8/37.9 on her labs done last week Continue Ferrous Sulfate 325 mg QD Will continue to monitor her CBC regularly (10) GERD without esophagitis: Code(s): K21.9 - Gastro-esophageal reflux disease without esophagitis Category: Medical Plan: Dietary restrictions reinforced Continue Omeprazole 40 mg QD (11) Fibromyalgia: Code(s): M79.7 - Fibromyalgia Category: Medical Plan: Continue Naproxen 500 mg BID with food as needed and Pregabalin 150 mg TID Patient is again encouraged to exercise regularly and to stay active to help manage her symptoms better (12) Bilateral primary osteoarthritis of knee: Code(s): M17.0 - Bilateral primary osteoarthritis of knee Category: Medical Plan: S/P total left knee arthroplasty with Dr. Spangler on 12/15/2022 Follow up with orthopedics as scheduled (13) Vitamin D deficiency: Code(s): E55.9 - Vitamin D deficiency, unspecified Category: Medical Plan: Continue Vitamin D3 5000 units QD (14) Overactive bladder: Code(s): N32.81 - Overactive bladder Category: Medical Plan: Continue Oxybutynin ER 10 mg QD Follow up with urology as scheduled (15) Primary insomnia: Code(s): F51.01 - Primary insomnia Category: Medical Plan: Sleep hygiene reinforced Mirtazapine at bedtime has been helping with her sleep issues (16) Anxiety: Code(s): F41.9 - Anxiety disorder, unspecified Category: Medical Plan: Continue Lorazepam 0.5 mg BID PRN (17) Depression: Code(s): F32.9 - Major depressive disorder, single episode, unspecified Category: Medical Qualifiers: Depression Type: major depressive disorder Major depression recurrence: recurrent Active/Remission status: currently active Major depression episode severity: unspecified Qualified Code(s): F33.9 - Major depressive disorder, recurrent, unspecified Plan: Continue Mirtazapine 7.5 mg Q HS (18) Obesity (BMI 30-39.9): Code(s): E66.9 - Obesity, unspecified Category: Medical Plan: Reinforced diet; exercise and weight loss are not realistic, especially given patient's gait instability and recent diagnosis of cerebellar ataxia Plan Follow up in 4 months Orders: Orders Comprehensive [place]. Panel Fast 4 Months E78.00 - Pure hypercholesterolemia, unspecified Lipid Panel 4 Months E78.00 - Pure hypercholesterolemia, unspecified Free T4 (Free Thyroxine) 4 Months E03.9 - Hypothyroidism, unspecified Complete Blood Count Auto Diff 4 Months D64.9 - Anemia, unspecified Thyroid Stimulating Hormone 4 Months E03.9 - Hypothyroidism, unspecified UA CC w/rflx Micro + Cult 4 Months R30.0 - Dysuria Vitamin D 25-OH Total 4 Months E55.9 - Vitamin D deficiency, unspecified Referrals Gastroenterology Referral K62.5 - Hemorrhage of anus and rectum
== END 2024-07-12 10:52 | disposition home or self-care (01) ==
PROVIDERS: PCP Internal Medicine; Visit Provider Internal Medicine
DX: K62.5 Hemorrhage of anus and rectum (principal); G11.9 Hereditary ataxia, unspecified; K52.839 Microscopic colitis, unspecified; F33.9 Major depressive disorder, recurrent, unspecified; M47.812 Spondylosis without myelopathy or radiculopathy, cervical region; E78.00 Pure hypercholesterolemia, unspecified; I10 Essential (primary) hypertension; R73.01 Impaired fasting glucose; E03.9 Hypothyroidism, unspecified; D50.8 Other iron deficiency anemias; K21.9 Gastro-esophageal reflux disease without esophagitis; M79.7 Fibromyalgia

== ENCOUNTER → 2024-07-12 09:55 | Outpatient (BNVA) | payer MEDICARE, SELFPAY | PROVIDERS: PCP Internal Medicine; Visit Provider Internal Medicine | DX: K62.5 Hemorrhage of anus and rectum (principal); K52.839 Microscopic colitis, unspecified; M47.812 Spondylosis without myelopathy or radiculopathy, cervical region; G11.9 Hereditary ataxia, unspecified; E78.00 Pure hypercholesterolemia, unspecified; I10 Essential (primary) hypertension; R73.01 Impaired fasting glucose; E03.9 Hypothyroidism, unspecified; D50.8 Other iron deficiency anemias; K21.9 Gastro-esophageal reflux disease without esophagitis; M79.7 Fibromyalgia; M17.0 Bilateral primary osteoarthritis of knee; E55.9 Vitamin D deficiency, unspecified; N32.81 Overactive bladder; F51.01 Primary insomnia; F41.9 Anxiety disorder, unspecified; F33.9 Major depressive disorder, recurrent, unspecified; E66.9 Obesity, unspecified | CPT/HCPCS: 96127; 99212 ==

== ENCOUNTER 2024-10-16 08:44 | Outpatient (REF) | payer MEDICARE, SELFPAY ==
--- OUTSIDE RECORDS SUMMARY | 2024-10-16 09:14 | XMS_ITS | Patient Health Record ---
Author Organization [facility] Address [address] [place] [id number] Care Team Providers Care Medical Detail Representative Name Role Phone Jorge SIMMS, O'Brien Primary Care Provider Mickey Zayas Unavailable [phone] ALLERGIES Allergen (clinical drug ingredient) Drug/Non Drug Allergy documented on EMR Reaction Allergy Type Onset Date Status fentanyl Fentanyl Unknown Drug Allergy Active REASON FOR REFERRAL No Information MEDICATIONS Medication SIG (Take, Route, Frequency, Duration) Notes Start Date End Date Status Levothyroxine Sodium 150 MCG 1 tablet on an empty stomach in the morning Orally Once a day Active LORazepam 0.5mg 1 tablet as needed Orally twice a day Active Naproxen 500 MG 1 tablet with food or milk Orally every 12 hrs Active Omeprazole 40 MG 1 tablet Orally Once a day Active Lisinopril 10 MG 1 tablet Orally Once a day Active Vitamin D3 1000 UNIT 1 capsule Orally Once a day Active Pregabalin 75 MG TAKE 1 CAPSULE BY MOUTH 3 TIMES A DAY Oral for 30 Active Multivitamin Adults 50+ - as directed Orally Active Acarbose 50 MG as directed Orally She is on his to help prevent hyperglycemia in relation to 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 Active Ferrous Sulfate 325 (65 Fe) MG 1 tablet Orally Once a day for 30 day(s) Active IMMUNIZATIONS Vaccine Route Administration Date Status Comme nts Influenza Unknown 07/02/2022 Administered SOCIAL HISTORY Sex Assigned At : Social History Observation Description Sex Assigned At Unknown PROBLEMS Problem Type ICD Code Onset Dates Problem Status W/U Status Risk SNOMED Code Notes Problem Colon cancer screening (Z12.11) Active confirmed Colon cancer screening (708184790) Problem Encounter for screening for malignant neoplasm of colon (Z12.11) Active confirmed 516875240 Problem Diverticulosis of large intestine without perforation or abscess without bleeding (K57.30) Active confirmed Diverticul ar disease of colon (355604955) Problem Preprocedural examination (Z01.818) Active confirmed Preprocedural examination (998128751241395) Problem Microscopic colitis (K52.89) Active confirmed Microscopic colitis (248835971) Problem GERD (gastroesophageal reflux disease) (K21.9) Active confirmed Gastroesophagea l reflux disease (031282998) Problem Other microscopic colitis (K52.838) Active confirmed [id number] PLAN OF TREATMENT Future Test Test Name Order Date COLONOSCOPY 05/12/2012 COLONOSCOPY 07/14/2022 Next Appt Details Provider Name:Mickey Kline , 11/01/2024 03:40:00 PM, [address] [place] [address], [address], [place], [address], Insurance Providers Payer Name Payer Address Payer Phone Subscriber Number Group Number Insured Name Patient Relationship to Insured Coverage Start Date Coverage End Date [email or web address] [address] [place], [place] [phone] [id number] JESU WILKS Self - patient is the insured MEDICAL (GENERAL) HISTORY Medical History History ICD Code Fibromyalgia GERD--EGD in October of 2008 w ith the finding of a small hiatal hernia, GERD, and gastritis--there was no evidence of any Clark's esophagus nor H. pylori. hypothroidism depression/anxiety arthritis all over her body Denies SC,DM,CVA,Lung disease,renal dise ase Vertigo IBS-had neg. celiac labs in 2004 colonoscopy in May 2012 with the finding of microscopic/collagenous colitis--only a hyperplastic polyp was found otherwise Kidney stones--cystoscopy and ureteral s tenting urinary incontinence hyperlipidemia Surgical History Surgery Date(Month/Year) heel surgery for heel spurs 1999 breast reduction surgery 2007 knee surgery x2 kidney stones removed finger surgery Hemorrhoidectomy Dr. Castro 2015 Gastric bypass- Dr. Tucker--lost > 100# 2016 Left foot surgery 2016
== END 2024-10-16 08:45 | disposition home or self-care (01) ==
LOC: HO.MAMMO 08:44
PROVIDERS: PCP Internal Medicine; Visit Provider Internal Medicine
DX: Z12.31 Encounter for screening mammogram for malignant neoplasm of breast (principal)
CPT/HCPCS: 77063; 77067

== ENCOUNTER → 2024-10-16 09:00 | Outpatient (BNV) | payer MEDICARE, SELFPAY | PROVIDERS: PCP Internal Medicine; Visit Provider Internal Medicine | DX: Z12.31 Encounter for screening mammogram for malignant neoplasm of breast (principal) | CPT/HCPCS: 77063; 77067 ==

== ENCOUNTER 2024-10-19 10:13 | Outpatient (AMB) | payer MEDICARE, SELFPAY ==
--- NOTE | 2024-10-19 10:24 | A.OFFVIS_ITS ---
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 She is doing well with skelp processor concerns. Currently sexually active. Denies any vaginal dryness or irritation. Attempting to eat a healthy diet with calcium and vitamin D, having difficulty with walking w/ataxia. Last pap smear; 2020. Last mammogram; 2024-pending read. Colonoscopy is UTD. Denies any family history of breast or ovarian. FH colon cancer-brother. [facility] Medical History Cerebellar ataxia Osteoarthritis of left knee OSMANI (obstructive sleep apnea) Morbid obesity with BMI of 40.0-44.9, adult ASCUS of cervix with negative high risk HPV Anemia Obesity (BMI 30-39.9) Depression Anxiety Primary insomnia Microscopic colitis GERD without esophagitis Fibromyalgia Acquired hypothyroidism Impaired fasting glucose Benign essential hypertension Pure hypercholesterolemia Vitamin D deficiency Hypothyroidism Hypoglycemia Bradycardia Infection at site of external fixator pin Overactive bladder Surgical History Status post total left knee replacement (~12/15/22) Hx of cystoscopy Hx of foot surgery Hx of foot surgery History of colonoscopy History of gastrointestinal tract bypass S/P ORIF (open reduction internal fixation) fracture History of hemorrhoidectomy Hx of bilateral breast reduction surgery H/O section H/O arthroscopy of left knee Status post debridement Family History Father Diabetes Mental health disorder Mother CVD (cardiovascular disease) Myocardial infarction Mental health disorder Brother Colon cancer Sister Lung cancer Social History Household Members: Spouse and Children Housing: House Are you a primary customer care consultant to a significant other at home: No Do you presently have visiting nurse or other home services: No Alcohol intake: current Alcohol intake frequency: does not drink Comment: aware of trip hazards Patient Tobacco Use Status: Never used Tobacco e-Cigarette/Vaping Use: Never Used Second Hand Smoke Exposure: No service: No Current occupational status: disabled Cognitive needs: No Hearing needs: Yes Vision needs: Yes Female Reproductive History Menstrual Age of Menarche: 14 Total pregnancies: 2 Full term: 2 Number of Living Children: 2 Date of last pap smear: 05/19/21 (neg pap and hpv) Date of Mammogram: 10/16/24 Review of Systems Const All systems reviewed & are unremarkable except as noted in HPI and below Reports as per HPI Eyes Reports no additional complaints ENT Reports no additional complaints Card Reports no additional complaints Resp Reports no additional complaints GI Reports as per HPI and Reports no additional complaints Reports as per HPI Musc Reports no additional complaints Skin/Breast Reports as per HPI Neuro Reports no additional complaints Psych Reports no additional complaints Endo Reports no additional complaints Tray/Lymph Reports no additional complaints Aller/Immun Reports no additional complaints Physical Exam Vital Signs: Last Vital Signs BP 120/76 10/19/24 10:25 BMI result Body Mass Index 40.1 Const General: cooperative, healthy appearing, no acute distress, well developed and alert Orientation/consciousness: patient oriented x3 HEENT Head: Yes normal to inspection Eyes General: appearance normal, both eyes and all related structures Neck Neck: Yes normal visual inspection Thyroid: Thyroid normal Chest Chest palpation & inspection: normal inspection of the chest and other (no puckering, dimpling, peau de orange, retraction, discharge, masses) Breast/axilla inspection: normal inspection of the breasts Breast/axilla palpation: normal palpation of the breasts Resp Effort & Inspection: normal respiratory effort GI Inspection: Yes normal to inspection Palpation (GI): Soft to palpation Rectal Exam - Female: deferred General: Yes bladder normal to palpation External Female Exam: normal external appearance and normal appearance of the urethra Speculum Exam - Vagina: normal appearance of the vagina, normal palpation, nor mal vaginal discharge and vagina atrophic Speculum Exam - Cervix: normal appearance of the cervix and normal palpation Bimanual exam- vagina & uterus: normal bimanual exam, normal palpation, uterine size normal, bladder normal to palpation, normal palpation and non-tender Bimanual Exam- Adnexa, other: no masses Skin General skin exam: no rashes or lesions noted Rashes: no rashes Neuro General: patient oriented x3 Cognition (Neuro): normal cognition Extrem General: Yes normal to inspection Psych Attitude: cooperative Thought process: Normal thought process present Assessment & Plan Assessment & Plan (1) Encounter for well woman exam with routine gynecological exam: Code(s): Z01.419 - Encounter for gynecological examination (general) (routine) without abnormal findings Category: Medical Plan Discussed: Current recommendations for pap smears per ASCCP guidelines. Breast awareness, periodic self breast exams and yearly mammogram. Maintain a healthy lifestyle, well balanced diet including Calcium 1,200 mg and Vitamin D 600 IU daily. Contact the office with any postmenopausal bleeding. Vaginal lubricant prn. Patient verbalizes understanding and agrees to the plan of care. She was given opportunity to ask questions and all questions were answered to the best of my ability. RTO in 1 year for annual skelp processor exam. This note is constructed using voice recognition software. While every effort has been made to ensure accuracy, technician terminal and repeater errors may have been included. Coding Level of Care Code Est Pt Prev Care 40-64y(67301) Diagnoses Encounter for well woman exam with routine gynecological exam Z01.419
[2024-10-19 10:25] VITALS: BP 120/76; BMI 40.1
--- OUTSIDE RECORDS SUMMARY | 2024-10-19 11:50 | XMS_ITS | Patient Health Record ---
Author Organization [facility] Address [address] [place] [address] Care Team Providers Care Thread Cutter Name Role Phone Jorge SIMMS, [place] Primary Care Provider Mickey Zayas Unavailable [phone] ALLERGIES Allergen (clinical drug ingredient) Drug/Non Drug [...] screening (Z12.11) Active confirmed Colon cancer screening (600563349) Problem Encounter for screening for malignant neoplasm of colon (Z12.11) Active confirmed 813143385 Problem Diverticulosis of large intestine without perforation or abscess without bleeding (K57.30) Active confirmed Diverticul ar disease of colon (221830712) Problem Preprocedural examination (Z01.818) Active confirmed Preprocedural examination (270814455775677) Problem Microscopic colitis (K52.89) Active confirmed Microscopic colitis (199799236) Problem GERD (gastroesophageal reflux disease) (K21.9) Active confirmed Gastroesophagea l reflux disease (811772374) Problem Other microscopic colitis (K52.838) Active confirmed 523096664 PLAN OF TREATMENT Future Test Test Name Order Date COLONOSCOPY 05/12/2012 COLONOSCOPY 07/14/2022 Next Appt Details Provider Name:Mickey Kline , 11/01/2024 03:40:00 PM, [address] [place] [address], [address], [place], [address], Insurance Providers Payer Name Payer Address Payer Phone Subscriber Number Group Number Insured Name Patient Relationship to Insured Coverage Start Date Coverage End Date [employer] E [address] [place], [place] [id number] JESU WILKS Self - patient is the insured MEDICAL (GENERAL) HISTORY Medical History History ICD Code Fibromyalgia GERD--EGD in October of 2008 w ith the finding of a small hiatal hernia, GERD, and gastritis--there was no evidence of any Clark's esophagus nor H. pylori. hypothroidism depression/anxiety arthritis all over her body Denies MD,DM,CVA,Lung disease,renal dise ase Vertigo IBS-had neg. celiac [...]
== END 2024-10-19 10:48 | disposition home or self-care (01) ==
LOC: HO.HWS 10:13
PROVIDERS: PCP Internal Medicine; Visit Provider Advanced Practice Midwife
DX: Z01.419 Encounter for gynecological examination (general) (routine) without abnormal findings (principal)
CPT/HCPCS: 99396; 99459

== ENCOUNTER → 2024-10-19 10:13 | Outpatient (BNVA) | payer MEDICARE, SELFPAY | PROVIDERS: PCP Internal Medicine; Visit Provider Advanced Practice Midwife | DX: Z01.419 Encounter for gynecological examination (general) (routine) without abnormal findings (principal) | CPT/HCPCS: 99396; 99459 ==

== ENCOUNTER 2024-11-03 08:10 | Outpatient (REF) | payer MEDICARE, SELFPAY ==
--- OUTSIDE RECORDS SUMMARY | 2024-11-03 08:17 | XMS_ITS ---
Author Organization [facility] Address [address] [place] [address] Care Team Providers Care Restaurant Assistant Manager Name Role Phone Jorge SIMMS, [place] Primary Care Provider Mickey Zayas Unavailable [phone] Allergies Allergen (clinical drug ingredient) Drug/Non Drug [...] Pregabalin 150 MG TAKE 1 CAPSULE BY AL UT 3 TIMES A DAY Oral three [...] 11/01/2024 Encounters Encounter Location Date Provider Diagnosis [facility] [address] [place] [address] 11/01/2024 Mickey Kline Assessments Encounter Date Diagnosis (ICD Code) Assessment Notes Treatment Notes Treatment Clinical Notes Section Notes 11/01/2024 Other Repeat colonoscopy in 2032 Call if bleeding or problems with BM's Plan Of Treatment Treatment Notes Assessment Notes Other Repeat colonoscopy in 2032 Call if bleeding or problems with BM's Progress Notes * JSEU WILKSDOB:[birth year] (64 yo F)Acc No.[id number]:11/01/2024 Progress Notes Patient:?LASHAUNJESU Provider:?Mickey Kline MD :1960???Age:64 Y???Sex:Female D ate:11/01/2024 Address:[address] [place], [place] [id number] Pcp:Obdulio Patel MD Subjective: * Chief Complaints: * ???1. Patient presents today for a hemmorhage of anus rectus. * Medical History:?Fibromyalgi a, GERD--EGD in October of 2008 with the finding of a small hiatal hernia, GERD, and gastritis--there was no evidence of any Clark's esophagus nor H. pylori., Hypothroidism, Depression/anxiety, arthritis all over her body , Denies OR,DM,CVA,Lung disease,renal disease, Vertigo, IBS-had neg. celiac labs in 2004, colonoscopy in May 2012 with the finding of microscopic/collagenous colitis--only a hyperplastic polyp was found otherwise, Kidney stones--cystoscopy and ureteral stenting, Urinary incontinence, Hyperlipidemia, Seizures, Ataxia. * Surgical History:?heel surge ry for heel spurs 1999, breast reduction surgery 2006, knee surgery x2 2004/2010, kidney stones removed , finger surgery , Hemorrhoidectomy Dr. Castro 2015, Gastric bypass- Dr. Tucker--lost > 100_# 2016, Left foot surgery 2016, bypass for weight loss . * Family History:?Father: dece ased, diagnosed with Diabetes, Heart disease.?Mother: , diagnosed with Heart disease.?Siblings: brother had colon polyp at age 50 /prostate cancer.? No colorectal cancer.? No family history of liver cancer. * Social History:?Tobacco Use:?Tobacco Use/Smoking?Are you a: nonsmoker.?Drugs/Alcohol:?Alcohol Screen?Points: 0, Interpretation: Negative.?Miscellaneous:?Caffeine: 1-2 cups of tea/coffe QD. Marital status: . Occupation: unemployed-on disability. ???Nonsmoker; no alcohol. * Medications:?Taking Nitrofur antoin Monohyd Macro 100 MG Capsule 1 capsule with food Orally every 12 hrs , Taking oxyBUTYnin Chloride ER 10 MG Tablet Extended Release 24 Hour 1 tablet Orally Once a day , Taking Acetaminophen 325 MG Tablet 1 tablet as needed Orally every 6 hrs , Taking Docusate Sodium 100 MG Capsule 1 capsule as needed Orally Once a day , Taking Acarbose 50 MG Tablet as directed Orally , Taking Multivitamin Adults 50+ - Tablet as directed Orally , Taking Ferrous Sulfate 325 (65 Fe) MG Tablet 1 tablet Orally Once a day , Taking Levothyroxine Sodium 150 MCG Tablet 1 tablet on an empty stomach in the morning Orally Once a day , Taking LORazepam 0.5mg 1 tablet as needed Orally twice a day , Taking Omeprazole 40 MG Capsule Delayed Release 1 tablet Orally Once a day , Taking Lisinopril 10 MG Tablet 1 tablet Orally Once a day , Taking Pregabalin 150 MG Capsule TAKE 1 CAPSULE BY MOUTH 3 TIMES A DAY Oral three times a day , Taking tiZANidine HCl 4 MG Tablet TAKE 1 TABLET ORALLY EVERY 8 HOURS NEEDED FOR MUSCLE SPASMS FOR 10 DAYS Oral , Taking Sertraline HCl 100 MG Tablet Oral , Taking Atorvastatin Calcium 40 MG Tablet TAKE 1 TABLET BY MOUTH EVERY DAY Oral , Taking Mirtazapine 15 MG Tablet 7.5 mg tablet at bedtime Orally Once a day , Taking Vitamin D3 50 MCG (1999) Tablet 1 capsule Orally Once a day , Discontinued Acarbose 50 MG Tablet as directed Orally , Notes to Pharmacist: She is on his to help prevent hyperglycemia in relation to 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 Objective: * Vitals:?Wt: 220 lbs, Ht: 62 in, BMI:40.23Index, BP: 001/01 mm Hg, Temp: 96.9, Wt-k.79. Assessment: Plan: * Treatment: * Preventive Medicine:? ??Counseling:?Care goal follow-up plan:?Above Normal BMI Follow-up?Dietary management education, guidance, and counseling,?BMI management provided?Yes.? * * The named appointment provid er may or may not be the originator of this progress note, and it is not deemed complete until electronically signed by the appointment provider. Sign off status: Pending * Provider:?Mickey Kline MD Date:? 025 Generated for Dejah gates/Isiah/Springitting on:?11/03/2024 08:17 AM EDT
--- OUTSIDE RECORDS SUMMARY | 2024-11-03 08:17 | XMS_ITS | Patient Health Record ---
Author Organization [facility] Address [address] [place] [id number] Care Team Providers Care Floor Cashier Name Role Phone Jorge SIMMS, [place] Primary Care Provider Mickey Zayas Unavailable [phone] Allergies Allergen (clinical drug ingredient) Drug/Non Drug Allergy documented on EMR Reaction Allergy Type Onset Date Status fentanyl Fentanyl Unknown Drug Allergy Active Reason For Referral No Information Medications Medication SIG (Take, Route, Frequency, Duration) Notes Start Date End Date Status oxyBUTYnin Chloride ER 10 MG 1 tablet Or ally Once a day Active Nitrofurantoin Monohyd Macro 100 MG 1 capsule with food Orally every 12 hrs Active Pregabalin 150 MG TAKE 1 CAPSULE BY [facility] 3 TIMES A DAY Oral three times a day for 30 days Active Lisinopril 10 MG 1 tablet Orally Once a day Active Omeprazole 40 MG 1 tablet Orally Once a day Active LORazepam 0.5mg 1 tablet as needed Orally twice a day Active Levothyroxine Sodium 150 MCG 1 tablet on an empty stomach in the morning Orally Once a day Active Vitamin D3 50 MCG (1999) 1 capsule Or ally Once a day Active Ferrous Sulfate 325 (65 Fe) MG 1 tablet Orally Once a day for 30 day(s) Active Multivitamin Adults 50+ - as directed Orally Active Acarbose 50 MG as directed Orally Active Mirtazapine 15 MG 7.5 mg tablet at bed time Orally Once a day for 30 days 11/01/2024 Active Docusate Sodium 100 MG 1 capsule as need ed Orally Once a day Active Atorvastatin Calcium 40 MG TAKE 1 TABLET BY MOUTH EVERY DAY Oral for 90 Days Active Acetaminophen 325 MG 1 tablet as needed Orally every 6 hrs Active Sertraline HCl 100 MG Oral for 64 Days Active tiZANidine HCl 4 MG TAKE 1 TABLET ORALLY EVERY 8 HOURS NEEDED FOR MUSCLE SPASMS FOR 10 DAYS Oral for 10 Days Active Immunizations Vaccine Route Administration Date Status Comme nts Influenza Unknown 07/02/2022 Administered Influenza Unknown 06/14/2024 Administered Problems Problem Type SNOMED Code ICD Code Onset Dates Problem Status W/U Status Risk Notes Problem Colon cancer screening (876551942) Colon cancer screening (Z12.11) Active confirmed Problem 175526756 Encounter for screening for malignant neoplasm of colon (Z12.11) Active confirmed Problem Diverticular disease of colon (891447521) Diverticulosis of large intestine without perforation or abscess without bleeding (K57.30) Active confirmed Problem Preprocedural examination (352806544269095) Preprocedural examination (Z01.818) Active confirmed Problem Microscopic colitis (643302354) Microscopic colitis (K52.89) Active confirmed Problem Gastroesophageal reflux disease (579832404) GERD (gastroesophageal reflux disease) (K21.9) Active confirmed Problem 368969555 Other microscopi c colitis (K52.838) Active confirmed Vital Signs Temperature 96.9 degrees Fahrenheit 11/01/2024 Blood pressure diastolic 01 mm Hg 11/01/2024 Height 62 in 11/01/2024 Blood pressure systolic 001 mm Hg 11/01/2024 Weight 220 lbs 11/01/2024 BMI 40.23 kg/m2 11/01/2024 Encounters Encounter Location Date Provider Diagnosis [facility] [address] [facility] [address] [place] [id number] 11/01/2024 Mickey Kline Assessments Encounter Date Diagnosis (ICD Code) Assessment Notes Treatment Notes Treatment Clinical Notes Section Notes 11/01/2024 Other Repeat colonoscopy in 2032 Call if bleeding or problems with 's Plan Of Treatment Future Test Test Name Order Date COLONOSCOPY 05/12/2012 COLONOSCOPY 07/14/2022 Insurance Providers Payer Name Payer Address Payer Phone Subscriber Number Group Number Insured Name Patient Relationship to Insured Coverage Start Date Coverage End Date [employer] [address] [place], [place] [id number] JESU WILKS Self - patient is the insured Medical (General) History Medical History History ICD Code Fibromyalgia GERD--EGD in October of 2008 w ith the finding of a small hiatal hernia, GERD, and gastritis--there was no evidence of any Clark's esophagus nor H. pylori. hypothroidism depression/anxiety arthritis all over her body Denies PR,DM,CVA,Lung disease,renal dise ase Vertigo IBS-had neg. celiac labs in 2004 colonoscopy in May 2012 with the finding of microscopic/collagenous colitis--only a hyperplastic polyp was found otherwise Kidney stones--cystoscopy and ureteral s tenting urinary incontinence Hyperlipidemia Seizures Ataxia Surgical History Surgery Date(Month/Year) bypass for weight loss Left foot surgery 2016 Gastric bypass- Dr. Tucker--lost > 100_# [address] Castro 2016 finger surgery kidney stones removed knee surgery x2 breast reduction surgery 2006 heel surgery for heel spurs 1999
[2024-11-03 08:28] LABS: MANUAL DIFF FLAG NO
[2024-11-03 09:13] LABS: Basophils Percent Auto 0.6 % (0-2); Eosinophils Absolute Auto 0.2 X10*3/uL (0.0-0.4); Eosinophils Percent Auto 4.1 % (0-4); Hematocrit 38.3 % (37.0-47.0); Hemoglobin 12.2 g/dl (12.0-16.0); Imm Gran Abs Auto 0.01 X10*3/uL (0.00-0.03); Imm Gran Pct Auto 0.2 % (0.0-0.4); Lymphocytes Absolute Auto 1.6 X10*3/uL (1.2-4.9); Lymphocytes Percent Auto 31.8 % (20-40); Mean Corpuscular HGB Conc 31.9 g/dl (31.0-35.0); Mean Corpuscular Hemoglobin 27.1 pg (27.0-33.0); Mean Corpuscular Volume 85.1 fL (80.0-98.0); Mean Platelet Volume 10.2 fL (9.4-12.3); Monocytes Absolute Auto 0.4 X10*3/uL (0.1-1.2); Neutrophils Absolute Auto 2.7 x10*3/uL (2.0-8.3); Neutrophils Percent Auto 55.3 % (45-73); Platelet Count 205 X10*3/uL (160-400); Red Cell Distribution Width 14.4 % (11.0-16.0); White Blood Count 4.9 X10*3/uL (4.8-10.8)
[2024-11-03 10:37] LABS: Alanine Aminotransferase 29 U/L (0-31); Alkaline Phosphatase 135 U/L (39-117); Anion Gap 11 (12-20); Aspartate Amino Transferase 26 U/L (5-31); Bilirubin Total 0.3 mg/dL (0.0-1.0); Blood Urea Nitrogen 19 mg/dL (9-16); Carbon Dioxide 28 mmol/L (22-29); Chloride 107 mmol/L (96-108); Cholesterol 154 mg/dL (<200); Estimated Glomerular Filt Rate > 60; Glucose Fasting 97 mg/dL (60-99); HDL Cholesterol 60 mg/dL (>40); LDL Cholesterol Calculated 75 mg/dL (<100); Potassium 4.1 mmol/L (3.3-5.1); Sodium 142 mmol/L (135-145); Total Protein 7.5 g/dL (6.5-8.0); Triglycerides 97 mg/dL (<150)
[2024-11-03 10:39] LABS: Free T4 (Free Thyroxine) 0.97 ng/dL (0.71-1.85); Thyroid Stimulating Hormone 2.26 uIU/mL (0.32-4.0); Vitamin D 25-OH Total 29.3 ng/mL (>30)
[2024-11-03 10:57] LABS: Appearance Urine Cloudy; Color Urine Yellow; Glucose Urine UA Negative (Negative); Leukocyte Esterase Urine Moderate (2+) (Negative); Nitrite Urine Positive (Negative); PH 5.5 (5.0-9.0); UMIC TRIGGER UACC YES; Urine Blood Negative (Negative); Urine Ketones Negative (Negative); Urine Protein Negative (Neg-Trace)
[2024-11-03 11:04] LABS: Bacteria Urine 4+ (None Seen); Hyaline Casts Urine 0-2 /LPF (0-2); RBC Urine 0-2 /HPF (0-2); UACC Culture Trigger YES
== END 2024-11-03 08:11 | disposition home or self-care (01) ==
LOC: HO.LAB 08:10
PROVIDERS: PCP Internal Medicine; Visit Provider Internal Medicine
DX: E03.9 Hypothyroidism, unspecified (principal); E55.9 Vitamin D deficiency, unspecified; E78.00 Pure hypercholesterolemia, unspecified; D64.9 Anemia, unspecified; R30.0 Dysuria
CPT/HCPCS: 36415; 80053; 80061; 81001; 81003; 82306; 84439; 84443; 85025; 87086

== ENCOUNTER 2024-11-08 08:04 | Outpatient (AMB) | payer MEDICARE, SELFPAY ==
--- NOTE | 2024-11-08 08:11 | AM.OFFWIN_ITS ---
Intake Vital Signs 11/08/24 08:12 Height 5 ft 2 in Weight 226 lb 8 oz BMI 41.4 BP 126/78 Blood Pressure Location Lt brachial Position Sitting Pulse 113 H Pulse Source Pulse Oximeter Temp 99.0 F Temp Source Oral Pulse Oximetry (%) 93 Oxygen Delivery Method Room Air Intake Visit Reasons: EP ear ache, body aches, chill, headache Intake Note: Pt presents to the office today for bilateral ear pain,body aches, chills, headache, and SOB since last night. Patient Tobacco Use Status: Never used Tobacco Accompanied by: Spouse Allergies fentanyl Adverse Reaction (Unknown, Verified 11/08/24 08:16) Nausea and Vomiting HPI HPI Comments History of Present Illness Details History The patient is a 64-year-old female presenting with headache, subjective fevers and chills, cough, and ear fullness x1 day. - She experienced a subjective fever upo n waking with facial flushing, though no temperature was yet recorded. - Reports of mild shortness of breath an d wheezing were noted, despite no history of asthma or COPD. - She experienced fullness in her ears w ithout accompanying sinus pain. - The patient developed a cough the nigh t before, along with some congestion, even after having recently received the influenza vaccination. Physical Exam General: Cooperative, healthy appearing, comfortable and no acute distress Orientation/consciousness: Patient oriented x3 Limitations: No limitations Head: Normal to inspection Ears: Hearing grossly normal bilaterally, external ears normal and TM's normal bilaterally Nose: Normal external nose present, Normal nares present and No nasal discharge present Face and sinus: Normal facial exam and Yes sinuses nontender Mouth: Normal oral and palatal mucosa present and moist mucous membranes Throat: Yes tonsils normal, Yes uvula midline. Posterior oropharynx erythema Eyes: Appearance normal, both eyes and all related structures Neck: Normal visual inspection Respiratory: Clear but dim to auscultation bilaterally. Normal respiratory effort, able to speak in complete sentences, no respiratory distress, not tachypneic, no tripod positioning and no use of accessory muscles Cardiovascular: Regular rate and rhythm. Normal S1 and S2 Skin: No rashes or lesions noted Neuro: Patient oriented x3 Extremities: Normal to inspection and Yes no clubbing, cyanosis or edema PFSH Medical History Cerebellar ataxia Osteoarthritis of left knee OSMANI (obstructive sleep apnea) Morbid obesity with BMI of 40.0-44.9, adult ASCUS of cervix with negative high risk HPV Anemia Obesity (BMI 30-39.9) Depression Anxiety Primary insomnia Microscopic colitis GERD without esophagitis Fibromyalgia Acquired hypothyroidism Impaired fasting glucose Benign essential hypertension Pure hypercholesterolemia Vitamin D deficiency Hypothyroidism Hypoglycemia Bradycardia Infection at site of external fixator pin Overactive bladder Surgical History Status post total left knee replacement (~12/15/22) Hx of cystoscopy Hx of foot surgery Hx of foot surgery History of colonoscopy History of gastrointestinal tract bypass S/P ORIF (open reduction internal fixation) fracture History of hemorrhoidectomy Hx of bilateral breast reduction surgery H/O section H/O arthroscopy of left knee Status post debridement Family History Father Diabetes Mental health disorder Mother CVD (cardiovascular disease) Myocardial infarction Mental health disorder Brother Colon cancer Sister Lung cancer Social History Household Members: Spouse and Children Housing: House Are you a primary nurse healthcare manager to a significant other at home: No Do you presently have visiting nurse or other home services: No Alcohol intake: current Alcohol intake frequency: does not drink Comment: aware of trip hazards Patient Tobacco Use Status: Never used Tobacco e-Cigarette/Vaping Use: Never Used Second Hand Smoke Exposure: No service: No Current occupational status: disabled Cognitive needs: No Hearing needs: Yes Vision needs: Yes Female Reproductive History Menstrual Age of Menarche: 14 Review of Systems Const All systems reviewed & are unremarkable except as noted in HPI and below Physical Exam Vital Signs: Last Vital Signs Temp 99.0 F 11/08/24 08:12 Pulse 117 H 11/08/24 08:12 BP 126/78 11/08/24 08:12 Pulse Ox 93 11/08/24 08:12 Oxygen Delivery Method Room Air 11/08/24 08:12 BMI result Body Mass Index 41.4 Assessment & Plan Assessment & Plan (1) Acute viral syndrome: Code(s): B34.9 - Viral infection, unspecified Plan: Plan The presented symptoms align with a Viral Upper Respiratory Infection, necessitating nasal swabbing for flu, COVID-19, and RSV. A chest X-ray was advised to verify no pneumonia in light of respiratory symptoms and oxygenation at 92%. An inhaler was prescribed to address decreased oxygenation and shortness of breath, with detailed administration instructions. For fever and body aches, suggested regimens include Tylenol and ibuprofen. OTC remedies for symptom management were recommended, and the prescribed inhaler can be procured from the specified pharmacy. Retrieval of diagnostic results will guide further clinical actions, with a commitment to update the patient accordingly. Patient was informed and verbally consented to the use of an ambient scribe for clinic note documentation during this visit Orders: Orders XR chest 2V Today R05.9 - Cough, unspecified SARS-CoV2/FLU/RSV Today R09.89 - Other specified symptoms and signs involving the circulatory and respiratory systems Medications: New albuterol sulfate 90 mcg/actuation 2 puffs inhalation Q6H PRN 8.5 grams 0RF shortness of breath or wheezing or cough Coding Level of Care Code Est Pt Level 4 (32708) Diagnoses Acute viral syndrome B34.9
[2024-11-08 08:12] VITALS: BP 126/78; PULSE 113; TEMP 37.2; O2SAT 93; BMI 41.4
== END 2024-11-08 08:39 | disposition home or self-care (01) ==
PROVIDERS: PCP Internal Medicine; Visit Provider Physician Assistant
DX: B34.9 Viral infection, unspecified (principal)

== ENCOUNTER 2024-11-08 08:04 | Outpatient (REF) | payer MEDICARE, SELFPAY ==
[2024-11-08 11:22] LABS: Influenza A PCR NEGATIVE (Negative); Influenza B PCR NEGATIVE (Negative); Resp Syncy Virus RNA Qual PCR NEGATIVE (Negative); SARS COV2 PCR INHOUSE NEGATIVE (Negative)
== END 2024-11-08 08:05 | disposition home or self-care (01) ==
LOC: HO.LAB 08:04
PROVIDERS: Physician Assistant; PCP Internal Medicine
DX: Z13.89 Encounter for screening for other disorder (principal)
CPT/HCPCS: 0241U

== ENCOUNTER 2024-11-08 08:35 | Outpatient (REF) | payer MEDICARE, SELFPAY ==
--- NOTE | ~2024-11-08 | XR_ITS ---
EXAMINATION: XR CHEST 2 VIEWS HISTORY: R05.9 - Cough, unspecified COMPARISON: Comparison is made with the prior examination dated 08/25/2023. FINDINGS: PA and lateral views of the chest are submitted. There is confluent airspace opacity in the right upper and middle lobes, consistent with pneumonia. The left lung is clear. There is no pleural effusion, pneumothorax, or pulmonary vascular congestion. The heart is normal in size. There is degenerative disc disease of the spine. XR/XR chest 2V IMPRESSION: Right upper and middle lobe pneumonia. Follow-up is recommended to document resolution. Electronically signed by: Mickey Coleman MD 11/08/2024 08:55 AM EDT
== END 2024-11-08 08:36 | disposition home or self-care (01) ==
LOC: HO.HMGCX 08:35
PROVIDERS: PCP Internal Medicine; Visit Provider Physician Assistant
DX: R05.9 Cough, unspecified (principal); J18.1 Lobar pneumonia, unspecified organism
CPT/HCPCS: 0241U; 71046; 99212

== ENCOUNTER → 2024-11-08 08:40 | Outpatient (BNV) | payer MEDICARE, SELFPAY | PROVIDERS: PCP Internal Medicine; Visit Provider Radiology Diagnostic Radiology | DX: J18.1 Lobar pneumonia, unspecified organism (principal) | CPT/HCPCS: 71046 ==

== ENCOUNTER 2024-11-09 10:34 | Outpatient (AMB) | payer MEDICARE, SELFPAY ==
[2024-11-09 10:44] VITALS: BP 112/62; PULSE 68; O2SAT 91; BMI 41.2
--- NOTE | 2024-11-09 10:44 | A.OFFPC_ITS ---
Vital Signs 11/09/24 10:44 Height 5 ft 2 in Weight 225 lb 1.471 oz BMI 41.2 BP 112/62 Blood Pressure Location Lt brachial Position Sitting Pulse 68 Pulse Source Pulse Oximeter Pulse Oximetry (%) 91 L Oxygen Delivery Method Room Air Intake Visit Reasons: 4 month f/u Rink Rat Required: No Accompanied by: Self / Same As Patient Allergies fentanyl Adverse Reaction (Unknown, Verified 11/09/24 11:13) Nausea and Vomiting Medication List - Last Reconciled 11/09/24 by Obdulio Patel MD acarbose 50 mg PO TID acetaminophen 650 mg (2 x 325 mg) PO Q6H PRN albuterol sulfate 90 mcg/actuation 2 puffs inhalation Q6H PRN amoxicillin-pot clavulanate 875-125 mg 1 tab PO Q12H atorvastatin 40 mg PO DAILY azithromycin For 250 mg dose pack: take 500 mg today (day 1), then 250 mg for 4 days (days 2-5) PO cholecalciferol (vitamin D3) 50 mcg PO DAILY docusate sodium 100 mg PO BID 30 days ferrous sulfate 325 mg PO DAILY lamotrigine 50 mg PO DAILY levothyroxine 150 mcg PO DAILY [LIGHTWEIGHT CANE As directed] lisinopril 10 mg PO DAILY 90 days lorazepam 0.5 mg PO BID PRN 30 days mirtazapine 7.5 mg PO BEDTIME 30 days omeprazole 40 mg PO DAILY oxybutynin chloride ER 10 mg PO DAILY pregabalin 150 mg PO TID 30 days sertraline 200 mg (2 x 100 mg) PO DAILY 90 days tizanidine 4 mg PO Q8H PRN 10 days Tobacco use date assessed: 11/09/24 Dental Screening Dental Screen Date: 11/09/24 Did you have a dental visit in the last 12 months?: Yes Did you have a dental problem in the last 6 months where you did not have access to dental care?: No Was dental information given to patient?: Patient has dentist HPI 4 month f/u HPI Details Patient comes in today for follow up of her HTN, hyperlipidemia, GERD, hypothyroidism and cerebellar ataxia, among other issues States that she went to the walk-in yesterday for increasing cough and congestion for a couple of days She reportedly tested negative for COVID, influenza and RSV but chest x-rays done revealed (+) RUL and RML pneumonia She was started on Augmentin and Azithromycin, which patient states she started taking last night Thinks that she woke up this morning feeling slightly better than she did yesterday but reports that she is still experiencing recurrent chest congestion and tightness that are temporarily relieved when she uses her Albuterol inhaler Relates (+) fatigue and mild sore throat but denies any fever, headaches or dizziness Denies any exertional chest pains; reports (+) mild SANTILLAN and on and off coughing - coughs up minimal thick whitish phlegm at times No nausea/vomiting, no abdominal pain No change in bowel habits noted Needs her Pregabalin Rx refilled Her is also requesting for Rx for Scopolamine patches sent in for her as they are booked for a 7-day cruise next month She had follow up labs done last week - to discuss her results [facility] Medical History Cerebellar ataxia Osteoarthritis of left knee OSMANI (obstructive sleep apnea) Morbid obesity with BMI of 40.0-44.9, adult ASCUS of cervix with negative high risk HPV Anemia Obesity (BMI 30-39.9) Depression Anxiety Primary insomnia Microscopic colitis GERD without esophagitis Fibromyalgia Acquired hypothyroidism Impaired fasting glucose Benign essential hypertension Pure hypercholesterolemia Vitamin D deficiency Hypothyroidism Hypoglycemia Bradycardia Infection at site of external fixator pin Overactive bladder Surgical History Status post total left knee replacement (~12/15/22) Hx of cystoscopy Hx of foot surgery Hx of foot surgery History of colonoscopy History of gastrointestinal tract bypass S/P ORIF (open reduction internal fixation) fracture History of hemorrhoidectomy Hx of bilateral breast reduction surgery H/O section H/O arthroscopy of left knee Status post debridement Family History Father Diabetes Mental health disorder Mother CVD (cardiovascular disease) Myocardial infarction Mental health disorder Brother Colon cancer Sister Lung cancer Social History Household Members: Spouse and Children Housing: House Are you a primary director career to a significant other at home: No Do you presently have visiting nurse or other home services: No Alcohol intake: current Alcohol intake frequency: does not drink Comment: aware of trip hazards Patient Tobacco Use Status: Never used Tobacco e-Cigarette/Vaping Use: Never Used Second Hand Smoke Exposure: No service: No Current occupational status: disabled Cognitive needs: No Hearing needs: Yes Vision needs: Yes Female Reproductive History Menstrual Age of Menarche: 14 Questionnaire PHQ-9 Over the last 2 weeks, how often have you been bothered by any of the following problems? 1. Little interest or pleasure in doing things: several days 2. Feeling down, depressed, or hopeless: several days 3. Trouble falling or staying asleep, or sleeping too much: not at all 4. Feeling tired or having little energy: not at all 5. Poor appetite or overeating: not at all 6. Feeling bad about yourself - or that you are a failure or have let yourself or your family down: not at all 7. Trouble concentrating on things, such as reading the newspaper or watching television: not at all 8. Moving or speaking so slowly that other people could have noticed. Or the opposite - being so fidgety or restless that you have been moving around a lot more than usual: more than half the days 9. Thoughts that you would be better off or of hurting yourself in some way: not at all Total score: 4 Depression Screening Interpretation: Positive Depression Screening Follow-up: Existing condition and In treatment Depression Screening Done: Yes 76155 - PHQ-9 Billing: Yes Source: Developed by Drs. Mickey Arce, Paige Barton, Luis A Hull and colleagues, with an educational roger from [employer]. Thrive Questionnaire Date Thrive assessed: 11/09/24 I am a: Patient What is your living situation today?: I have a steady place to live Within the past 12 months, did the food you bought not last and you didn't have the money to get more?: Never true Within the past 12 months, did you worry whether your food would run out before you got money to buy more?: Never true Do you have trouble paying for medicines?: No Do you have trouble getting transportation to medical appointments?: No Do you have trouble paying your heating and electricity bill?: No Do you have trouble taking care of your child, family member or friend?: No Do you have trouble with day-to-day activities such as bathing, preparing meals, shopping, managing finances, etc.?: No Are you currently unemployed and looking for a job?: No Are you interested in more education?: No Please select the resources that you would like help with: None Currently or been in a relationship where the following occur: No concerns reported THRIVE Score: 0 AUDIT C Alcohol Use Questionnaire (AUDIT-C) 1. How often do you have a drink containing alcohol?: Never 3. How often do you have six or more drinks on one occasion?: Never Total Score: 0 Score Reviewed/Action Taken: Yes EVANGELINA-7 AMB Questionnaire EVANGELINA-7 Date EVANGELINA - 7 assessed: 11/09/24 Feeling nervous, anxious, or on edge: 0 = Not at all Not being able to stop or control worryin = Not at all Worrying too much about different things: 0 = Not at all Trouble relaxin = Not at all Being so restless that it is hard to sit still: 0 = Not at all Becoming easily annoyed or irritable: 0 = Not at all Feeling afraid as if something awful might happen: 0 = Not at all Total EVANGELINA-7 score (0-4 normal; 5-9 mild; 10-14 moderate; 15-21 severe): 0 Source: Developed by Drs. Mickey Arce, Paige Barton, Luis A Hull and colleagues, with an educational roger from [employer]. Review of Systems Const Denies chills, Reports fatigue, Denies fever(s) and Denies headache(s) ENT Denies dysphagia, Denies dizziness, Denies otalgia, Denies headache(s), Reports hearing loss (in both ears), Reports nasal congestion, Reports neck pain (chronic), Denies odynophagia and Reports sore throat (mild) Card Denies chest pain, Denies palpitations and Reports dyspnea on exertion (mild) Resp Reports chest congestion (chest feels tight at times), Reports cough (on and off - coughs up thick whitish phlegm at times), Reports dyspnea on exertion (mild) and Denies wheezing GI Denies abdominal pain, Denies constipation, Denies dysphagia, Denies heartburn, Reports diarrhea (on and off), Denies nausea, Denies odynophagia and Denies vomiting Denies difficulty voiding, Reports nocturia (at times), Denies dysuria and Reports urinary incontinence (mostly at night) Musc Reports abnormal gait (unsteady - uses a walker or cane when ambulating), Reports arthralgias (both knees - s/p left knee TKA with (+)improvement of symptoms), Reports neck pain (chronic), Reports numbness (of fingers of both hands, recurrent) and Reports tingling (of fingers of both hands, recurrent) Skin/Breast Denies rash Neuro Reports abnormal gait (unsteady - uses a walker or cane when ambulating), Denies dizziness, Denies headache(s), Reports numbness (of fingers of both hands, recurrent) and Reports tingling (of fingers of both hands, recurrent) Psych Reports anxiety and Reports depression (better controlled lately) Endo Reports fatigue and Denies palpitations Aller/Immun Denies wheezing Physical exam (Primary Care) Vital Signs: Last Vital Signs Pulse 68 11/09/24 10:44 BP 112/62 11/09/24 10:44 Pulse Ox 91 L 11/09/24 10:44 Oxygen Delivery Method Room Air 11/09/24 10:44 BMI result Body Mass Index 41.2 Tobacco/Smoking Status: Tobacco use Status Tobacco use date assessed 11/09/24 11/09/24 10:49 Patient Tobacco Use Status Never used Tobacco 11/09/24 10:49 e-Cigarette/Vaping Use Never Used 11/09/24 10:49 PHQ-9: PHQ-9 Score PHQ-9: Total score 4 11/09/24 10:49 Depression Screening Interpretation: Positive Depression Screening Follow-up: Existing condition and In treatment Thrive Assessment: Date of Thrive Assessment Date Thrive assessed 11/09/24 11/09/24 10:49 Currently or been in a relationship where the following occur: No concerns reported Const General: no acute distress and alert HENMT Ears: TM's normal bilaterally and EAC's normal Throat: Yes posterior oropharynx normal and Yes tonsils normal (no TP congestion noted) Neck Neck: No lymphadenopathy and Yes tender Thyroid: Thyroid normal Resp Auscultation: no crackles, no rales, rhonchi (scattered) throughout, no wheezes and diminished lung sounds (slightly) bilateral Cardio Rate: regular rate Rhythm: regular rhythm Heart sounds: no murmurs GI Palpation (GI): Soft to palpation and nontender Auscultation: normal bowel sounds General: Yes no CVA tenderness Back/Spine/Pelvis Back: no CVA tenderness Cervical Spine: Cervical spine tenderness Thoracic/Lumbar Spine: lumbar spinal tenderness Skin Rashes: no rashes Extrem General: Yes no clubbing, cyanosis or edema Results Reviewed Results Reviewed: Laboratory Tests 11/03/24 11/03/24 08:20 08:26 WBC 4.9 Hgb 12.2 Hct 38.3 Plt Count 205 Sodium 142 Potassium 4.1 Creatinine 0.80 Estimated GFR > 60 Fasting Glucose 97 Calcium 9.0 AST 26 ALT 29 Triglycerides 97 Cholesterol 154 LDL Cholesterol, Calc 75 HDL Cholesterol 60 25-OH Vitamin D Total 29.3 L TSH 2.26 Free T4 0.97 Ur Specific [place] 1.020 Urine Protein Negative Urine Glucose (UA) Negative Urine Blood Negative Urine Nitrite Positive H Ur Leukocyte Esterase Moderate (2+) H Coding Level of Care Code Est Pt Level 4 (78541) Complex EM visit Add On G2211 Diagnoses Pure hypercholesterolemia E78.00 Benign essential hypertension I10 Impaired fasting glucose R73.01 Acquired hypothyroidism E03.9 Pneumonia of right lung due to infectious organism, unspecified part of lung J18.9 Pneumonia type: due to unspecified organism Laterality: right Lung location: unspecified part of lung Microscopic colitis, unspecified microscopic colitis type K52.839 Microscopic colitis type: unspecified Cervical spine arthritis M47.812 Cerebellar ataxia G11.9 Iron deficiency anemia secondary to inadequate dietary iron intake D50.8 Anemia type: iron deficiency Iron deficiency anemia type: inadequate dietary iron intake GERD without esophagitis K21.9 Fibromyalgia M79.7 Bilateral primary osteoarthritis of knee M17.0 Vitamin D deficiency E55.9 Overactive bladder N32.81 Primary insomnia F51.01 Anxiety F41.9 Episode of recurrent major depressive disorder, unspecified depression episode severity F33.9 Depression Type: major depressive disorder Major depression recurrence: recurrent Active/Remission status: currently active Major depression episode severity: unspecified Obesity (BMI 30-39.9) E66.9 Additional Codes PHQ-9 - 11577 - PHQ-9 Billing: Yes ([id number]) Assessment & Plan Assessment & Plan (1) Pure hypercholesterolemia: Code(s): E78.00 - Pure hypercholesterolemia, unspecified Category: Medical Plan: Results of her labs done last week reviewed and discussed with patient Reinforced low cholesterol diet Continue Atorvastatin 40 mg QD Will recheck her labs and fasting lipids in 4 months for follow up (2) Benign essential hypertension: Code(s): I10 - Essential (primary) hypertension Category: Medical Plan: Reinforced low sodium diet - goal is systolic BP of at least 120 to 130 mm or less Continue Lisinopril 10 mg QD Patient is reminded to continue monitoring her blood pressure regularly (3) Impaired fasting glucose: Code(s): R73.01 - Impaired fasting glucose Category: Medical Plan: Her FBS was normal at 97 mg/dl on her labs done last week; HgbA1c was normal at 5.5% when previously checked Continue Acarbose 50 mg TID - she was started on Acarbose 50 mg TID by endocrinology for NIPHS that appeared to be a complication of her bariatric surgery from a few years ago Patient recalls experiencing recurrent hypoglycemic symptoms initially when she started on the Rx but her symptoms have reportedly stabilized after some time Follow up with endocrinology as scheduled (4) Acquired hypothyroidism: Code(s): E03.9 - Hypothyroidism, unspecified Category: Medical Plan: Continue Levothyroxine 150 mcg QD Will continue to monitor her TFTs regularly Follow-up with endocrinology as scheduled (5) Pneumonia: Code(s): J18.9 - Pneumonia, unspecified organism Category: Medical Qualifiers: Pneumonia type: due to unspecified organism Laterality: right Lung location: unspecified part of lung Qualified Code(s): J18.9 - Pneumonia, unspecified organism Plan: She currently has RUL and RML pneumonia seen on chest x-rays done yesterday She has already been started on Augmentin 875 mg Q 12 hours and Azithromycin QD by the provider who saw her at the walk-in clinic yesterday - states that she woke up this morning feeling slightly better than she did yesterday She is reminded that if at any time over the next week or so, she starts experiencing increasing or progressing SOB, she should go to the ER [facility] Will have her get a repeat chest x-ray in a couple of weeks for follow up of her pneumonia (6) Microscopic colitis: Code(s): K52.839 - Microscopic colitis, unspecified Category: Medical Qualifiers: Microscopic colitis type: unspecified Qualified Code(s): K52.839 - Microscopic colitis, unspecified Plan: Patient has been in remission with no flare ups for a while now Follow up with GI (Dr. Kline) as scheduled (7) Cervical spine arthritis: Code(s): M47.812 - Spondylosis without myelopathy or radiculopathy, cervical region Category: Medical Plan: Cervical spine CT done back in May 2022 revealed (+) loss of intervertebral disc height with associated hypertrophic disc osteophyte spurring with associated sclerotic degenerative endplate changes and disc osteophyte spurring at C5-C6 and C6-C7 We referred her previously to physical therapy, with some improvement of her neck pain with Tx (8) Cerebellar ataxia: Code(s): G11.9 - Hereditary ataxia, unspecified Category: Medical Plan: She was diagnosed with cerebellar ataxia by neurology (Dr. Martínez) on 10/01/2023 Follow up with neurology as scheduled (9) Anemia: Code(s): D64.9 - Anemia, unspecified Category: Medical Qualifiers: Anemia type: iron deficiency Iron deficiency anemia type: inadequate dietary iron intake Qualified Code(s): D50.8 - Other iron deficiency anemias Plan: Corrected - her H/H was normal at 12.2/38.3 on her labs done last week Continue Ferrous Sulfate 325 mg QD Will continue to monitor her CBC regularly (10) GERD without esophagitis: Code(s): K21.9 - Gastro-esophageal reflux disease without esophagitis Category: Medical Plan: Dietary restrictions reinforced Continue Omeprazole 40 mg QD (11) Fibromyalgia: Code(s): M79.7 - Fibromyalgia Category: Medical Plan: Continue Naproxen 500 mg BID with food as needed and Pregabalin 150 mg TID (Rx refilled) Patient is again encouraged to exercise regularly and to stay active to help manage her symptoms better (12) Bilateral primary osteoarthritis of knee: Code(s): M17.0 - Bilateral primary osteoarthritis of knee Category: Medical Plan: S/P total left knee arthroplasty with Dr. Spangler on 12/15/2022 Follow up with orthopedics as scheduled (13) Vitamin D deficiency: Code(s): E55.9 - Vitamin D deficiency, unspecified Category: Medical Plan: Continue Vitamin D3 5000 units QD (14) Overactive bladder: Code(s): N32.81 - Overactive bladder Category: Medical Plan: Continue Oxybutynin ER 10 mg QD Follow up with urology as scheduled (15) Primary insomnia: Code(s): F51.01 - Primary insomnia Category: Medical Plan: Sleep hygiene reinforced Mirtazapine at bedtime has been helping with her sleep issues (16) Anxiety: Code(s): F41.9 - Anxiety disorder, unspecified Category: Medical Plan: Continue Lorazepam 0.5 mg BID PRN (17) Depression: Code(s): F32.9 - Major depressive disorder, single episode, unspecified Category: Medical Qualifiers: Depression Type: major depressive disorder Major depression recurrence: recurrent Active/Remission status: currently active Major depression episode severity: unspecified Qualified Code(s): F33.9 - Major depressive disorder, recurrent, unspecified Plan: Continue Mirtazapine 7.5 mg Q HS (18) Obesity (BMI 30-39.9): Code(s): E66.9 - Obesity, unspecified Category: Medical Plan: Reinforced diet; exercise and weight loss are not realistic, especially given patient's gait instability and recent diagnosis of cerebellar ataxia Plan Follow up in 4 months Orders: Orders Complete Blood Count Auto Diff 4 Months D64.9 - Anemia, unspecified Lipid Panel 4 Months E78.00 - Pure hypercholesterolemia, unspecified UA CC w/rflx Micro + Cult 4 Months R30.0 - Dysuria Hemoglobin A1c 4 Months R73.01 - Impaired fasting glucose Vitamin D 25-OH Total 4 Months E55.9 - Vitamin D deficiency, unspecified XR chest 2V 2 Weeks J18.9 - Pneumonia, unspecified organism Comprehensive [place]. Panel Fast 4 Months E78.00 - Pure hypercholesterolemia, unspecified Thyroid Stimulating Hormone 4 Months E03.9 - Hypothyroidism, unspecified Free T4 (Free Thyroxine) 4 Months E03.9 - Hypothyroidism, unspecified Medications: New scopolamine base (Transderm-Scop) 1 patch transdermal Q3D PRN 10 ea 0RF nausea and vomiting/motion sickness Refilled pregabalin 150 mg PO TID 30 days 90 caps 1RF M79.7 - Fibromyalgia
== END 2024-11-09 11:29 | disposition home or self-care (01) ==
LOC: HO.HMCH 10:35
PROVIDERS: PCP Internal Medicine; Visit Provider Internal Medicine
DX: E78.00 Pure hypercholesterolemia, unspecified (principal); G11.9 Hereditary ataxia, unspecified; F33.9 Major depressive disorder, recurrent, unspecified; I10 Essential (primary) hypertension; R73.01 Impaired fasting glucose; E03.9 Hypothyroidism, unspecified; J18.9 Pneumonia, unspecified organism; K52.839 Microscopic colitis, unspecified; M47.812 Spondylosis without myelopathy or radiculopathy, cervical region; D50.8 Other iron deficiency anemias; K21.9 Gastro-esophageal reflux disease without esophagitis; M79.7 Fibromyalgia

== ENCOUNTER → 2024-11-09 10:34 | Outpatient (BNVA) | payer MEDICARE, SELFPAY | PROVIDERS: PCP Internal Medicine; Visit Provider Internal Medicine | DX: E78.00 Pure hypercholesterolemia, unspecified (principal); I10 Essential (primary) hypertension; R73.01 Impaired fasting glucose; E03.9 Hypothyroidism, unspecified; J18.9 Pneumonia, unspecified organism; K52.839 Microscopic colitis, unspecified; M47.812 Spondylosis without myelopathy or radiculopathy, cervical region; G11.9 Hereditary ataxia, unspecified; D50.8 Other iron deficiency anemias; K21.9 Gastro-esophageal reflux disease without esophagitis; M79.7 Fibromyalgia; M17.0 Bilateral primary osteoarthritis of knee; N32.81 Overactive bladder; E55.9 Vitamin D deficiency, unspecified; F51.01 Primary insomnia; F41.9 Anxiety disorder, unspecified; F33.9 Major depressive disorder, recurrent, unspecified; E66.9 Obesity, unspecified; Z68.41 Body mass index [BMI] 40.0-44.9, adult; Z71.3 Dietary counseling and surveillance | CPT/HCPCS: 96127; 99212 ==

== ENCOUNTER 2024-11-22 10:45 | Outpatient (REF) | payer MEDICARE, SELFPAY ==
--- NOTE | ~2024-11-22 | XR_ITS ---
EXAMINATION: XR CHEST 2 VIEWS HISTORY: J18.9 - Pneumonia, unspecified organism COMPARISON: Comparison is made with the prior examination dated 11/08/2024. FINDINGS: PA and lateral views of the chest are submitted. The lungs are expanded and clear. The previously seen right-sided pneumonia has resolved. There is no pleural effusion, pneumothorax, or pulmonary vascular congestion. The heart is normal in size. The bones are intact. XR/XR chest 2V IMPRESSION: No acute cardiopulmonary abnormality. The previously seen right-sided pneumonia has resolved. Electronically signed by: Mickey Coleman MD 11/22/2024 12:26 PM EDT
--- OUTSIDE RECORDS SUMMARY | 2024-11-22 12:52 | XMS_ITS | Patient Health Record ---
Author Organization [facility] Address [address] [place] [id number] Care Team Providers Care Executive Receptionist Name Role Phone Jorge SIMMS, [place] Primary Care Provider Mickey Zayas Unavailable [phone] Allergies Allergen (clinical drug ingredient) Drug/Non Drug [...] Pregabalin 150 MG TAKE 1 CAPSULE BY [facility] 3 TIMES A DAY Oral three times [...] Status Risk Notes Problem Colon cancer screening (882971748) Colon cancer screening (Z12.11) Active confirmed Problem 195233563 Encounter for screening for malignant neoplasm of colon (Z12.11) Active confirmed Problem Diverticular disease of colon (849080749) Diverticulosis of large intestine without perforation or abscess without bleeding (K57.30) Active confirmed Problem Preprocedural examination (009670697893751) Preprocedural examination (Z01.818) Active confirmed Problem Microscopic colitis (255021145) Microscopic colitis (K52.89) Active confirmed Problem Gastroesophageal reflux disease (102713472) GERD (gastroesophageal reflux disease) (K21.9) Active confirmed Problem 457573024 Other microscopi c colitis (K52.838) Active confirmed Vital Signs Temperature 96.9 degrees Fahrenheit 11/01/2024 Blood pressure diastolic 01 mm Hg 11/01/2024 Height 62 in 11/01/2024 Blood pressure systolic 001 mm Hg 11/01/2024 Weight 220 lbs 11/01/2024 BMI 40.23 kg/m2 11/01/2024 Encounters Encounter Location Date Provider Diagnosis [facility] [address] [place] [id number] 11/01/2024 Mickey Kline Assessments Encounter Date Diagnosis [...] End Date [facility] [facility] [address] [place], [place] [id number] JESU WILKS Self - patient is the insured Medical (General) History Medical History History ICD Code Fibromyalgia GERD--EGD in October of 2008 w ith the finding of a small hiatal hernia, GERD, and gastritis--there was no evidence of any Clark's esophagus nor H. pylori. hypothroidism depression/anxiety arthritis all over her body Denies NC,DM,CVA,Lung disease,renal dise ase Vertigo IBS-had neg. celiac [...]
--- OUTSIDE RECORDS SUMMARY | 2024-11-22 12:52 | XMS_ITS ---
Author Organization [facility] Address [address] [place] [id number] Care Team Providers Care Solderer Torch Name Role Phone Jorge SIMMS, [place] Primary Care Provider Mickey Zayas Unavailable [phone] Allergies Allergen (clinical drug ingredient) Drug/Non Drug [...] Pregabalin 150 MG TAKE 1 CAPSULE BY [place] 3 TIMES A DAY Oral three [...] 11/01/2024 Encounters Encounter Location Date Provider Diagnosis [facility] [address] [place] [address] 11/01/2024 Mickey Kline Assessments Encounter Date Diagnosis (ICD Code) Assessment Notes Treatment Notes Treatment Clinical Notes Section Notes 11/01/2024 Other Repeat colonoscopy in 2032 Call if bleeding or problems with BM's Plan Of Treatment Treatment Notes Assessment Notes Other Repeat colonoscopy in 2032 Call if bleeding or problems with BM's Progress Notes * JESU WILKSDOB:[birth year] (64 yo F)Acc No.[id number]:11/01/2024 Progress Notes Patient:?LASHAUNJESU Provider:?Mickey Kline MD :[id number]???Age:64 Y???Sex:Female D ate:11/01/2024 Address:[address] [place], [place] [id number] Pcp:Obdulio Patel MD Subjective: * Chief Complaints: * ???1. Patient presents today for a hemmorhage of anus rectus. * Medical History:?Fibromyalgi a, GERD--EGD in October of 2008 with the finding of a small hiatal hernia, GERD, and gastritis--there was no evidence of any Clark's esophagus nor H. pylori., Hypothroidism, Depression/anxiety, arthritis all over her body , Denies AR,DM,CVA,Lung disease,renal disease, Vertigo, IBS-had neg. celiac labs [...] MD Date:? 025 Generated for Dejah gates/Isiah/Springitting on:?11/22/2024 12:51 PM EDT
== END 2024-11-22 10:46 | disposition home or self-care (01) ==
LOC: HO.HMGCX 10:45
PROVIDERS: PCP Internal Medicine; Visit Provider Internal Medicine
DX: J18.9 Pneumonia, unspecified organism (principal)
CPT/HCPCS: 71046

== ENCOUNTER → 2024-11-22 10:48 | Outpatient (BNV) | payer MEDICARE, SELFPAY | PROVIDERS: PCP Internal Medicine; Visit Provider Radiology Diagnostic Radiology | DX: J18.9 Pneumonia, unspecified organism (principal) | CPT/HCPCS: 71046 ==

== ENCOUNTER 2024-12-22 09:13 | Outpatient (REF) | payer MEDICARE, SELFPAY ==
--- OUTSIDE RECORDS SUMMARY | 2024-12-22 14:01 | XMS_ITS | Patient Health Record ---
Author Organization [facility] Address [address] [place] [address] Care Team Providers Care Bin Tripper Operator Name Role Phone Jorge SIMMS, [place] Primary Care Provider Mickey Zayas Unavailable [phone] Allergies Allergen (clinical drug ingredient) Drug/Non Drug [...] Pregabalin 150 MG TAKE 1 CAPSULE BY [facility] 3 TIMES A DAY Oral [...] Status Risk Notes Problem Colon cancer screening (152649765) Colon cancer screening (Z12.11) Active confirmed Problem 658999926 Encounter for screening for malignant neoplasm of colon (Z12.11) Active confirmed Problem Diverticular disease of colon (002909777) Diverticulosis of large intestine without perforation or abscess without bleeding (K57.30) Active confirmed Problem Preprocedural examination (777802794328816) Preprocedural examination (Z01.818) Active confirmed Problem Microscopic colitis (514631275) Microscopic colitis (K52.89) Active confirmed Problem Gastroesophageal reflux disease (706313177) GERD (gastroesophageal reflux disease) (K21.9) Active confirmed Problem 464972532 Other microscopi c colitis (K52.838) Active confirmed Vital Signs Temperature 96.9 degrees Fahrenheit 11/01/2024 Blood pressure diastolic 01 mm Hg 11/01/2024 Height 62 in 11/01/2024 Blood pressure systolic 001 mm Hg 11/01/2024 Weight 220 lbs 11/01/2024 BMI 40.23 kg/m2 11/01/2024 Encounters Encounter Location Date Provider Diagnosis [facility] [address] [place] [phone] 11/01/2024 Mickey Kline Rectal bleeding K62.5 Assessments [...] Coverage Start Date Coverage End Date [facility] [address] [place], [place] [id number] JESU WILKS Self - patient is the insured 1 Medical (General) History Medical History History ICD Code Fibromyalgia GERD--EGD in October of 2008 w ith the finding of a small hiatal hernia, GERD, and gastritis--there was no evidence of any Clark's esophagus nor H. pylori. hypothroidism depression/anxiety arthritis all over her body Denies [place],DM,CVA,Lung disease,renal dise ase Vertigo IBS-had neg. celiac labs in 2004 colonoscopy in May 2012 with the finding of microscopic/collagenous colitis--only a hyperplastic polyp was found otherwise Kidney stones--cystoscopy and ureteral s tenting urinary incontinence Hyperlipidemia Seizures Ataxia Colonoscopy 08/2022 was negative for poly ps Surgical History Surgery Date(Month/Year) Left foot surgery 2016 Gastric bypass- Dr. Tucker--lost > 100_# [address] Castro 2016 finger surgery kidney stones removed knee surgery x2 2004/2010 breast reduction surgery 2007 heel surgery for heel spurs 2000
--- OUTSIDE RECORDS SUMMARY | 2024-12-22 14:01 | XMS_ITS ---
Author Organization [facility] Address [address] [place] [address] Care Team Providers Care Rug Setter [place] Name Role Phone Jorge SIMMS, [place] Primary Care Provider Mickey Zayas Unavailable [phone] Allergies Allergen (clinical drug ingredient) Drug/Non Drug [...] 11/01/2024 Encounters Encounter Location Date Provider Diagnosis [facility] [address] [place] [address] 11/01/2024 Mickey Kline Rectal bleeding K62.5 Assessments [...] * JESU WILKSDOB:[birth year] (64 yo F)Acc No.[id number]:11/01/2024 Progress Notes Patient:?JESU WILKS Provider:?Mickey Kline MD :1960???Age:64 Y???Sex:Female D ate:11/01/2024 Address:[address] [place], [place] [id number] Pcp:Obdulio Patel MD Subjective: * Chief Complaints: * ???Patient presents today fo r a hemmorhage of anus rectus * Medical History:? * Surgical History:?heel surge ry for heel spurs 2000breast reduction surgery 2007knee surgery x2 2004/2010kidney stones removed finger surgery Hemorrhoidectomy Dr. Castro 2016Gastric bypass- Dr. Tucker--lost > 100_# 2016Left foot surgery 2016 * Hospitalization/Major Diagno stic Procedure:?No Hospitalization History. * Family History:?Father: dece ased, diagnosed with Diabetes, Heart disease.?Mother: , diagnosed with Heart disease.?Siblings: brother had colon polyp at age 50 /prostate cancer.? No colorectal cancer.? No family history of liver cancer. * Social History:?Tobacco Use:?Tobacco Use/Smoking?Are you a: nonsmoker.?Drugs/Alcohol:?Alcohol Screen?Points: 0, Interpretation: Negative.?Miscellaneous:?Caffeine: 1-2 cups of tea/coffe QD. Marital status: . Occupation: unemployed-on disability. ???Nonsmoker; no alcohol. * Medications:?TakingNitrofura ntoin Monohyd Macro 100 MG Capsule 1 capsule [...] a day Taking Vitamin D3 50 MCG (1999) Tablet [...] reviewed and reconciled with the patient * Allergies:?Fentanylyes[Aller gies Verified] Objective: * Vitals:?Wt: 220 lbs, Ht: 62 in, BMI:40.23Index, BP: 001/01 mm Hg, Temp: 96.9, Wt-k.79. Assessment: * Assessment: 1.?Rectal bleeding - K62.5 ( Primary)??? Plan: * Treatment: * Procedure Codes:?3017F COLOR ECTAL CA SCREEN DOC [id number] TOBACCO NON-SCLLI7621 BP SCR NOT PRFRM REC REASON NOS * Preventive Medicine:? ??Counseling:?Care goal follow-up plan:?Above Normal BMI Follow-up?Dietary management education, guidance, and counseling,?BMI management provided?Yes.? * Follow Up:?prn * * Sign off status: Completed true * Provider:?Mickey Kline MD Date:? 025 Generated for Dejah gates/Isiah/Springitting on:?12/22/2024 02:01 PM EDT
[2024-12-22 14:32] LABS: Influenza A PCR NEGATIVE (Negative); Influenza B PCR NEGATIVE (Negative); Resp Syncy Virus RNA Qual PCR NEGATIVE (Negative); SARS COV2 PCR INHOUSE NEGATIVE (Negative)
== END 2024-12-22 09:14 | disposition home or self-care (01) ==
LOC: HO.LNP 09:13
PROVIDERS: PCP Internal Medicine; Visit Provider Nurse Practitioner Family
DX: J06.9 Acute upper respiratory infection, unspecified (principal)
CPT/HCPCS: 0241U; 94640; 99212

== ENCOUNTER 2024-12-22 09:13 | Outpatient (AMB) | payer MEDICARE, SELFPAY ==
[2024-12-22 09:19] VITALS: BP 126/78; PULSE 84; TEMP 36.9; O2SAT 94
--- NOTE | 2024-12-22 09:19 | AM.OFFWIN_ITS ---
Intake Vital Signs 12/22/24 09:19 Weight 233 lb BP 126/78 Blood Pressure Location Lt brachial Position Sitting Pulse 84 Pulse Source Pulse Oximeter Temp 98.5 F Temp Source Oral Pulse Oximetry (%) 94 Oxygen Delivery Method Room Air Intake Visit Reasons: EP-headaches, headaches, chest tight,sob Intake Note: Patient here for fatigue, body aches, chest tightness and sob that has been present for about 2 days. Patient Tobacco Use Status: Never used Tobacco Allergies fentanyl Adverse Reaction (Unknown, Verified 12/22/24 09:25) Nausea and Vomiting Do you need a note to return to daycare/school/sports/work: No HPI EP-headaches, headaches, chest tight,sob HPI Details This is a 64-year-old female patient who presents to the walk-in clinic today with a 3 day history of shortness of breath, wheezing, body aches, fatigue, fever/chills. States that her had similar symptoms and his viral testing was negative. He was put on a Z-Jude, however is only marginally improved. Has taken Sudafed at home with minimum relief. [facility] Medical History Cerebellar ataxia Osteoarthritis of left knee OSMANI (obstructive sleep apnea) Morbid obesity with BMI of 40.0-44.9, adult ASCUS of cervix with negative high risk HPV Anemia Obesity (BMI 30-39.9) Depression Anxiety Primary insomnia Microscopic colitis GERD without esophagitis Fibromyalgia Acquired hypothyroidism Impaired fasting glucose Benign essential hypertension Pure hypercholesterolemia Vitamin D deficiency Hypothyroidism Hypoglycemia Bradycardia Infection at site of external fixator pin Overactive bladder Surgical History Status post total left knee replacement (~12/15/22) Hx of cystoscopy Hx of foot surgery Hx of foot surgery History of colonoscopy History of gastrointestinal tract bypass S/P ORIF (open reduction internal fixation) fracture History of hemorrhoidectomy Hx of bilateral breast reduction surgery H/O section H/O arthroscopy of left knee Status post debridement Family History Father Diabetes Mental health disorder Mother CVD (cardiovascular disease) Myocardial infarction Mental health disorder Brother Colon cancer Sister Lung cancer Social History Household Members: Spouse and Children Housing: House Are you a primary home care liaison to a significant other at home: No Do you presently have visiting nurse or other home services: No Alcohol intake: current Alcohol intake frequency: does not drink Comment: aware of trip hazards Patient Tobacco Use Status: Never used Tobacco e-Cigarette/Vaping Use: Never Used Second Hand Smoke Exposure: No service: No Current occupational status: disabled Cognitive needs: No Hearing needs: Yes Vision needs: Yes Female Reproductive History Menstrual Age of Menarche: 14 Review of Systems Const All systems reviewed & are unremarkable except as noted in HPI and below Physical Exam Vital Signs: Last Vital Signs Temp 98.5 F 12/22/24 09:19 Pulse 84 12/22/24 09:19 BP 126/78 12/22/24 09:19 Pulse Ox 94 12/22/24 09:19 Oxygen Delivery Method Room Air 12/22/24 09:19 Const General: cooperative and no acute distress Limitations: no limitations HEENT Head: Yes normal to inspection Ears: hearing grossly normal bilaterally General nose exam: Normal external nose present Face and sinus: Yes normal facial exam Neck Neck: Yes no lymphadenopathy Resp Effort & Inspection: normal respiratory effort, able to speak in complete sentences and Actively coughing Quality: dry Auscultation: wheezes upper bilaterally Cardio Rate: regular rate Rhythm: regular rhythm Skin General skin exam: no rashes or lesions noted Extrem General: Yes capillary refill normal and Yes no clubbing, cyanosis or edema Psych Appearance: grossly normal Mental Status: mental status grossly normal Speech and movement: Normal speech and movement present Office Procedures Nebulizer Treatment Nebulizer Treatment 17929-Tghbovmao/MDI RX initial, or Nebulizer Subsequent Treatment Office Meds ipratropium 0.5 mg-albuterol 3 mg (2.5 mg base)/3 mL nebulization soln Performing Provider: JINNY Barnett Performing Location: [facility] Administered by: Kelly Fong on 12/22/24 10:13 Dose Route Admin Location Dispensed Lot Number Expiration Date 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 Wheezing on auscultation was significantly reduced on assessment following treatment. Viral swab for COVID/flu/RSV was obtained, and patient aware she will be notified of these results once they are available. Patient has history of pneumonia developing from bronchitis/similar illness. Will start her on abx and refill albuterol inhaler. We reviewed indications, use, possible side effects of these. Can continue to take Tylenol/NyQuil for symptom management. Advised to return to the clinic if she does not improve with treatment, and to go to the emergency department if she develops fevers/shortness of breath/difficulty breathing. Patient and present at visit both verbalized understanding and agreed to plan. Orders: Orders AMB Nebulizer Treatment Today J06.9 - Acute upper respiratory infection, unspecified SARS-CoV2/FLU/RSV Today J06.9 - Acute upper respiratory infection, unspecified Medications: New amoxicillin-pot clavulanate 875-125 mg 1 tab PO BID 7 days 14 tabs 0RF J20.9 - Acute bronchitis, unspecified Refilled albuterol sulfate 90 mcg/actuation 2 puffs inhalation Q6H PRN 8.5 grams 0RF shortness of breath or wheezing or cough Coding Level of Care Code Est Pt Level 4 (74806) Diagnoses Viral upper respiratory tract infection J06.9 URI type: unspecified viral URI CPT Codes Nebulizer Treatment - Nebulizer Treatment, initial or subsequent: 92436- Nebulizer/MDI RX initial, or Nebulizer Subsequent Treatment ([id number])
== END 2024-12-22 10:31 | disposition home or self-care (01) ==
PROVIDERS: PCP Internal Medicine; Visit Provider Nurse Practitioner Family
DX: J06.9 Acute upper respiratory infection, unspecified (principal)

== ENCOUNTER 2024-12-29 09:40 | Outpatient (AMB) | payer MEDICARE, SELFPAY ==
[2024-12-29 09:56] VITALS: BP 128/74; PULSE 80; TEMP 36.5; O2SAT 97; BMI 41.5
--- NOTE | 2024-12-29 09:56 | AM.OFFWIN_ITS ---
Intake Vital Signs 12/29/24 09:56 Height 5 ft 2 in Weight 227 lb BMI 41.5 BP 128/74 Blood Pressure Location Rt brachial Position Sitting Pulse 80 Pulse Source Pulse Oximeter Temp 97.7 F Temp Source Oral Pulse Oximetry (%) 97 Oxygen Delivery Method Room Air Intake Visit Reasons: EP cough, upper respiratory Patient Tobacco Use Status: Never used Tobacco Allergies fentanyl Adverse Reaction (Unknown, Verified 12/29/24 09:56) Nausea and Vomiting Do you need a note to return to daycare/school/sports/work: No HPI EP cough, upper respiratory HPI Details This is a 64-year-old female patient who presents to the walk-in clinic with ongoing cough/ upper respiratory symptoms. She was seen at the walk-in clinic last week and was started on Augmentin. She has completed this course, and has continued vigorous, nonproductive cough, nasal congestion, and wheezing. She has an albuterol inhaler at home which she has been using several times a day with some relief. Denies fevers. [facility] Medical History Cerebellar ataxia Osteoarthritis of left knee OSMANI (obstructive sleep apnea) Morbid obesity with BMI of 40.0-44.9, adult ASCUS of cervix with negative high risk HPV Anemia Obesity (BMI 30-39.9) Depression Anxiety Primary insomnia Microscopic colitis GERD without esophagitis Fibromyalgia Acquired hypothyroidism Impaired fasting glucose Benign essential hypertension Pure hypercholesterolemia Vitamin D deficiency Hypothyroidism Hypoglycemia Bradycardia Infection at site of external fixator pin Overactive bladder Surgical History Status post total left knee replacement (~12/15/22) Hx of cystoscopy Hx of foot surgery Hx of foot surgery History of colonoscopy History of gastrointestinal tract bypass S/P ORIF (open reduction internal fixation) fracture History of hemorrhoidectomy Hx of bilateral breast reduction surgery H/O section H/O arthroscopy of left knee Status post debridement Family History Father Diabetes Mental health disorder Mother CVD (cardiovascular disease) Myocardial infarction Mental health disorder Brother Colon cancer Sister Lung cancer Social History Household Members: Spouse and Children Housing: House Are you a primary care coordinator to a significant other at home: No Do you presently have visiting nurse or other home services: No Alcohol intake: current Alcohol intake frequency: does not drink Comment: aware of trip hazards Patient Tobacco Use Status: Never used Tobacco e-Cigarette/Vaping Use: Never Used Second Hand Smoke Exposure: No service: No Current occupational status: disabled Cognitive needs: No Hearing needs: Yes Vision needs: Yes Female Reproductive History Menstrual Age of Menarche: 14 Review of Systems Const All systems reviewed & are unremarkable except as noted in HPI and below Physical Exam Vital Signs: Last Vital Signs Temp 97.7 F 12/29/24 09:56 Pulse 80 12/29/24 09:56 BP 128/74 12/29/24 09:56 Pulse Ox 97 12/29/24 09:56 Oxygen Delivery Method Room Air 12/29/24 09:56 BMI result Body Mass Index 41.5 Const General: cooperative and no acute distress Limitations: no limitations HEENT Head: Yes normal to inspection Ears: hearing grossly normal bilaterally General nose exam: Normal external nose present Face and sinus: Yes normal facial exam Neck Neck: Yes no lymphadenopathy Resp Effort & Inspection: normal respiratory effort, able to speak in complete sentences and Actively coughing Quality: dry Auscultation: wheezes upper bilaterally Cardio Rate: regular rate Rhythm: regular rhythm Skin General skin exam: no rashes or lesions noted Extrem General: Yes capillary refill normal and Yes no clubbing, cyanosis or edema Psych Appearance: grossly normal Mental Status: mental status grossly normal Speech and movement: Normal speech and movement present Assessment & Plan Assessment & Plan (1) Upper respiratory infection: Code(s): J06.9 - Acute upper respiratory infection, unspecified Plan: Ongoing symptoms despite completing course of augmentin. Will try Doxy BID 7 days. Reviewed this with patient. Also will prescribe benzonatate for her cough. Encouraged continued use of inhaler as needed. We reviewed indications, use, possible side effects of medications. She is aware to go to the emergency department if she develops any shortness of breath/fever or worsening symptoms. All questions were answered and patient verbalizes understanding and agrees to plan. Medications: New benzonatate 100 mg PO BID 7 days PRN 14 caps 0RF cough R05.9 - Cough, uns pecified doxycycline hyclate 100 mg PO BID 7 days 14 tabs 0RF J06.9 - Acute upper respiratory infection, unspecified Coding Level of Care Code Est Pt Level 4 (44864) Diagnoses Upper respiratory infection J06.9
--- OUTSIDE RECORDS SUMMARY | 2024-12-29 10:01 | XMS_ITS ---
Author Organization [facility] Address [address] [place] [address] Care Team Providers Care Elevator Service Mechanic Name Role Phone Jorge SIMMS, [place] Primary Care Provider Mickey Zayas Unavailable [phone] Allergies Allergen (clinical drug ingredient) Drug/Non Drug [...] Pregabalin 150 MG TAKE 1 CAPSULE BY [place] 3 TIMES A DAY Oral three [...] 11/01/2024 Encounters Encounter Location Date Provider Diagnosis [facility] [address] [place] [address] 11/01/2024 Mickey Kline Rectal bleeding K62.5 Assessments [...] * JESU WILKSDOB:[birth year] (64 yo F)Acc No.[id number]:11/01/2024 Progress Notes Patient:?JESU WILKS Provider:?Mickey Kline MD :1960???Age:64 Y???Sex:Female D ate:11/01/2024 Address:[address] [place], [place] [phone] Pcp:Obdulio Patel MD Subjective: * Chief Complaints: [...] Procedure Codes:?3017F COLOR ECTAL CA SCREEN DOC [id number] TOBACCO NON-DGKWH2322 BP SCR NOT PRFRM REC REASON NOS * Preventive Medicine:? ??Counseling:?Care goal follow-up plan:?Above Normal BMI Follow-up?Dietary management education, guidance, and counseling,?BMI management provided?Yes.? * Follow Up:?prn * * Sign off status: Completed true * Provider:?Mickey Kline MD Date:? 025 Generated for Dejah gates/Isiah/Springitting on:?12/29/2024 10:00 AM EDT
--- OUTSIDE RECORDS SUMMARY | 2024-12-29 10:01 | XMS_ITS | Patient Health Record ---
Author Organization [facility] Address [address] [place] [address] Care Team Providers Care Computer Systems Architect Name Role Phone Jorge SIMMS, [place] Primary Care Provider Mickey Zayas Unavailable [phone] Allergies Allergen (clinical drug ingredient) Drug/Non Drug [...] Pregabalin 150 MG TAKE 1 CAPSULE BY [facility] 3 TIMES A DAY Oral three [...] Status Risk Notes Problem Colon cancer screening (084431839) Colon cancer screening (Z12.11) Active confirmed Problem 113771477 Encounter for screening for malignant neoplasm of colon (Z12.11) Active confirmed Problem Diverticular disease of colon (460445316) Diverticulosis of large intestine without perforation or abscess without bleeding (K57.30) Active confirmed Problem Preprocedural examination (198673495123507) Preprocedural examination (Z01.818) Active confirmed Problem Microscopic colitis (268572837) Microscopic colitis (K52.89) Active confirmed Problem Gastroesophageal reflux disease (759726143) GERD (gastroesophageal reflux disease) (K21.9) Active confirmed Problem 416004159 Other microscopi c colitis (K52.838) Active confirmed Vital Signs Temperature 96.9 degrees Fahrenheit 11/01/2024 Blood pressure diastolic 01 mm Hg 11/01/2024 Height 62 in 11/01/2024 Blood pressure systolic 001 mm Hg 11/01/2024 Weight 220 lbs 11/01/2024 BMI 40.23 kg/m2 11/01/2024 Encounters Encounter Location Date Provider Diagnosis [facility] [address] [place] [phone] 11/01/2024 Mickey Kline Rectal bleeding K62.5 Assessments [...] Coverage Start Date Coverage End Date [facility] [address] [place], [place] [id number] JESU WILKS Self - patient is the insured 1 Medical (General) History Medical History History ICD Code Fibromyalgia GERD--EGD in October of 2008 w ith the finding of a small hiatal hernia, GERD, and gastritis--there was no evidence of any Clark's esophagus nor H. pylori. hypothroidism depression/anxiety arthritis all over her body Denies [place],DM,CVA,Lung disease,renal dise ase Vertigo IBS-had neg. celiac [...]
== END 2024-12-29 10:30 | disposition home or self-care (01) ==
PROVIDERS: PCP Internal Medicine; Visit Provider Nurse Practitioner Family
DX: J06.9 Acute upper respiratory infection, unspecified (principal)

== ENCOUNTER → 2024-12-29 09:40 | Outpatient (BNVA) | payer MEDICARE, SELFPAY | PROVIDERS: PCP Internal Medicine; Visit Provider Nurse Practitioner Family | DX: J06.9 Acute upper respiratory infection, unspecified (principal) | CPT/HCPCS: 99212 ==

== ENCOUNTER 2025-01-16 15:40 | Outpatient (AMB) | payer MEDICARE, SELFPAY ==
--- OUTSIDE RECORDS SUMMARY | 2025-01-16 15:42 | XMS_ITS ---
Author Organization [facility] Address [address] [place] [address] Care Team Providers Care Archery Equipment Repairer Name Role Phone Jorge SIMMS, [place] Primary Care Provider Mickey Zayas Unavailable [phone] Allergies Allergen (clinical drug ingredient) Drug/Non Drug [...] Pregabalin 150 MG TAKE 1 CAPSULE BY [place] [facility] 3 TIMES A DAY Oral three [...] 11/01/2024 Encounters Encounter Location Date Provider Diagnosis [facility] [address] [place] [address] 11/01/2024 Mickey Kline Rectal bleeding K62.5 Assessments [...] * JESU WILKSDOB:[birth year] (64 yo F)Acc No.[id number]:11/01/2024 Progress Notes Patient:?JESU WILKS Provider:?Mickey Kline MD :1960???Age:64 Y???Sex:Female D ate:11/01/2024 Address:[address] [place], [place] [phone] Pcp:Obdulio Patel MD Subjective: * Chief Complaints: [...] Procedure Codes:?3017F COLOR ECTAL CA SCREEN DOC [id number] TOBACCO NON-QIAYP6040 BP SCR NOT PRFRM REC REASON NOS * Preventive Medicine:? ??Counseling:?Care goal follow-up plan:?Above Normal BMI Follow-up?Dietary management education, guidance, and counseling,?BMI management provided?Yes.? * Follow Up:?prn * * Sign off status: Completed true * Provider:?Mickey Kline MD Date:? 025 Generated for Dejah gates/Isiah/Herber on:?01/16/2025 03:42 PM EDT
--- NOTE | 2025-01-16 15:54 | AM.OFFWIN_ITS ---
Intake Vital Signs 01/16/25 15:55 01/16/25 15:57 BP 126/80 Blood Pressure Location Lt brachial Position Sitting Pulse 77 78 Pulse Source Pulse Oximeter Pulse Oximeter Temp 97.5 F Temp Source Oral Pulse Oximetry (%) 95 95 Oxygen Delivery Method Room Air Room Air Intake Visit Reasons: EP SOB, chest pain, abd/rib pain Intake Note: Patient here for pain under right breast and very SOB. Patient Tobacco Use Status: Never used Tobacco Allergies fentanyl Adverse Reaction (Unknown, Verified 01/16/25 16:45) Nausea and Vomiting Do you need a note to return to daycare/school/sports/work: No HPI HPI Comments History of Present Illness Details 64 y/o female patient [facility] c/o Severe SOB and chest tightness since yesterday last night. She was able to go to the movies this afternoon - symptoms worsen after she walked out of the movie theater. Pt unable to complete sentences - assists with history taking. She has previously been seen, evaluated and treated here for Pneumonia. She was last seen 12/29 for SOB and chest tightness and prescribed Doxy - Chest Xray was negative for pneumonia (Showed resolution of previous infection). Pt continue to have cough, SOB and chest tightness. Denies any h/o COPD or Asthma. [facility] Medical History (Updated 01/16/25 @ 16:04 by Debra Bach NP) SOB (shortness of breath) Cerebellar ataxia Osteoarthritis of left knee OSMANI (obstructive sleep apnea) Morbid obesity with BMI of 40.0-44.9, adult ASCUS of cervix with negative high risk HPV Anemia Obesity (BMI 30-39.9) Depression Anxiety Primary insomnia Microscopic colitis GERD without esophagitis Fibromyalgia Acquired hypothyroidism Impaired fasting glucose Benign essential hypertension Pure hypercholesterolemia Vitamin D deficiency Hypothyroidism Hypoglycemia Bradycardia Infection at site of external fixator pin Overactive bladder Surgical History Status post total left knee replacement (~12/15/22) Hx of cystoscopy Hx of foot surgery Hx of foot surgery History of colonoscopy History of gastrointestinal tract bypass S/P ORIF (open reduction internal fixation) fracture History of hemorrhoidectomy Hx of bilateral breast reduction surgery H/O section H/O arthroscopy of left knee Status post debridement Family History Father Diabetes Mental health disorder Mother CVD (cardiovascular disease) Myocardial infarction Mental health disorder Brother Colon cancer Sister Lung cancer Social History Household Members: Spouse and Children Housing: House Are you a primary memory care program director to a significant other at home: No Do you presently have visiting nurse or other home services: No Alcohol intake: current Alcohol intake frequency: does not drink Alcohol type: beer and hard liquor Comment: aware of trip hazards Patient Tobacco Use Status: Never used Tobacco Smoked in Last 30 Days: No e-Cigarette/Vaping Use: Never Used Second Hand Smoke Exposure: No Use of substances other than those prescribed or required for medical reasons: No Patient : No service: No Current occupational status: disabled Cognitive needs: No Hearing needs: Yes Vision needs: Yes Female Reproductive History Menstrual Age of Menarche: 14 Review of Systems Const All systems reviewed & are unremarkable except as noted in HPI and below Physical Exam Vital Signs: Last Vital Signs Temp 97.5 F 01/16/25 15:55 Pulse 78 01/16/25 15:57 BP 126/80 01/16/25 15:55 Pulse Ox 95 01/16/25 15:57 Oxygen Delivery Method Room Air 01/16/25 15:57 Const General: in distress moderate and respiratory; No comfortable Nutritional Appearance: obese Orientation/consciousness: patient oriented x3 Resp Effort & Inspection: not able to speak in complete sentences, audible wheezes, Actively coughing and grunting Auscultation: no crackles, no rales, no rhonchi and wheezes Cardio Heart sounds: S1 normal heart sound present and S2 normal heart sound present Neuro General: patient oriented x3 Assessment & Plan Assessment & Plan (1) SOB (shortness of breath): Code(s): R06.02 - Shortness of breath Plan: Advised Pt to go to ED for further evaluation and treatment. Possible Pneumonia still present. to drive Patient to the ED. Coding Level of Care Code Est Pt Level 4 (72605) Diagnoses SOB (shortness of breath) R06.02 Time Spent (min) 20
[2025-01-16 15:55] VITALS: BP 126/80; PULSE 77; TEMP 36.4; O2SAT 95
[2025-01-16 15:57] VITALS: PULSE 78; O2SAT 95
--- NOTE | 2025-01-16 16:04 | MHC.OFFWIV ---
Intake Vital Signs 01/16/25 15:55 01/16/25 15:57 BP 126/80 Blood Pressure Location Lt brachial Position Sitting Pulse 77 78 Pulse Source Pulse Oximeter Pulse Oximeter Temp 97.5 F Temp Source Oral Pulse Oximetry (%) 95 95 Oxygen Delivery Method Room Air Room Air Intake Visit Reasons: EP SOB, chest pain, abd/rib pain Intake Note: Pt came in c/o right chest pain (sharp) and left upper quad/under left breast pain/disc after coming from the movies x today. Vs 95% on room air-78. Lungs -cta. Heart sounds - regular. Pt stated that she took all her medications this am. Pt ambulate (I) with a cane. JINNY (Debra Vance) and ELIDA (Sade) aware. Pt is roomed. Patient Tobacco Use Status: Never used Tobacco Allergies fentanyl Adverse Reaction (Unknown, Verified 01/16/25 16:45) Nausea and Vomiting PFSH Medical History (Updated 01/16/25 @ 16:04 by Debra Bach NP) SOB (shortness of breath) Cerebellar ataxia Osteoarthritis of left knee OSMANI (obstructive sleep apnea) Morbid obesity with BMI of 40.0-44.9, adult ASCUS of cervix with negative high risk HPV Anemia Obesity (BMI 30-39.9) Depression Anxiety Primary insomnia Microscopic colitis GERD without esophagitis Fibromyalgia Acquired hypothyroidism Impaired fasting glucose Benign essential hypertension Pure hypercholesterolemia Vitamin D deficiency Hypothyroidism Hypoglycemia Bradycardia Infection at site of external fixator pin Overactive bladder Surgical History Status post total left knee replacement (~12/15/22) Hx of cystoscopy Hx of foot surgery Hx of foot surgery History of colonoscopy History of gastrointestinal tract bypass S/P ORIF (open reduction internal fixation) fracture History of hemorrhoidectomy Hx of bilateral breast reduction surgery H/O section H/O arthroscopy of left knee Status post debridement Family History Father Diabetes Mental health disorder Mother CVD (cardiovascular disease) Myocardial infarction Mental health disorder Brother Colon cancer Sister Lung cancer Social History Household Members: Spouse and Children Housing: House Are you a primary patient care specialist to a significant other at home: No Do you presently have visiting nurse or other home services: No Alcohol intake: current Alcohol intake frequency: does not drink Alcohol type: beer and hard liquor Comment: aware of trip hazards Patient Tobacco Use Status: Never used Tobacco Smoked in Last 30 Days: No e-Cigarette/Vaping Use: Never Used Second Hand Smoke Exposure: No Use of substances other than those prescribed or required for medical reasons: No Advance Directives: No Advance Directives Information Provided: Yes Patient : No service: No Current occupational status: disabled Cognitive needs: No Hearing needs: Yes Vision needs: Yes Female Reproductive History Menstrual Age of Menarche: 14 Physical Exam Vital Signs: Last Vital Signs Temp 97.5 F 01/16/25 15:55 Pulse 78 01/16/25 15:57 BP 126/80 01/16/25 15:55 Pulse Ox 95 01/16/25 15:57 Oxygen Delivery Method Room Air 01/16/25 15:57 Coding
== END 2025-01-16 16:18 | disposition home or self-care (01) ==
PROVIDERS: PCP Internal Medicine; Visit Provider Nurse Practitioner Family
DX: R06.02 Shortness of breath (principal)

== ENCOUNTER → 2025-01-16 15:40 | Outpatient (BNVA) | payer MEDICARE, SELFPAY | PROVIDERS: PCP Internal Medicine; Visit Provider Nurse Practitioner Family | DX: R06.02 Shortness of breath (principal) | CPT/HCPCS: 99212 ==

== ENCOUNTER 2025-01-16 16:32 | Emergency (ER) | payer MEDICARE, SELFPAY ==
[2025-01-16] VITALS (7 sets, daily range): BP systolic 98–121; BP diastolic 41–54; PULSE 58–70; RESP 16–24; TEMP 36.5–36.8; O2SAT 92–97; BMI 45.8
--- NOTE | ~2025-01-16 | CT_ITS ---
CLINICAL HISTORY: dyspnea, SANTILLAN. question resolved R pna CTA angiography chest using bolus contrast injection. 3-D postprocessing Comparison: Findings: Normal thoracic aorta and branch vessels Heart size is enlarged. RV/LV ratio normal. Pulmonary artery diameter is normal. Trachea and esophagus are unremarkable. Pulmonary vasculature is prominent and there is diffuse bilateral interstitial and mild alveolar pulmonary edema. There is posterior left lower lobe consolidation and atelectasis. No pleural effusion. Below the diaphragm visualized portions of liver and spleen are unremarkable. There has been prior gastric surgery. A 3.3 cm hiatal hernia is present. No acute fractures Impression: Normal CTA angiography of the aorta. Negative for pulmonary embolus. Pulmonary vascular congestion and interstitial and alveolar pulmonary edema. Posterior left lower lobe consolidation consistent with acute alveolar infection. Hiatal hernia with gastric fluid reflux to above the midesophagus This document has been electronically signed by: Kevin Parsons MD on 01/16/2025 20:21:42
--- NOTE | ~2025-01-16 | XR_ITS ---
CLINICAL HISTORY: sob --- Additional Notes or Special Instructions: Breathing Treatment 1710 2. view chest x-ray. Comparison: Same day CT chest Findings: Heart size is enlarged. Pulmonary vasculature is prominent. There is mild bilateral interstitial pulmonary edema. There is a small retrocardiac sliding hiatal hernia. No acute fracture. Impression: 1. Cardiomegaly with mild diffuse interstitial pulmonary edema. 2. Retrocardiac atelectasis/consolidation. This document has been electronically signed by: Kevin Parsons MD on 01/16/2025 18:50:11
--- NOTE | 2025-01-16 16:34 | ECG_ITS ---
Test Reason : CHEST PAIN Blood Pressure : */* mmHG Vent. Rate : 62 BPM Atrial Rate : 62 BPM P-R Int : 182 ms QRS Dur : 78 ms QT Int : 424 ms P-R-T Axes : 61 12 43 degrees QTcB Int : 430 ms Normal sinus rhythm Nonspecific ST and T wave abnormality Abnormal ECG When compared with ECG of 25-Aug-2023 17:01, Nonspecific T wave abnormality now evident in Lateral leads Referred By: Ashlee Neri Electronically Signed By: CATHY ROBLEDO MD
--- NOTE | 2025-01-16 16:44 | ED.SOB ---
HPI - SOB/Dyspnea General Chief Complaint: Dyspnea Stated Complaint: SOB/R side Chest pain Time Seen by Provider: 01/16/25 16:57 Related Data Home Medications ?Medication ?Instructions ?Recorded ?Confirmed cholecalciferol (vitamin D3) 50 50 mcg PO DAILY 05/23/20 11/09/24 mcg (2,000 unit) capsule lamotrigine 25 mg tablet 50 mg PO DAILY 03/07/24 11/09/24 Previous Rx's ?Medication ?Instructions ?Recorded ferrous sulfate 325 mg (65 mg 325 mg PO DAILY #90 tabs 11/25/21 iron) tablet LIGHTWEIGHT CANE #1 ea 06/15/22 docusate sodium 100 mg capsule 100 mg PO BID 30 days #60 caps 12/17/22 acetaminophen 325 mg tablet 650 mg (2 x 325 mg) PO Q6H PRN 09/23/23 Pain, Mild (Pain Scale 1-3) #60 tabs omeprazole 40 mg capsule,delayed 40 mg PO DAILY #90 caps 04/05/24 release lisinopril 10 mg tablet 10 mg PO DAILY 90 days #90 tabs 06/13/24 oxybutynin chloride 10 mg 10 mg PO DAILY #90 tabs 06/15/24 tablet,extended release 24 hr levothyroxine 150 mcg tablet 150 mcg PO DAILY #90 tabs 07/03/24 sertraline 100 mg tablet 200 mg (2 x 100 mg) PO DAILY 90 10/20/24 days #180 tabs tizanidine 4 mg tablet 4 mg PO Q8H PRN muscle spasms 10 10/24/24 days #30 tabs acarbose 50 mg tablet 50 mg PO TID #270 tabs 11/03/24 pregabalin 150 mg capsule 150 mg PO TID 30 days #90 caps 11/09/24 scopolamine base 1 mg over 3 days 1 patch transdermal Q3D PRN nausea 11/09/24 transdermal patch (Transderm-Scop) and vomiting/motion sickness #10 ea mirtazapine 15 mg tablet 15 mg PO BEDTIME 30 days #30 tabs 11/20/24 lorazepam 0.5 mg tablet 0.5 mg PO BID PRN anxiety 30 days 12/18/24 #60 tabs albuterol sulfate 90 mcg/actuation 2 puff inhalation Q6H PRN 12/22/24 aerosol inhaler shortness of breath or wheezing or cough #8.5 grams atorvastatin 40 mg tablet 40 mg PO DAILY #90 tabs 12/22/24 benzonatate 100 mg capsule 100 mg PO BID PRN cough 7 days #14 12/29/24 caps doxycycline hyclate 100 mg tablet 100 mg PO BID 7 days #14 tabs 12/29/24 albuterol sulfate 90 mcg/actuation 2 puff inhalation Q6H PRN 01/16/25 aerosol inhaler shortness of breath or wheezing #8.5 grams levofloxacin 750 mg tablet 750 mg PO DAILY #10 tabs 01/16/25 prednisone 20 mg tablet 60 mg (3 x 20 mg) PO DAILY 4 days 01/16/25 #12 tabs Allergies Allergy/AdvReac Type Severity Reaction Status Date / Time fentanyl AdvReac Unknown Nausea and Verified 01/16/25 16:45 Vomiting PENDING SALE TO [facility] Past Medical History Medical History (Updated 01/17/25 @ 00:02 by Victor Manuel Ceron) SOB (shortness of breath) Cerebellar ataxia Osteoarthritis of left knee OSMANI (obstructive sleep apnea) Morbid obesity with BMI of 40.0-44.9, adult ASCUS of cervix with negative high risk HPV Anemia Obesity (BMI 30-39.9) Depression Anxiety Primary insomnia Microscopic colitis GERD without esophagitis Fibromyalgia Acquired hypothyroidism Impaired fasting glucose Benign essential hypertension Pure hypercholesterolemia Vitamin D deficiency Hypothyroidism Hypoglycemia Bradycardia Infection at site of external fixator pin Overactive bladder Surgical History Status post total left knee replacement (~12/15/22) Hx of cystoscopy Hx of foot surgery Hx of foot surgery History of colonoscopy History of gastrointestinal tract bypass S/P ORIF (open reduction internal fixation) fracture History of hemorrhoidectomy Hx of bilateral breast reduction surgery H/O section H/O arthroscopy of left knee Status post debridement Family History Family History Father Diabetes Mental health disorder Mother CVD (cardiovascular disease) Myocardial infarction Mental health disorder Brother Colon cancer Sister Lung cancer Social History Social History Household Members: Spouse and Children Housing: House Are you a primary child care to a significant other at home: No Do you presently have visiting nurse or other home services: No Alcohol intake: current Alcohol intake frequency: does not drink Alcohol type: beer and hard liquor Comment: aware of trip hazards Patient Tobacco Use Status: Never used Tobacco Smoked in Last 30 Days: No e-Cigarette/Vaping Use: Never Used Second Hand Smoke Exposure: No Use of substances other than those prescribed or required for medical reasons: No Advance Directives: No Advance Directives Information Provided: Yes Patient : No service: No Current occupational status: disabled Cognitive needs: No Hearing needs: Yes Vision needs: Yes Physical Exam Vital Signs: Vital Signs: Last Vital Signs Temp 98.1 F 01/16/25 21:15 Pulse 58 01/16/25 21:15 Resp 20 01/16/25 21:15 BP 118/52 L 01/16/25 21:15 Pulse Ox 95 01/16/25 21:15 O2 Del Method Room Air 01/16/25 21:15 BMI result Body Mass Index 45.8 Course Course Course Narrative: This is a Rapid Medical Exam performed in triage by Ashlee Neri PA-C. Full HPI, ROS and PE to be performed by primary ED provider. 64 yo F w/pmhx OSMANI, anemia, cerebellar ataxia, anemia, hypothyroid, HTN, presenting to the ED c/o SOB w/wheezing & b/l upper abdominal/lower rib pain x last night. Rib pain worse with deep breathing. Admits had PNA about 1mos ago after a cruise, finished multiple Abx, had very swollen legs after/during cruise. reports bilateral LE swelling. PE: Tachypneic, talking in short sentences, diffuse expiratory wheeze and diminished lung sounds throughout. Plan: EKG, labs, SARs, CXR Medications Administered Discontinued Medications Generic Name Dose Route Start Last Admin Trade Name Freq PRN Reason Stop Dose Admin Albuterol Sulfate 2.5 mg/ 0 mg 01/16/25 17:05 01/16/25 17:08 Albuterol/Ipratropium 3 ml INHALE 01/16/25 17:06 1 dose ONCE ONE Administration Iohexol 75 ml 01/16/25 18:43 01/16/25 18:44 Iohexol 350 Mg/Ml 100 Ml Infus..Btl IV 01/16/25 18:44 75 ml ONCE ONE Administration Levofloxacin 750 mg 01/16/25 20:55 01/16/25 21:18 Levofloxacin 750 Mg Tablet PO 01/16/25 20:56 750 mg ONCE ONE Administration Methylprednisolone Sodium Succinate 80 mg 01/16/25 17:56 01/16/25 18:15 Methylprednisolone Sod Succ 125 Mg Vial IVPUSH 01/16/25 17:57 80 mg ONCE ONE Administration Medical Decision Making Medical Decision Making [facility] Narrative: 64-year-old female with dyspnea. Recent right lobe pneumonia with x-ray radiographic resolution still dyspneic however with abrupt dyspnea on leaving the movie theater this afternoon no associated chest pain. She has cerebellar ataxia another neurologic issues but no known pulmonary disease per her. She is a nonsmoker. She is not hypoxic or ill but was wheezing on arrival on respiratory therapist gave her albuterol treatment. She has never on supplemental oxygen. Patient has no history of DVT nor any clinical suggestion of DVT. She had scant expiratory only bilateral wheezing but no distress no pursed lip breathing no crackles. ECG nonischemic see interpretation below Lab Data [facility] Lab Attestation statement: I reviewed the patient's lab results. 01/16/25 17:17 01/16/25 17:17 Labs: Lab Results 01/16/25 01/16/25 Range/Units 17:17 17:30 WBC 7.1 (4.8-10.8) X10*3/uL RBC 4.04 L (4.20-5.50) X10*6/uL Hgb 10.8 L (12.0-16.0) g/dl Hct 34.1 L (37.0-47.0) % MCV 84.4 (80.0-98.0) fL MCH 26.7 L (27.0-33.0) pg MCHC 31.7 (31.0-35.0) g/dl RDW 15.3 (11.0-16.0) % Plt Count 175 (160-400) X10*3/uL MPV 10.6 (9.4-12.3) fL Immature Gran % (Auto) 0.3 (0.0-0.4) % Neut % (Auto) 62.5 (45-73) % Lymph % (Auto) 25.0 (20-40) % Frederick % (Auto) 7.8 (2-11) % Eos % (Auto) 4.1 H (0-4) % Baso % (Auto) 0.3 (0-2) % Lymph # (Auto) 1.8 (1.2-4.9) X10*3/uL Frederick # (Auto) 0.6 (0.1-1.2) X10*3/uL Eos # (Auto) 0.3 (0.0-0.4) X10*3/uL Baso # (Auto) 0.0 (0.0-0.2) X10*3/uL Abs Immat Gran (auto) 0.02 (0.00-0.03) X10*3/uL Absolute Neuts (auto) 4.4 (2.0-8.3) x10*3/uL Absolute Nucleated RBC 0.000 (0.0-0.012) X10*3/uL Nucleated RBC % (auto) 0.0 (0.0-0.2) /100WBC PT 11.3 (10.9-12.4) SEC INR 1.0 (0.9-1.1) O2 Saturation 90.0 % ABG pH at Pt Temp 7.43 (7.35-7.45) ABG pCO2 at Pt Temp 39 (32-45) mmHg ABG pO2 at Pt Temp 63 L (83-108) mmHg ABG HCO3 26 (22-26) mmol/L ABG Base Excess (Actual) 2.1 mmol/L Sodium 141 (135-145) mmol/L Potassium 4.0 (3.3-5.1) mmol/L Chloride 110 H (96-108) mmol/L Carbon Dioxide 24 (22-29) mmol/L Anion Gap 11 L (12-20) BUN 19 H (9-16) mg/dL Creatinine 0.80 (0.5-1.4) mg/dL Estim Creat Clear Calc 80.4 Estimated GFR > 60 Random Glucose 92 (60-115) mg/dL Calcium 8.4 D (8.4-10.2) mg/dL Magnesium 1.9 (1.6-2.6) mg/dL Total Bilirubin 0.2 (0.0-1.0) mg/dL Direct Bilirubin < 0.2 (0.0-0.5) mg/dL AST 36 H (5-31) U/L ALT 36 H (0-31) U/L Alkaline Phosphatase 124 H (39-117) U/L Troponin I High Sens < 2.7 (<3.5-17.0) ng/L B-Natriuretic Peptide 21 (<100) pg/mL Total Protein 6.6 (6.5-8.0) g/dL Albumin 3.6 (3.5-5.0) g/dL Influenza Type A (PCR) NEGATIVE (Negative) Influenza Type B (PCR) NEGATIVE (Negative) RSV RNA Qual (PCR) NEGATIVE (Negative) SARS-CoV-2 RNA (RT-PCR) NEGATIVE (Negative) ABG Data ABG Results: No respiratory acidosis or CO2 retention Attestation ABG: I personally reviewed and interpreted this ABG as follows: Independent Interpretation I performed an independent interpretation of an: EKG (Sinus rhythm no acute ischemic changes normal intervals and axis) Chronic Conditions Patient?s care impacted by: Other (Chronic debilitating neurologic condition, cerebellar ataxia) Procedures Procedure Narrative Procedure Narrative: EMERGENCY ULTRASOUND INTERPRETATION-Limited Echocardiography [This study was ordered, performed, and interpreted by myself. The study reveals: Impression: NORMAL LV FUNCTION, NO RV DYSFUNCTION, NO PERICARDIAL EFFUSION] [Emergent Cardiac for Indication: Views Used: PLAX, PSSA, A4, Pericardial Effusion/Tamponade Findings: NONE RV Dilation (> LV diam in 4ch apical): NONE Global LV Fxn: NORMAL IVC Dilation and Resp Variation: NORMAL Performed by: MD Debra Images were stored CPT:53045] Discharge Plan Discharge Clinical Impression: Pneumonia Qualifiers: Pneumonia type: due to unspecified organism Laterality: right Lung location: unspecified part of lung Qualified Code(s): J18.9 - Pneumonia, unspecified organism Patient Disposition: Home, Self-Care Instructions: Community Acquired Pneumonia (DC) Additional Instructions: DISCHARGE DIAGNOSES: Shortness of breath, wheezing recurrent pneumonia now in the left lower lobe Blood clot/pulmonary embolism has been excluded by CT scan HISTORY OF PRESENTATION: Wheezing shortness of breath EMERGENCY DEPARTMENT COURSE,TESTS, TREATMENTS: While in the ED today you received inhaled albuterol, IV steroid medication and a 1st dose of oral antibiotic for pneumonia, recurrence. CT was done which excluded blood clot in the lung. Bedside echo was performed which showed no fluid around your heart or overt signs of failing of the heart muscle DISCHARGE MEDICATIONS: ?[We have made no changes to your regular medication regimen] we have added an albuterol pump as needed with a spacer as we discussed. Oral steroids for several days and another antibiotic course FOLLOW-UP: ?Call your primary or general physician soon as possible to discuss your symptoms, your ED visit and to discuss follow up plans Call your primary doctor as soon as possible preferably tomorrow 1st thing in the morning discuss your symptoms ER workup we would like you to be seen within 3-5 days to evaluate your breathing INSTRUCTIONS ?& RETURN PRECAUTIONS: If any symptoms change first call your primary physician, if it is after-hours your primary doctors office should have a provider javascript front end developer you can speak with. If the symptoms are severe or very concerning to you then call 911 or return to the ED. Return for chest pain severe difficulty breathing coughing up blood swelling in your legs or other severe signs as we discussed Matt Richardson MD Emergency Physician [facility] Prescriptions: New levofloxacin 750 mg tablet 750 mg PO DAILY Qty: 10 0RF albuterol sulfate 90 mcg/actuation HFA aerosol inhaler 2 puff inhalation Q6H PRN (Reason: shortness of breath or wheezing) Qty: 8.5 0RF prednisone 20 mg tablet 60 mg PO DAILY 4 Days Qty: 12 0RF No Action ferrous sulfate 325 mg (65 mg iron) tablet 325 mg PO DAILY Qty: 90 1RF omeprazole 40 mg capsule,delayed release(DR/EC) 40 mg PO DAILY Qty: 90 3RF lisinopril 10 mg tablet 10 mg PO DAILY 90 Days Qty: 90 3RF levothyroxine 150 mcg tablet 150 mcg PO DAILY Qty: 90 3RF sertraline 100 mg tablet 200 mg PO DAILY 90 Days Qty: 180 1RF tizanidine 4 mg tablet 4 mg PO Q8H PRN (Reason: muscle spasms) 10 Days Qty: 30 3RF acarbose 50 mg tablet 50 mg PO TID Qty: 270 11RF mirtazapine 15 mg tablet 15 mg PO BEDTIME 30 Days Qty: 30 3RF lorazepam 0.5 mg tablet 0.5 mg PO BID PRN (Reason: anxiety) 30 Days Qty: 60 0RF atorvastatin 40 mg tablet 40 mg PO DAILY Qty: 90 1RF docusate sodium 100 mg Capsule 100 mg PO BID 30 Days Qty: 60 0RF (DME) LIGHTWEIGHT CANE See Rx Instructions .Route .MEDSUPPLY Qty: 1 0RF Rx Instructions: As directed acetaminophen 325 mg tablet 650 mg PO Q6H PRN (Reason: Pain, Mild (Pain Scale 1-3)) Qty: 60 0RF cholecalciferol (vitamin D3) 50 mcg (2,000 unit) capsule 50 mcg PO DAILY lamotrigine 25 mg tablet 50 mg PO DAILY doxycycline hyclate 100 mg tablet 100 mg PO BID 7 Days Qty: 14 0RF benzonatate 100 mg capsule 100 mg PO BID PRN (Reason: cough) 7 Days Qty: 14 0RF oxybutynin chloride 10 mg tablet extended release 24hr 10 mg PO DAILY Qty: 90 3RF pregabalin 150 mg capsule 150 mg PO TID 30 Days Qty: 90 1RF scopolamine base [Transderm-Scop] 1 mg over 3 days patch 3 day 1 patch transdermal Q3D PRN (Reason: nausea and vomiting/motion sickness) Qty: 10 0RF albuterol sulfate 90 mcg/actuation HFA aerosol inhaler 2 puff inhalation Q6H PRN (Reason: shortness of breath or wheezing or cough) Qty: 8.5 0RF Interventions: ED Discharge Assessment Last Done: 01/16/25 21:15 Discharge Date/Time: 01/16/25 21:28 Print Language: Upper Sorbian
--- NOTE | 2025-01-16 16:58 | PC.NURSE ---
Patient presents to Ed c/o SOB. O2 97% RA RR 20 lung sounds clear. Patient states this started around 12/17 when she got PNA. Completed ABT regimen but symptoms persisted, her provider prescribed doxycycline and she completed that regimen. Patient also c/o of lower abdomen pain rated 7/10, patient c/o dysuria which started a couple days ago, patient has hx of UTI. Denies fevers, Denies n/v, Patient did go to [facility] in November. VSS and up to date. Plan of care on going
[2025-01-16] MEDS: Albuterol Sulfate 2.5 MG, Albuterol/Iprat 2.5/0.5MG 3 ML 3 ML INHALE (17:08)
[2025-01-16 17:24] LABS: MANUAL DIFF FLAG NO
[2025-01-16 17:35] LABS: ABG Base Excess 2.1 mmol/L; ABG HCO3 26 mmol/L (22-26); ABG pCO2 39 mmHg (32-45); ABG pH 7.43 (7.35-7.45); ABG pO2 63 mmHg (83-108)
[2025-01-16 17:44] LABS: Albumin Level 3.6 g/dL (3.5-5.0); Alkaline Phosphatase 124 U/L (39-117); Anion Gap 11 (12-20); Aspartate Amino Transferase 36 U/L (5-31); Basophils Percent Auto 0.3 % (0-2); Bilirubin Direct < 0.2 mg/dL (0.0-0.5); Bilirubin Total 0.2 mg/dL (0.0-1.0); Blood Urea Nitrogen 19 mg/dL (9-16); Calcium 8.4 mg/dL (8.4-10.2); Carbon Dioxide 24 mmol/L (22-29); Chloride 110 mmol/L (96-108); Creatinine Clr Calc Pharmacy 80.4; Eosinophils Absolute Auto 0.3 X10*3/uL (0.0-0.4); Eosinophils Percent Auto 4.1 % (0-4); Estimated Glomerular Filt Rate > 60; Glucose Random 92 mg/dL (60-115); Hematocrit 34.1 % (37.0-47.0); Hemoglobin 10.8 g/dl (12.0-16.0); Imm Gran Abs Auto 0.02 X10*3/uL (0.00-0.03); Imm Gran Pct Auto 0.3 % (0.0-0.4); Lymphocytes Absolute Auto 1.8 X10*3/uL (1.2-4.9); Magnesium 1.9 mg/dL (1.6-2.6); Mean Corpuscular HGB Conc 31.7 g/dl (31.0-35.0); Mean Corpuscular Hemoglobin 26.7 pg (27.0-33.0); Mean Corpuscular Volume 84.4 fL (80.0-98.0); Mean Platelet Volume 10.6 fL (9.4-12.3); Monocytes Absolute Auto 0.6 X10*3/uL (0.1-1.2); Monocytes Percent Auto 7.8 % (2-11); Neutrophils Absolute Auto 4.4 x10*3/uL (2.0-8.3); Neutrophils Percent Auto 62.5 % (45-73); Platelet Count 175 X10*3/uL (160-400); Red Blood Count 4.04 X10*6/uL (4.20-5.50); Red Cell Distribution Width 15.3 % (11.0-16.0); Sodium 141 mmol/L (135-145); Total Protein 6.6 g/dL (6.5-8.0); White Blood Count 7.1 X10*3/uL (4.8-10.8)
[2025-01-16 17:50] LABS: B Type Natriuretic Peptide 21 pg/mL (<100); Troponin-I High Sensitivity < 2.7 ng/L (<3.5-17.0)
[2025-01-16 17:58] LABS: Alanine Aminotransferase 36 U/L (0-31)
[2025-01-16 18:12] LABS: Influenza A PCR NEGATIVE (Negative); Influenza B PCR NEGATIVE (Negative); Resp Syncy Virus RNA Qual PCR NEGATIVE (Negative); SARS COV2 PCR INHOUSE NEGATIVE (Negative)
[2025-01-16 18:14] LABS: Prothrombin Time 11.3 SEC (10.9-12.4)
--- NOTE | 2025-01-16 18:22 | PC.NURSE ---
EKG results NSR, CXR complete, results pending
[2025-01-16] MEDS: iohexoL 350 MG/ML 100 ML INFUS..BTL 75 ML IV (18:44)
[2025-01-16] MEDS: levoFLOXacin 750 MG TABLET PO (21:18)
[2025-01-16 21:20] LABS: ABG Refer to POC result
== END 2025-01-16 21:28 | disposition home or self-care (01) ==
PROVIDERS: Physician Assistant; Emergency Provider Emergency Medicine; PCP Internal Medicine
DX: J18.9 Pneumonia, unspecified organism (principal); R06.02 Shortness of breath; R07.89 Other chest pain; Z79.899 Other long term (current) drug therapy; Z03.818 Encounter for observation for suspected exposure to other biological agents ruled out
CPT/HCPCS: 0241U; 36415; 71046; 71275; 80048; 80076; 82803; 83735; 83880; 84484; 85025; 85610; 93005; 94640; 96374; 99212; 99284; 99285; J2919; Q9967

== ENCOUNTER → 2025-01-16 16:34 | Outpatient (BNV) | payer MEDICARE, SELFPAY | PROVIDERS: Emergency Provider Emergency Medicine; PCP Internal Medicine; Visit Provider Internal Medicine Cardiovascular Disease | DX: R94.31 Abnormal electrocardiogram [ECG] [EKG] (principal); R07.9 Chest pain, unspecified | CPT/HCPCS: 93010 ==

== ENCOUNTER → 2025-01-16 16:48 | Outpatient (BNV) | payer MEDICARE, SELFPAY | PROVIDERS: Emergency Provider Emergency Medicine; PCP Internal Medicine; Visit Provider Radiology Diagnostic Radiology | DX: J81.0 Acute pulmonary edema (principal); K44.9 Diaphragmatic hernia without obstruction or gangrene; I51.7 Cardiomegaly | CPT/HCPCS: 71046; 71275 ==

== ENCOUNTER 2025-01-25 08:45 | Outpatient (AMB) | payer MEDICARE, SELFPAY ==
--- NOTE | 2025-01-25 09:05 | A.OFFPC_ITS ---
Vital Signs 01/25/25 09:06 Weight 232 lb BP 100/60 Blood Pressure Location Lt brachial Position Sitting Pulse 81 Pulse Source Pulse Oximeter Pulse Oximetry (%) 98 Oxygen Delivery Method Room Air Intake Visit Reasons: follow up ER visit [facility] Supervisor Loading Required: No Accompanied by: Spouse Allergies fentanyl Adverse Reaction (Unknown, Verified 01/25/25 09:13) Nausea and Vomiting Medication List - Last Reconciled 01/25/25 by Marcela Flores PA-C acarbose 50 mg PO TID acetaminophen 650 mg (2 x 325 mg) PO Q6H PRN atorvastatin 40 mg PO DAILY cholecalciferol (vitamin D3) 50 mcg PO DAILY docusate sodium 100 mg PO BID 30 days doxycycline hyclate 100 mg PO BID 7 days ferrous sulfate 325 mg PO DAILY levothyroxine 150 mcg PO DAILY [LIGHTWEIGHT CANE As directed] lisinopril 10 mg PO DAILY 90 days lorazepam 0.5 mg PO BID PRN 30 days mirtazapine 15 mg PO BEDTIME 30 days omeprazole 40 mg PO DAILY oxybutynin chloride ER 10 mg PO DAILY pregabalin 150 mg PO TID 30 days scopolamine base (Transderm-Scop) 1 patch transdermal Q3D PRN sertraline 200 mg (2 x 100 mg) PO DAILY 90 days Tobacco use date assessed: 01/25/25 Dental Screening Dental Screen Date: 01/25/25 Did you have a dental visit in the last 12 months?: Yes Did you have a dental problem in the last 6 months where you did not have access to dental care?: No Was dental information given to patient?: Patient has dentist HPI follow up ER visit [facility] HPI Details 64-year-old female with past medical his tory of fibromyalgia, overactive bladder, hypothyroidism, hypercholesterolemia, hypertension, impaired glucose tolerance, GERD, depression, obesity last seen by Dr. Patel 10/2024 coming in for hospital discharge follow up. In review of the notes, patient was seen in [facility] ED 01/16/2025 for shortness of breath and right-sided chest pain patient was diagnosed with pneumonia given steroids, levofloxacin and albuterol inhaler to be used and follow up with PCP. She experienced initial symptoms post-cruise, starting around 12/16, leading to a diagnosis of pneumonia. After completing an initial antibiotic regimen without adequate resolution, a second round was prescribed. Symptom escalation included severe dyspnea, requiring emergency care when pneumonia transitioned from one lung to the other. An intervention with steroids, continued antibiotics, and a bronchodilator was undertaken. Improvement is noted, but symptoms of fatigue persist which she links to her 's recent hospitalization. The patient is adjusting to activities slowly, with better morale and stamina. Monitoring of symptom progression was addressed, focusing on completing the current antibiotic regimen and further diagnostic imaging. A follow-up chest x-ray was planned post-symptom resolution to ensure complications such as fluid buildup are absent. COUNTS INCLUDE 234 BEDS AT THE [facility] Medical History SOB (shortness of breath) Cerebellar ataxia Osteoarthritis of left knee OSMANI (obstructive sleep apnea) Morbid obesity with BMI of 40.0-44.9, adult ASCUS of cervix with negative high risk HPV Anemia Obesity (BMI 30-39.9) Depression Anxiety Primary insomnia Microscopic colitis GERD without esophagitis Fibromyalgia Acquired hypothyroidism Impaired fasting glucose Benign essential hypertension Pure hypercholesterolemia Vitamin D deficiency Hypothyroidism Hypoglycemia Bradycardia Infection at site of external fixator pin Overactive bladder Surgical History Status post total left knee replacement (~12/15/22) Hx of cystoscopy Hx of foot surgery Hx of foot surgery History of colonoscopy History of gastrointestinal tract bypass S/P ORIF (open reduction internal fixation) fracture History of hemorrhoidectomy Hx of bilateral breast reduction surgery H/O section H/O arthroscopy of left knee Status post debridement Family History Father Diabetes Mental health disorder Mother CVD (cardiovascular disease) Myocardial infarction Mental health disorder Brother Colon cancer Sister Lung cancer Social History Household Members: Spouse and Children Housing: House Are you a primary rn complex care to a significant other at home: No Do you presently have visiting nurse or other home services: No Alcohol intake: current Alcohol intake frequency: does not drink Alcohol type: beer and hard liquor Comment: aware of trip hazards Patient Tobacco Use Status: Never used Tobacco e-Cigarette/Vaping Use: Never Used Second Hand Smoke Exposure: No service: No Current occupational status: disabled Cognitive needs: No Hearing needs: Yes Vision needs: Yes Female Reproductive History Menstrual Age of Menarche: 14 Questionnaire PHQ-9 Over the last 2 weeks, how often have you been bothered by any of the following problems? 1. Little interest or pleasure in doing things: not at all 2. Feeling down, depressed, or hopeless: not at all 3. Trouble falling or staying asleep, or sleeping too much: not at all 4. Feeling tired or having little energy: not at all 5. Poor appetite or overeating: not at all 6. Feeling bad about yourself - or that you are a failure or have let yourself or your family down: not at all 7. Trouble concentrating on things, such as reading the newspaper or watching television: not at all 8. Moving or speaking so slowly that other people could have noticed. Or the opposite - being so fidgety or restless that you have been moving around a lot more than usual: not at all 9. Thoughts that you would be better off or of hurting yourself in some way: not at all Total score: 0 Depression Screening Interpretation: Negative Depression Screening Done: Yes Source: Developed by Drs. Mickey Arce, Paige Barton, Luis A Hull and colleagues, with an educational roger from [email or web address]. Thrive Questionnaire Date Thrive assessed: 01/25/25 I am a: Patient What is your living situation today?: I have a steady place to live Within the past 12 months, did the food you bought not last and you didn't have the money to get more?: Never true Within the past 12 months, did you worry whether your food would run out before you got money to buy more?: Never true Do you have trouble paying for medicines?: Yes Do you have trouble getting transportation to medical appointments?: Yes Do you have trouble paying your heating and electricity bill?: Yes Do you have trouble taking care of your child, family member or friend?: No Do you have trouble with day-to-day activities such as bathing, preparing meals, shopping, managing finances, etc.?: No Are you currently unemployed and looking for a job?: I choose not to answer this question Are you interested in more education?: No Please select the resources that you would like help with: None Currently or been in a relationship where the following occur: No concerns reported THRIVE Score: 2 AUDIT C Alcohol Use Questionnaire (AUDIT-C) 1. How often do you have a drink containing alcohol?: Monthly or less 2. How many drinks containing alcohol do you have on a typical day when you are drinking?: 1 or 2 3. How often do you have six or more drinks on one occasion?: Never Total Score: 1 EVANGELINA-7 AMB Questionnaire EVANGELINA-7 Date EVANGELINA - 7 assessed: 01/25/25 Feeling nervous, anxious, or on edge: 1 = Several days Not being able to stop or control worryin = Not at all Worrying too much about different things: 0 = Not at all Trouble relaxin = Not at all Being so restless that it is hard to sit still: 0 = Not at all Becoming easily annoyed or irritable: 0 = Not at all Feeling afraid as if something awful might happen: 0 = Not at all Total EVANGELINA-7 score (0-4 normal; 5-9 mild; 10-14 moderate; 15-21 severe): 1 Source: Developed by Drs. Mickey Arce, Paige Barton, Luis A Hull and colleagues, with an educational roger from [email or web address]. Review of Systems Const Denies body aches, Denies chills, Denies fever(s), Denies headache(s) and Denies poor appetite Eyes Reports no additional complaints ENT Denies dysphagia, Denies dizziness, Denies headache(s) and Denies odynophagia Card Denies chest pain, Denies syncope, Denies edema, Denies irregular heart rhythm, Denies lightheadedness and Denies dyspnea Resp Denies cough and Denies dyspnea GI Denies abdominal pain, Denies constipation, Denies dysphagia, Denies diarrhea, Denies nausea, Denies odynophagia and Denies vomiting Reports no additional complaints Musc Reports no additional complaints and Denies abnormal gait Skin/Breast Reports system reviewed and no additional complaints, except as documented Neuro Denies abnormal gait, Denies dizziness, Denies syncope and Denies headache(s) Psych Reports no additional complaints Physical exam (Primary Care) Vital Signs: Last Vital Signs Pulse 81 01/25/25 09:06 BP 100/60 01/25/25 09:06 Pulse Ox 98 01/25/25 09:06 Oxygen Delivery Method Room Air 01/25/25 09:06 Tobacco/Smoking Status: Tobacco use Status Tobacco use date assessed 01/25/25 01/25/25 09:17 Patient Tobacco Use Status Never used Tobacco 01/25/25 09:17 e-Cigarette/Vaping Use Never Used 01/25/25 09:17 PHQ-9: PHQ-9 Score PHQ-9: Total score 0 01/25/25 09:17 Depression Screening Interpretation: Negative Thrive Assessment: Date of Thrive Assessment Date Thrive assessed 01/25/25 01/25/25 09:17 Currently or been in a relationship where the following occur: No concerns reported Const General: cooperative, healthy appearing, comfortable and no acute distress Orientation/consciousness: patient oriented x3 HENMT Head: Yes normocephalic Ears: hearing grossly normal bilaterally General nose exam: Normal external nose present Eyes General: appearance normal, both eyes and all related structures Conjunctivae: conjunctivae normal Neck Neck: Yes full ROM and Yes no lymphadenopathy Resp Effort & Inspection: normal respiratory effort Auscultation: clear to auscultation bilaterally, no crackles, no rales, no rhonchi and no wheezes Cardio Rate: regular rate Rhythm: regular rhythm Skin General skin exam: no rashes or lesions noted Neuro General: patient oriented x3 Gait exam (Neuro): Normal gait present Extrem General: Yes normal to inspection, Yes full ROM and No edema Psych Affect: normal affect Attitude: cooperative Insight: Good insight present (Psych) Judgement: Good judgement present (Psych) Coding Level of Care Code Est Pt Level 4 (77403) Diagnoses Pneumonia of right lung due to infectious organism, unspecified part of lung J18.9 Pneumonia type: due to unspecified organism Laterality: right Lung location: unspecified part of lung Benign essential hypertension I10 Assessment & Plan Assessment & Plan (1) Pneumonia: Code(s): J18.9 - Pneumonia, unspecified organism Category: Medical Qualifiers: Pneumonia type: due to unspecified organism Laterality: right Lung location: unspecified part of lung Qualified Code(s): J18.9 - Pneumonia, unspecified organism Plan: The patient will conclude her antibiotic regimen and obtain a chest x-ray in one week to assess pneumonia resolution. Should her symptoms recur or intensify, she is advised to seek an immediate chest x-ray. I provided education on deep breathing exercises to enhance lung expansion and infection management, with instruction to use a bronchodilator PRN to aid in symptom relief. No further interventions are planned unless new symptoms develop requiring advanced evaluation or therapy adjustments. (2) Benign essential hypertension: Code(s): I10 - Essential (primary) hypertension Category: Medical Plan: Continue on current blood pressure medication. Avoid salt intake and encourage healthy diet and regular exercise. Plan This note was constructed using voice recognition software. While every effort has been made to ensure accuracy and jowl trimmer, still areas may have been included sometimes these areas may affect the content or meeting of the given symptoms. Total time spent caring for the patient today was 30 minutes. This includes time spent before the visit reviewing the chart, time spent during the visit, and time spent after the visit and documentation. Patient was informed and verbally consented to the use of an ambient scribe for clinic note documentation during this visit. Orders: Orders XR chest 2V Today J18.9 - Pneumonia, unspecified organism
[2025-01-25 09:06] VITALS: BP 100/60; PULSE 81; O2SAT 98
--- OUTSIDE RECORDS SUMMARY | 2025-01-25 09:14 | XMS_ITS ---
Author Organization [facility] Address [address] [place] [id number] Care Team Providers Care Portfolio Administrator Name Role Phone Jorge SIMMS, [place] Primary Care Provider Mickey Zayas Unavailable [phone] Allergies Allergen (clinical drug ingredient) Drug/Non Drug [...] Pregabalin 150 MG TAKE 1 CAPSULE BY DC UT 3 TIMES A DAY Oral three [...] 11/01/2024 Encounters Encounter Location Date Provider Diagnosis [facility] [address] [place] [address] 11/01/2024 Mickey Kline Rectal bleeding K62.5 Assessments [...] * JESU WILKSDOB:[birth year] (64 yo F)Acc No.[id number]:11/01/2024 Progress Notes Patient:?JESU WILKS Provider:?Mickey Kline MD :1960???Age:64 Y???Sex:Female D ate:11/01/2024 Address:[address] [place], [place] [id number] Pcp:Obdulio Patel MD Subjective: * Chief Complaints: [...] Procedure Codes:?3017F COLOR ECTAL CA SCREEN DOC [id number] TOBACCO [id number] BP SCR NOT PRFRM REC REASON NOS * Preventive Medicine:? ??Counseling:?Care goal follow-up plan:?Above Normal BMI Follow-up?Dietary management education, guidance, and counseling,?BMI management provided?Yes.? * Follow Up:?prn * * Sign off status: Completed true * Provider:?Mickey Kline MD Date:? 025 Generated for Dejah gates/Isiah/Springitting on:?01/25/2025 09:14 AM EDT
== END 2025-01-25 09:56 | disposition home or self-care (01) ==
LOC: HO.HMCH 08:45
PROVIDERS: PCP Internal Medicine
DX: J18.9 Pneumonia, unspecified organism (principal); I10 Essential (primary) hypertension

== ENCOUNTER → 2025-01-25 08:45 | Outpatient (BNVA) | payer MEDICARE, SELFPAY | PROVIDERS: PCP Internal Medicine | DX: I10 Essential (primary) hypertension (principal); J18.9 Pneumonia, unspecified organism; M79.7 Fibromyalgia; N32.81 Overactive bladder; E03.9 Hypothyroidism, unspecified; E78.00 Pure hypercholesterolemia, unspecified; R73.01 Impaired fasting glucose; K21.9 Gastro-esophageal reflux disease without esophagitis; F32.A Depression, unspecified; E66.9 Obesity, unspecified | CPT/HCPCS: 96127; 99212 ==

== ENCOUNTER 2025-02-02 10:39 | Outpatient (REF) | payer MEDICARE, SELFPAY ==
--- NOTE | ~2025-02-02 | XR_ITS ---
EXAMINATION: XR CHEST CLINICAL INFORMATION: J18.9 - Pneumonia, unspecified organism COMPARISON: 01/16/2025. TECHNIQUE: 2 views of the chest were obtained. FINDINGS: The cardiac, hilar, and mediastinal contours are normal. The lungs are clear bilaterally. There is no pneumothorax or pleural effusion. There is no focal osseous or soft tissue abnormality. Surgical clips in the epigastric region. XR/XR chest 2V IMPRESSION: No active pulmonary disease. Electronically signed by: Oseas Harvey MD 02/02/2025 11:10 AM EDT
--- OUTSIDE RECORDS SUMMARY | 2025-02-02 11:43 | XMS_ITS ---
Author Organization [facility] Address [address] [place] [id number] Care Team Providers Care Enterprise Data Architect Name Role Phone Jorge SIMMS, [place] Primary Care Provider Mickey Zayas Unavailable [phone] Allergies Allergen (clinical drug ingredient) Drug/Non Drug [...] Pregabalin 150 MG TAKE 1 CAPSULE BY MA UT 3 TIMES A DAY Oral three [...] 11/01/2024 Encounters Encounter Location Date Provider Diagnosis [facility] [address] [place] [address] 11/01/2024 Mickey Kline Rectal bleeding K62.5 Assessments [...] * JESU WILKSDOB:[birth year] (64 yo F)Acc No.[id number]:11/01/2024 Progress Notes Patient:?JESU WILKS Provider:?Mickey Kline MD :1960???Age:64 Y???Sex:Female D ate:11/01/2024 Address:[address] [place], [place] [id number] Pcp:Obdulio Patel MD Subjective: * Chief Complaints: [...] Procedure Codes:?3017F COLOR ECTAL CA SCREEN DOC [id number] TOBACCO [id number] BP SCR NOT PRFRM REC REASON NOS * Preventive Medicine:? ??Counseling:?Care goal follow-up plan:?Above Normal BMI Follow-up?Dietary management education, guidance, and counseling,?BMI management provided?Yes.? * Follow Up:?prn * * Sign off status: Completed true * Provider:?Mickey Kline MD Date:? 025 Generated for Dejah gates/Isiah/Springitting on:?02/02/2025 11:43 AM EDT
== END 2025-02-02 10:40 | disposition home or self-care (01) ==
LOC: HO.HMGCX 10:39
PROVIDERS: PCP Internal Medicine
DX: J18.9 Pneumonia, unspecified organism (principal)
CPT/HCPCS: 71046

== ENCOUNTER → 2025-02-02 10:44 | Outpatient (BNV) | payer MEDICARE, SELFPAY | PROVIDERS: PCP Internal Medicine; Visit Provider Radiology Diagnostic Radiology | DX: J18.9 Pneumonia, unspecified organism (principal) | CPT/HCPCS: 71046 ==

== ENCOUNTER 2025-02-08 13:37 | Outpatient (AMB) | payer MEDICARE, SELFPAY ==
--- OUTSIDE RECORDS SUMMARY | 2024-11-01 11:40 | XMS_ITS ---
Author Organization [facility] Address [address] [place] [phone] Care Team Providers Care Rn Mds Coordinator Name Role Phone Jorge SIMMS, [place] Primary Care Provider Mickey Zayas Unavailable [phone] Allergies Allergen (clinical drug ingredient) Drug/Non Drug Allergy documented on EMR Reaction Allergy Type Onset Date Status fentanyl Fentanyl Unknown Drug Allergy Active REASON FOR VISIT Patient presents today for a hemmorhage of anus rectus Medications Medication SIG (Take, Route, Frequency, Duration) Notes Start Date End Date Status Vitamin D3 50 MCG (1999) 1 capsule Or ally Once a day Active Mirtazapine 15 MG 7.5 mg tablet at bed time Orally Once a day for 30 days 11/01/2024 Active Atorvastatin Calcium 40 MG TAKE 1 TABLET BY MOUTH EVERY DAY Oral for 90 Days Active Pregabalin 150 MG TAKE 1 CAPSULE BY AZ UT 3 TIMES A DAY Oral three times a day for 30 days Active Lisinopril 10 MG 1 tablet Orally Once a day Active Omeprazole 40 MG 1 tablet Orally Once a day Active Sertraline HCl 100 MG Oral for 64 Days Active tiZANidine HCl 4 MG TAKE 1 TABLET ORALLY EVERY 8 HOURS NEEDED FOR MUSCLE SPASMS FOR 10 DAYS Oral for 10 Days Active LORazepam 0.5mg 1 tablet as needed Orally twice a day Active Levothyroxine Sodium 150 MCG 1 tablet on an empty stomach in the morning Orally Once a day Active Ferrous Sulfate 325 (65 Fe) MG 1 tablet Orally Once a day for 30 day(s) Active Multivitamin Adults 50+ - as directed Orally Active Acarbose 50 MG as directed Orally Active oxyBUTYnin Chloride ER 10 MG 1 tablet Or ally Once a day Active Nitrofurantoin Monohyd Macro 100 MG 1 capsule with food Orally every 12 hrs Active Docusate Sodium 100 MG 1 capsule as need ed Orally Once a day Active Acetaminophen 325 MG 1 tablet as needed Orally every 6 hrs Active Vital Signs Temperature 96.9 degrees Fahrenheit 11/02/19 25 Blood pressure systolic 001 mm Hg 11/02/19 25 Blood pressure diastolic 01 mm Hg 025 Height 62 in 11/01/2024 Weight 220 lbs 11/01/2024 BMI 40.23 kg/m2 11/01/2024 Encounters Encounter Location Date Provider Diagnosis [facility] [address] [place] [address] 11/01/2024 Mickey Kline Rectal bleeding K62.5 Assessments Encounter Date Diagnosis (ICD Code) Assessment Notes Treatment Notes Treatment Clinical Notes Section Notes 11/01/2024 Rectal bleeding (ICD-10 - K62.5) 11/01/2024 Other Repeat colonoscopy in 2032 Call if bleeding or problems with BM's Plan Of Treatment Treatment Notes Assessment Notes Other Repeat colonoscopy in 2032 Call if bleeding or problems with BM's Next Appt Details Follow Up: prn, Reason: Progress Notes * JESU WILKSDOB:[birth year] (64 yo F)Acc No.[id number]:11/01/2024 Progress Notes Patient: JESU VALDEZ Provider: Zhanna Kline MD :1960 A ge:64 Y S ex:Female Date:11/01/2024 Address:[address] [place], [place] [id number] Pcp:Obdulio Patel MD Subjective: * Chief Complaints: * Eric gallegos presents today for a hemmorhage of anus rectus * Medical History: * Surgical History: h eel surgery for heel spurs 1999breast reduction surgery 2006knee surgery x2 2004/2010kidney stones removed finger surgery Hemorrhoidectomy Dr. Castro 2016Gastric bypass- Dr. Tucker--lost > 100_# 2016Left foot surgery 2016 * Hospitalization/Major Diagno stic Procedure: N o Hospitalization History. * Family History: F ather: , diagnosed with Diabetes, Heart disease. M other: , diagnosed with Heart disease. S iblings: brother had colon polyp at age 50 /prostate cancer. No colorectal cancer. No family history of liver cancer. * Social History: T obacco Use: T obacco Use/Smoking A re you a: nonsmoker. D rugs/Alcohol: A lcohol Screen P oints: 0, Interpretation: Negative. M iscellaneous: C affeine: 1-2 cups of tea/coffe QD. Marital status: . Occupation: unemployed-on disability. N onsmoker; no alcohol. * Medications: T akingNitrofurantoin Monohyd Macro 100 MG Capsule 1 capsule with food Orally every 12 hrs oxyBUTYnin Chloride ER 10 MG Tablet Extended Release 24 Hour 1 tablet Orally Once a day Acetaminophen 325 MG Tablet 1 tablet as needed Orally every 6 hrs Docusate Sodium 100 MG Capsule 1 capsule as needed Orally Once a day Acarbose 50 MG Tablet as directed Orally Multivitamin Adults 50+ - Tablet as directed Orally Ferrous Sulfate 325 (65 Fe) MG Tablet 1 tablet Orally Once a day Levothyroxine Sodium 150 MCG Tablet 1 tablet on an empty stomach in the morning Orally Once a day LORazepam 0.5mg 1 tablet as needed Orally twice a day Omeprazole 40 MG Capsule Delayed Release 1 tablet Orally Once a day Lisinopril 10 MG Tablet 1 tablet Orally Once a day Pregabalin 150 MG Capsule TAKE 1 CAPSULE BY MOUTH 3 TIMES A DAY Oral three times a day tiZANidine HCl 4 MG Tablet TAKE 1 TABLET ORALLY EVERY 8 HOURS NEEDED FOR MUSCLE SPASMS FOR 10 DAYS Oral Sertraline HCl 100 MG Tablet Oral Atorvastatin Calcium 40 MG Tablet TAKE 1 TABLET BY MOUTH EVERY DAY Oral Mirtazapine 15 MG Tablet 7.5 mg tablet at bedtime Orally Once a day Vitamin D3 50 MCG (2000 UT) Tablet 1 capsule Orally Once a day Taking Nitrofurantoin Monohyd Macro 100 MG Capsule 1 capsule with food Orally every 12 hrs Taking oxyBUTYnin Chloride ER 10 MG Tablet Extended Release 24 Hour 1 tablet Orally Once a day Taking Acetaminophen 325 MG Tablet 1 tablet as needed Orally every 6 hrs Taking Docusate Sodium 100 MG Capsule 1 capsule as needed Orally Once a day Taking Acarbose 50 MG Tablet as directed Orally Taking Multivitamin Adults 50+ - Tablet as directed Orally Taking Ferrous Sulfate 325 (65 Fe) MG Tablet 1 tablet Orally Once a day Taking Levothyroxine Sodium 150 MCG Tablet 1 tablet on an empty stomach in the morning Orally Once a day Taking LORazepam 0.5mg 1 tablet as needed Orally twice a day Taking Omeprazole 40 MG Capsule Delayed Release 1 tablet Orally Once a day Taking Lisinopril 10 MG Tablet 1 tablet Orally Once a day Taking Pregabalin 150 MG Capsule TAKE 1 CAPSULE BY MOUTH 3 TIMES A DAY Oral three times a day Taking tiZANidine HCl 4 MG Tablet TAKE 1 TABLET ORALLY EVERY 8 HOURS NEEDED FOR MUSCLE SPASMS FOR 10 DAYS Oral Taking Sertraline HCl 100 MG Tablet Oral Taking Atorvastatin Calcium 40 MG Tablet TAKE 1 TABLET BY MOUTH EVERY DAY Oral Taking Mirtazapine 15 MG Tablet 7.5 mg tablet at bedtime Orally Once a day Taking Vitamin D3 50 MCG (2000 UT) Tablet 1 capsule Orally Once a day DiscontinuedAcarbose 50 MG Tablet as directed Orally , Notes to Pharmacist: She is on his to help prevent hyperglycemia in relation to 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Naproxen 500 MG Tablet 1 tablet with food or milk Orally every 12 hrs Medication List reviewed and reconciled with the patientDiscontinued Acarbose 50 MG Tablet as directed Orally , Notes to Pharmacist: She is on his to help prevent hyperglycemia in relation to 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Discontinued Naproxen 500 MG Tablet 1 tablet with food or milk Orally every 12 hrs Medication List reviewed and reconciled with the patient * Allergies: F entanylyes[Allergies Verified] Objective: * Vitals: W t: 220 lbs, Ht: 62 in, BMI:40.23Index, BP: 001/01 mm Hg, Temp: 96.9, Wt-k.79. Assessment: * Assessment: 1. R ectal bleeding - K62.5 (Primary) Plan: * Treatment: * Procedure Codes: 3 017F COLORECTAL CA SCREEN DOC [id number] TOBACCO NON-NHEUH4019 BP SCR NOT PRFRM REC REASON NOS * Preventive Medicine: Counseling: C are goal follow-up plan: A kaley Normal BMI Follow-up D ietary management education, guidance, and counseling, B TN management provided Y es. * Follow Up: p rn * * Sign off status: Completed true * Provider: Zhanna Kline MD Date: 0 11/01/2024 Generated for Dejah gates/Isiah/Springitting on: 0 2025 02:47 PM EDT
[2025-02-08 13:41] VITALS: BP 98/62; PULSE 87; TEMP 36.2; O2SAT 94; BMI 44.0
--- NOTE | 2025-02-08 13:41 | A.OFFPC_ITS ---
Vital Signs 02/08/25 13:41 Height 5 ft 2 in Weight 240 lb 11.916 oz BMI 44.0 BP 98/62 Blood Pressure Location Lt brachial Position Sitting Pulse 87 Pulse Source Pulse Oximeter Temp 97.1 F Temp Source Temporal Artery Scan Pulse Oximetry (%) 94 Oxygen Delivery Method Room Air Intake Visit Reasons: increased body pain Anti Air Warfare Operations Officer Required: No Accompanied by: Spouse Allergies fentanyl Adverse Reaction (Unknown, Verified 02/08/25 14:33) Nausea and Vomiting Medication List - Last Reconciled 02/08/25 by Marcela Flores PA-C acarbose 50 mg PO TID acetaminophen 650 mg (2 x 325 mg) PO Q6H PRN atorvastatin 40 mg PO DAILY cholecalciferol (vitamin D3) 50 mcg PO DAILY docusate sodium 100 mg PO BID 30 days doxycycline hyclate 100 mg PO BID 7 days ferrous sulfate 325 mg PO DAILY levothyroxine 150 mcg PO DAILY [LIGHTWEIGHT CANE As directed] lisinopril 10 mg PO DAILY 90 days lorazepam 0.5 mg PO BID PRN 30 days mirtazapine 15 mg PO BEDTIME 30 days omeprazole 40 mg PO DAILY oxybutynin chloride ER 10 mg PO DAILY pregabalin 150 mg PO TID 30 days primidone 100 mg PO BID scopolamine base (Transderm-Scop) 1 patch transdermal Q3D PRN sertraline 200 mg (2 x 100 mg) PO DAILY 90 days Tobacco use date assessed: 01/25/25 Dental Screening Dental Screen Date: 01/25/25 HPI increased body pain HPI Details 64-year-old female with past medical his tory of fibromyalgia, overactive bladder, hypothyroidism, hypercholesterolemia, hypertension, impaired glucose tolerance, GERD, depression, obesity last seen 01/2025 coming in for acute problem. Presenting with respiratory distress and abdominal pain. The patient has experienced three bouts of pneumonia since December 18, with symptoms including difficulty breathing and crackles in the lungs. Her oxygen saturation was 98% at home but dropped to 94% in the clinic. The patient reports sharp, constant abdominal pain under the rib, which worsens with palpation. A gallbladder polyp was identified in 2021, and the patient is at risk for gallstones due to her demographics and cholesterol levels. She denies any nausea, vomiting, stool changes or other symptoms. She does mention having chills and sweating last two days but has not taken her temperature. PFSH Medical History SOB (shortness of breath) Cerebellar ataxia Osteoarthritis of left knee OSMANI (obstructive sleep apnea) Morbid obesity with BMI of 40.0-44.9, adult ASCUS of cervix with negative high risk HPV Anemia Obesity (BMI 30-39.9) Depression Anxiety Primary insomnia Microscopic colitis GERD without esophagitis Fibromyalgia Acquired hypothyroidism Impaired fasting glucose Benign essential hypertension Pure hypercholesterolemia Vitamin D deficiency Hypothyroidism Hypoglycemia Bradycardia Infection at site of external fixator pin Overactive bladder Surgical History Status post total left knee replacement (~12/15/22) Hx of cystoscopy Hx of foot surgery Hx of foot surgery History of colonoscopy History of gastrointestinal tract bypass S/P ORIF (open reduction internal fixation) fracture History of hemorrhoidectomy Hx of bilateral breast reduction surgery H/O section H/O arthroscopy of left knee Status post debridement Family History Father Diabetes Mental health disorder Mother CVD (cardiovascular disease) Myocardial infarction Mental health disorder Brother Colon cancer Sister Lung cancer Social History Household Members: Spouse and Children Housing: House Are you a primary intensive care unit registered nurse to a significant other at home: No Do you presently have visiting nurse or other home services: No Alcohol intake: current Alcohol intake frequency: does not drink Alcohol type: beer and hard liquor Comment: aware of trip hazards Patient Tobacco Use Status: Never used Tobacco e-Cigarette/Vaping Use: Never Used Second Hand Smoke Exposure: No service: No Current occupational status: disabled Cognitive needs: No Hearing needs: Yes Vision needs: Yes Female Reproductive History Menstrual Age of Menarche: 14 Questionnaire Thrive Questionnaire Date Thrive assessed: 01/25/25 EVANGELINA-7 AMB Questionnaire EVANGELINA-7 Date EVANGELINA - 7 assessed: 01/25/25 Source: Developed by Drs. Mickey Arce, Paige Barton, Luis A Hull and colleagues, with an educational roger from [employer]. Review of Systems Const Denies body aches, Denies chills, Denies fever(s), Denies headache(s) and Denies poor appetite Eyes Reports no additional complaints ENT Denies dizziness and Denies headache(s) Card Denies chest pain, Denies syncope and Denies dyspnea Resp Denies dyspnea GI Reports as per HPI, Reports abdominal pain, Denies constipation, Denies diarrhea, Denies nausea and Denies vomiting Reports no additional complaints Musc Reports no additional complaints and Denies abnormal gait Skin/Breast Reports system reviewed and no additional complaints, except as documented Neuro Denies abnormal gait, Denies dizziness, Denies syncope and Denies headache(s) Psych Reports no additional complaints Physical exam (Primary Care) Vital Signs: Last Vital Signs Temp 97.1 F 02/08/25 13:41 Pulse 87 02/08/25 13:41 BP 98/62 02/08/25 13:41 Pulse Ox 94 02/08/25 13:41 Oxygen Delivery Method Room Air 02/08/25 13:41 BMI result Body Mass Index 44.0 Tobacco/Smoking Status: Tobacco use Status Tobacco use date assessed 01/25/25 02/08/25 13:43 Patient Tobacco Use Status Never used Tobacco 02/08/25 13:43 e-Cigarette/Vaping Use Never Used 02/08/25 13:43 Thrive Assessment: Date of Thrive Assessment Date Thrive assessed 01/25/25 02/08/25 13:43 Const General: cooperative, healthy appearing, comfortable and no acute distress Orientation/consciousness: patient oriented x3 HENMT Head: Yes normocephalic Ears: hearing grossly normal bilaterally General nose exam: Normal external nose present Eyes General: appearance normal, both eyes and all related structures Conjunctivae: conjunctivae normal Neck Neck: Yes full ROM and Yes no lymphadenopathy Resp Effort & Inspection: normal respiratory effort Auscultation: clear to auscultation bilaterally, crackles bilateral, no rales, no rhonchi and no wheezes Cardio Rate: regular rate Rhythm: regular rhythm GI Palpation (GI): Soft to palpation, not firm, Tenderness to palpation present (GI) in the RUQ, Guarding due to palpation present (GI) in the RUQ, not rigid and No Rebound tenderness present Skin General skin exam: no rashes or lesions noted Neuro General: patient oriented x3 Gait exam (Neuro): Normal gait present Extrem General: Yes normal to inspection, Yes full ROM and No edema Psych Affect: normal affect Attitude: cooperative Insight: Good insight present (Psych) Judgement: Good judgement present (Psych) Coding Level of Care Code Est Pt Level 4 (27102) Diagnoses Right upper quadrant abdominal pain R10.11 SOB (shortness of breath) R06.02 Benign essential hypertension I10 Assessment & Plan Assessment & Plan (1) Right upper quadrant abdominal pain: Code(s): R10.11 - Right upper quadrant pain Category: Medical Plan: The patient will be referred to the emergency department for further evaluation of suspected acute cholecystitis, given the RUQ pain concern for acute abdomen. An abdominal ultrasound and possibly a CT scan will be necessary to confirm the diagnosis and assess the need for surgical intervention. Given the patient's history of pneumonia and current respiratory symptoms, further evaluation of her lung status is warranted. The presence of bilateral crackles suggests possible ongoing infection or inflammation, and a chest X-ray may be indicated to rule out recurrent pneumonia. The patient's low blood pressure and medication regimen will be reviewed, and lisinopril has been temporarily held due to hypotension. (2) SOB (shortness of breath): Code(s): R06.02 - Shortness of breath Category: Medical Plan: see above. (3) Benign essential hypertension: Code(s): I10 - Essential (primary) hypertension Category: Medical Plan: Patient is hypotensive we office today / recommend holding lisinopril at this time and monitoring blood pressure on it. Plan This note was constructed using voice recognition software. While every effort has been made to ensure accuracy and stripping machine operator, still areas may have been included sometimes these areas may affect the content or meeting of the given symptoms. Total time spent caring for the patient today was 30 minutes. This includes time spent before the visit reviewing the chart, time spent during the visit, and time spent after the visit and documentation. Patient was informed and verbally consented to the use of an ambient scribe for clinic note documentation during this visit. Medications: On Hold lisinopril Hold Comment: Doctor's Order 10 mg PO DAILY 90 tabs 3RF 90 days
== END 2025-02-08 14:25 | disposition home or self-care (01) ==
LOC: HO.HMCH 13:37
PROVIDERS: PCP Internal Medicine
DX: R10.11 Right upper quadrant pain (principal); R06.02 Shortness of breath; I10 Essential (primary) hypertension

== ENCOUNTER → 2025-02-08 13:37 | Outpatient (BNVA) | payer MEDICARE, SELFPAY | PROVIDERS: PCP Internal Medicine | DX: M79.7 Fibromyalgia (principal); N32.81 Overactive bladder; R10.11 Right upper quadrant pain; E03.9 Hypothyroidism, unspecified; E78.00 Pure hypercholesterolemia, unspecified; I10 Essential (primary) hypertension; R73.01 Impaired fasting glucose; K21.9 Gastro-esophageal reflux disease without esophagitis; F32.A Depression, unspecified; E66.9 Obesity, unspecified; R10.9 Unspecified abdominal pain; R06.02 Shortness of breath; Z68.41 Body mass index [BMI] 40.0-44.9, adult | CPT/HCPCS: 99212 ==

== ENCOUNTER 2025-02-08 14:29 | Emergency (ER) | payer MEDICARE, SELFPAY ==
--- NOTE | ~2025-02-08 | US_ITS ---
CLINICAL HISTORY: RUQ pain --- Additional Notes or Special Instructions: look at gb, ducts, liver, pancreas US abdomen limited Comparison: None provided Findings: Limited evaluation of the pancreas. The pancreas is echogenic and prominent in size. The liver is normal in size with increase of echogenicity. There is no intrahepatic bile duct dilatation. The common duct is 4.0 mm in diameter. No gallstone is seen in the gallbladder. Gallbladder is contracted with mild wall thickening. The main portal vein is antegrade. The right kidney is 9.6 cm in length. Possible 4.3 x 2 x 2.5 cm peripelvic cyst. No ascites. IMPRESSION: Increase of echogenicity of the liver favored to represent hepatic steatosis. No gallstone is noted in the gallbladder. Gallbladder is contracted. Possible peripelvic cyst of the right kidney. Correlation with prior imaging examination is recommended to exclude hydronephrosis. The pancreas is echogenic and prominent in size. This document has been electronically signed by: Lilly Berg MD on 02/08/2025 19:03:04
--- NOTE | ~2025-02-08 | XR_ITS ---
EXAMINATION: XR CHEST CLINICAL INFORMATION: short of breath, crackles COMPARISON: February 02, 2025 TECHNIQUE: 2 views of the chest were obtained. FINDINGS: Pulmonary reticular pattern with the prominence of the reticular pattern in the left lower lung lobe. No pleural effusion. No pneumothorax. Cardiomediastinal silhouette size is normal. Multilevel thoracic and upper lumbar spondylosis. Mild degenerative changes in the acromioclavicular joints. XR/XR chest 2V IMPRESSION: Acute on chronic airspace disease involving mostly the left lower lung lobe. Electronically signed by: Edson Conte MD 02/08/2025 02:56 PM EDT
--- NOTE | ~2025-02-08 | CT_ITS ---
CLINICAL HISTORY: diffuse abdominal pain CT abdomen and pelvis with contrast Comparison: None Findings: There is opacity of the bilateral lung base. The liver is normal in size without suspicious focal hepatic lesions. No intrahepatic or extrahepatic ductal dilatation is seen. The hepatic and portal veins are patent. No calcified gallstones in the gallbladder. Pancreas, spleen and adrenals are normal in appearance. No suspicious focal lesion of the kidneys. Right peripelvic cyst. No hydronephrosis or calculi. The abdominal aorta demonstrates no evidence of aneurysmal dilatation or dissection. The colon is normal in appearance and without wall thickening or inflammatory change. Moderate amount of fecal material within the colon. Stool impaction of the rectum. No evidence of bowel obstruction. No evidence of acute appendicitis. Status post gastric bypass. The pelvic organs are within normal limits. No intraperitoneal free air or fluid is visualized. No pathologic lymphadenopathy is seen. There are no osseous or soft tissue abnormalities. IMPRESSION: No acute findings. This document has been electronically signed by: Lilly Berg MD on 02/08/2025 21:14:13
[2025-02-08 14:31] VITALS: BP 119/63; PULSE 87; RESP 19; TEMP 36.6; O2SAT 93; BMI 46.5
--- NOTE | 2025-02-08 14:34 | ED.GENADULT ---
HPI - General Adult General Chief complaint: General Medical Stated complaint: SOB Time Seen by Provider: 02/08/25 19:31 Source: patient, family (), RN notes reviewed and old records reviewed Mode of arrival: ambulatory Limitations: no limitations History of Present Illness ED Provider: Magui HPI narrative: 65-year-old female with a past medical history significant for obesity status post gastric sleeve, hypothyroidism, hyperlipidemia, hypertension, GERD, anxiety, depression presents for evaluation of abdominal pain and shortness of breath. Patient reports she went on a cruise in October. She reports she has had several episodes of pneumonia since then. She was treated with multiple antibiotic regimens including azithromycin, doxycycline, Augmentin, most recently levofloxacin 3 weeks ago She reports continued shortness of breath, worse with exertion. She reports intermittent leg swelling, associated cough but denies tactile fevers She would have a negative PE study 3 weeks ago as well on January 16, 2025. However today she reports right upper quadrant abdominal pain that has been worsening over the last couple of weeks. She denies any nausea or vomiting pain Denies any fevers or chills Related Data Home Medications ?Medication ?Instructions ?Recorded ?Confirmed cholecalciferol (vitamin D3) 50 50 mcg PO DAILY 05/23/20 02/08/25 mcg (2,000 unit) capsule primidone 50 mg tablet 100 mg PO BID 02/08/25 02/08/25 Previous Rx's ?Medication ?Instructions ?Recorded ferrous sulfate 325 mg (65 mg 325 mg PO DAILY #90 tabs 11/25/21 iron) tablet LIGHTWEIGHT CANE #1 ea 06/15/22 docusate sodium 100 mg capsule 100 mg PO BID 30 days #60 caps 12/17/22 acetaminophen 325 mg tablet 650 mg (2 x 325 mg) PO Q6H PRN 09/23/23 Pain, Mild (Pain Scale 1-3) #60 tabs omeprazole 40 mg capsule,delayed 40 mg PO DAILY #90 caps 04/05/24 release lisinopril 10 mg tablet 10 mg PO DAILY 90 days #90 tabs 06/13/24 Held on 02/08/25. Instructions: Doctor's Order oxybutynin chloride 10 mg 10 mg PO DAILY #90 tabs 06/15/24 tablet,extended release 24 hr levothyroxine 150 mcg tablet 150 mcg PO DAILY #90 tabs 07/03/24 sertraline 100 mg tablet 200 mg (2 x 100 mg) PO DAILY 90 10/20/24 days #180 tabs acarbose 50 mg tablet 50 mg PO TID #270 tabs 11/03/24 scopolamine base 1 mg over 3 days 1 patch transdermal Q3D PRN nausea 11/09/24 transdermal patch (Transderm-Scop) and vomiting/motion sickness #10 ea mirtazapine 15 mg tablet 15 mg PO BEDTIME 30 days #30 tabs 11/20/24 lorazepam 0.5 mg tablet 0.5 mg PO BID PRN anxiety 30 days 12/18/24 #60 tabs atorvastatin 40 mg tablet 40 mg PO DAILY #90 tabs 12/22/24 doxycycline hyclate 100 mg tablet 100 mg PO BID 7 days #14 tabs 12/29/24 pregabalin 150 mg capsule 150 mg PO TID 30 days #90 caps 01/19/25 furosemide 20 mg tablet (Lasix) 20 mg PO DAILY #5 tabs 02/08/25 polyethylene glycol 3350 17 17 g PO DAILY PRN constipation 02/08/25 gram/dose oral powder (Miralax) #238 grams Allergies Allergy/AdvReac Type Severity Reaction Status Date / Time fentanyl AdvReac Unknown Nausea and Verified 02/08/25 14:33 Vomiting Review of Systems Constitutional: Constitutional: Denies body ache(s), Denies chills, Denies fever(s) and Denies headache(s) Eyes: Eyes: Denies blurry vision ENT: Denies vertigo, Denies dizziness, Denies otalgia and Denies headache(s) Cardiovascular: Cardiovascular: Denies chest pain, Reports leg edema, Reports dyspnea and Reports dyspnea on exertion Respiratory: Respiratory: Reports cough, Reports dyspnea and Reports dyspnea on exertion Gastrointestinal: Gastrointestinal: Reports abdominal pain, Denies belching, Denies nausea and Denies vomiting Musculoskeletal: Musculoskeletal: Denies back pain Integumentary/Breasts: Skin/Breast: Denies rash Neurologic: Denies vertigo, Denies dizziness and Denies headache(s) Psychiatric: Psychiatric: Denies anxiety PMFSH Past Medical History Medical History SOB (shortness of breath) Cerebellar ataxia Osteoarthritis of left knee OSMANI (obstructive sleep apnea) Morbid obesity with BMI of 40.0-44.9, adult ASCUS of cervix with negative high risk HPV Anemia Obesity (BMI 30-39.9) Depression Anxiety Primary insomnia Microscopic colitis GERD without esophagitis Fibromyalgia Acquired hypothyroidism Impaired fasting glucose Benign essential hypertension Pure hypercholesterolemia Vitamin D deficiency Hypothyroidism Hypoglycemia Bradycardia Infection at site of external fixator pin Overactive bladder Surgical History Status post total left knee replacement (~12/15/22) Hx of cystoscopy Hx of foot surgery Hx of foot surgery History of colonoscopy History of gastrointestinal tract bypass S/P ORIF (open reduction internal fixation) fracture History of hemorrhoidectomy Hx of bilateral breast reduction surgery H/O section H/O arthroscopy of left knee Status post debridement Family History Family History Father Diabetes Mental health disorder Mother CVD (cardiovascular disease) Myocardial infarction Mental health disorder Brother Colon cancer Sister Lung cancer Social History Social History Household Members: Spouse and Children Housing: House Are you a primary zoo caretaker to a significant other at home: No Do you presently have visiting nurse or other home services: No Alcohol intake: current Alcohol intake frequency: does not drink Alcohol type: beer and hard liquor Comment: aware of trip hazards Patient Tobacco Use Status: Never used Tobacco e-Cigarette/Vaping Use: Never Used Second Hand Smoke Exposure: No Advance Directives: No Advance Directives Information Provided: Yes Do you have a plan to hurt others: No Plan service: No Current occupational status: disabled Cognitive needs: No Hearing needs: Yes Vision needs: Yes Physical Exam ED Vital Signs: Vital Signs - 24 hr 02/08/25 14:31 02/08/25 19:45 Temperature 98 F 97.6 F Pulse Rate 87 61 Respiratory Rate 19 14 Blood Pressure 119/63 142/64 H Pulse Oximetry 93 95 Oxygen Delivery Method Room Air Room Air BMI result Body Mass Index 46.5 Const General: healthy appearing, comfortable, no acute distress, alert and awake Nutritional Appearance: well nourished Orientation/consciousness: patient oriented x3 HENMT Head: Yes normocephalic and Yes atraumatic Eyes Eyelids: Yes eyelids normal Conjunctivae: conjunctivae normal Sclerae: sclerae normal Corneas: corneas normal Pupils: Equal, round and reactive pupils present EOM: EOMs intact bilaterally Neck Neck: Yes full ROM Resp Other: Bilateral lower lobe rales Effort & Inspection: normal respiratory effort, able to speak in complete sentences and not labored Cardio Rate: regular rate Rhythm: regular rhythm GI Other: Soft, obese abdomen Inspection: No distended Palpation (GI): Soft to palpation, not firm, Tenderness to palpation present (GI) (Diffuse tenderness), no guarding and not rigid Skin General skin exam: elasticity normal Neuro General: patient oriented x3 Cranial nerves: Yes Equal, round and reactive pupils present and Yes Bilaterally intact EOM present Cognition (Neuro): normal cognition Extrem Other: Moving all extremities well without any obvious deformities Course Course Course Narrative: This is a Rapid Medical Examination (RME) performed by Sam Roche PA-C in triage. Full HPI, ROS, assessment and treatment plan per primary provider in the Main ED. Hx: 65 yo F hx of OSMANI, anemia, cerebellar ataxia, anemia, hypothyroid, HTN presents to ED from PCP where she was noted to be short of breath satting 93% on RA w/ crackles to lungs, also endorsing RUQ pain x years. PCP reported concern for GB issues. recent visit for PNA on 01/16/25. PE/vitals: crackles to b/l lung bases, satting 92% on RA Plan: labs, ekg, cxr Medications Administered Discontinued Medications Generic Name Dose Route Start Last Admin Trade Name Freq PRN Reason Stop Dose Admin Iohexol 85 ml 02/08/25 20:33 02/08/25 20:34 Iohexol 350 Mg/Ml 100 Ml Infus..Btl IV 02/08/25 20:34 85 ml ONCE ONE Administration Medical Decision Making Medical Decision Making MDM Narrative: 65-year-old female presents for evaluation of abdominal pain as well as chronic shortness of breath. She has been treated for pneumonia several times in the last few months, she has no fever, no leukocytosis. Chest x-ray does show ?acute on chronic airspace disease involving mostly the left lower lung lobe. This is fairly nonspecific, she has no other signs of systemic infection or sepsis. His possible this is more related to pulmonary edema rather than pneumonia. She has no pleural effusions, BNP is normal limits, she has has 1+ pitting edema to lower extremities bilaterally. She had negative PE steady 3 weeks ago, low suspicion for PE. Her echocardiogram from 6 years ago showed mild diastolic dysfunction which could have worsened in the elapsed time. Regarding her abdominal pain, she is globally tender that reports her pain is mostly in the right upper quadrant. She has a negative Lyons's sign. Ultrasound of the abdomen was obtained which shows fatty liver, contracted gallbladder but no overt evidence of cholecystitis or cholelithiasis. Total bilirubin is within normal limits. No evidence of obstructive biliary pattern. I suspect her abdominal pain may be related to constipation but could also be related to peptic ulcer disease. However given her discomfort we will get a CT scan of the abdomen pelvis. Differential Diagnosis Differential Diagnoses: The differential diagnosis associated with the presentation includes Pneumonia Pulmonary edema PE Cholecystitis Cholelithiasis Choledocholithiasis Abdominal pain Cholecystitis Cholelithiasis Constipation Admission/Observation Consideration of admission/observation: Escalation of care including admission/observation considered Lab Data MDM Lab Attestation statement: I reviewed the patient's lab results. No leukocytosis. The patient has a chronic anemia. Normal platelet count. No significant electrolyte abnormalities warranting intervention. Patient's chloride level is just above normal at 110 with a BUN just above normal at 26 and a normal creatinine is 0.90. 02/08/25 14:53 02/08/25 14:53 Labs: Lab Results 02/08/25 Range/Units 14:53 WBC 9.6 (4.8-10.8) X10*3/uL RBC 3.99 L (4.20-5.50) X10*6/uL Hgb 10.8 L (12.0-16.0) g/dl Hct 33.7 L (37.0-47.0) % MCV 84.5 (80.0-98.0) fL MCH 27.1 (27.0-33.0) pg MCHC 32.0 (31.0-35.0) g/dl RDW 15.5 (11.0-16.0) % Plt Count 232 D (160-400) X10*3/uL MPV 10.4 (9.4-12.3) fL Immature Gran % (Auto) 0.2 (0.0-0.4) % Neut % (Auto) 77.8 H (45-73) % Lymph % (Auto) 13.6 L (20-40) % [place] % (Auto) 5.2 (2-11) % Eos % (Auto) 2.8 (0-4) % Baso % (Auto) 0.4 (0-2) % Lymph # (Auto) 1.3 (1.2-4.9) X10*3/uL [place] # (Auto) 0.5 (0.1-1.2) X10*3/uL Eos # (Auto) 0.3 (0.0-0.4) X10*3/uL Baso # (Auto) 0.0 (0.0-0.2) X10*3/uL Abs Immat Gran (auto) 0.02 (0.00-0.03) X10*3/uL Absolute Neuts (auto) 7.5 (2.0-8.3) x10*3/uL Absolute Nucleated RBC 0.000 (0.0-0.012) X10*3/uL Nucleated RBC % (auto) 0.0 (0.0-0.2) /100WBC Sodium 143 (135-145) mmol/L Potassium 4.2 (3.3-5.1) mmol/L Chloride 110 H (96-108) mmol/L Carbon Dioxide 23 (22-29) mmol/L Anion Gap 14 (12-20) BUN 26 H (9-16) mg/dL Creatinine 0.90 (0.5-1.4) mg/dL Estim Creat Clear Calc 71.1 Estimated GFR > 60 Random Glucose 73 (60-115) mg/dL Calcium 9.1 D (8.4-10.2) mg/dL Magnesium 1.9 (1.6-2.6) mg/dL Total Bilirubin 0.3 (0.0-1.0) mg/dL Direct Bilirubin 0.1 (0.0-0.5) mg/dL AST 38 H (5-31) U/L ALT 49 H (0-31) U/L Alkaline Phosphatase 113 (39-117) U/L Troponin I High Sens < 2.7 (<3.5-17.0) ng/L B-Natriuretic Peptide 27 (<100) pg/mL Total Protein 7.1 (6.5-8.0) g/dL Albumin 4.0 (3.5-5.0) g/dL Lipase 32 (8-78) U/L Influenza Type A (PCR) NEGATIVE (Negative) Influenza Type B (PCR) NEGATIVE (Negative) RSV RNA Qual (PCR) NEGATIVE (Negative) SARS-CoV-2 RNA (RT-PCR) NEGATIVE (Negative) Independent Interpretation I performed an independent interpretation of an: CT Scan Interpretation: Findings: There is opacity of the bilateral lung base. The liver is normal in size without suspicious focal hepatic lesions. No intrahepatic or extrahepatic ductal dilatation is seen. The hepatic and portal veins are patent. No calcified gallstones in the gallbladder. Pancreas, spleen and adrenals are normal in appearance. No suspicious focal lesion of the kidneys. Right peripelvic cyst. No hydronephrosis or calculi. The abdominal aorta demonstrates no evidence of aneurysmal dilatation or dissection. The colon is normal in appearance and without wall thickening or inflammatory change. Moderate amount of fecal material within the colon. Stool impaction of the rectum. No evidence of bowel obstruction. No evidence of acute appendicitis. Status post gastric bypass. The pelvic organs are within normal limits. No intraperitoneal free air or fluid is visualized. No pathologic lymphadenopathy is seen. There are no osseous or soft tissue abnormalities. IMPRESSION: No acute findings. This document has been electronically signed by: Lilly Berg MD on 02/08/2025 21:14:13 Discharge Plan Discharge Clinical Impression: Acute dyspnea, Constipation Patient Disposition: Home, Self-Care Instructions: Constipation (ED), Dyspnea (ED) Additional Instructions: Your echocardiogram from 6 years ago did show mild diastolic dysfunction which is possible to have worsened over last 6 years. I recommend that you take Lasix 20 mg daily for the next 5 days and follow up with Cardiology at the number provided. Your abdominal pain is most likely related to constipation. Take MiraLax every night for the next 2 weeks and the Dulcolax for 1 week. Increase fiber intake in your diet Follow-up with your primary doctor, return for new or worsening symptoms Prescriptions: New polyethylene glycol 3350 [Miralax] 17 gram/dose powder 17 g PO DAILY PRN (Reason: constipation) Qty: 238 0RF furosemide [Lasix] 20 mg tablet 20 mg PO DAILY Qty: 5 0RF No Action ferrous sulfate 325 mg (65 mg iron) tablet 325 mg PO DAILY Qty: 90 1RF omeprazole 40 mg capsule,delayed release(DR/EC) 40 mg PO DAILY Qty: 90 3RF lisinopril 10 mg tablet 10 mg PO DAILY 90 Days Qty: 90 3RF levothyroxine 150 mcg tablet 150 mcg PO DAILY Qty: 90 3RF sertraline 100 mg tablet 200 mg PO DAILY 90 Days Qty: 180 1RF acarbose 50 mg tablet 50 mg PO TID Qty: 270 11RF mirtazapine 15 mg tablet 15 mg PO BEDTIME 30 Days Qty: 30 3RF lorazepam 0.5 mg tablet 0.5 mg PO BID PRN (Reason: anxiety) 30 Days Qty: 60 0RF atorvastatin 40 mg tablet 40 mg PO DAILY Qty: 90 1RF pregabalin 150 mg capsule 150 mg PO TID 30 Days Qty: 90 1RF docusate sodium 100 mg Capsule 100 mg PO BID 30 Days Qty: 60 0RF (DME) LIGHTWEIGHT CANE See Rx Instructions .Route .MEDSUPPLY Qty: 1 0RF Rx Instructions: As directed acetaminophen 325 mg tablet 650 mg PO Q6H PRN (Reason: Pain, Mild (Pain Scale 1-3)) Qty: 60 0RF cholecalciferol (vitamin D3) 50 mcg (2,000 unit) capsule 50 mcg PO DAILY doxycycline hyclate 100 mg tablet 100 mg PO BID 7 Days Qty: 14 0RF primidone 50 mg tablet 100 mg PO BID oxybutynin chloride 10 mg tablet extended release 24hr 10 mg PO DAILY Qty: 90 3RF scopolamine base [Transderm-Scop] 1 mg over 3 days patch 3 day 1 patch transdermal Q3D PRN (Reason: nausea and vomiting/motion sickness) Qty: 10 0RF Referrals: [facility] [Provider Group] Referral Note: mild daistolic dysfunction 6 years ago, worsening dyspnea on exertion Print Language: [place]
--- NOTE | 2025-02-08 14:35 | ECG_ITS ---
Test Reason : SHORT OF BREATH Blood Pressure : */* mmHG Vent. Rate : 77 BPM Atrial Rate : 77 BPM P-R Int : 182 ms QRS Dur : 84 ms QT Int : 394 ms P-R-T Axes : 54 11 32 degrees QTcB Int : 445 ms Normal sinus rhythm Normal ECG When compared with ECG of 16-Jan-2025 16:37, Nonspecific T wave abnormality no longer evident in Lateral leads Referred By: Maria Teresa Roche Electronically Signed By: Torrey Suarez
[2025-02-08 15:02] LABS: MANUAL DIFF FLAG NO
[2025-02-08 15:12] LABS: Basophils Percent Auto 0.4 % (0-2); Eosinophils Absolute Auto 0.3 X10*3/uL (0.0-0.4); Eosinophils Percent Auto 2.8 % (0-4); Hematocrit 33.7 % (37.0-47.0); Hemoglobin 10.8 g/dl (12.0-16.0); Imm Gran Abs Auto 0.02 X10*3/uL (0.00-0.03); Imm Gran Pct Auto 0.2 % (0.0-0.4); Lymphocytes Absolute Auto 1.3 X10*3/uL (1.2-4.9); Lymphocytes Percent Auto 13.6 % (20-40); Mean Corpuscular Hemoglobin 27.1 pg (27.0-33.0); Mean Corpuscular Volume 84.5 fL (80.0-98.0); Mean Platelet Volume 10.4 fL (9.4-12.3); Monocytes Absolute Auto 0.5 X10*3/uL (0.1-1.2); Monocytes Percent Auto 5.2 % (2-11); Neutrophils Absolute Auto 7.5 x10*3/uL (2.0-8.3); Neutrophils Percent Auto 77.8 % (45-73); Platelet Count 232 X10*3/uL (160-400); Red Blood Count 3.99 X10*6/uL (4.20-5.50); Red Cell Distribution Width 15.5 % (11.0-16.0); White Blood Count 9.6 X10*3/uL (4.8-10.8)
[2025-02-08 15:18] LABS: Anion Gap 14 (12-20); Blood Urea Nitrogen 26 mg/dL (9-16); Carbon Dioxide 23 mmol/L (22-29); Chloride 110 mmol/L (96-108); Creatinine Clr Calc Pharmacy 71.1; Estimated Glomerular Filt Rate > 60; Glucose Random 73 mg/dL (60-115); Potassium 4.2 mmol/L (3.3-5.1); Sodium 143 mmol/L (135-145)
[2025-02-08 15:19] LABS: Alanine Aminotransferase 49 U/L (0-31); Alkaline Phosphatase 113 U/L (39-117); Aspartate Amino Transferase 38 U/L (5-31); Bilirubin Direct 0.1 mg/dL (0.0-0.5); Bilirubin Total 0.3 mg/dL (0.0-1.0); Calcium 9.1 mg/dL (8.4-10.2); Lipase 32 U/L (8-78); Magnesium 1.9 mg/dL (1.6-2.6); Total Protein 7.1 g/dL (6.5-8.0)
[2025-02-08 15:24] LABS: B Type Natriuretic Peptide 27 pg/mL (<100)
[2025-02-08 15:26] LABS: Troponin-I High Sensitivity < 2.7 ng/L (<3.5-17.0)
[2025-02-08 15:47] LABS: Influenza A PCR NEGATIVE (Negative); Influenza B PCR NEGATIVE (Negative); Resp Syncy Virus RNA Qual PCR NEGATIVE (Negative); SARS COV2 PCR INHOUSE NEGATIVE (Negative)
[2025-02-08 19:45] VITALS: BP 142/64; PULSE 61; RESP 14; TEMP 36.4; O2SAT 95
[2025-02-08] MEDS: iohexoL 350 MG/ML 100 ML INFUS..BTL 85 ML IV (20:34)
[2025-02-08 22:49] VITALS: BP 145/54; PULSE 54; RESP 17; TEMP 36.6; O2SAT 95
[2025-02-08 22:56] VITALS: BP 145/54; PULSE 54; RESP 17; TEMP 36.6; O2SAT 95
== END 2025-02-08 23:00 | disposition home or self-care (01) ==
PROVIDERS: Physician Assistant Medical; Emergency Provider Internal Medicine; PCP Internal Medicine
DX: R06.02 Shortness of breath (principal); K59.00 Constipation, unspecified; R10.11 Right upper quadrant pain; R10.2 Pelvic and perineal pain; R60.0 Localized edema; R05.9 Cough, unspecified; I10 Essential (primary) hypertension; Z79.899 Other long term (current) drug therapy; Z98.84 Bariatric surgery status; Z03.818 Encounter for observation for suspected exposure to other biological agents ruled out
CPT/HCPCS: 0241U; 36415; 71046; 74177; 76705; 80048; 80076; 83690; 83735; 83880; 84484; 85025; 93005; 99284; Q9967

== ENCOUNTER → 2025-02-08 14:34 | Outpatient (BNV) | payer MEDICARE, SELFPAY | PROVIDERS: PCP Internal Medicine; Visit Provider Radiology Diagnostic Radiology | DX: R10.84 Generalized abdominal pain (principal); K76.0 Fatty (change of) liver, not elsewhere classified; J84.89 Other specified interstitial pulmonary diseases | CPT/HCPCS: 71046; 74177; 76705 ==

== ENCOUNTER → 2025-02-08 14:35 | Outpatient (BNV) | payer MEDICARE, SELFPAY | PROVIDERS: Emergency Provider Internal Medicine; PCP Internal Medicine; Visit Provider Internal Medicine Cardiovascular Disease | DX: R06.02 Shortness of breath (principal) | CPT/HCPCS: 93010 ==

== ENCOUNTER 2025-02-13 07:47 | Inpatient (IN) | payer MEDICARE, SELFPAY ==
[2025-02-13] VITALS (9 sets, daily range): BP systolic 105–139; BP diastolic 57–60; PULSE 79–99; RESP 18–24; TEMP 36–36.8; O2SAT 91–96; BMI 44.9
--- NOTE | ~2025-02-13 | XR_ITS ---
EXAMINATION: XR CHEST CLINICAL INFORMATION: ? pna, not well appreciated on single view COMPARISON: 02/08/2025. TECHNIQUE: 2 views of the chest were obtained. FINDINGS: The cardiac, hilar, and mediastinal contours are normal. Lungs demonstrate patchy left lower lobe opacities suggestive of pneumonia. No significant interval change since 02/08/2025. Minimal subtle bilateral upper lobe opacities as well. There is no pneumothorax or pleural effusion. There is no focal osseous or soft tissue abnormality. XR/XR chest 2V IMPRESSION: Left lower lobe opacities suspicious for pneumonia. Minimal subtle bilateral upper lobe opacities as well. No significant interval change since 02/08/2025. No effusions. Electronically signed by: Oseas Harvey MD 02/13/2025 04:44 PM EDT
--- NOTE | ~2025-02-13 | XR_ITS ---
EXAMINATION: XR CHEST 1 VIEW HISTORY: sob, cough COMPARISON: Comparison is made with the prior examination dated 02/08/2025. FINDINGS: A single AP portable view of the chest performed at 9:12 AM is submitted. There are low lung volumes. There has been partial resolution of the previously seen airspace opacity in the left lower lung zone. The right lung remains clear. There is no pleural effusion, pneumothorax, or pulmonary vascular congestion. The heart is normal in size. The bones are intact. XR/XR chest 1V IMPRESSION: Partial clearing of the previously seen left basilar airspace opacity. Continued follow-up is recommended to document complete resolution. Electronically signed by: Mickey Coleman MD 02/13/2025 09:25 AM EDT
--- NOTE | 2025-02-13 07:51 | ECG_ITS ---
Test Reason : chest pain Blood Pressure : */* mmHG Vent. Rate : 97 BPM Atrial Rate : 97 BPM P-R Int : 180 ms QRS Dur : 78 ms QT Int : 334 ms P-R-T Axes : 44 11 39 degrees QTcB Int : 424 ms Normal sinus rhythm Nonspecific ST and T wave abnormality Borderline ECG When compared with ECG of 08-Feb-2025 14:55, No significant change was found Referred By: Generic ED Physician Electronically Signed By: MINERVA ALMONTE
[2025-02-13 08:32] LABS: MANUAL DIFF FLAG NO
--- NOTE | 2025-02-13 08:32 | ED.CHESTPAIN ---
HPI - Chest Pain General Chief Complaint: Chest Pain Stated Complaint: CP, sob, wheezing, headache Time Seen by Provider: 02/13/25 08:31 Source: patient and family () Mode of arrival: ambulatory Limitations: no limitations History of Present Illness ED Provider: MARIA TERESA ROCHE PA-C HPI narrative: 65 year old female with pmhx significant for obesity s/p gastric sleeve, hypothyroidism, HLD, HTN, GERD, anxiety, depression presents to the ED today for evaluation of shortness of breath and cough x24 hours. She reports intermittent lower extremity swelling x6 weeks. She was evaluated for this at our facility 5 days ago, discharged home with Lasix. Reports LE swelling improved 2 days after discharge. Yesterday she reports feeling more short of breath with associated dry cough. Her cough woke her from her sleep around 0500 this morning. At that time she began having left sided chest pain that has been constant since onset. Pain radiates to bilateral shoulders. No hx of similar. Denies hx AL. She denies any history of asthma/ COPD. Denies tobacco use. She is not dependent on O2 at home. No known sick contacts. Denies fever, chills, sore throat, sputum production, N/V/D. Of note, at visit on 02/08, she was having mild right sided abdominal pain. She was discharged home with miralax which she has been taking as prescribed with positive bowel movements and resolution of abdominal pain. Related Data Home Medications ?Medication ?Instructions ?Recorded ?Confirmed cholecalciferol (vitamin D3) 50 50 mcg PO DAILY 05/23/20 02/13/25 mcg (2,000 unit) capsule primidone 50 mg tablet 100 mg PO BID 02/08/25 02/13/25 albuterol sulfate 90 mcg/actuation 2 puff inhalation Q6H PRN wheezing 02/13/25 02/13/25 aerosol inhaler ferrous sulfate 325 mg (65 mg 325 mg PO DAILY PRN Pain 02/13/25 02/13/25 iron) tablet levothyroxine 150 mcg tablet 150 mcg PO DAILY@0602/13/25 02/13/25 omeprazole 40 mg capsule,delayed 40 mg PO DAILY@62902/13/25 02/13/25 release Previous Rx's ?Medication ?Instructions ?Recorded LIGHTWEIGHT CANE #1 ea 06/15/22 docusate sodium 100 mg capsule 100 mg PO BID 30 days #60 caps 12/17/22 acetaminophen 325 mg tablet 650 mg (2 x 325 mg) PO Q6H PRN 09/23/23 Pain, Mild (Pain Scale 1-3) #60 tabs lisinopril 10 mg tablet 10 mg PO DAILY 90 days #90 tabs 06/13/24 oxybutynin chloride 10 mg 10 mg PO DAILY #90 tabs 06/15/24 tablet,extended release 24 hr sertraline 100 mg tablet 200 mg (2 x 100 mg) PO DAILY 90 10/20/24 days #180 tabs acarbose 50 mg tablet 50 mg PO TID #270 tabs 11/03/24 mirtazapine 15 mg tablet 15 mg PO BEDTIME 30 days #30 tabs 11/20/24 lorazepam 0.5 mg tablet 0.5 mg PO BID PRN anxiety 30 days 12/18/24 #60 tabs atorvastatin 40 mg tablet 40 mg PO DAILY #90 tabs 12/22/24 pregabalin 150 mg capsule 150 mg PO TID 30 days #90 caps 01/19/25 furosemide 20 mg tablet (Lasix) 20 mg PO DAILY #5 tabs 02/08/25 polyethylene glycol 3350 17 17 g PO DAILY PRN constipation 02/08/25 gram/dose oral powder (Miralax) #238 grams Allergies Allergy/AdvReac Type Severity Reaction Status Date / Time fentanyl AdvReac Unknown Nausea and Verified 02/13/25 08:06 Vomiting Review of Systems Review of Systems: Constitutional: No fever, chills, fatigue, night sweats, weight changes ENT/Mouth: No ear pain, hearing loss, nasal congestion, sinus pain, rhinorrhea, sore throat Eyes: No eye pain, swelling, redness, vision changes, discharge Cardio: No palpitations, SANTILLAN, orthopnea, peripheral edema, +chest pain Pulm: No sputum, wheezing, dyspnea, hemoptysis, +SOB, +cough GI: No nausea, vomiting, hematemesis, abdominal pain, diarrhea, constipation, hematochezia, melena : No irregular bleeding, dysuria, frequency, urgency, hesitancy, hematuria, flank pain, urinary flow changes, urinary incontinence or retention MSK: No back pain, neck pain, joint pain, myalgias Skin: No lesions, rashes Neuro: No weakness, numbness, paresthesias, LOC, dizziness, headache Psych: No anxiety/panic, depression, SI/HI, AH/VH All other systems reviewed and are negative. [facility] Past Medical History Attestation statement: The following information was validated with the patient. Source: old records reviewed and nursing notes reviewed Medical History SOB (shortness of breath) Cerebellar ataxia Osteoarthritis of left knee OSMANI (obstructive sleep apnea) Morbid obesity with BMI of 40.0-44.9, adult ASCUS of cervix with negative high risk HPV Anemia Obesity (BMI 30-39.9) Depression Anxiety Primary insomnia Microscopic colitis GERD without esophagitis Fibromyalgia Acquired hypothyroidism Impaired fasting glucose Benign essential hypertension Pure hypercholesterolemia Vitamin D deficiency Hypothyroidism Hypoglycemia Bradycardia Infection at site of external fixator pin Overactive bladder Surgical History Status post total left knee replacement (~12/15/22) Hx of cystoscopy Hx of foot surgery Hx of foot surgery History of colonoscopy History of gastrointestinal tract bypass S/P ORIF (open reduction internal fixation) fracture History of hemorrhoidectomy Hx of bilateral breast reduction surgery H/O section H/O arthroscopy of left knee Status post debridement Family History Family History Father Diabetes Mental health disorder Mother CVD (cardiovascular disease) Myocardial infarction Mental health disorder Brother Colon cancer Sister Lung cancer Social History Social History Household Members: Spouse and Children Housing: House Are you a primary direct care specialist to a significant other at home: No Do you presently have visiting nurse or other home services: No Alcohol intake: current Alcohol intake frequency: does not drink Alcohol type: beer and hard liquor Comment: aware of trip hazards Patient Tobacco Use Status: Never used Tobacco Smoked in Last 30 Days: No e-Cigarette/Vaping Use: Never Used Second Hand Smoke Exposure: No Use of substances other than those prescribed or required for medical reasons: No Advance Directives: No Advance Directives Information Provided: Yes service: No Current occupational status: disabled Cognitive needs: No Hearing needs: Yes Vision needs: Yes Physical Exam Vital Signs: Vital Signs: Last Vital Signs Temp 98.2 F 02/13/25 12:17 Pulse 79 02/13/25 14:00 Resp 24 H 02/13/25 14:00 BP 120/57 L 02/13/25 14:00 Pulse Ox 95 02/13/25 14:00 O2 Del Method Nasal Cannula 02/13/25 14:00 O2 Flow Rate 2 02/13/25 14:00 BMI result Body Mass Index 44.9 tachypneic, hypoxic, placed on 2L NC General: ill appearing, NAD Skin: Warm, dry, intact. No rashes or lesions. Head: Normocephalic, atraumatic. EENT: Hearing is intact b/l. Conjunctiva clear. Sclera is anicteric. PERRLA. EOM intact. Moist mucous membranes.? Neck: Supple without LAD Cardiac: Chest wall symmetric. RRR. No JVD. No reproducible chest wall tenderness Lungs: Mild respiratory distress, increased effort of breathing, no tripoding, lungs with faint wheeze to right upper lobe, otherwise clear Abdomen: obese, soft, non-tender, non-distended. No rebound tenderness or guarding. Positive BS x4. Ext: + 1+pitting edema to lower extremities Neuro: AOx3. Normal speech. Ambulating with steady gait. Course Course Course Narrative: 1007 -- CBC showing slight leukocytosis to 11. Normocytic anemia, H and H stable when compared to priors. Chemistry without acute electrolyte abnormality requiring intervention. Renal function appears to be around baseline, BUN 25, creatinine 1.10. Random glucose 153. Liver function around baseline. Troponin undetectable. EKG showing normal sinus rhythm, rate of 97 beats per minute, QT 334, QTC 424, no acute ischemic changes or ST elevations. BNP undetectable. CHF unlikely. Chest x-ray showing partial clearing of the previously seen left basilar airspace opacity, recommending continued follow up. > ddimer pending. viral swabs pending. > patient receiving bronch treatment 1330 -- D-dimer 231. Age adjusted D-dimer cutoff 315. PE unlikely. Viral swabs negative for COVID, flu, RSV. > patient has been treated with bronch protocol and Solu-Medrol. I have also ordered ceftriaxone to cover for pneumonia.on re-evaluation, patient continues endorsing feeling short of breath. Currently requiring 2 L nasal cannula. Given hypoxia, will reach out to hospitalist regarding admission. patient and her are agreeable. Medications Administered Discontinued Medications Generic Name Dose Route Start Last Admin Trade Name Tere PRN Reason Stop Dose Admin Ceftriaxone Sodium 1 gm 02/13/25 13:19 02/13/25 13:39 Ceftriaxone Sodium 1 Gm Vial IVPUSH 02/13/25 13:20 1 gm ONCE ONE Administration Albuterol Sulfate 2.5 mg/ 0 mg 02/13/25 09:21 02/13/25 09:24 Albuterol/Ipratropium 3 ml INHALE 02/13/25 09:22 1 dose ONCE ONE Administration Azithromycin 500 mg/ Sodium 250 mls @ 125 mls/hr 02/13/25 13:19 02/13/25 13:39 Chloride IV 02/13/25 15:18 125 mls/hr ONCE ONE Administration Methylprednisolone Sodium Succinate 80 mg 02/13/25 10:45 02/13/25 10:49 Methylprednisolone Sod Succ 125 Mg/2 Ml Vial IVPUSH 02/13/25 10:46 80 mg ONCE ONE Administration Medical Decision Making Medical Decision Making [facility] Narrative: 65 year old female with pmhx significant for obesity s/p gastric sleeve, hypothyroidism, HLD, HTN, GERD, anxiety, depression presents to the ED today for evaluation of shortness of breath and cough x24 hours. Patient tachypneic to 24. Patient noted to drop to 87% on RA while I was in the room assessing her. Placed on 2L NC. She has mild respiratory distress with increased effort of breathing. No tripoding. Lungs with faint wheeze to right upper, otherwise clear. No JVD. 1+ pitting edema to b/l LEs. Differential diagnosis includes anemia, electrolyte abnormality, viral syndrome, bronchitis, pneumonia, CHF, ACS, arrhythmia, PE, pleural effusion Plan for labs, viral swabs, EKG, chest x-ray, re-evaluation. Differential Diagnosis Differential Diagnoses: The differential diagnosis associated with the presentation includes as above Admission/Observation Consideration of admission/observation: Escalation of care including admission/observation considered Patient admitted to medicine for hypoxic respiratory failure in the setting of pneumonia. Consult Healthcare Provider Management of the patient was discussed with: Hospitalist (mariusz cardona) Lab Data [facility] Lab Attestation statement: I reviewed the patient's lab results. as above. 02/13/25 08:27 02/13/25 08:27 Labs: Lab Results 02/13/25 02/13/25 Range/Units 08:27 12:15 WBC 11.0 H (4.8-10.8) X10*3/uL RBC 4.44 (4.20-5.50) X10*6/uL Hgb 11.7 L (12.0-16.0) g/dl Hct 36.8 L (37.0-47.0) % MCV 82.9 (80.0-98.0) fL MCH 26.4 L (27.0-33.0) pg MCHC 31.8 (31.0-35.0) g/dl RDW 14.8 (11.0-16.0) % Plt Count 274 (160-400) X10*3/uL MPV 10.2 (9.4-12.3) fL Immature Gran % (Auto) 1.2 H (0.0-0.4) % Neut % (Auto) 78.3 H (45-73) % Lymph % (Auto) 10.8 L (20-40) % [place] % (Auto) 6.0 (2-11) % Eos % (Auto) 3.2 (0-4) % Baso % (Auto) 0.5 (0-2) % Lymph # (Auto) 1.2 (1.2-4.9) X10*3/uL [place] # (Auto) 0.7 (0.1-1.2) X10*3/uL Eos # (Auto) 0.4 (0.0-0.4) X10*3/uL Baso # (Auto) 0.1 (0.0-0.2) X10*3/uL Abs Immat Gran (auto) 0.13 H (0.00-0.03) X10*3/uL Absolute Neuts (auto) 8.6 H (2.0-8.3) x10*3/uL Absolute Nucleated RBC 0.000 (0.0-0.012) X10*3/uL Nucleated RBC % (auto) 0.0 (0.0-0.2) /100WBC D-Dimer High Sensitivty 231 NG/ML Sodium 138 (135-145) mmol/L Potassium 4.4 (3.3-5.1) mmol/L Chloride 104 (96-108) mmol/L Carbon Dioxide 24 (22-29) mmol/L Anion Gap 14 (12-20) BUN 25 H (9-16) mg/dL Creatinine 1.10 (0.5-1.4) mg/dL Estim Creat Clear Calc 57.0 Estimated GFR 50 Random Glucose 153 H (60-115) mg/dL Calcium 9.3 (8.4-10.2) mg/dL Magnesium 1.8 (1.6-2.6) mg/dL Total Bilirubin 0.2 (0.0-1.0) mg/dL AST 37 H (5-31) U/L ALT 34 H (0-31) U/L Alkaline Phosphatase 128 H (39-117) U/L Troponin I High Sens < 2.7 (<3.5-17.0) ng/L B-Natriuretic Peptide < 10 (<100) pg/mL Total Protein 7.7 (6.5-8.0) g/dL Albumin 4.2 (3.5-5.0) g/dL Influenza Type A (PCR) NEGATIVE (Negative) Influenza Type B (PCR) NEGATIVE (Negative) RSV RNA Qual (PCR) NEGATIVE (Negative) SARS-CoV-2 RNA (RT-PCR) NEGATIVE (Negative) Independent Interpretation I performed an independent interpretation of an: EKG and Plain X-Ray Interpretation: EKG showing normal sinus rhythm, rate of 97 beats per minute, QT 334, QTC 424, no acute ischemic changes or ST elevations Chest x-ray showing left basilar opacity Radiology Impression Discussion of test interpretation with radiology: I have reviewed the radiologist's reading. Radiologist Impression: Date of Service: 02/13/25 Procedure(s): XR chest 1V Accession Number(s): [id number] cc: Obdulio Patel MD; Maria Teresa Roche~ EXAMINATION: XR CHEST 1 VIEW HISTORY: sob, cough COMPARISON: Comparison is made with the prior examination dated 02/08/2025. FINDINGS: A single AP portable view of the chest performed at 9:12 AM is submitted. There are low lung volumes. There has been partial resolution of the previously seen airspace opacity in the left lower lung zone. The right lung remains clear. There is no pleural effusion, pneumothorax, or pulmonary vascular congestion. The heart is normal in size. The bones are intact. XR/XR chest 1V IMPRESSION: Partial clearing of the previously seen left basilar airspace opacity. Continued follow-up is recommended to document complete resolution. Electronically signed by: Mickey Coleman MD 02/13/2025 09:25 AM EDT RP Independent Historian Clinical information obtained from an independent historian. History obtained from or confirmed by: Spouse External Record Review External record reviewed: Inpatient record Prescription Management I considered prescription management with: Pain Medication and Antibiotic Social Determinants Patient?s care significantly limited by Social Determinants of Health including: Other Social Determinant of Health Critical Care Time Critical Care Time Critical Care Time: Yes Total Critical Care Time: 32 Attestation: Critical care time in the amount of 32 minutes has been provided to the patient in terms of direct patient care, frequent reevaluation, consultation with hospitalist, review and interpretation of medical data and results, and management of potentially life-threatening conditions. This is all outside of any medical procedures. Discharge Plan Discharge Clinical Impression: Acute hypoxic respiratory failure, CAP (community acquired pneumonia) Patient Disposition: Admitted As Inpatient Print Language: Gabonese
[2025-02-13 08:35] LABS: Basophils Absolute Auto 0.1 X10*3/uL (0.0-0.2); Basophils Percent Auto 0.5 % (0-2); Eosinophils Absolute Auto 0.4 X10*3/uL (0.0-0.4); Eosinophils Percent Auto 3.2 % (0-4); Hematocrit 36.8 % (37.0-47.0); Hemoglobin 11.7 g/dl (12.0-16.0); Imm Gran Abs Auto 0.13 X10*3/uL (0.00-0.03); Imm Gran Pct Auto 1.2 % (0.0-0.4); Lymphocytes Absolute Auto 1.2 X10*3/uL (1.2-4.9); Lymphocytes Percent Auto 10.8 % (20-40); Mean Corpuscular HGB Conc 31.8 g/dl (31.0-35.0); Mean Corpuscular Hemoglobin 26.4 pg (27.0-33.0); Mean Corpuscular Volume 82.9 fL (80.0-98.0); Mean Platelet Volume 10.2 fL (9.4-12.3); Monocytes Absolute Auto 0.7 X10*3/uL (0.1-1.2); Neutrophils Absolute Auto 8.6 x10*3/uL (2.0-8.3); Neutrophils Percent Auto 78.3 % (45-73); Platelet Count 274 X10*3/uL (160-400); Red Blood Count 4.44 X10*6/uL (4.20-5.50); Red Cell Distribution Width 14.8 % (11.0-16.0)
[2025-02-13 08:57] LABS: Alanine Aminotransferase 34 U/L (0-31); Albumin Level 4.2 g/dL (3.5-5.0); Alkaline Phosphatase 128 U/L (39-117); Anion Gap 14 (12-20); Aspartate Amino Transferase 37 U/L (5-31); Bilirubin Total 0.2 mg/dL (0.0-1.0); Blood Urea Nitrogen 25 mg/dL (9-16); Calcium 9.3 mg/dL (8.4-10.2); Carbon Dioxide 24 mmol/L (22-29); Chloride 104 mmol/L (96-108); Estimated Glomerular Filt Rate 50; Glucose Random 153 mg/dL (60-115); Magnesium 1.8 mg/dL (1.6-2.6); Potassium 4.4 mmol/L (3.3-5.1); Sodium 138 mmol/L (135-145); Total Protein 7.7 g/dL (6.5-8.0)
--- NOTE | 2025-02-13 09:01 | PC.NURSE ---
Addendum entered by Dionne Brown RN 02/13/25 09:02: Patient is 64-year-old female with past medical history of fibromyalgia, overactive bladder, hypothyroidism, hypercholesterolemia, hypertension, impaired glucose tolerance, GERD, depression, obesity hx of gastric bypass) presents with respiratory distress, SSCP and DOYLE which started last night. Patient alert and oriented. Patient visibly dyspneic and tachypneic transferring from the W/C to the stretcher. Lungs essentilly clear bilat. Respirations in the low 20's and sl labored. Abdomen large, soft, non-tender with positive bowel sounds. Positive pedal pulses with LE edema noted. Original Note: Medical History SOB (shortness of breath) Cerebellar ataxia Osteoarthritis of left knee OSMANI (obstructive sleep apnea) Morbid obesity with BMI of 40.0-44.9, adult ASCUS of cervix with negative high risk HPV Anemia Obesity (BMI 30-39.9) Depression Anxiety Primary insomnia Microscopic colitis GERD without esophagitis Fibromyalgia Acquired hypothyroidism Impaired fasting glucose Benign essential hypertension Pure hypercholesterolemia Vitamin D deficiency Hypothyroidism Hypoglycemia Bradycardia Infection at site of external fixator pin Overactive bladder
[2025-02-13 09:08] LABS: Troponin-I High Sensitivity < 2.7 ng/L (<3.5-17.0)
[2025-02-13] MEDS: Albuterol Sulfate 2.5 MG, Albuterol/Iprat 2.5/0.5MG 3 ML 3 ML INHALE (09:24)
[2025-02-13 09:38] LABS: B Type Natriuretic Peptide < 10 pg/mL (<100)
[2025-02-13] MEDS: methylPREDNISolone Sod Succ 125 MG/2 ML VIAL 80 MG IVPUSH (10:49)
[2025-02-13 12:29] LABS: D Dimer High Sensitivity 231 NG/ML
[2025-02-13 12:56] LABS: Influenza A PCR NEGATIVE (Negative); Influenza B PCR NEGATIVE (Negative); Resp Syncy Virus RNA Qual PCR NEGATIVE (Negative); SARS COV2 PCR INHOUSE NEGATIVE (Negative)
[2025-02-13] MEDS: cefTRIAXone sodium 1 GM VIAL IVPUSH (13:39)
[2025-02-13] MEDS: Azithromycin 500 MG in 0.9 % Sodium Chloride 250 ML 125 MG IV (13:39)
--- NOTE | 2025-02-13 15:00 | PHA.MEDREC ---
Pharmacy Consult ? Medication Reconciliation Pharmacy has completed the medication reconciliation. Spoke to patient and at bedside to confirm med list. had a list of patient medications on his phone. Patient no longer takes Doxycycline hyc 100 mg and Scoplamine bas 1 mg patch. Patient had all her morning medications today.
--- NOTE | 2025-02-13 15:24 | PM.IMHP ---
History of Present Illness Date of Service: 02/13/25 Chief Complaint: shortnesss of breath 65-year-old female with history of hypertension, obesity s/p gastric sleeve, hypothyroidism, vitamin-D deficiency, GERD, fibromyalgia, depression/anxiety, insomnia, impaired flashing glucose, hyperlipidemia, and urinary urgency s/p Left knee TKA here with complaint of shortness of breath. She reports having being intermittent swelling in the leg for 6 weeks. She was seen in the ED 5 days ago and prescribed Lasic 20 mg daily and has noted improvment. She reports feeling increasingly more short of breath with dry cough since yesterday. She also has been having some chest pain that is constant. ED work up: Troponin I <2.7, BNP < 10, WBC 11/ ECG is normal , CXR with 1 view : Partial clearing of the previously seen left basilar airspace opacity. Continued follow-up is recommended to document complete resolution. She is not Hypoxic Review of Systems Review of Systems: Gen: no fever Resp: + sob, + cough CV: no chest, no SANTILLAN, no leg edema GI: No n/v, no abd pain Neuro: No confusion [facility] Medical History SOB (shortness of breath) Cerebellar ataxia Osteoarthritis of left knee OSMANI (obstructive sleep apnea) Morbid obesity with BMI of 40.0-44.9, adult ASCUS of cervix with negative high risk HPV Anemia Obesity (BMI 30-39.9) Depression Anxiety Primary insomnia Microscopic colitis GERD without esophagitis Fibromyalgia Acquired hypothyroidism Impaired fasting glucose Benign essential hypertension Pure hypercholesterolemia Vitamin D deficiency Hypothyroidism Hypoglycemia Bradycardia Infection at site of external fixator pin Overactive bladder Family History Father Diabetes Mental health disorder Mother CVD (cardiovascular disease) Myocardial infarction Mental health disorder Brother Colon cancer Sister Lung cancer Surgical History Status post total left knee replacement (~12/15/22) Hx of cystoscopy Hx of foot surgery Hx of foot surgery History of colonoscopy History of gastrointestinal tract bypass S/P ORIF (open reduction internal fixation) fracture History of hemorrhoidectomy Hx of bilateral breast reduction surgery H/O section H/O arthroscopy of left knee Status post debridement Social History Household Members: Spouse and Children Housing: House Are you a primary care manager to a significant other at home: No Do you presently have visiting nurse or other home services: No Alcohol intake: current Alcohol intake frequency: does not drink Alcohol type: beer and hard liquor Comment: aware of trip hazards Patient Tobacco Use Status: Never used Tobacco Smoked in Last 30 Days: No e-Cigarette/Vaping Use: Never Used Second Hand Smoke Exposure: No Use of substances other than those prescribed or required for medical reasons: No Advance Directives: No Advance Directives Information Provided: Yes service: No Current occupational status: disabled Cognitive needs: No Hearing needs: Yes Vision needs: Yes Meds Allergies Allergy/AdvReac Type Severity Reaction Status Date / Time fentanyl AdvReac Unknown Nausea and Verified 02/13/25 08:06 Vomiting Active Medications: Current Medications Acetaminophen (Acetaminophen 325 Mg Tablet) 650 mg PO Q6H PRN PRN Reason: Pain, Mild 1-3,fever,headache Calcium Carbonate (Calcium Carbonate 750 Mg Tab.Chew) 750 mg PO Q4H PRN PRN Reason: Heartburn Docusate Sodium (Docusate Sodium 100 Mg Capsule) 100 mg PO BID [place] Enoxaparin Sodium (Enoxaparin Sodium 40 Mg/0.4 Ml Syringe) 40 mg SUBCUT Q24H [place] Magnesium Hydroxide (Milk Of Magnesia 30 Ml Oral.Susp) 30 ml PO DAILY PRN PRN Reason: Constipation Melatonin (Melatonin 3 Mg Tablet) 6 mg PO BEDTIME PRN PRN Reason: Insomnia Polyethylene Glycol (Polyethylene Glycol 3350 17 Gm Powd.Pack) 17 gm PO DAILY PRN PRN Reason: Constipation Senna (Sennosides 8.6 Mg Tablet) 17.2 mg PO BEDTIME [place] Sodium Chloride (0.9 % Sodium Chloride Flush 3 Ml Syringe) 3 ml IVFLUSH QSHIFT [facility] Home Medications ?Medication ?Instructions ?Recorded ?Confirmed ?Last Taken ?Type cholecalciferol (vitamin D3) 50 50 mcg PO DAILY 05/23/20 02/13/25 02/13/25 History mcg (2,000 unit) capsule primidone 50 mg tablet 100 mg PO BID 02/08/25 02/13/25 02/13/25 History albuterol sulfate 90 mcg/actuation 2 puff inhalation Q6H PRN wheezing 02/13/25 02/13/25 Unknown History aerosol inhaler ferrous sulfate 325 mg (65 mg 325 mg PO DAILY PRN Pain 02/13/25 02/13/25 Unknown History iron) tablet levothyroxine 150 mcg tablet 150 mcg PO DAILY@0602/13/25 02/13/25 02/13/25 History omeprazole 40 mg capsule,delayed 40 mg PO DAILY@62902/13/25 02/13/25 02/13/25 History release Physical Exam Vital Signs and Narrative: Vital Signs: Last Vital Signs Temp 98.2 F 02/13/25 12:17 Pulse 79 02/13/25 14:00 Resp 24 H 02/13/25 14:00 BP 120/57 L 02/13/25 14:00 Pulse Ox 95 02/13/25 14:00 O2 Del Method Nasal Cannula 02/13/25 14:00 O2 Flow Rate 2 02/13/25 14:00 BMI result Body Mass Index 44.9 Results Labs 02/13/25 08:27 02/13/25 08:27 Labs: Laboratory Results - last 24 hr 02/13/25 02/13/25 08:27 12:15 MCV 82.9 MCH 26.4 L MCHC 31.8 RDW 14.8 Plt Count 274 MPV 10.2 Immature Gran % (Auto) 1.2 H Neut % (Auto) 78.3 H Lymph % (Auto) 10.8 L [place] % (Auto) 6.0 Eos % (Auto) 3.2 Baso % (Auto) 0.5 Lymph # (Auto) 1.2 [place] # (Auto) 0.7 Eos # (Auto) 0.4 Baso # (Auto) 0.1 Abs Immat Gran (auto) 0.13 H Absolute Neuts (auto) 8.6 H Absolute Nucleated RBC 0.000 Nucleated RBC % (auto) 0.0 D-Dimer High Sensitivty 231 Anion Gap 14 Estim Creat Clear Calc 57.0 Estimated GFR 50 Random Glucose 153 H Calcium 9.3 Magnesium 1.8 Total Bilirubin 0.2 AST 37 H ALT 34 H Alkaline Phosphatase 128 H Troponin I High Sens < 2.7 B-Natriuretic Peptide < 10 Total Protein 7.7 Albumin 4.2 Influenza Type A (PCR) NEGATIVE Influenza Type B (PCR) NEGATIVE RSV RNA Qual (PCR) NEGATIVE SARS-CoV-2 RNA (RT-PCR) NEGATIVE Imaging Radiologist's Impressions: Impressions Chest X-Ray 02/13/25 08:12 IMPRESSION: Partial clearing of the previously seen left basilar airspace opacity. Continued follow-up is recommended to document complete resolution. Electronically signed by: Mickey Coleman MD 02/13/2025 09:25 AM EDT RP Assessment and Plan (1) CAP (community acquired pneumonia): Status: Acute Plan 65-year-old female with history of hypertension, obesity s/p gastric sleeve, hypothyroidism, vitamin-D deficiency, GERD, fibromyalgia, depression/anxiety, insomnia, impaired flashing glucose, hyperlipidemia, and urinary urgency s/p Left knee TKA here with complaint of shortness of breath here with sob and possible PNA Shorrtness of breath, CXR shows PNA with appear to be mild, and 'WBC mildly elevated. I don't think this is the sole cause of her symptoms, I suspect compenent of anxiety, hypoventilation syndrome. Heart failure is less likely given no chest xray evidence and normal BNP. Will continue Abx for treatment of PNA. CXR with 2 view for better definiton of lung finding on single view. She will likely benefit from outpatient sleep study ? Leg edema, I did not appreciate any leg edema on my evaluation, that along with normal BNP makes CHF unlikely will get an echo just to be sure Chest pain, atypical, ECG is normal, troponin is normal, I don't think there is an indication for further tesing at this frank. Morbid obesity still with signficant weigh despite sleeve gastrectomy weight loss advised HLD continue statin HTN resume lisinopril Mood disorder/fibromyalgia resume home meds GERD PPI Chronic anemia, stable Full code Lovenox for dvt prophylaxis: Quality Stroke Does the patient have a stroke diagnosis?: No VTE Prior VTE?: No VTE Risk Level:: Medical - moderate - high VTE Device Contraindication: Treatment Not Indicated VTE Drug Contraindication: N/A - Med Ordered
--- NOTE | 2025-02-13 15:37 | PC.NURSE ---
O2 therapy discontinued per hospitalist to evaluate.
[2025-02-13] MEDS: Enoxaparin Sodium 40 MG/0.4 ML SYRINGE SUBCUT (15:57)
[2025-02-13] MEDS: 0.9 % Sodium Chloride Flush 3 ML SYRINGE IVFLUSH ×2 (15:57→21:52)
--- NOTE | 2025-02-13 17:21 | PC.NURSE ---
Patient immediately dyspeic and pox decreased to 91% once o2 therapy discontinued. Placed back on 2L
[2025-02-13] MEDS: Sennosides 8.6 MG TABLET 17.2 MG PO (21:46)
[2025-02-13] MEDS: Docusate Sodium 100 MG CAPSULE PO ×2 (21:47→21:49)
[2025-02-13] MEDS: Pregabalin 150 MG CAPSULE PO (21:48)
[2025-02-13] MEDS: Mirtazapine 15 MG TABLET PO (21:49)
[2025-02-13] MEDS: Primidone 50 MG TABLET 100 MG PO (21:52)
[2025-02-14 03:26] VITALS: BP 119/57; PULSE 59; RESP 18; TEMP 36.5; O2SAT 95
[2025-02-14] MEDS: Levothyroxine Sodium 150 MCG TABLET PO (05:29)
[2025-02-14] MEDS: Omeprazole 40 MG CAPSULE.DR PO (05:30)
[2025-02-14 06:32] LABS: Alanine Aminotransferase 23 U/L (0-31); Albumin Level 3.5 g/dL (3.5-5.0); Alkaline Phosphatase 112 U/L (39-117); Anion Gap 14 (12-20); Aspartate Amino Transferase 23 U/L (5-31); Bilirubin Total 0.2 mg/dL (0.0-1.0); Blood Urea Nitrogen 21 mg/dL (9-16); Calcium 8.7 mg/dL (8.4-10.2); Carbon Dioxide 23 mmol/L (22-29); Chloride 107 mmol/L (96-108); Creatinine Clr Calc Pharmacy 80.4; Estimated Glomerular Filt Rate > 60; Glucose Random 130 mg/dL (60-115); Potassium 3.7 mmol/L (3.3-5.1); Sodium 140 mmol/L (135-145); Total Protein 6.5 g/dL (6.5-8.0)
--- NOTE | 2025-02-14 07:00 | CA_ITS ---
Transthoracic Echocardiogram Patient (Last, First, Middle): Lolly Yeung M Gender: Female Date of : 1960 Age: 65 Procedure Date: 02/14/2025 Procedure Type: Transthoracic Echocardiogram [place] [facility] [place]: 152.4 cm Weight: 104.33 kg BSA: 1.98 m2 Heart Rate: bpm BP: 104 / 58 mmHg Sand System Operator: TO Referring MD: Richar Silver MD Symptoms: sob, leg edema Study Quality: Good ECG Rhythm: Sinus Conclusions: - The left ventricular systolic function is normal. The calculated ejection fraction is 57% by biplane method. - No obvious valvular pathology seen on this study. Findings Procedure Information Contrast agent, definity, is being given per protocol without apparent complications. Left Ventricle Normal left ventricular cavity size. There is normal left ventricular wall thickness. The left ventricular systolic function is normal. The calculated ejection fraction is 57% by biplane method. There is no evidence of regional wall motion abnormalities. Diastolic function is normal for age. Right Ventricle Mildly increased right ventricular cavity size. There is normal right ventricular systolic function. Atria Possible [id number] left atrial dilatation but borders not well delineated. The right atrium is normal in size. Aortic Valve There is a normal trileaflet aortic valve. There is no aortic valve stenosis. There is no aortic valve regurgitation. Mitral Valve The mitral valve appears normal. There is no mitral valve regurgitation. There is no mitral valve stenosis. Pulmonic Valve The pulmonic valve is likely normal. Tricuspid Valve There is mild tricuspid valve regurgitation. There is no evidence of pulmonary hypertension. Great Vessels The asc aorta is normal in size. Small plaque is seen in the sino tubular ridge. Venous The inferior vena cava is normal in size and collapses less than 50% with inspiration. Pericardium/Pleural There is no evidence of pericardial effusion. Prior Study Comparison No significant change compared to prior study dated: 04/28/2019. Recommendations, Care & Conclusions No obvious valvular pathology seen on this study. Measurements 2D Linear Measurements IVSd: 0.96 0.6-0.9/0.6-1.0 cm LVIDd: 5.21 3.9-5.3/4.2-5.9 cm LVIDd Index: 2.63 2.4-3.2/2.2-3.1 cm/m2 LVIDs: 3.15 2.0-3.6 cm LVPWd: 0.86 0.7-1.1 cm LA Diam: 3.10 2.7-3.8/3.0-4.0 cm LAIDs Index: 1.57 1.5-2.3 cm/m2 LV Mass: 215.17 67-162/88-224 g LV Mass Index: 108.67 43-95/49-115 g/m2 LVOT Diam: 2.00 3.0+(-)1.3 cm 2D Systolic Function EF 4C: 58.30 >55% EF 2C: 56.10 >55% EF BiP: 57.00 >55% Mitral Valve MV Pk E: 0.70 MV PK A: 0.39 MV Decel Time: 214.00 E/A: 1.80 E'Lateral: 6.31 E'Medial: 5.00 E/E' Med: 14.10 E/E' Lat: 11.10 PHT: 63.00 MVA PHT: 3.49 Decel [place]: 3.29 Aortic Valve AoV Pk Brayan: 1.33 AoV Mn Brayan: 0.95 AoV VTI: 0.35 AoV Pk Grad: 7.00 Aov Mn Grad: 4.00 GERALDINE Cont.VTI: 1.96 LVOT LVOT Pk Brayan: 0.86 LVOT Mn Brayan: 0.55 LVOT VTI: 0.22 LVOT Pk Grad: 3.00 LVOT Mn Grad: 1.00 LVOT Diam: 2.00 LVOT Area: 3.14 Diastolic Function MV Pk E: 0.70 MV Pk A: 0.39 E/A: 1.80 E'Medial: 5.00 E/E' Med: 14.10 E' Laterial: 6.31 E/E' Lat: 11.10 Right Ventricle TAPSE (mm): 28.00 TVS' Brayan: 12.00 Tricuspid Valve TR Pk Brayan: 2.32 TR Pk Grad: 22.00 RA Press: 3.00 RVSP: 25.00 Great Vessels Aorta Ao Asc: 3.50 2.1-3.4 cm Updated in Other Vendor System with Status of Final Doug Elias MD electronically signed on 02/14/2025 10:48:27 AM with status of Final
[2025-02-14 07:12] VITALS: BP 104/58; PULSE 55; RESP 18; TEMP 36.8; O2SAT 96
[2025-02-14 07:36] VITALS: BP 104/58
[2025-02-14] MEDS: lisinopriL 10 MG TABLET PO (07:36)
[2025-02-14] MEDS: 0.9 % Sodium Chloride Flush 3 ML SYRINGE IVFLUSH ×3 (07:36→20:42)
[2025-02-14] MEDS: Pregabalin 150 MG CAPSULE PO ×3 (07:37→20:41)
[2025-02-14] MEDS: Docusate Sodium 100 MG CAPSULE PO ×3 (07:37→20:41)
[2025-02-14] MEDS: Azithromycin 250 MG TABLET PO (07:37)
[2025-02-14 07:38] VITALS: BP 104/58
[2025-02-14] MEDS: Primidone 50 MG TABLET 100 MG PO ×2 (07:38→20:41)
[2025-02-14] MEDS: Sertraline HCL 100 MG TABLET 200 MG PO (07:38)
[2025-02-14] MEDS: Furosemide 20 MG TABLET PO (07:38)
[2025-02-14] MEDS: oxyBUTYnin chloride ER 5 MG TAB.ER.24 10 MG PO (07:39)
[2025-02-14] MEDS: Atorvastatin Calcium 40 MG TABLET PO (07:40)
[2025-02-14] MEDS: Cholecalciferol (Vitamin D3) 25 MCG TABLET 50 MCG PO (07:40)
--- NOTE | 2025-02-14 13:32 | PC.NURSE ---
P: Alteration in Respiratory Function I: See nursing documentation and MD orders E: Patient on 4L nc at start of shift. Titrated down with postitive affect.
[2025-02-14] MEDS: Calcium Carbonate 750 MG TAB.CHEW PO ×2 (13:36→16:42)
[2025-02-14] MEDS: cefTRIAXone sodium 1 GM VIAL IVPUSH (13:36)
[2025-02-14] MEDS: Enoxaparin Sodium 40 MG/0.4 ML SYRINGE SUBCUT (15:14)
[2025-02-14] MEDS: Albuterol Sulfate 90 MCG 8 GM INHALER 2 PUFF INHALE (15:14)
--- NOTE | 2025-02-14 15:44 | MHC.CM.PN ---
PT LIVES WITH IS INDEP[facility] HAD NO PREVIOUS SERVICES HAS A RIDE HOME
[2025-02-14 16:00] VITALS: BP 107/55; PULSE 76; RESP 18; TEMP 36.7; O2SAT 91
--- NOTE | 2025-02-14 16:39 | P.PNIM_ITS ---
Subjective Subjective Date of Service: 02/14/25 Interval History: f/u on hypoxia, PNA feel about the same Physical Exam 2 Vital Signs: Vital Signs: Last Vital Signs Temp 98.1 F 02/14/25 16:00 Pulse 76 02/14/25 16:00 Resp 18 02/14/25 16:00 BP 107/55 L 02/14/25 16:00 Pulse Ox 91 L 02/14/25 16:00 O2 Del Method Nasal Cannula 02/14/25 16:00 O2 Flow Rate 4 02/14/25 07:12 BMI result Body Mass Index 44.9 Const: Other: General: AO X 3, no acute distress Resp: CTA bilateral CVS: S1,S2,RRR GI: +BS, NT, no distention Skin: No rash Neuro: motor grossly intact Psych: appropriate affect Objective Data Active Medications Acetaminophen (Acetaminophen 325 Mg Tablet) 650 mg PO Q6H PRN PRN Reason: Pain, Mild (Pain Scale 1-3) Albuterol Sulfate (Albuterol Sulfate 90 Mcg 8 Gm Inhaler) 2 puff INHALE Q6H PRN PRN Reason: Wheezing Last Admin: 02/14/25 15:14 Dose: 2 puff Documented By: AMINA Atorvastatin Calcium (Atorvastatin Calcium 40 Mg Tablet) 40 mg PO DAILY [facility] Last Admin: 02/14/25 07:40 Dose: 40 mg Documented By: MAINA Azithromycin (Azithromycin 250 Mg Tablet) 250 mg PO DAILY [facility] Stop: 02/17/25 09:01 Last Admin: 02/14/25 07:37 Dose: 250 mg Documented By: AMINA Calcium Carbonate (Calcium Carbonate 750 Mg Tab.Chew) 750 mg PO Q4H PRN PRN Reason: Heartburn Last Admin: 02/14/25 13:36 Dose: 750 mg Documented By: AMINA Ceftriaxone Sodium (Ceftriaxone Sodium 1 Gm Vial) 1 gm IVPUSH Q24H [facility] Last Admin: 02/14/25 13:36 Dose: 1 gm Documented By: AMINA Docusate Sodium (Docusate Sodium 100 Mg Capsule) 100 mg PO BID [facility] Last Admin: 02/14/25 07:37 Dose: 100 mg Documented By: AMINA Docusate Sodium (Docusate Sodium 100 Mg Capsule) 100 mg PO BID [facility] Last Admin: 02/14/25 07:38 Dose: 100 mg Documented By: AMINA Enoxaparin Sodium (Enoxaparin Sodium 40 Mg/0.4 Ml Syringe) 40 mg SUBCUT Q24H [facility] Last Admin: 02/14/25 15:14 Dose: 40 mg Documented By: AMINA Ferrous Sulfate (Ferrous Sulfate 324 Mg Tablet.) 324 mg PO DAILY PRN PRN Reason: IRON Furosemide (Furosemide 20 Mg Tablet) 20 mg PO DAILY [facility]; Protocol Last Admin: 02/14/25 07:38 Dose: 20 mg Documented By: AMINA Levothyroxine Sodium (Levothyroxine Sodium 150 Mcg Tablet) 150 mcg PO DAILY@0600 [facility] Last Admin: 02/14/25 05:29 Dose: 150 mcg Documented By: DELMIS Lisinopril (Lisinopril 10 Mg Tablet) 10 mg PO DAILY [facility]; Protocol Last Admin: 02/14/25 07:36 Dose: 10 mg Documented By: AMINA Lorazepam (Lorazepam 0.5 Mg Tablet) 0.5 mg PO BID PRN PRN Reason: Anxiety Magnesium Hydroxide (Milk Of Magnesia 30 Ml Oral.Susp) 30 ml PO DAILY PRN PRN Reason: Constipation Melatonin (Melatonin 3 Mg Tablet) 6 mg PO BEDTIME PRN PRN Reason: Insomnia Mirtazapine (Mirtazapine 15 Mg Tablet) 15 mg PO BEDTIME [facility] Last Admin: 02/13/25 21:49 Dose: 15 mg Documented By: DELMIS Non-Formulary Medication (Acarbose) 50 mg PO TID [facility] Omeprazole (Omeprazole 40 Mg Capsule.) 40 mg PO DAILY@0630 [facility] Last Admin: 02/14/25 05:30 Dose: 40 mg Documented By: DELMIS Oxybutynin Chloride (Oxybutynin Chloride Er 5 Mg Tab.Er.24) 10 mg PO DAILY [facility] Last Admin: 02/14/25 07:39 Dose: 10 mg Documented By: AMINA Polyethylene Glycol (Polyethylene Glycol 3350 17 Gm Powd.Pack) 17 gm PO DAILY PRN PRN Reason: Constipation Pregabalin (Pregabalin 150 Mg Capsule) 150 mg PO TID [facility] Last Admin: 02/14/25 13:38 Dose: 150 mg Documented By: AMINA Primidone (Primidone 50 Mg Tablet) 100 mg PO BID [facility] Last Admin: 02/14/25 07:38 Dose: 100 mg Documented By: AMINA Senna (Sennosides 8.6 Mg Tablet) 17.2 mg PO BEDTIME [facility] Last Admin: 02/13/25 21:46 Dose: 17.2 mg Documented By: DELMIS Sertraline HCl (Sertraline Hcl 100 Mg Tablet) 200 mg PO DAILY [facility] Last Admin: 02/14/25 07:38 Dose: 200 mg Documented By: AMINA Sodium Chloride (0.9 % Sodium Chloride Flush 3 Ml Syringe) 3 ml IVFLUSH QSHIFT [facility] Last Admin: 02/14/25 15:14 Dose: 3 ml Documented By: AMINA Vitamin D (Cholecalciferol (Vitamin D3) 25 Mcg Tablet) 50 mcg PO DAILY [facility] Last Admin: 02/14/25 07:40 Dose: 50 mcg Documented By: AMINA Labs 02/13/25 08:27 02/14/25 06:00 Labs: Laboratory Results - last 24 hr 02/14/25 06:00 Anion Gap 14 Estim Creat Clear Calc 80.4 Estimated GFR > 60 Random Glucose 130 H Calcium 8.7 D Total Bilirubin 0.2 AST 23 ALT 23 Alkaline Phosphatase 112 Total Protein 6.5 Albumin 3.5 Assessment and Plan (1) Pneumonia: Status: Acute Plan 65-year-old female with history of hypertension, obesity s/p gastric sleeve, hypothyroidism, vitamin-D deficiency, GERD, fibromyalgia, depression/anxiety, insomnia, impaired flashing glucose, hyperlipidemia, and urinary urgency s/p Left knee TKA here with complaint of shortness of breath here with sob and possible PNA Shorrtness of breath, CXR shows PNA with appear to be mild, and 'WBC mildly elevated. I don't think this is the sole cause of her symptoms, I suspect compenent of anxiety, hypoventilation syndrome. Heart failure is less likely given no chest xray evidence and normal BNP. Will continue Abx for treatment of PNA. CXR with 2 view for better definiton of lung finding on single view. She will likely benefit from outpatient sleep study, likely has hypoventilation syndrome ? Leg edema, I did not appreciate any leg edema on my evaluation, that along with normal BNP makes CHF unlikely Echo EF 57, no valvular pathology Chest pain, atypical, ECG is normal, troponin is normal, I don't think there is an indication for further tesing at this frank. Morbid obesity still with signficant weigh despite sleeve gastrectomy weight loss advised HLD continue statin HTN resume lisinopril Mood disorder/fibromyalgia resume home meds GERD PPI Chronic anemia, stable Full code Lovenox for dvt prophylaxis: Quality Stroke Does the patient have a stroke diagnosis?: No VTE Prior VTE?: No VTE Risk Level:: Medical - moderate - high VTE Device Contraindication: Treatment Not Indicated VTE Drug Contraindication: N/A - Med Ordered
[2025-02-14] MEDS: Acetaminophen 325 MG TABLET 650 MG PO (16:40)
[2025-02-14 19:54] VITALS: BP 118/60; PULSE 68; RESP 18; TEMP 36.6; O2SAT 92
[2025-02-14] MEDS: Mirtazapine 15 MG TABLET PO (20:41)
[2025-02-14] MEDS: Sennosides 8.6 MG TABLET 17.2 MG PO (20:41)
[2025-02-15 03:42] VITALS: BP 141/65; PULSE 52; RESP 18; TEMP 36.4; O2SAT 92
[2025-02-15] MEDS: Levothyroxine Sodium 150 MCG TABLET PO (05:22)
[2025-02-15] MEDS: Omeprazole 40 MG CAPSULE.DR PO (05:22)
[2025-02-15 07:35] VITALS: BP 119/64; PULSE 52; RESP 18; TEMP 36.6; O2SAT 94
[2025-02-15] MEDS: Atorvastatin Calcium 40 MG TABLET PO (08:50)
[2025-02-15] MEDS: Furosemide 20 MG TABLET PO (08:50)
[2025-02-15] MEDS: Pregabalin 150 MG CAPSULE PO (08:50)
[2025-02-15] MEDS: oxyBUTYnin chloride ER 5 MG TAB.ER.24 10 MG PO (08:51)
[2025-02-15] MEDS: Docusate Sodium 100 MG CAPSULE PO (08:51)
[2025-02-15] MEDS: Primidone 50 MG TABLET 100 MG PO (08:51)
[2025-02-15] MEDS: Cholecalciferol (Vitamin D3) 25 MCG TABLET 50 MCG PO (08:51)
[2025-02-15] MEDS: Azithromycin 250 MG TABLET PO (08:51)
[2025-02-15] MEDS: Sertraline HCL 100 MG TABLET 200 MG PO (08:51)
[2025-02-15] MEDS: lisinopriL 10 MG TABLET PO (08:51)
[2025-02-15] MEDS: 0.9 % Sodium Chloride Flush 3 ML SYRINGE IVFLUSH (08:52)
--- NOTE | 2025-02-15 09:25 | PM.DS ---
DS: Providers Provider Date of Service: 02/15/25 Date of admission: 02/13/25 15:18 Date of discharge: 02/15/25 Primary care physician: Obdulio Patel MD DS: Diagnosis Discharge Diagnosis (1) Pneumonia: Status: Acute DS: Summary Hospital Course Hospital Course: admission hpi Chief Complaint: shortnesss of breath 65-year-old female with history of hypertension, obesity s/p gastric sleeve, hypothyroidism, vitamin-D deficiency, GERD, fibromyalgia, depression/anxiety, insomnia, impaired flashing glucose, hyperlipidemia, and urinary urgency s/p Left knee TKA here with complaint of shortness of breath. She reports having being intermittent swelling in the leg for 6 weeks. She was seen in the ED 5 days ago and prescribed Lasic 20 mg daily and has noted improvment. She reports feeling increasingly more short of breath with dry cough since yesterday. She also has been having some chest pain that is constant. ED work up: Troponin I <2.7, BNP < 10, WBC 11/ ECG is normal , CXR with 1 view : Partial clearing of the previously seen left basilar airspace opacity. Continued follow-up is recommended to document complete resolution. She is not Hypoxic . hospital course: Patient was admited and treated with IV Ceftriaxone, azithromycin and Oxygen as needed. She has responded well to the treatment, she presently has no respiratory difficulty, she is off oxygen and sating 94% on room air, WBC were within normal. This patient will likely benefit from outpatient sleep study. As for intermitten report of leg swelling, her legs are presently not swollen, BNP was normal, and echocardiogram is unremarkable with normal EF and no other evidence of heart failure Final diagnoses; community acquired pneumonia Time Attestation Discharge Coordination Time (in mins): 40 Quality: Safe Use of Opioids Does Pt have an Active Cancer Diagnosis on the Problem List?: No Quality: Stroke Does the patient have a stroke diagnosis?: No Physical Exam Vital Signs: Vital Signs: Last Vital Signs Temp 97.9 F 02/15/25 07:35 Pulse 52 02/15/25 07:35 Resp 18 02/15/25 07:35 BP 119/64 02/15/25 07:35 Pulse Ox 94 02/15/25 07:35 O2 Del Method Room Air 02/15/25 07:35 O2 Flow Rate 4 02/14/25 07:12 BMI result Body Mass Index 44.9 Const: Other: General: AO X 3, no acute distress Resp: CTA bilateral CVS: S1,S2,RRR GI: +BS, NT, no distention Skin: No rash Neuro: motor grossly intact Psych: appropriate affect DS: Data Data Completed and Pending Completed studies during hospitalization [Text1]: Procedures Replacement of Left Knee Joint with Synthetic Substitute, Uncemented, Open Approach (12/15/22) Discharge Plan Discharge Anticipated Discharge Date/Time: 02/15/25 09:39 Patient Disposition: Home, Self-Care Discharge Diagnosis: community acquired pneumonia, acute hypoxia Referrals: Obdulio Patel MD [Primary Care Provider, Internal Medicine] - 1 Week Discharge Medications: Continued lisinopril 10 mg tablet 10 mg PO DAILY 90 Days Qty: 90 3RF sertraline 100 mg tablet 200 mg PO DAILY 90 Days Qty: 180 1RF acarbose 50 mg tablet 50 mg PO TID Qty: 270 11RF mirtazapine 15 mg tablet 15 mg PO BEDTIME 30 Days Qty: 30 3RF lorazepam 0.5 mg tablet 0.5 mg PO BID PRN (Reason: anxiety) 30 Days Qty: 60 0RF atorvastatin 40 mg tablet 40 mg PO DAILY Qty: 90 1RF pregabalin 150 mg capsule 150 mg PO TID 30 Days Qty: 90 1RF docusate sodium 100 mg Capsule 100 mg PO BID 30 Days Qty: 60 0RF albuterol sulfate 90 mcg/actuation HFA aerosol inhaler 2 puff inhalation Q6H PRN (Reason: wheezing) omeprazole 40 mg capsule,delayed release(DR/EC) 40 mg PO DAILY@0630 ferrous sulfate 325 mg (65 mg iron) tablet 325 mg PO DAILY PRN (Reason: Pain) levothyroxine 150 mcg tablet 150 mcg PO DAILY@0600 polyethylene glycol 3350 [Miralax] 17 gram/dose powder 17 g PO DAILY PRN (Reason: constipation) Qty: 238 0RF furosemide [Lasix] 20 mg tablet 20 mg PO DAILY Qty: 5 0RF (DME) LIGHTWEIGHT CANE See Rx Instructions .Route .MEDSUPPLY Qty: 1 0RF Rx Instructions: As directed acetaminophen 325 mg tablet 650 mg PO Q6H PRN (Reason: Pain, Mild (Pain Scale 1-3)) Qty: 60 0RF cholecalciferol (vitamin D3) 50 mcg (2,000 unit) capsule 50 mcg PO DAILY primidone 50 mg tablet 100 mg PO BID oxybutynin chloride 10 mg tablet extended release 24hr 10 mg PO DAILY Qty: 90 3RF Discharge Orders: Discharge Order (Routine); Ordered 02/15/25 Ordered By: Richar Silver Diet: Advance to usual diet Activity on Discharge: As tolerated Stand Alone Forms: Patient Portal Discharge page Print Language: Paraguayan Care Plan Goals: recovery from pneumonia, hypoxia Health Concerns: penumonia hypoxia Plan of Treatment: take Cefuroxime and Azithromycin as recommended and follow up with your doctor in a week as your doctor to arrange a sleep study for you Assessment: see above
[2025-02-15] MEDS: cefuroxime axetiL 500 MG TABLET PO (10:26)
[2025-02-15 10:58] VITALS: BP 137/68; PULSE 64; RESP 18; TEMP 36.5; O2SAT 95
== END 2025-02-15 11:03 | disposition home or self-care (01) | DRG 194 ==
LOC: HO.ED 15:22 → HO.EDOVER 15:42 → HO.S3 16:42
PROVIDERS: Physician Assistant Medical; Admitting Provider Internal Medicine; Emergency Provider Emergency Medicine; PCP Internal Medicine; Visit Provider Internal Medicine
DX: J18.9 Pneumonia, unspecified organism (principal); E66.2 Morbid (severe) obesity with alveolar hypoventilation; Z68.42 Body mass index [BMI] 45.0-49.9, adult; D64.9 Anemia, unspecified; E03.9 Hypothyroidism, unspecified; E78.5 Hyperlipidemia, unspecified; K21.9 Gastro-esophageal reflux disease without esophagitis; F39 Unspecified mood [affective] disorder; M79.7 Fibromyalgia; I10 Essential (primary) hypertension; Z71.6 Tobacco abuse counseling; Z20.822 Contact with and (suspected) exposure to COVID-19; Z98.84 Bariatric surgery status; Z79.890 Hormone replacement therapy; Z79.899 Other long term (current) drug therapy
CPT/HCPCS: 0241U; 36415; 71045; 71046; 80053; 83735; 83880; 84484; 85025; 85379; 93005; 93306; 94640; 99285; J0456; J0696; J1650; J2919; Q9957

== ENCOUNTER → 2025-02-13 07:51 | Outpatient (BNV) | payer MEDICARE, SELFPAY | PROVIDERS: Admitting Provider Internal Medicine; Emergency Provider Emergency Medicine; PCP Internal Medicine; Visit Provider Internal Medicine | DX: R07.89 Other chest pain (principal) | CPT/HCPCS: 93010 ==

== ENCOUNTER → 2025-02-13 09:06 | Outpatient (BNV) | payer MEDICARE, SELFPAY | PROVIDERS: Emergency Provider Emergency Medicine; PCP Internal Medicine; Visit Provider Radiology Diagnostic Radiology | DX: R91.8 Other nonspecific abnormal finding of lung field (principal); R06.02 Shortness of breath; R05.9 Cough, unspecified | CPT/HCPCS: 71045; 71046 ==

== ENCOUNTER 2025-02-13 15:18 | Outpatient (BNV) | payer MEDICARE, SELFPAY | END 2025-02-14 07:00 | PROVIDERS: Admitting Provider Internal Medicine; Emergency Provider Emergency Medicine; PCP Internal Medicine; Visit Provider Internal Medicine | DX: I36.1 Nonrheumatic tricuspid (valve) insufficiency (principal); I51.7 Cardiomegaly; I70.0 Atherosclerosis of aorta | CPT/HCPCS: 93306 ==

== ENCOUNTER → 2025-02-13 15:18 | Outpatient (BNV) | payer MEDICARE, SELFPAY | PROVIDERS: Admitting Provider Internal Medicine; Emergency Provider Emergency Medicine; PCP Internal Medicine; Visit Provider Internal Medicine | DX: J18.9 Pneumonia, unspecified organism (principal) | CPT/HCPCS: 99222; 99232 ==

== ENCOUNTER 2025-02-21 09:15 | Outpatient (AMB) | payer MEDICARE, SELFPAY ==
[2025-02-21 09:19] VITALS: BP 112/64; PULSE 85; O2SAT 92; BMI 46.9
--- NOTE | 2025-02-21 09:19 | A.OFFPC_ITS ---
Vital Signs 02/21/25 09:19 Height 5 ft Weight 240 lb 4.862 oz BMI 46.9 BP 112/64 Blood Pressure Location Lt brachial Position Sitting Pulse 85 Pulse Source Pulse Oximeter Pulse Oximetry (%) 92 Oxygen Delivery Method Room Air Intake Visit Reasons: [place] [facility] [place] National Sales Consultant Required: No Accompanied by: Self / Same As Patient Allergies fentanyl Adverse Reaction (Unknown, Verified 02/21/25 09:50) Nausea and Vomiting Medication List - Last Reconciled 02/21/25 by Obdulio Patel MD acarbose 50 mg PO TID acetaminophen 650 mg (2 x 325 mg) PO Q6H PRN albuterol sulfate 90 mcg/actuation 2 puffs inhalation Q6H PRN atorvastatin 40 mg PO DAILY cholecalciferol (vitamin D3) 50 mcg PO DAILY docusate sodium 100 mg PO BID 30 days ferrous sulfate 325 mg PO DAILY PRN furosemide (Lasix) 20 mg PO DAILY levothyroxine 150 mcg PO DAILY@0600 [LIGHTWEIGHT CANE As directed] lisinopril 10 mg PO DAILY 90 days lorazepam 0.5 mg PO BID PRN 30 days mirtazapine 15 mg PO BEDTIME 30 days omeprazole 40 mg PO DAILY@0630 oxybutynin chloride ER 10 mg PO DAILY polyethylene glycol 3350 (Miralax) 17 grams PO DAILY PRN pregabalin 150 mg PO TID 30 days primidone 100 mg PO BID sertraline 200 mg (2 x 100 mg) PO DAILY 90 days Tobacco use date assessed: 02/21/25 Dental Screening Dental Screen Date: 02/21/25 Did you have a dental visit in the last 12 months?: Yes Did you have a dental problem in the last 6 months where you did not have access to dental care?: No Was dental information given to patient?: Patient has dentist HPI [place]/08/25 [facility] [place] H[place] Details Patient comes in today for her TCM/follow up visit She initially went to the ER a couple of weeks ago for increasing cough and congestion and SOB and was sent home after work ups done revealed no acute findings She eventually went back to the ER a few days later for persistence and worsening of her respiratory symptoms as well as for chest pains and lower extremity swelling an was finally admitted to the hospital for acute hypoxic respiratory failure and pneumonia She was managed medically and subsequently discharged home a few days later when her symptoms improved - she was continued on dual Abx Tx with Azithromycin and Cefuroxime, which patient completed a few days ago She also underwent repeat echocardiogram to further evaluate her symptoms as a previous echocardiogram done a few years ago revealed findings of mild diastolic dysfunction Patient states that she currently feels okay and that her respiratory symptoms have mostly improved resolved although she still has occasional mild SANTILLAN She denies any fever, headaches or dizziness Denies any recent chest pains No nausea/vomiting, no abdominal pain No change in bowel habits noted Needs her Lorazepam and Albuterol inhaler Rx refilled TCM TCM Information Date of Discharge 02/15/25 Discharged From [facility] Interactive Contact Date (Reference documentation from this date) [facility] Medical History SOB (shortness of breath) Cerebellar ataxia Osteoarthritis of left knee OSMANI (obstructive sleep apnea) Morbid obesity with BMI of 40.0-44.9, adult ASCUS of cervix with negative high risk HPV Anemia Obesity (BMI 30-39.9) Depression Anxiety Primary insomnia Microscopic colitis GERD without esophagitis Fibromyalgia Acquired hypothyroidism Impaired fasting glucose Benign essential hypertension Pure hypercholesterolemia Vitamin D deficiency Hypothyroidism Hypoglycemia Bradycardia Infection at site of external fixator pin Overactive bladder Surgical History Status post total left knee replacement (~12/15/22) Hx of cystoscopy Hx of foot surgery Hx of foot surgery History of colonoscopy History of gastrointestinal tract bypass S/P ORIF (open reduction internal fixation) fracture History of hemorrhoidectomy Hx of bilateral breast reduction surgery H/O section H/O arthroscopy of left knee Status post debridement Family History Father Diabetes Mental health disorder Mother CVD (cardiovascular disease) Myocardial infarction Mental health disorder Brother Colon cancer Sister Lung cancer Social History Household Members: Spouse Housing: House Are you a primary care connector to a significant other at home: No Do you presently have visiting nurse or other home services: No Alcohol intake: current Alcohol intake frequency: does not drink Alcohol type: beer and hard liquor Comment: aware of trip hazards Patient Tobacco Use Status: Never used Tobacco e-Cigarette/Vaping Use: Never Used Second Hand Smoke Exposure: No service: No Current occupational status: disabled Current occupational exposures/hazards: No Cognitive needs: No Hearing needs: Yes Vision needs: Yes Female Reproductive History Menstrual Age of Menarche: 14 Questionnaire PHQ-9 Over the last 2 weeks, how often have you been bothered by any of the following problems? 1. Little interest or pleasure in doing things: not at all 2. Feeling down, depressed, or hopeless: not at all 3. Trouble falling or staying asleep, or sleeping too much: not at all 4. Feeling tired or having little energy: not at all 5. Poor appetite or overeating: not at all 6. Feeling bad about yourself - or that you are a failure or have let yourself or your family down: not at all 7. Trouble concentrating on things, such as reading the newspaper or watching television: not at all 8. Moving or speaking so slowly that other people could have noticed. Or the opposite - being so fidgety or restless that you have been moving around a lot more than usual: not at all 9. Thoughts that you would be better off or of hurting yourself in some way: not at all Total score: 0 Depression Screening Interpretation: Negative Depression Screening Done: Yes 30818 - PHQ-9 Billing: Yes Source: Developed by Drs. Mickey Arce, Paige Barton, Luis A Hull and colleagues, with an educational roger from [employer]. Thrive Questionnaire Date Thrive assessed: 02/21/25 I am a: Patient What is your living situation today?: I have a steady place to live Within the past 12 months, did the food you bought not last and you didn't have the money to get more?: Never true Within the past 12 months, did you worry whether your food would run out before you got money to buy more?: Never true Do you have trouble paying for medicines?: Yes Do you have trouble getting transportation to medical appointments?: Yes Do you have trouble paying your heating and electricity bill?: Yes Do you have trouble taking care of your child, family member or friend?: No Do you have trouble with day-to-day activities such as bathing, preparing meals, shopping, managing finances, etc.?: No Are you currently unemployed and looking for a job?: I choose not to answer this question Are you interested in more education?: No Please select the resources that you would like help with: None Currently or been in a relationship where the following occur: No concerns reported THRIVE Score: 2 AUDIT C Alcohol Use Questionnaire (AUDIT-C) 1. How often do you have a drink containing alcohol?: Monthly or less 2. How many drinks containing alcohol do you have on a typical day when you are drinking?: 1 or 2 3. How often do you have six or more drinks on one occasion?: Never Total Score: 1 Score Reviewed/Action Taken: Yes EVANGELINA-7 AMB Questionnaire EVANGELINA-7 Date EVANGELINA - 7 assessed: 02/21/25 Feeling nervous, anxious, or on edge: 0 = Not at all Not being able to stop or control worryin = Not at all Worrying too much about different things: 0 = Not at all Trouble relaxin = Not at all Being so restless that it is hard to sit still: 0 = Not at all Becoming easily annoyed or irritable: 0 = Not at all Feeling afraid as if something awful might happen: 0 = Not at all Total EVANGELINA-7 score (0-4 normal; 5-9 mild; 10-14 moderate; 15-21 severe): 0 Source: Developed by Drs. Mickey Arce, Paige Barton, Luis A Hull and colleagues, with an educational roger from [employer]. Review of Systems Const Denies chills, Reports fatigue, Denies fever(s) and Denies headache(s) ENT Denies dysphagia, Denies dizziness, Denies otalgia, Denies headache(s), Reports hearing loss (in both ears), Reports neck pain (chronic), Denies odynophagia and Denies sore throat Card Denies chest pain, Denies palpitations and Reports dyspnea on exertion (mild) Resp Denies chest congestion, Denies cough, Denies excessive phlegm production, Reports dyspnea on exertion (mild) and Denies wheezing GI Denies abdominal pain, Denies constipation, Denies dysphagia, Denies heartburn, Reports diarrhea (on and off), Denies nausea, Denies odynophagia and Denies vomiting Denies difficulty voiding, Reports nocturia (at times), Denies dysuria and Reports urinary incontinence (mostly at night) Musc Reports abnormal gait (unsteady - uses a walker or cane when ambulating), Reports arthralgias (both knees - s/p left knee TKA with (+)improvement of symptoms), Reports neck pain (chronic), Reports numbness (of fingers of both hands, recurrent) and Reports tingling (of fingers of both hands, recurrent) Skin/Breast Denies rash Neuro Reports abnormal gait (unsteady - uses a walker or cane when ambulating), Denies dizziness, Denies headache(s), Reports numbness (of fingers of both hands, recurrent) and Reports tingling (of fingers of both hands, recurrent) Psych Reports anxiety and Reports depression (better controlled lately) Endo Reports fatigue and Denies palpitations Aller/Immun Denies wheezing Physical exam (Primary Care) Vital Signs: Last Vital Signs Pulse 85 02/21/25 09:19 BP 112/64 02/21/25 09:19 Pulse Ox 92 02/21/25 09:19 Oxygen Delivery Method Room Air 02/21/25 09:19 BMI result Body Mass Index 46.9 Tobacco/Smoking Status: Tobacco use Status Tobacco use date assessed 02/21/25 02/21/25 09:22 Patient Tobacco Use Status Never used Tobacco 02/21/25 09:22 e-Cigarette/Vaping Use Never Used 02/21/25 09:22 PHQ-9: PHQ-9 Score PHQ-9: Total score 0 02/21/25 09:22 Depression Screening Interpretation: Negative Thrive Assessment: Date of Thrive Assessment Date Thrive assessed 02/21/25 02/21/25 09:22 Currently or been in a relationship where the following occur: No concerns reported Const General: no acute distress and alert HENMT Ears: TM's normal bilaterally and EAC's normal Throat: Yes posterior oropharynx normal and Yes tonsils normal (no TP congestion noted) Neck Neck: No lymphadenopathy and Yes tender (mild, over the cervical spine) Thyroid: Thyroid normal Resp Auscultation: no crackles, no rales, rhonchi (occasional) throughout, no wheezes and diminished lung sounds (slightly) bilateral Cardio Rate: regular rate Rhythm: regular rhythm Heart sounds: no murmurs GI Palpation (GI): Soft to palpation and nontender Auscultation: normal bowel sounds General: Yes no CVA tenderness Back/Spine/Pelvis Back: no CVA tenderness Cervical Spine: Cervical spine tenderness Thoracic/Lumbar Spine: lumbar spinal tenderness Skin Rashes: no rashes Extrem General: Yes no clubbing, cyanosis or edema Coding Level of Care Code TCM Mod MDM <= 7 Days Diagnoses Pneumonia of right lung due to infectious organism, unspecified part of lung J18.9 Pneumonia type: due to unspecified organism Laterality: right Lung location: unspecified part of lung Benign essential hypertension I10 Acquired hypothyroidism E03.9 Cerebellar ataxia G11.9 Anxiety F41.9 Episode of recurrent major depressive disorder, unspecified depression episode severity F33.9 Depression Type: major depressive disorder Major depression recurrence: recurrent Active/Remission status: currently active Major depression episode severity: unspecified Obesity (BMI 30-39.9) E66.9 Additional Codes PHQ-9 - 73941 - PHQ-9 Billing: Yes ([id number]) Assessment & Plan Assessment & Plan (1) Pneumonia: Code(s): J18.9 - Pneumonia, unspecified organism Category: Medical Qualifiers: Pneumonia type: due to unspecified organism Laterality: right Lung location: unspecified part of lung Qualified Code(s): J18.9 - Pneumonia, unspecified organism Plan: Resolving - s/p Tx with dual Abx Rx (Azithromycin and Cefuroxime) Patient reports that she still has mild SANTILLAN at times but most of her other respiratory symptoms have since improved Continue Albuterol HFA 1 to 2 inhalations Q 6 hours PRN (Rx refilled) but p atient is advised that she should not really need to continue on this much longer She also had repeat echocardiogram done last week to follow up on some findings of mild diastolic dysfunction seen on her previous echocardiogram done a few years ago - repeat echocardiogram came back normal, with her current diastolic function normal for her age (2) Benign essential hypertension: Code(s): I10 - Essential (primary) hypertension Category: Medical Plan: Reinforced low sodium diet - goal is systolic BP of at least 120 to 130 mm or less Continue Lisinopril 10 mg QD Patient is reminded to continue monitoring her blood pressure regularly (3) Acquired hypothyroidism: Code(s): E03.9 - Hypothyroidism, unspecified Category: Medical Plan: Continue Levothyroxine 150 mcg QD Will continue to monitor her TFTs regularly (4) Cerebellar ataxia: Code(s): G11.9 - Hereditary ataxia, unspecified Category: Medical Plan: She was diagnosed with cerebellar ataxia by neurology (Dr. Martínez) last year on 10/01/2023 Follow up with neurology as scheduled (5) Anxiety: Code(s): F41.9 - Anxiety disorder, unspecified Category: Medical Plan: Continue Lorazepam 0.5 mg BID PRN - Rx refilled (6) Depression: Code(s): F32.9 - Major depressive disorder, single episode, unspecified Category: Medical Qualifiers: Depression Type: major depressive disorder Major depression recurrence: recurrent Active/Remission status: currently active Major depression episode severity: unspecified Qualified Code(s): F33.9 - Major depressive disorder, recurrent, unspecified Plan: Continue Mirtazapine 15 mg Q HS (7) Obesity (BMI 30-39.9): Code(s): E66.9 - Obesity, unspecified Category: Medical Plan: Reinforced diet; exercise and weight loss are not realistic, especially given patient's gait instability and diagnosis of cerebellar ataxia Plan Follow up as scheduled in 3 weeks Medications: Changed From albuterol sulfate 90 mcg/actuation 2 puffs inhalation Q6H PRN wheezing To albuterol sulfate 90 mcg/actuation 2 inhalations inhalation Q6-8H PRN 8.5 grams 0RF shortness of breath or wheezing Refilled lorazepam 0.5 mg PO BID PRN 60 tabs 0RF anxiety 30 days F41.9 - Anxiety disorder, unspecified
--- OUTSIDE RECORDS SUMMARY | 2025-02-21 09:25 | XMS_ITS | Patient Health Record ---
Author Organization [facility] Address [address] [place] [id number] Care Team Providers Care Neighborhood Planner Name Role Phone Jorge SIMMS, Arnett Primary Care Provider Mickey Zayas Unavailable [phone] Allergies Allergen (clinical drug ingredient) Drug/Non Drug [...] Pregabalin 150 MG TAKE 1 CAPSULE BY [facility] 3 TIMES A DAY Oral three times [...] Status Risk Notes Problem Colon cancer screening (941171891) Colon cancer screening (Z12.11) Active confirmed Problem 255363900 Encounter for screening for malignant neoplasm of colon (Z12.11) Active confirmed Problem Diverticular disease of colon (522870211) Diverticulosis of large intestine without perforation or abscess without bleeding (K57.30) Active confirmed Problem Preprocedural examination (060733270445207) Preprocedural examination (Z01.818) Active confirmed Problem Microscopic colitis (825046926) Microscopic colitis (K52.89) Active confirmed Problem Gastroesophageal reflux disease (661233345) GERD (gastroesophageal reflux disease) (K21.9) Active confirmed Problem 023253583 Other microscopi c colitis (K52.838) Active confirmed Vital Signs Temperature 96.9 degrees Fahrenheit 11/01/2024 Blood pressure diastolic 01 mm Hg 11/01/2024 Height 62 in 11/01/2024 Blood pressure systolic 001 mm Hg 11/01/2024 Weight 220 lbs 11/01/2024 BMI 40.23 kg/m2 11/01/2024 Encounters Encounter Location Date Provider Diagnosis [facility] [address] [facility] [address] [place] [id number] 11/01/2024 Mickey Kline Rectal bleeding K62.5 Assessments [...] Coverage Start Date Coverage End Date [facility] [address] [place], [place] [id number] JESU WILKS Self - patient is the insured 1 Medical (General) History Medical History History ICD Code Fibromyalgia GERD--EGD in October of 2008 w ith the finding of a small hiatal hernia, GERD, and gastritis--there was no evidence of any Clark's esophagus nor H. pylori. hypothroidism depression/anxiety arthritis all over her body Denies AR,DM,CVA,Lung disease,renal dise ase Vertigo IBS-had neg. celiac [...]
--- OUTSIDE RECORDS SUMMARY | 2025-02-21 09:25 | XMS_ITS | Patient Health Record ---
Author Organization [facility] Address [address] [place] [place] [address] Care Team Providers Care Service Superintendent Name Role Phone Obdulio Patel MD Primary Care Provider Uma Monte Unavailable [phone] Allergies Allergen (clinical drug ingredient) Drug/Non Drug Allergy documented on EMR Reaction Allergy Type Onset Date Status Penicillin Unknown Drug Allergy Active Reason For Referral No Information Medications Medication SIG (Take, Route, Frequency, Duration) Notes Start Date End Date Status hydroCHLOROthiazide 50 MG 1 tablet Orall y Once a day; Duration: 30 day(s) Active Simvastatin 10 MG 1 tablet in the evening Orally Once a day; Duration: 30 day(s) Active Trazodone & Diet Manage Prod 50 MG as directed Orally Active Apriso 0.375 GM 4 capsules in the morning Orally Once a day; Duration: 30 day(s) Active Lyrica 225 MG 1 capsule Orally Twi ce a day Active Meclizine HCl 25 MG 1 tablet as needed Orally Once a day; Duration: 30 day(s) Active Omeprazole 20 MG 1 capsule Orally Onc e a day; Duration: 30 day(s) Active Naproxen 375 MG 1 tablet Orally Twic e a day; Duration: 30 day(s) Active Levothyroxine Sodium 112 MCG 1 tablet on an empty stomach in the morning Orally Once a day; Duration: 30 day(s) Active Aspirin 81 MG 1 tablet Orally Once a day; Duration: 30 day(s) Active oxyBUTYnin 3.9 MG/24HR 1 patch to skin Transdermal Two times a Week; Duration: 30 day(s) Active Toviaz 8 MG 1 tablet Orally Once a day; Duration: 30 day(s) Active LORazepam 0.5 MG 1 tablet at bedtime as needed Orally Once a day Active Physical Therapy 3-4x per week for 3- 4 weeks 03/01/2014 Active Sertraline HCl 100 MG 1 tablet Orally On ce a day; Duration: 30 day(s) Active Problems Problem Type SNOMED Code ICD Code Onset Dates Problem Status W/U Status Risk Notes Problem Bursitis (69281514) Bursitis (727.3) Active confirmed Problem Myositis (97336266) Myositis (729.1) Active confirmed Problem Pain in limb (75688938) Pain in Limb (729.5) Active confirmed Problem Plantar fasciitis (517833370) Plantar Fasciitis (728.71) Active confirmed Problem Calcaneal spur (88769325) Calcaneal spur (726.73) Active confirmed Plan Of Treatment Pending Test Test Name Order Date X ray : Foot, left 3V 12/05/2012 X ray : Foot, right 3V 12/05/2012 [id number], [id number], JOINT/BURSA 0 03/01/2014 Insurance Providers Payer Name Payer Address Payer Phone Subscriber Number Group Number Insured Name Patient Relationship to Insured Coverage Start Date Coverage End Date [facility] [address] [place] [address] [id number] Lolly Yeung Self - patient is the insured Medical (General) History Medical History History ICD Code hyperlipidemia Hypothyroidism fibromyalgia gastroesophageal reflux disease (GERD) iron deficiency anemia overactive bladder (OAB) vertigo irritable bowel syndrome anxiety depression obesity Arthritis back, hip, knee pain Gout hypertension Surgical History Surgery Date(Month/Year) Breast Reduction bilateral left knee arthroscopy section heel surgery
== END 2025-02-21 10:04 | disposition home or self-care (01) ==
LOC: HO.HMCH 09:16
PROVIDERS: PCP Internal Medicine; Visit Provider Internal Medicine
DX: J18.9 Pneumonia, unspecified organism (principal); G11.9 Hereditary ataxia, unspecified; Z68.42 Body mass index [BMI] 45.0-49.9, adult; E66.9 Obesity, unspecified; I10 Essential (primary) hypertension; E03.9 Hypothyroidism, unspecified; F41.9 Anxiety disorder, unspecified; F33.9 Major depressive disorder, recurrent, unspecified

== ENCOUNTER → 2025-02-21 09:15 | Outpatient (BNVA) | payer MEDICARE, SELFPAY | PROVIDERS: PCP Internal Medicine; Visit Provider Internal Medicine | DX: I10 Essential (primary) hypertension (principal); J18.9 Pneumonia, unspecified organism; E03.9 Hypothyroidism, unspecified; G11.9 Hereditary ataxia, unspecified; F41.9 Anxiety disorder, unspecified; F33.9 Major depressive disorder, recurrent, unspecified; E66.9 Obesity, unspecified | CPT/HCPCS: 96127; 99495 ==

== ENCOUNTER 2025-03-10 09:10 | Outpatient (REF) | payer MEDICARE, SELFPAY ==
--- OUTSIDE RECORDS SUMMARY | 2025-03-10 09:12 | XMS_ITS | Patient Health Record ---
Author Organization [facility] Address [address] [place] [address] Care Team Providers Care Fiber Optic Technician Name Role Phone Obdulio Patel MD Primary Care Provider Uma Monte Unavailable [phone] Allergies Allergen (clinical drug ingredient) Drug/Non Drug [...] Status W/U Status Risk Notes Problem Bursitis (95458403) Bursitis (727.3) Active confirmed Problem Myositis (26693828) Myositis (729.1) Active confirmed Problem Pain in limb (09028856) Pain in Limb (729.5) Active confirmed Problem Plantar fasciitis (456188821) Plantar Fasciitis (728.71) Active confirmed Problem Calcaneal spur (16092483) Calcaneal spur (726.73) Active confirmed Plan Of Treatment Pending Test Test Name Order Date X ray : Foot, left 3V 12/05/2012 X ray : Foot, right 3V 12/05/2012 46131, [id number], JOINT/BURSA 0 03/01/2014 Insurance Providers Payer Name Payer Address Payer Phone Subscriber Number Group Number Insured Name Patient Relationship to Insured Coverage Start Date Coverage End Date [facility] [address] [place] [address] [phone] [id number] Lolly Yeung Self - patient is the insured Medical (General) History Medical History History ICD Code hyperlipidemia Hypothyroidism fibromyalgia gastroesophageal reflux disease (GERD) iron deficiency anemia overactive bladder (OAB) vertigo irritable bowel syndrome anxiety depression obesity Arthritis back, hip, knee pain Gout hypertension Surgical History Surgery Date(Month/Year) Breast Reduction bilateral left knee arthroscopy section heel surgery
--- OUTSIDE RECORDS SUMMARY | 2025-03-10 09:12 | XMS_ITS | Patient Health Record ---
Author Organization [facility] Address [address] [place] [address] Care Team Providers Care Dealer Sales Manager Name Role Phone Jorge SIMMS, [place] Primary Care Provider Mickey Zayas Unavailable [phone] Allergies Allergen (clinical drug ingredient) Drug/Non Drug [...] Pregabalin 150 MG TAKE 1 CAPSULE BY [facility] 3 TIMES A DAY Oral three [...] Status Risk Notes Problem Colon cancer screening (300047922) Colon cancer screening (Z12.11) Active confirmed Problem 521872255 Encounter for screening for malignant neoplasm of colon (Z12.11) Active confirmed Problem Diverticulosis o f large intestine without perforation or abscess without bleeding (K57.30) Active confirmed Problem Preprocedural examination (859610953140385) Preprocedural examination (Z01.818) Active confirmed Problem Microscopic colitis (237825428) Microscopic colitis (K52.89) Active confirmed Problem Gastroesophageal reflux disease (614358397) GERD (gastroesophageal reflux disease) (K21.9) Active confirmed Problem 347270920 Other microscopi c colitis (K52.838) Active confirmed Vital Signs Temperature 96.9 degrees Fahrenheit 11/01/2024 Blood pressure diastolic 01 mm Hg 11/01/2024 Height 62 in 11/01/2024 Blood pressure systolic 001 mm Hg 11/01/2024 Weight 220 lbs 11/01/2024 BMI 40.23 kg/m2 11/01/2024 Encounters Encounter Location Date Provider Diagnosis [facility] [address] [place] [address] 11/01/2024 Mickey Kline Rectal bleeding K62.5 Assessments Encounter Date Diagnosis (ICD Code) Assessment Notes Treatment Notes Treatment Clinical Notes Section Notes 11/01/2024 Rectal bleeding (ICD-10 - K62.5) 11/01/2024 Other Repeat colonoscopy in 2032 Call if bleeding or problems with BM's Plan Of Treatment Future Test Test Name Order Date COLONOSCOPY 05/12/2012 COLONOSCOPY 07/14/2022 Insurance Providers Payer Name Payer Address Payer Phone Subscriber Number Group Number Insured Name Patient Relationship to Insured Coverage Start Date Coverage End Date [facility] [address] [place], [place] [id number] JESU WILKS Self - patient is the insured 1 Medical (General) History Medical History History ICD Code Fibromyalgia GERD--EGD in October of 2008 w ith the finding of a small hiatal hernia, GERD, and gastritis--there was no evidence of any Clark's esophagus nor H. pylori. hypothroidism depression/anxiety arthritis all over her body Denies IN,DM,CVA,Lung disease,renal dise ase Vertigo IBS-had neg. celiac [...] surgery 2006 heel surgery for heel spurs 2000
[2025-03-10 11:15] LABS: MANUAL DIFF FLAG NO
[2025-03-10 11:18] LABS: Hematocrit 34.5 % (37.0-47.0); Hemoglobin 11.2 g/dl (12.0-16.0); Imm Gran Abs Auto 0.02 X10*3/uL (0.00-0.03); Imm Gran Pct Auto 0.4 % (0.0-0.4); Lymphocytes Absolute Auto 1.7 X10*3/uL (1.2-4.9); Mean Corpuscular HGB Conc 32.5 g/dl (31.0-35.0); Mean Corpuscular Hemoglobin 26.7 pg (27.0-33.0); Mean Corpuscular Volume 82.1 fL (80.0-98.0); NRBC Abs Auto 0.000 X10*3/uL (0.0-0.012); NRBC Pct Auto 0.0 /100WBC (0.0-0.2); Platelet Count 237 X10*3/uL (160-400); Red Blood Count 4.20 X10*6/uL (4.20-5.50); White Blood Count 5.5 X10*3/uL (4.8-10.8)
[2025-03-10 11:27] LABS: Hemoglobin A1C 117.8254 umol/L; Total Hemoglobin (HGBA1C) 2938.5903 umol/L
[2025-03-10 11:33] LABS: Appearance Urine Clear; Glucose Urine UA Negative (Negative); PH 5.5 (5.0-9.0); Specific Gravity - Urine 1.015 (1.005-1.025); UMIC TRIGGER UACC YES
[2025-03-10 11:54] LABS: Alanine Aminotransferase 31 U/L (0-31); Albumin Level 3.8 g/dL (3.5-5.0); Alkaline Phosphatase 135 U/L (39-117); Anion Gap 13 (12-20); Aspartate Amino Transferase 31 U/L (5-31); Blood Urea Nitrogen 16 mg/dL (9-16); Calcium 8.6 mg/dL (8.4-10.2); Carbon Dioxide 24 mmol/L (22-29); Chloride 109 mmol/L (96-108); Cholesterol 148 mg/dL (<200); Estimated Glomerular Filt Rate > 60; HDL Cholesterol 53 mg/dL (>40); Potassium 4.1 mmol/L (3.3-5.1); Sodium 142 mmol/L (135-145); Total Protein 6.7 g/dL (6.5-8.0); Triglycerides 145 mg/dL (<150)
[2025-03-10 11:55] LABS: Free T4 (Free Thyroxine) 0.96 ng/dL (0.71-1.85); Thyroid Stimulating Hormone 3.18 uIU/mL (0.32-4.0)
== END 2025-03-10 09:11 | disposition home or self-care (01) ==
LOC: HO.HMGCLDS 09:10
PROVIDERS: PCP Internal Medicine; Visit Provider Internal Medicine
DX: E78.00 Pure hypercholesterolemia, unspecified (principal); E03.9 Hypothyroidism, unspecified; D64.9 Anemia, unspecified; R73.01 Impaired fasting glucose; E55.9 Vitamin D deficiency, unspecified
CPT/HCPCS: 36415; 80053; 80061; 81001; 82306; 83036; 84439; 84443; 85025

== ENCOUNTER 2025-03-13 14:15 | Outpatient (AMB) | payer MEDICARE, SELFPAY ==
[2025-03-13 14:24] VITALS: BP 122/76; PULSE 90; O2SAT 92; BMI 47.5
--- NOTE | 2025-03-13 14:24 | A.OFFPC_ITS ---
Vital Signs 03/13/25 14:24 Height 5 ft Weight 243 lb 6 oz BMI 47.5 BP 122/76 Blood Pressure Location Lt brachial Position Sitting Pulse 90 Pulse Source Pulse Oximeter Pulse Oximetry (%) 92 Oxygen Delivery Method Room Air Intake Visit Reasons: 4 Months f/u Control Inspector Required: No Accompanied by: Self / Same As Patient Allergies fentanyl Adverse Reaction (Unknown, Verified 03/13/25 14:50) Nausea and Vomiting Medication List - Last Reconciled 03/13/25 by Obdulio Patel MD acarbose 50 mg PO TID acetaminophen 650 mg (2 x 325 mg) PO Q6H PRN albuterol sulfate 90 mcg/actuation 2 inhalations inhalation Q6-8H PRN atorvastatin 40 mg PO DAILY cholecalciferol (vitamin D3) 50 mcg PO DAILY docusate sodium 100 mg PO BID 30 days ferrous sulfate 325 mg PO DAILY PRN furosemide (Lasix) 20 mg PO DAILY levothyroxine 150 mcg PO DAILY@0600 [LIGHTWEIGHT CANE As directed] lisinopril 10 mg PO DAILY 90 days lorazepam 0.5 mg PO BID PRN 30 days mirtazapine 15 mg PO BEDTIME 30 days omeprazole 40 mg PO DAILY@0630 oxybutynin chloride ER 10 mg PO DAILY polyethylene glycol 3350 (Miralax) 17 grams PO DAILY PRN pregabalin 150 mg PO TID 30 days primidone 100 mg (2 x 50 mg) PO BID 90 days sertraline 200 mg (2 x 100 mg) PO DAILY 90 days Tobacco use date assessed: 03/13/25 Dental Screening Dental Screen Date: 03/13/25 Did you have a dental visit in the last 12 months?: Yes Did you have a dental problem in the last 6 months where you did not have access to dental care?: No Was dental information given to patient?: Patient has dentist HPI 4 Months f/u HPI Details Patient comes in today for her follow up visit She is currently c/o incr pain and swelling of her right knee/ right lower leg, which she states have been bothering her for a couple of weeks now She denies any recent injury or trauma to her right knee and right leg States that she feels okay otherwise She denies any headaches or dizziness Denies any chest pains, no increased SOB No nausea/vomiting, no abdominal pain No change in bowel habits noted She had her follow up labs done a few days ago - to discuss her results [facility] Medical History Complex partial seizure disorder Cerebellar atrophy Tremor Mild cognitive impairment SOB (shortness of breath) Cerebellar ataxia Osteoarthritis of left knee OSMANI (obstructive sleep apnea) Morbid obesity with BMI of 40.0-44.9, adult ASCUS of cervix with negative high risk HPV Anemia Obesity (BMI 30-39.9) Depression Anxiety Primary insomnia Microscopic colitis GERD without esophagitis Fibromyalgia Acquired hypothyroidism Impaired fasting glucose Benign essential hypertension Pure hypercholesterolemia Vitamin D deficiency Hypothyroidism Hypoglycemia Bradycardia Infection at site of external fixator pin Overactive bladder Surgical History Status post total left knee replacement (~12/15/22) Hx of cystoscopy Hx of foot surgery Hx of foot surgery History of colonoscopy History of gastrointestinal tract bypass S/P ORIF (open reduction internal fixation) fracture History of hemorrhoidectomy Hx of bilateral breast reduction surgery H/O section H/O arthroscopy of left knee Status post debridement Family History Father Diabetes Mental health disorder Mother CVD (cardiovascular disease) Myocardial infarction Mental health disorder Brother Colon cancer Bipolar disorder Sister Lung cancer Social History Household Members: Spouse Housing: House Are you a primary client care consultant to a significant other at home: No Do you presently have visiting nurse or other home services: No Alcohol intake: current Alcohol intake frequency: does not drink Alcohol type: beer and hard liquor Comment: aware of trip hazards Patient Tobacco Use Status: Never used Tobacco e-Cigarette/Vaping Use: Never Used Second Hand Smoke Exposure: No service: No Current occupational status: disabled Current occupational exposures/hazards: No Cognitive needs: No Hearing needs: Yes Vision needs: Yes Female Reproductive History Menstrual Age of Menarche: 14 Questionnaire PHQ-9 Over the last 2 weeks, how often have you been bothered by any of the following problems? 1. Little interest or pleasure in doing things: not at all 2. Feeling down, depressed, or hopeless: not at all 3. Trouble falling or staying asleep, or sleeping too much: not at all 4. Feeling tired or having little energy: not at all 5. Poor appetite or overeating: not at all 6. Feeling bad about yourself - or that you are a failure or have let yourself or your family down: not at all 7. Trouble concentrating on things, such as reading the newspaper or watching television: not at all 8. Moving or speaking so slowly that other people could have noticed. Or the opposite - being so fidgety or restless that you have been moving around a lot more than usual: not at all 9. Thoughts that you would be better off or of hurting yourself in some way: not at all Total score: 0 Depression Screening Interpretation: Negative Depression Screening Done: Yes 77222 - PHQ-9 Billing: Yes Source: Developed by Drs. Mickey Arce, Paige Barton, Luis A Hull and colleagues, with an educational roger from [employer]. Thrive Questionnaire Date Thrive assessed: 03/13/25 I am a: Patient What is your living situation today?: I have a steady place to live Within the past 12 months, did the food you bought not last and you didn't have the money to get more?: Never true Within the past 12 months, did you worry whether your food would run out before you got money to buy more?: Never true Do you have trouble paying for medicines?: Yes Do you have trouble getting transportation to medical appointments?: Yes Do you have trouble paying your heating and electricity bill?: Yes Do you have trouble taking care of your child, family member or friend?: No Do you have trouble with day-to-day activities such as bathing, preparing meals, shopping, managing finances, etc.?: No Are you currently unemployed and looking for a job?: I choose not to answer this question Are you interested in more education?: No Please select the resources that you would like help with: None Currently or been in a relationship where the following occur: No concerns reported THRIVE Score: 2 AUDIT C Alcohol Use Questionnaire (AUDIT-C) 1. How often do you have a drink containing alcohol?: Monthly or less 2. How many drinks containing alcohol do you have on a typical day when you are drinking?: 1 or 2 3. How often do you have six or more drinks on one occasion?: Never Total Score: 1 Score Reviewed/Action Taken: Yes EVANGELINA-7 AMB Questionnaire EVANGELINA-7 Date EVANGELINA - 7 assessed: 03/13/25 Feeling nervous, anxious, or on edge: 0 = Not at all Not being able to stop or control worryin = Not at all Worrying too much about different things: 0 = Not at all Trouble relaxin = Not at all Being so restless that it is hard to sit still: 0 = Not at all Becoming easily annoyed or irritable: 0 = Not at all Feeling afraid as if something awful might happen: 0 = Not at all Total EVANGELINA-7 score (0-4 normal; 5-9 mild; 10-14 moderate; 15-21 severe): 0 Source: Developed by Drs. Mickey Arce, Paige Barton, Luis A Hull and colleagues, with an educational roger from [employer]. Review of Systems Const Denies chills, Reports fatigue, Denies fever(s) and Denies headache(s) ENT Denies dysphagia, Denies dizziness, Denies otalgia, Denies headache(s), Reports hearing loss (in both ears), Reports neck pain (chronic), Denies odynophagia and Denies sore throat Card Denies chest pain, Denies palpitations and Reports dyspnea on exertion (mild) Resp Denies chest congestion, Denies cough, Denies excessive phlegm production, Reports dyspnea on exertion (mild) and Denies wheezing GI Denies abdominal pain, Denies constipation, Denies dysphagia, Denies heartburn, Reports diarrhea (on and off), Denies nausea, Denies odynophagia and Denies vomiting Denies difficulty voiding, Reports nocturia (at times), Denies dysuria and Reports urinary incontinence (mostly at night) Musc Details: (+) pain in her right knee and over her right leg for the past couple of weeks Reports abnormal gait (unsteady - uses a walker or cane when ambulating), Reports arthralgias (both knees - s/p left knee TKA with (+)improvement of symptoms), Reports neck pain (chronic), Reports numbness (of fingers of both hands, recurrent) and Reports tingling (of fingers of both hands, recurrent) Skin/Breast Denies rash Neuro Reports abnormal gait (unsteady - uses a walker or cane when ambulating), Denies dizziness, Denies headache(s), Reports numbness (of fingers of both hands, recurrent) and Reports tingling (of fingers of both hands, recurrent) Psych Reports anxiety and Reports depression (better controlled lately) Endo Reports fatigue and Denies palpitations Aller/Immun Denies wheezing Physical exam (Primary Care) Vital Signs: Last Vital Signs Pulse 90 03/13/25 14:24 BP 122/76 03/13/25 14:24 Pulse Ox 92 03/13/25 14:24 Oxygen Delivery Method Room Air 03/13/25 14:24 BMI result Body Mass Index 47.5 Tobacco/Smoking Status: Tobacco use Status Tobacco use date assessed 03/13/25 03/13/25 14:32 Patient Tobacco Use Status Never used Tobacco 03/13/25 14:32 e-Cigarette/Vaping Use Never Used 03/13/25 14:32 PHQ-9: PHQ-9 Score PHQ-9: Total score 0 03/13/25 14:53 Depression Screening Interpretation: Negative Thrive Assessment: Date of Thrive Assessment Date Thrive assessed 03/13/25 03/13/25 14:32 Currently or been in a relationship where the following occur: No concerns reported Const General: no acute distress and alert HENMT Ears: TM's normal bilaterally and EAC's normal Throat: Yes posterior oropharynx normal and Yes tonsils normal (no TP congestion noted) Neck Neck: No lymphadenopathy and Yes tender (mild, over the cervical spine) Thyroid: Thyroid normal Resp Auscultation: no crackles, no rales, rhonchi (occasional) throughout, no wheezes and diminished lung sounds (slightly) bilateral Cardio Rate: regular rate Rhythm: regular rhythm Heart sounds: no murmurs GI Palpation (GI): Soft to palpation and nontender Auscultation: normal bowel sounds General: Yes no CVA tenderness Back/Spine/Pelvis Back: no CVA tenderness Cervical Spine: Cervical spine tenderness Thoracic/Lumbar Spine: lumbar spinal tenderness Skin Rashes: no rashes Extrem General: Yes no clubbing, cyanosis or edema Right lower extremity: knee Details: tenderness; no swelling and lower leg Details: tenderness Results Reviewed Results Reviewed: Laboratory Tests 03/10/25 03/10/25 09:40 09:45 WBC 5.5 Hgb 11.2 L Hct 34.5 L Plt Count 237 Sodium 142 Potassium 4.1 Creatinine 0.81 Estimated GFR > 60 Fasting Glucose 104 H Hemoglobin A1c % 5.8 Calcium 8.6 AST 31 ALT 31 Triglycerides 145 Cholesterol 148 LDL Cholesterol, Calc 66 HDL Cholesterol 53 25-OH Vitamin D Total 27.7 L TSH 3.18 Free T4 0.96 Ur Specific [place] 1.015 Urine Protein Negative Urine Glucose (UA) Negative Urine Blood Negative Urine Nitrite Negative Ur Leukocyte Esterase Trace H Coding Level of Care Code Est Pt Level 4 (96350) Diagnoses Primary osteoarthritis of right knee M17.11 Pure hypercholesterolemia E78.00 Benign essential hypertension I10 Impaired fasting glucose R73.01 Acquired hypothyroidism E03.9 Microscopic colitis, unspecified microscopic colitis type K52.839 Microscopic colitis type: unspecified Cervical spine arthritis M47.812 Cerebellar ataxia G11.9 Iron deficiency anemia secondary to inadequate dietary iron intake D50.8 Anemia type: iron deficiency Iron deficiency anemia type: inadequate dietary iron intake GERD without esophagitis K21.9 Fibromyalgia M79.7 Bilateral primary osteoarthritis of knee M17.0 Vitamin D deficiency E55.9 Overactive bladder N32.81 Primary insomnia F51.01 Anxiety F41.9 Episode of recurrent major depressive disorder, unspecified depression episode severity F33.9 Active/Remission status: currently active Depression Type: major depressive disorder Major depression episode severity: unspecified Major depression recurrence: recurrent Obesity (BMI 30-39.9) E66.9 Additional Codes PHQ-9 - 12049 - PHQ-9 Billing: Yes ([id number]) Assessment & Plan Assessment & Plan (1) Primary osteoarthritis of right knee: Code(s): M17.11 - Unilateral primary osteoarthritis, right knee Category: Medical (2) Pure hypercholesterolemia: Code(s): E78.00 - Pure hypercholesterolemia, unspecified Category: Medical Plan: Results of her labs done a few days ago reviewed and discussed with patient Reinforced low cholesterol diet Continue Atorvastatin 40 mg QD Will recheck her labs and fasting lipids in 4 months for follow up (3) Benign essential hypertension: Code(s): I10 - Essential (primary) hypertension Category: Medical Plan: Reinforced low sodium diet - goal is systolic BP of at least 120 to 130 mm or less Continue Lisinopril 10 mg QD Patient is reminded to continue monitoring her blood pressure regularly (4) Impaired fasting glucose: Code(s): R73.01 - Impaired fasting glucose Category: Medical Plan: Her FBS was slightly elevatedl at 104 mg/dl on her labs done a few days ago; HgbA1c remained normal at 5.8% Continue Acarbose 50 mg TID - she was started on Acarbose 50 mg TID by endocrinology for NIPHS that appeared to be a complication of her bariatric surgery from a few years ago Patient recalls experiencing recurrent hypoglycemic symptoms initially when she started on the Rx but her symptoms have reportedly stabilized after some time Follow up with endocrinology as scheduled (5) Acquired hypothyroidism: Code(s): E03.9 - Hypothyroidism, unspecified Category: Medical Plan: Her TFTs were normal on her recent labs Continue Levothyroxine 150 mcg QD Will continue to monitor her TFTs regularly Follow-up with endocrinology as scheduled (6) Microscopic colitis: Code(s): K52.839 - Microscopic colitis, unspecified Category: Medical Qualifiers: Microscopic colitis type: unspecified Qualified Code(s): K52.839 - Microscopic colitis, unspecified Plan: Patient has been in remission with no flare ups for a while now Follow up with GI (Dr. Kline) as scheduled (7) Cervical spine arthritis: Code(s): M47.812 - Spondylosis without myelopathy or radiculopathy, cervical region Category: Medical Plan: Cervical spine CT done back in May 2022 revealed (+) loss of intervertebral disc height with associated hypertrophic disc osteophyte spurring with associated sclerotic degenerative endplate changes and disc osteophyte spurring at C5-C6 and C6-C7 We referred her previously to physical therapy, with some improvement of her neck pain with Tx (8) Cerebellar ataxia: Code(s): G11.9 - Hereditary ataxia, unspecified Category: Medical Plan: She was diagnosed with cerebellar ataxia by neurology (Dr. Martínez) on 10/01/2023 Follow up with neurology as scheduled (9) Anemia: Code(s): D64.9 - Anemia, unspecified Category: Medical Qualifiers: Anemia type: iron deficiency Iron deficiency anemia type: inadequate dietary iron intake Qualified Code(s): D50.8 - Other iron deficiency anemias Plan: Her H/H was again slightly low at 11.2/34.5 on her labs done a few days ago Continue Ferrous Sulfate 325 mg QD Will continue to monitor her CBC regularly (10) GERD without esophagitis: Code(s): K21.9 - Gastro-esophageal reflux disease without esophagitis Category: Medical Plan: Dietary restrictions reinforced Continue Omeprazole 40 mg QD (11) Fibromyalgia: Code(s): M79.7 - Fibromyalgia Category: Medical Plan: Continue Naproxen 500 mg BID with food as needed and Pregabalin 150 mg TID (Rx refilled) Patient is again encouraged to exercise regularly and to stay active to help manage her symptoms better (12) Bilateral primary osteoarthritis of knee: Code(s): M17.0 - Bilateral primary osteoarthritis of knee Category: Medical Plan: S/P total left knee arthroplasty with Dr. Spangler on 12/15/2022 Due to her right knee and leg pain lately, will send her for x-rays of her right knee and right lower leg for further evaluation Will also refer her again to orthopedics for further evaluation and management (13) Vitamin D deficiency: Code(s): E55.9 - Vitamin D deficiency, unspecified Category: Medical Plan: Continue Vitamin D3 5000 units QD (14) Overactive bladder: Code(s): N32.81 - Overactive bladder Category: Medical Plan: Continue Oxybutynin ER 10 mg QD Follow up with urology as scheduled (15) Primary insomnia: Code(s): F51.01 - Primary insomnia Category: Medical Plan: Sleep hygiene reinforced Mirtazapine at bedtime has been helping with her sleep issues (16) Anxiety: Code(s): F41.9 - Anxiety disorder, unspecified Category: Medical Plan: Continue Lorazepam 0.5 mg BID PRN (17) Depression: Code(s): F32.9 - Major depressive disorder, single episode, unspecified Category: Medical Qualifiers: Active/Remission status: currently active Depression Type: major depressive disorder Major depression episode severity: unspecified Major depression recurrence: recurrent Qualified Code(s): F33.9 - Major depressive disorder, recurrent, unspecified Plan: Continue Mirtazapine 15 mg Q HS (18) Obesity (BMI 30-39.9): Code(s): E66.9 - Obesity, unspecified Category: Medical Plan: Reinforced diet; exercise and weight loss are not realistic, especially given patient's gait instability and recent diagnosis of cerebellar ataxia Plan Follow up in 4 months Orders: Orders Complete Blood Count Auto Diff 4 Months D64.9 - Anemia, unspecified Lipid Panel 4 Months E78.00 - Pure hypercholesterolemia, unspecified Thyroid Stimulating Hormone 4 Months E03.9 - Hypothyroidism, unspecified Free T4 (Free Thyroxine) 4 Months E03.9 - Hypothyroidism, unspecified XR knee RT 4V 03/14/25 M25.561 - Pain in right knee [facility] [place]. Panel Fast 4 Months E78.00 - Pure hypercholesterolemia, unspecified Referrals Orthopedics Referral M17.11 - Unilateral primary osteoarthritis, right knee Medications: Changed From naproxen 500 mg PO Q12H PRN 180 tabs 1RF for pain To naproxen Take with food ONLY NEEDED 500 mg PO Q12H PRN 180 tabs 1RF for pain Refilled albuterol sulfate 90 mcg/actuation 2 inhalations inhalation Q6-8H PRN 8.5 grams 3RF shortness of breath or wheezing pregabalin 150 mg PO TID 90 caps 1RF 30 days M79.7 - Fibromyalgia
--- OUTSIDE RECORDS SUMMARY | 2025-03-13 15:31 | XMS_ITS | Patient Health Record ---
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 Name Role Phone Jorge SIMMS, [place] Primary Care Provider Mickey Zayas Unavailable [phone] Allergies Allergen (clinical drug ingredient) Drug/Non Drug [...] Pregabalin 150 MG TAKE 1 CAPSULE BY [facility] 3 TIMES A DAY Oral three [...] Status Risk Notes Problem Colon cancer screening (175455667) Colon cancer screening (Z12.11) Active confirmed Problem 598138609 Encounter for screening for malignant neoplasm of colon (Z12.11) Active confirmed Problem Diverticulosis o f large intestine without perforation or abscess without bleeding (K57.30) Active confirmed Problem Preprocedural examination (697873759687592) Preprocedural examination (Z01.818) Active confirmed Problem Microscopic colitis (279449135) Microscopic colitis (K52.89) Active confirmed Problem Gastroesophageal reflux disease (090036366) GERD (gastroesophageal reflux disease) (K21.9) Active confirmed Problem 686968922 Other microscopi c colitis (K52.838) Active confirmed Vital Signs Temperature 96.9 degrees Fahrenheit 11/01/2024 Blood pressure diastolic 01 mm Hg 11/01/2024 Height 62 in 11/01/2024 Blood pressure systolic 001 mm Hg 11/01/2024 Weight 220 lbs 11/01/2024 BMI 40.23 kg/m2 11/01/2024 Encounters Encounter Location Date Provider Diagnosis [facility] [address] [place] [address] 11/01/2024 Mickey Kline Rectal bleeding K62.5 Assessments [...] Coverage Start Date Coverage End Date [facility] [address] [place], [place] [id number] JESU WILKS Self - patient is the insured 1 Medical (General) History Medical History History ICD Code Fibromyalgia GERD--EGD in October of 2008 w ith the finding of a small hiatal hernia, GERD, and gastritis--there was no evidence of any Clark's esophagus nor H. pylori. hypothroidism depression/anxiety arthritis all over her body Denies MT,DM,CVA,Lung disease,renal dise ase Vertigo IBS-had neg. celiac [...]
== END 2025-03-13 15:05 | disposition home or self-care (01) ==
LOC: HO.HMCH 14:16
PROVIDERS: PCP Internal Medicine; Visit Provider Internal Medicine
DX: M17.11 Unilateral primary osteoarthritis, right knee (principal); E78.00 Pure hypercholesterolemia, unspecified; I10 Essential (primary) hypertension; R73.01 Impaired fasting glucose; E03.9 Hypothyroidism, unspecified; K52.839 Microscopic colitis, unspecified; M47.812 Spondylosis without myelopathy or radiculopathy, cervical region; G11.9 Hereditary ataxia, unspecified; D50.8 Other iron deficiency anemias; K21.9 Gastro-esophageal reflux disease without esophagitis; M79.7 Fibromyalgia; M17.0 Bilateral primary osteoarthritis of knee; E55.9 Vitamin D deficiency, unspecified; N32.81 Overactive bladder; F51.01 Primary insomnia; F41.9 Anxiety disorder, unspecified; F33.9 Major depressive disorder, recurrent, unspecified; E66.9 Obesity, unspecified

== ENCOUNTER → 2025-03-13 14:15 | Outpatient (BNVA) | payer MEDICARE, SELFPAY | PROVIDERS: PCP Internal Medicine; Visit Provider Internal Medicine | DX: M17.0 Bilateral primary osteoarthritis of knee (principal); M79.661 Pain in right lower leg; M79.89 Other specified soft tissue disorders; E78.00 Pure hypercholesterolemia, unspecified; I10 Essential (primary) hypertension; R73.01 Impaired fasting glucose; E03.9 Hypothyroidism, unspecified; K52.839 Microscopic colitis, unspecified; M47.812 Spondylosis without myelopathy or radiculopathy, cervical region; D50.8 Other iron deficiency anemias; G11.9 Hereditary ataxia, unspecified; K21.9 Gastro-esophageal reflux disease without esophagitis; M79.7 Fibromyalgia; E55.9 Vitamin D deficiency, unspecified; N32.81 Overactive bladder; F51.01 Primary insomnia; F41.9 Anxiety disorder, unspecified; E66.9 Obesity, unspecified; D64.9 Anemia, unspecified; F33.9 Major depressive disorder, recurrent, unspecified; Z68.42 Body mass index [BMI] 45.0-49.9, adult | CPT/HCPCS: 96127; 99212 ==

== ENCOUNTER 2025-03-14 13:04 | Outpatient (REF) | payer MEDICARE, SELFPAY ==
--- NOTE | ~2025-03-14 | XR_ITS ---
EXAMINATION: XR KNEE, RIGHT CLINICAL INFORMATION: M25.561 - Pain in right knee COMPARISON: November 29, 2023. TECHNIQUE: AP oblique and lateral views of the right knee. FINDINGS: Joint space narrowing involving mostly the medial compartment. Marginal osteophyte formation femoral condyles and tibial plateau with sclerosis along the articular surfaces involving mostly the medial compartment. No acute cortical disruption or malalignment. Osteopenia versus osteoporosis. No suprapatellar bursa joint effusion. No lytic or blastic lesions. XR/XR knee RT 4V IMPRESSION: Tricompartmental osteoarthrosis involving mostly the medial compartment. Overall worsening since prior exam. Electronically signed by: Edson Conte MD 03/14/2025 01:41 PM EDT
--- OUTSIDE RECORDS SUMMARY | 2025-03-14 13:33 | XMS_ITS | Patient Health Record ---
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 Maintenance Construction Helper Name Role Phone Jorge SIMMS, [place] Primary Care Provider Mickey Zayas Unavailable [phone] Allergies Allergen (clinical drug ingredient) Drug/Non Drug [...] Pregabalin 150 MG TAKE 1 CAPSULE BY [facility] 3 TIMES A DAY Oral three times [...] Status Risk Notes Problem Colon cancer screening (554703122) Colon cancer screening (Z12.11) Active confirmed Problem 477676900 Encounter for screening for malignant neoplasm of colon (Z12.11) Active confirmed Problem Diverticulosis o f large intestine without perforation or abscess without bleeding (K57.30) Active confirmed Problem Preprocedural examination (466938100832226) Preprocedural examination (Z01.818) Active confirmed Problem Microscopic colitis (869412993) Microscopic colitis (K52.89) Active confirmed Problem Gastroesophageal reflux disease (752532011) GERD (gastroesophageal reflux disease) (K21.9) Active confirmed Problem 426829072 Other microscopi c colitis (K52.838) Active confirmed Vital Signs Temperature 96.9 degrees Fahrenheit 11/01/2024 Blood pressure diastolic 01 mm Hg 11/01/2024 Height 62 in 11/01/2024 Blood pressure systolic 001 mm Hg 11/01/2024 Weight 220 lbs 11/01/2024 BMI 40.23 kg/m2 11/01/2024 Encounters Encounter Location Date Provider Diagnosis [facility] [address] [place] [address] 11/01/2024 Mickey Kline Rectal bleeding K62.5 Assessments [...] Coverage Start Date Coverage End Date [facility] [address] [place], [place] [id number] JESU WILKS Self - patient is the insured 1 Medical (General) History Medical History History ICD Code Fibromyalgia GERD--EGD in October of 2008 w ith the finding of a small hiatal hernia, GERD, and gastritis--there was no evidence of any Clark's esophagus nor H. pylori. hypothroidism depression/anxiety arthritis all over her body Denies IA,DM,CVA,Lung disease,renal dise ase Vertigo IBS-had neg. celiac labs in 2004 colonoscopy in May 2012 with the finding of microscopic/collagenous colitis--only a hyperplastic polyp was found otherwise Kidney stones--cystoscopy and ureteral s tenting urinary incontinence Hyperlipidemia Seizures Ataxia Colonoscopy 08/2022 was negative for poly ps Surgical History Surgery Date(Month/Year) Left foot surgery 2016 Gastric bypass- Dr. uTcker--lost > 100_# [address] Castro 2016 finger surgery kidney stones removed knee surgery x2 breast reduction surgery 2006 heel surgery for heel spurs 2000
--- OUTSIDE RECORDS SUMMARY | 2025-03-14 13:33 | XMS_ITS | Patient Health Record ---
Author Organization [facility] [place] Address [address] [place] [place] [address] Care Team Providers Care Canal Structure Operator Name Role Phone Obdulio Patel MD Primary Care Provider Uma Monte Unavailable [phone] Allergies Allergen (clinical drug ingredient) Drug/Non Drug [...] Status W/U Status Risk Notes Problem Bursitis (43491180) Bursitis (727.3) Active confirmed Problem Myositis (47565868) Myositis (729.1) Active confirmed Problem Pain in limb (23960551) Pain in Limb (729.5) Active confirmed Problem Plantar fasciitis (438718617) Plantar Fasciitis (728.71) Active confirmed Problem Calcaneal spur (93108061) Calcaneal spur (726.73) Active confirmed Plan Of Treatment Pending Test Test Name Order Date X ray : Foot, left 3V 12/05/2012 X ray : Foot, right 3V 12/05/2012 72308, [id number], JOINT/BURSA 0 03/01/2014 Insurance Providers Payer Name Payer Address Payer Phone Subscriber Number Group Number Insured Name Patient Relationship to Insured Coverage Start Date Coverage End Date [facility] [address] [place] [address] [phone] [id number] Lolly Yeung Self - patient is the insured Medical (General) History Medical History History ICD Code hyperlipidemia Hypothyroidism fibromyalgia gastroesophageal reflux disease (GERD) iron deficiency anemia overactive bladder (OAB) vertigo irritable bowel syndrome anxiety depression obesity Arthritis back, hip, knee pain Gout hypertension Surgical History Surgery Date(Month/Year) Breast Reduction bilateral left knee arthroscopy section heel surgery
== END 2025-03-14 13:05 | disposition home or self-care (01) ==
LOC: HO.HMGCX 13:04
PROVIDERS: PCP Internal Medicine; Visit Provider Internal Medicine
DX: M25.561 Pain in right knee (principal)
CPT/HCPCS: 73564

== ENCOUNTER → 2025-03-14 13:15 | Outpatient (BNV) | payer MEDICARE, SELFPAY | PROVIDERS: PCP Internal Medicine; Visit Provider Radiology Diagnostic Radiology | DX: M17.11 Unilateral primary osteoarthritis, right knee (principal) | CPT/HCPCS: 73564 ==

== ENCOUNTER 2025-04-30 13:39 | Outpatient (AMB) | payer MEDICARE, SELFPAY ==
[2025-04-30 13:56] VITALS: BP 122/80; PULSE 73; TEMP 36.7; O2SAT 95; BMI 49.2
--- NOTE | 2025-04-30 13:56 | AM.OFFWIN_ITS ---
Intake Vital Signs 04/30/25 13:56 Height 5 ft Weight 252 lb BMI 49.2 BP 122/80 Blood Pressure Location Lt brachial Position Sitting Pulse 73 Pulse Source Pulse Oximeter Temp 98.1 F Temp Source Oral Pulse Oximetry (%) 95 Oxygen Delivery Method Room Air Intake Visit Reasons: ep shortness of breathe, tight chest, cough Intake Note: pt presents with dry cough, SOB, tight chest- nebulizer and inhalers no help. pt reports significant h/o pneumonia Patient Tobacco Use Status: Never used Tobacco Allergies fentanyl Adverse Reaction (Unknown, Verified 04/30/25 13:59) Nausea and Vomiting Do you need a note to return to daycare/school/sports/work: No HPI HPI Comments History of Present Illness Details 65 y/o Female patient [facility] with c/o dry cough, SOB, and chest tightness for few days. Pt was recently (01/2025) admitted at [facility] for CAP. She was advised to f/u with Pulmonology after the last Hospital admission. It is not clear why she has not done so. She has been using Albuterol rescue inhaler with no relief. [facility] Medical History (Updated 04/30/25 @ 14:43 by Debra Bach NP) Wheezing on auscultation Complex partial seizure disorder Cerebellar atrophy Tremor Mild cognitive impairment SOB (shortness of breath) Cerebellar ataxia Osteoarthritis of left knee OSMANI (obstructive sleep apnea) Morbid obesity with BMI of 40.0-44.9, adult ASCUS of cervix with negative high risk HPV Anemia Obesity (BMI 30-39.9) Depression Anxiety Primary insomnia Microscopic colitis GERD without esophagitis Fibromyalgia Acquired hypothyroidism Impaired fasting glucose Benign essential hypertension Pure hypercholesterolemia Vitamin D deficiency Hypothyroidism Hypoglycemia Bradycardia Infection at site of external fixator pin Overactive bladder Surgical History Status post total left knee replacement (~12/15/22) Hx of cystoscopy Hx of foot surgery Hx of foot surgery History of colonoscopy History of gastrointestinal tract bypass S/P ORIF (open reduction internal fixation) fracture History of hemorrhoidectomy Hx of bilateral breast reduction surgery H/O section H/O arthroscopy of left knee Status post debridement Family History Father Diabetes Mental health disorder Mother CVD (cardiovascular disease) Myocardial infarction Mental health disorder Brother Colon cancer Bipolar disorder Sister Lung cancer Social History Household Members: Spouse Housing: House Are you a primary healthcare economics manager to a significant other at home: No Do you presently have visiting nurse or other home services: No Alcohol intake: current Alcohol intake frequency: does not drink Alcohol type: beer and hard liquor Comment: aware of trip hazards Patient Tobacco Use Status: Never used Tobacco e-Cigarette/Vaping Use: Never Used Second Hand Smoke Exposure: No service: No Current occupational status: disabled Current occupational exposures/hazards: No Cognitive needs: No Hearing needs: Yes Vision needs: Yes Female Reproductive History Menstrual Age of Menarche: 14 Review of Systems Const All systems reviewed & are unremarkable except as noted in HPI and below Physical Exam Vital Signs: Last Vital Signs Temp 98.1 F 04/30/25 13:56 Pulse 73 04/30/25 13:56 BP 122/80 04/30/25 13:56 Pulse Ox 95 04/30/25 13:56 Oxygen Delivery Method Room Air 04/30/25 13:56 BMI result Body Mass Index 49.2 Const General: no acute distress Nutritional Appearance: obese Orientation/consciousness: patient oriented x3 Resp Effort & Inspection: normal respiratory effort and audible wheezes Auscultation: clear to auscultation bilaterally, no crackles, no rales, rhonchi throughout and wheezes scattered wheezes Cardio Heart sounds: S1 normal heart sound present and S2 normal heart sound present Neuro General: patient oriented x3 and moves all extremities Psych Speech and movement: Normal speech and movement present Assessment & Plan Assessment & Plan (1) Wheezing on auscultation: Code(s): R06.2 - Wheezing Plan: Ordered Chest Xray to R/o Pneumonia. Ordered Symbicort, Prednisone and Doxy Will refer Pt to Pulmonology. (2) SOB (shortness of breath): Code(s): R06.02 - Shortness of breath Plan: Ordered Chest Xray to R/o Pneumonia. Ordered Symbicort, Prednisone and Doxy Will refer Pt to Pulmonology. Orders: Orders XR chest 2V Today R06.02 - Shortness of breath, R06.2 - Wheezing Referrals Pulmonology Referral R06.02 - Shortness of breath, R06.2 - Wheezing Medications: New budesonide-formoterol 80-4.5 mcg/actuation (Symbicort) 2 puffs inhalation BID 10.2 grams 1RF R06.02 - Shortness of breath, R06.2 - Wheezing doxycycline hyclate 100 mg PO BID 20 caps 0RF 10 days R06.02 - Shortness of breath, R06.2 - Wheezing prednisone 50 mg PO DAILY 5 tabs 0RF 5 days R06.02 - Shortness of breath, R06.2 - Wheezing Coding Level of Care Code Est Pt Level 4 (61134) Diagnoses Wheezing on auscultation R06.2 SOB (shortness of breath) R06.02 Time Spent (min) 20
--- OUTSIDE RECORDS SUMMARY | 2025-04-30 15:52 | XMS_ITS | Patient Health Record ---
Author Organization [facility] Address [address] [place] [address] Care Team Providers Care Sales Representative Church Furniture Name Role Phone Jorge SIMMS, [place] Primary Care Provider Mickey Zayas Unavailable [phone] Allergies Allergen (clinical drug ingredient) Drug/Non Drug [...] Pregabalin 150 MG TAKE 1 CAPSULE BY [facility] 3 TIMES A DAY Oral three times [...] Status Risk Notes Problem Colon cancer screening (409722956) Colon cancer screening (Z12.11) Active confirmed Problem 497016618 Encounter for screening for malignant neoplasm of colon (Z12.11) Active confirmed Problem Diverticular disease of colon (971927867) Diverticulosis of large intestine without perforation or abscess without bleeding (K57.30) Active confirmed Problem Preprocedural examination (552197550878343) Preprocedural examination (Z01.818) Active confirmed Problem Microscopic colitis (290024355) Microscopic colitis (K52.89) Active confirmed Problem Gastroesophageal reflux disease (901319096) GERD (gastroesophageal reflux disease) (K21.9) Active confirmed Problem 219973757 Other microscopi c colitis (K52.838) Active confirmed Vital Signs Temperature 96.9 degrees Fahrenheit 11/01/2024 Blood pressure diastolic 01 mm Hg 11/01/2024 Height 62 in 11/01/2024 Blood pressure systolic 001 mm Hg 11/01/2024 Weight 220 lbs 11/01/2024 BMI 40.23 kg/m2 11/01/2024 Encounters Encounter Location Date Provider Diagnosis [facility] [address] [facility] [address] [place] [phone] 11/01/2024 Mickey Kline Rectal bleeding K62.5 Assessments [...] Coverage Start Date Coverage End Date [facility] [address] [place], [place] [phone] [id number] JESU WILKS Self - patient is the insured 1 Medical (General) History Medical History History ICD Code Fibromyalgia GERD--EGD in October of 2008 w ith the finding of a small hiatal hernia, GERD, and gastritis--there was no evidence of any Clark's esophagus nor H. pylori. hypothroidism depression/anxiety arthritis all over her body Denies [place],DM,CVA,Lung disease,renal dise ase Vertigo IBS-had neg. celiac [...]
--- OUTSIDE RECORDS SUMMARY | 2025-04-30 15:52 | XMS_ITS | Patient Health Record ---
Author Organization [facility] Address [address] [place] [address] Care Team Providers Care Telesales Consultant Name Role Phone Obdulio Patel MD Primary Care Provider Uma Monte Unavailable [phone] Allergies Allergen (clinical drug ingredient) Drug/Non Drug [...] Status W/U Status Risk Notes Problem Bursitis (65907536) Bursitis (727.3) Active confirmed Problem Myositis (79753927) Myositis (729.1) Active confirmed Problem Pain in limb (74334904) Pain in Limb (729.5) Active confirmed Problem Plantar fasciitis (673847998) Plantar Fasciitis (728.71) Active confirmed Problem Calcaneal spur (95711245) Calcaneal spur (726.73) Active confirmed Plan Of Treatment Pending Test Test Name Order Date X ray : Foot, left 3V 12/05/2012 X ray : Foot, right 3V 12/05/2012 51044, [id number], JOINT/BURSA 0 03/01/2014 Insurance Providers Payer Name Payer Address Payer Phone Subscriber Number Group Number Insured Name Patient Relationship to Insured Coverage Start Date Coverage End Date [facility] [address] [place] [address] [id number] oLlly Yeung Self - patient is the insured Medical (General) History Medical History History ICD Code hyperlipidemia Hypothyroidism fibromyalgia gastroesophageal reflux disease (GERD) iron deficiency anemia overactive bladder (OAB) vertigo irritable bowel syndrome anxiety depression obesity Arthritis back, hip, knee pain Gout hypertension Surgical History Surgery Date(Month/Year) Breast Reduction bilateral left knee arthroscopy section heel surgery
== END 2025-04-30 14:43 | disposition home or self-care (01) ==
PROVIDERS: PCP Internal Medicine; Visit Provider Nurse Practitioner Family
DX: R06.2 Wheezing (principal); R06.02 Shortness of breath

== ENCOUNTER 2025-04-30 13:39 | Outpatient (REF) | payer MEDICARE, SELFPAY ==
--- NOTE | ~2025-04-30 | XR_ITS ---
EXAMINATION: XR CHEST CLINICAL INFORMATION: R06.2 - Wheezing COMPARISON: February 13, 2025 TECHNIQUE: 2 views of the chest were obtained. FINDINGS: Left lower lobe airspace opacity has decreased since the prior examination but remains minimally evident. Lungs clear otherwise. Heart size is normal. XR/XR chest 2V IMPRESSION: Minimal residual left basilar opacity could represent resolving changes from prior pneumonia, minimal atelectasis, or developing pneumonia. Electronically signed by: Miguel Angel Berman MD 04/30/2025 03:00 PM EDT
== END 2025-04-30 13:40 | disposition home or self-care (01) ==
LOC: HO.HMGCX 13:39
PROVIDERS: PCP Internal Medicine; Visit Provider Nurse Practitioner Family
DX: R06.02 Shortness of breath (principal); R06.2 Wheezing
CPT/HCPCS: 71046; 99212

== ENCOUNTER → 2025-04-30 14:45 | Outpatient (BNV) | payer MEDICARE, SELFPAY | PROVIDERS: PCP Internal Medicine; Visit Provider Radiology Diagnostic Radiology | DX: R06.2 Wheezing (principal) | CPT/HCPCS: 71046 ==

== ENCOUNTER 2025-05-09 08:17 | Outpatient (REF) | payer MEDICARE, SELFPAY ==
--- NOTE | ~2025-05-09 | XR_ITS ---
EXAMINATION: XR KNEE, RIGHT CLINICAL INFORMATION: M25.569 - Pain in unspecified knee COMPARISON: March 14, 2025 TECHNIQUE: AP bilateral and sunrise right knee x-rays. FINDINGS: There is moderate to severe narrowing of the medial joint space. There are tricompartmental marginal osteophytes. Total knee arthroplasty is present on the left XR/XR knee RT 2V IMPRESSION: Moderate to severe right knee osteoarthritis, unchanged Electronically signed by: Miguel Angel Berman MD 05/09/2025 11:34 AM EDT
--- OUTSIDE RECORDS SUMMARY | 2025-05-10 09:12 | XMS_ITS | Patient Health Record ---
Author Organization [facility] Address [address] [place] [address] Care Team Providers Care Operations Manager Name Role Phone Obdulio Patel MD Primary Care Provider Uma Monte Unavailable [phone] Allergies Allergen (clinical drug ingredient) Drug/Non Drug [...] Status W/U Status Risk Notes Problem Bursitis (27750443) Bursitis (727.3) Active confirmed Problem Myositis (48593991) Myositis (729.1) Active confirmed Problem Pain in limb (93427676) Pain in Limb (729.5) Active confirmed Problem Plantar fasciitis (311088620) Plantar Fasciitis (728.71) Active confirmed Problem Calcaneal spur (03865001) Calcaneal spur (726.73) Active confirmed Plan Of Treatment Pending Test Test Name Order Date X ray : Foot, left 3V 12/05/2012 X ray : Foot, right 3V 12/05/2012 97621, [id number]/[id number], JOINT/BURSA 0 03/01/2014 Insurance Providers Payer Name Payer Address Payer Phone Subscriber Number Group Number Insured Name Patient Relationship to Insured Coverage Start Date [facility]age End Date [facility] [address] [place] [address] [id number] Lolly Yeung Self - patient is the insured Medical (General) History Medical History History ICD Code hyperlipidemia Hypothyroidism fibromyalgia gastroesophageal reflux disease (GERD) iron deficiency anemia overactive bladder (OAB) vertigo irritable bowel syndrome anxiety depression obesity Arthritis back, hip, knee pain Gout hypertension Surgical History Surgery Date(Month/Year) Breast Reduction bilateral left knee arthroscopy section heel surgery
--- OUTSIDE RECORDS SUMMARY | 2025-05-10 09:12 | XMS_ITS | Patient Health Record ---
Author Organization [facility] Address [address] [place] [id number] Care Team Providers Care Proof Inspector Name Role Phone Jorge SIMMS, [place] Primary Care Provider Mickey Zayas Unavailable [phone] Allergies Allergen (clinical drug ingredient) Drug/Non Drug [...] Pregabalin 150 MG TAKE 1 CAPSULE BY [facility] 3 TIMES A DAY Oral three times [...] Status Risk Notes Problem Colon cancer screening (437657217) Colon cancer screening (Z12.11) Active confirmed Problem 133527645 Encounter for screening for malignant neoplasm of colon (Z12.11) Active confirmed Problem Diverticular disease of colon (243661796) Diverticulosis of large intestine without perforation or abscess without bleeding (K57.30) Active confirmed Problem Preprocedural examination (952074441493925) Preprocedural examination (Z01.818) Active confirmed Problem Microscopic colitis (953314462) Microscopic colitis (K52.89) Active confirmed Problem Gastroesophageal reflux disease (969436743) GERD (gastroesophageal reflux disease) (K21.9) Active confirmed Problem 936217458 Other microscopi c colitis (K52.838) Active confirmed Vital Signs Temperature 96.9 degrees Fahrenheit 11/01/2024 Blood pressure diastolic 01 mm Hg 11/01/2024 Height 62 in 11/01/2024 Blood pressure systolic 001 mm Hg 11/01/2024 Weight 220 lbs 11/01/2024 BMI 40.23 kg/m2 11/01/2024 Encounters Encounter Location Date Provider Diagnosis [facility] [address] [facility] [address] [place] [id number] 11/01/2024 Mickey Kline Rectal bleeding K62.5 Assessments [...] Start Date Coverage End Date [facility] [address] [place], [place] [id number] JESU WILKS Self - patient is the insured 1 Medical (General) History Medical History History ICD Code Fibromyalgia GERD--EGD in October of 2008 w ith the finding of a small hiatal hernia, GERD, and gastritis--there was no evidence of any Clark's esophagus nor H. pylori. hypothroidism depression/anxiety arthritis all over her body Denies [place],DM,CVA,Lung disease,renal dise ase Vertigo IBS-had neg. celiac [...]
== END 2025-05-09 08:18 | disposition home or self-care (01) ==
LOC: HO.HOSX 08:17
PROVIDERS: Visit Provider Physician Assistant
DX: M17.11 Unilateral primary osteoarthritis, right knee (principal); R60.0 Localized edema; E66.9 Obesity, unspecified; Z68.42 Body mass index [BMI] 45.0-49.9, adult; Z96.652 Presence of left artificial knee joint
CPT/HCPCS: 73560; 99212

== ENCOUNTER 2025-05-09 11:08 | Outpatient (AMB) | payer MEDICARE, SELFPAY ==
--- NOTE | 2025-05-09 11:34 | MHC.OFFVIS ---
Vital Signs 05/09/25 11:42 Height 5 ft Weight 252 lb BMI 49.2 Intake Visit Reasons: OV- RT knee OA, last inj 09/28/22 Intake Note: Lolly is a 65 year old female who presents today for a follow up of right knee OA. Patient was last seen for her right knee on 09/28/2022 and an injection was given. Patient reports injection did not help, states her pain has been getting worse. She has difficulty with stair use, prolong standing and walking. Stating her knee feels weak and has given out. Her pain has been affecting her AODL and would to discuss surgical intervention. Hx of left TKA. Allergies fentanyl Adverse Reaction (Unknown, Verified 05/09/25 11:42) Nausea and Vomiting HPI HPI OV- RT knee OA, last inj 09/28/22: Details: 65-year-old female presents to the office today for ongoing right knee pain. She saw me back in September of 2022 where she had an injection which was helpful for just a few weeks. She did have a left total knee arthroplasty with Dr. Spangler in 2022. She states the right knee is getting worse with daily activities and limiting her from walking, stair climbing and performing daily activities. In early April she was on a trip and developed pneumonia. She also has some intermittent swelling in bilateral lower extremities. BMI is 49. Left TKA Implants: Nirali Triathlon Press fit posterior stabilized 10/23/12PS/32a [facility] Medical History (Updated 04/30/25 @ 14:43 by Debra Bach NP) Wheezing on auscultation Complex partial seizure disorder Cerebellar atrophy Tremor Mild cognitive impairment SOB (shortness of breath) Cerebellar ataxia Osteoarthritis of left knee OSMANI (obstructive sleep apnea) Morbid obesity with BMI of 40.0-44.9, adult ASCUS of cervix with negative high risk HPV Anemia Obesity (BMI 30-39.9) Depression Anxiety Primary insomnia Microscopic colitis GERD without esophagitis Fibromyalgia Acquired hypothyroidism Impaired fasting glucose Benign essential hypertension Pure hypercholesterolemia Vitamin D deficiency Hypothyroidism Hypoglycemia Bradycardia Infection at site of external fixator pin Overactive bladder Surgical History Status post total left knee replacement (~12/15/22) Hx of cystoscopy Hx of foot surgery Hx of foot surgery History of colonoscopy History of gastrointestinal tract bypass S/P ORIF (open reduction internal fixation) fracture History of hemorrhoidectomy Hx of bilateral breast reduction surgery H/O section H/O arthroscopy of left knee Status post debridement Family History Father Diabetes Mental health disorder Mother CVD (cardiovascular disease) Myocardial infarction Mental health disorder Brother Colon cancer Bipolar disorder Sister Lung cancer Social History Household Members: Spouse Housing: House Are you a primary resident care director to a significant other at home: No Do you presently have visiting nurse or other home services: No Alcohol intake: current Alcohol intake frequency: does not drink Alcohol type: beer and hard liquor Comment: aware of trip hazards Patient Tobacco Use Status: Never used Tobacco e-Cigarette/Vaping Use: Never Used Second Hand Smoke Exposure: No service: No Current occupational status: disabled Current occupational exposures/hazards: No Cognitive needs: No Hearing needs: Yes Vision needs: Yes Female Reproductive History Menstrual Age of Menarche: 14 Review of Systems Const All systems reviewed & are unremarkable except as noted in HPI and below Physical Exam Vital Signs: BMI result Body Mass Index 49.2 Extrem Other: Right knee is normal to inspection range of motion is-5-90 90 degrees. She has medial joint line tenderness along with lateral retropatellar tenderness. She has bilateral pitting edema. There is some slight redness over the anterior portion of the right sky. Neurovascularly intact. Results Reviewed Results Reviewed: X-rays of the right knee obtained in the office today and reviewed by me show medial compartment joint space narrowing with patellofemoral arthritis. Assessment & Plan Assessment & Plan (1) Primary osteoarthritis of right knee: Code(s): M17.11 - Unilateral primary osteoarthritis, right knee Category: Medical Plan: The patient is interested in right total knee arthroplasty as she has had a successful left total knee arthroplasty with Dr. Spangler. I did explain that with her BMI being 49 she would need to work on weight management to optimize her overall health. I also explained she would need to go through medical clearance for surgical optimization especially with her most recent pneumonia diagnosis. I did question the swelling in her lower extremity she states she did review this with her primary who said no further action was needed. My concern is she is either developing some early cellulitis due to a scratch on her leg for venous stasis. The patient will make an appointment with Dr. Spangler to discuss further booking for right total knee arthroplasty. Orders: Orders XR knee RT 2V Today M25.569 - Pain in unspecified knee Coding Level of Care Code Est Pt Level 3 (51585) Complex EM visit Add On G2211 Diagnoses Primary osteoarthritis of right knee M17.11
[2025-05-09 11:42] VITALS: BMI 49.2
--- OUTSIDE RECORDS SUMMARY | 2025-05-09 14:23 | XMS_ITS | Patient Health Record ---
Author Organization [facility] Address [address] [place] [address] Care Team Providers Care Extrusion Machine Operator Name Role Phone Obdulio Patel MD Primary Care Provider Uma Monte Unavailable [phone] Allergies Allergen (clinical drug ingredient) Drug/Non Drug [...] Status W/U Status Risk Notes Problem Bursitis (16246427) Bursitis (727.3) Active confirmed Problem Myositis (65903050) Myositis (729.1) Active confirmed Problem Pain in limb (34460538) Pain in Limb (729.5) Active confirmed Problem Plantar fasciitis (612823457) Plantar Fasciitis (728.71) Active confirmed Problem Calcaneal spur (73994973) Calcaneal spur (726.73) Active confirmed Plan Of Treatment Pending Test Test Name Order Date X ray : Foot, left 3V 12/05/2012 X ray : Foot, right 3V 12/05/2012 16091, [id number]/[id number], JOINT/BURSA 0 03/01/2014 Insurance Providers Payer Name Payer Address Payer Phone Subscriber Number Group Number Insured Name Patient Relationship to Insured Coverage Start Date Coverage End Date [facility] [address] [place] [address] [id number] Lolly Yeung Self - patient is the insured Medical (General) History Medical History History ICD Code hyperlipidemia Hypothyroidism fibromyalgia gastroesophageal reflux disease (GERD) iron deficiency anemia overactive bladder (OAB) vertigo irritable bowel syndrome anxiety depression obesity Arthritis back, hip, knee pain Gout hypertension Surgical History Surgery Date(Month/Year) Breast Reduction bilateral left knee arthroscopy section heel surgery
--- OUTSIDE RECORDS SUMMARY | 2025-05-09 14:23 | XMS_ITS | Patient Health Record ---
Author Organization [facility] Address [address] [place] [address] Care Team Providers Care Carding Machine Feeder Name Role Phone Jorge SIMMS, [place] Primary Care Provider Mickey Zayas Unavailable [phone] Allergies Allergen (clinical drug ingredient) Drug/Non Drug [...] 150 MG TAKE 1 CAPSULE BY [facility] 3 TIMES A DAY Oral three [...] Status Risk Notes Problem Colon cancer screening (332789034) Colon cancer screening (Z12.11) Active confirmed Problem 138441789 Encounter for screening for malignant neoplasm of colon (Z12.11) Active confirmed Problem Diverticular disease of colon (575729048) Diverticulosis of large intestine without perforation or abscess without bleeding (K57.30) Active confirmed Problem Preprocedural examination (810556166467697) Preprocedural examination (Z01.818) Active confirmed Problem Microscopic colitis (379642929) Microscopic colitis (K52.89) Active confirmed Problem Gastroesophageal reflux disease (680951887) GERD (gastroesophageal reflux disease) (K21.9) Active confirmed Problem 080515416 Other microscopi c colitis (K52.838) Active confirmed Vital Signs Temperature 96.9 degrees Fahrenheit 11/01/2024 Blood pressure diastolic 01 mm Hg 11/01/2024 Height 62 in 11/01/2024 Blood pressure systolic 001 mm Hg 11/01/2024 Weight 220 lbs 11/01/2024 BMI 40.23 kg/m2 11/01/2024 Encounters Encounter Location Date Provider Diagnosis [facility] [address] [facility] [address] [place] [phone] 11/01/2024 Mickey Kline Rectal bleeding K62.5 Assessments [...] Coverage Start Date Coverage End Date [facility] [address] [place], [place] [id number] JESU WILKS Self - patient is the insured 1 Medical (General) History Medical History History ICD Code Fibromyalgia GERD--EGD in October of 2008 w ith the finding of a small hiatal hernia, GERD, and gastritis--there was no evidence of any Clark's esophagus nor H. pylori. hypothroidism depression/anxiety arthritis all over her body Denies [place],DM,CVA,Lung disease,renal dise ase Vertigo IBS-had neg. celiac [...]
== END 2025-05-09 12:14 | disposition home or self-care (01) ==
LOC: HO.HOS 11:09
PROVIDERS: PCP Internal Medicine; Visit Provider Physician Assistant
DX: M17.11 Unilateral primary osteoarthritis, right knee (principal)
CPT/HCPCS: 99213; G2211

== ENCOUNTER → 2025-05-09 11:15 | Outpatient (BNV) | payer MEDICARE, SELFPAY | PROVIDERS: Visit Provider Radiology Diagnostic Radiology | DX: M17.11 Unilateral primary osteoarthritis, right knee (principal) | CPT/HCPCS: 73560 ==

== ENCOUNTER 2025-05-21 08:18 | Outpatient (AMB) | payer MEDICARE, SELFPAY ==
--- NOTE | 2025-05-21 08:21 | A.OFFVIS_ITS ---
Vital Signs 05/21/25 08:27 Height 5 ft Weight 252 lb BMI 49.2 Intake Visit Reasons: Rt tka discuss surgery Intake Note: Lolly is a 65 year old female who presents today for a follow up of her Right Knee OA, to discuss Right TKA. She was last seen with Alber Walters who referred her to discuss surgery. It was previously discussed that she would need cardiopulmonary workup prior to surgery BMI 49.2 - 5' 252lbs Allergies fentanyl Adverse Reaction (Unknown, Verified 05/09/25 11:42) Nausea and Vomiting HPI HPI Rt tka discuss surgery: Details: Lolly is a 65 year old female who presents today for a follow up of her Right Knee OA, to discuss Right TKA. She was last seen with Alber Walters who referred her to discuss surgery. It was previously discussed that she would need cardiopulmonary workup prior to surgery BMI 49.2 - 5' 252lbs. [place]ses a cane [place] Has been diagnosed with ataxia but unsure of the precise diagnosis. She has gained weight since we did surgery on her left knee 2 years ago. He ambulatory capacity has decreased in the past several years. Now she takes medication for the shakes . [facility] Medical History (Updated 05/21/25 @ 09:37 by Anthony Spangler MD) Gait disturbance Wheezing on auscultation Complex partial seizure disorder Cerebellar atrophy Tremor Mild cognitive impairment SOB (shortness of breath) Cerebellar ataxia Osteoarthritis of left knee OSMANI (obstructive sleep apnea) Morbid obesity with BMI of 40.0-44.9, adult ASCUS of cervix with negative high risk HPV Anemia Obesity (BMI 30-39.9) Depression Anxiety Primary insomnia Microscopic colitis GERD without esophagitis Fibromyalgia Acquired hypothyroidism Impaired fasting glucose Benign essential hypertension Pure hypercholesterolemia Vitamin D deficiency Hypothyroidism Hypoglycemia Bradycardia Infection at site of external fixator pin Overactive bladder Surgical History Status post total left knee replacement (~12/15/22) Hx of cystoscopy Hx of foot surgery Hx of foot surgery History of colonoscopy History of gastrointestinal tract bypass S/P ORIF (open reduction internal fixation) fracture History of hemorrhoidectomy Hx of bilateral breast reduction surgery H/O section H/O arthroscopy of left knee Status post debridement Family History Father Diabetes Mental health disorder Mother CVD (cardiovascular disease) Myocardial infarction Mental health disorder Brother Colon cancer Bipolar disorder Sister Lung cancer Social History Household Members: Spouse Housing: House Are you a primary senior care provider to a significant other at home: No Do you presently have visiting nurse or other home services: No Alcohol intake: current Alcohol intake frequency: does not drink Alcohol type: beer and hard liquor Comment: aware of trip hazards Patient Tobacco Use Status: Never used Tobacco e-Cigarette/Vaping Use: Never Used Second Hand Smoke Exposure: No service: No Current occupational status: disabled Current occupational exposures/hazards: No Cognitive needs: No Hearing needs: Yes Vision needs: Yes Female Reproductive History Menstrual Age of Menarche: 14 Physical Exam Vital Signs: BMI result Body Mass Index 49.2 Extrem Other: Antalgic unsteady gait. 5-20 degrees motion right knee with tenderness to palpation medial compartment. Mild bilateral venous stasis lower legs with minimal edema. Toes and feet are warm and well perfused. Assessment & Plan Assessment & Plan (1) Bilateral primary osteoarthritis of knee: Code(s): M17.0 - Bilateral primary osteoarthritis of knee Category: Medical Plan: This is a 65-year-old with right knee osteoarthritis. She had a successful left knee replacement 2 years ago. Since then however she has gained weight and been diagnosed with cerebellar ataxia. She wants to have her knee operated on before December but her BMI is near 50 and she has a diagnosis of ataxia which is concerning regarding falls. She uses a cane and does have severe right knee osteoarthritis. At this point I would recommend a gel injection. She has had steroids in the past they have not been helpful. In addition she is trying to lose weight and I would advise against steroids and that setting. (2) Cerebellar ataxia: Code(s): G11.9 - Hereditary ataxia, unspecified Category: Medical Plan: Cerebellar ataxia. She is confused about her diagnosis but states she does fall a lot so she has been less active because of that. (3) BMI 45.0-49.9, adult: Code(s): Z68.42 - Body mass index [BMI] 45.0-49.9, adult Category: Medical Plan: BMI is 49. Would need approximately 50 lb weight loss to consider surgery. Orders: Referrals Medical Weight Management Referral E66.01 - Morbid (severe) obesity due to excess calories Coding Level of Care Code Est Pt Level 4 (19950) Complex EM visit Add On G2211 Diagnoses Bilateral primary osteoarthritis of knee M17.0 Cerebellar ataxia G11.9 BMI 45.0-49.9, adult Z68.42
[2025-05-21 08:27] VITALS: BMI 49.2
--- OUTSIDE RECORDS SUMMARY | 2025-05-21 08:36 | XMS_ITS | Patient Health Record ---
Author Organization [facility] Address [address] [place] [phone] Care Team Providers Care Ad Writer Name Role Phone Jorge SIMMS, [place] Primary Care Provider Mickey Zayas Unavailable [phone] Allergies Allergen (clinical drug ingredient) Drug/Non Drug [...] Pregabalin 150 MG TAKE 1 CAPSULE BY [facility] 3 TIMES A DAY Oral three [...] Status Risk Notes Problem Colon cancer screening (307951075) Colon cancer screening (Z12.11) Active confirmed Problem 924205292 Encounter for screening for malignant neoplasm of colon (Z12.11) Active confirmed Problem Diverticular disease of colon (459424819) Diverticulosis of large intestine without perforation or abscess without bleeding (K57.30) Active confirmed Problem Preprocedural examination (689435667066048) Preprocedural examination (Z01.818) Active confirmed Problem Microscopic colitis (370150243) Microscopic colitis (K52.89) Active confirmed Problem Gastroesophageal reflux disease (256657887) GERD (gastroesophageal reflux disease) (K21.9) Active confirmed Problem 539000695 Other microscopi c colitis (K52.838) Active confirmed Vital Signs Temperature 96.9 degrees Fahrenheit 11/01/2024 Blood pressure diastolic 01 mm Hg 11/01/2024 Height 62 in 11/01/2024 Blood pressure systolic 001 mm Hg 11/01/2024 Weight 220 lbs 11/01/2024 BMI 40.23 kg/m2 11/01/2024 Encounters Encounter Location Date Provider Diagnosis [facility] [address] [place] [phone] 11/01/2024 Mickey Kline Rectal bleeding K62.5 Assessments [...] Coverage Start Date Coverage End Date [facility] [address] [place], [place] [id number] JESU WILKS Self - patient is the [...]
--- OUTSIDE RECORDS SUMMARY | 2025-05-21 08:36 | XMS_ITS | Patient Health Record ---
Author Organization [facility] Address [address] [place] [address] Care Team Providers Care Accounts Payable Analyst Name Role Phone Obdulio Patel MD Primary Care Provider Uma Monte Unavailable [phone] Allergies Allergen (clinical drug ingredient) Drug/Non Drug [...] Status W/U Status Risk Notes Problem Bursitis (64948776) Bursitis (727.3) Active confirmed Problem Myositis (59130853) Myositis (729.1) Active confirmed Problem Pain in limb (33145145) Pain in Limb (729.5) Active confirmed Problem Plantar fasciitis (647934729) Plantar Fasciitis (728.71) Active confirmed Problem Calcaneal spur (22415370) Calcaneal spur (726.73) Active confirmed Plan Of Treatment Pending Test Test Name Order Date X ray : Foot, left 3V 12/05/2012 X ray : Foot, right 3V 12/05/2012 [id number], [id number]/[id number], JOINT/BURSA 0 03/01/2014 Insurance Providers Payer Name Payer Address Payer Phone Subscriber Number Group Number Insured Name Patient Relationship to Insured Coverage Start Date [facility] End Date [facility] [address] [place] [address] [id number] Lolly Yeung Self - patient is the insured Medical (General) History Medical History History ICD Code hyperlipidemia Hypothyroidism fibromyalgia gastroesophageal reflux disease (GERD) iron deficiency anemia overactive bladder (OAB) vertigo irritable bowel syndrome anxiety depression obesity Arthritis back, hip, knee pain Gout hypertension Surgical History Surgery Date(Month/Year) Breast Reduction bilateral left knee arthroscopy section heel surgery
== END 2025-05-21 08:54 | disposition home or self-care (01) ==
LOC: HO.HOS 08:19
PROVIDERS: PCP Internal Medicine; Visit Provider Orthopaedic Surgery
DX: M17.0 Bilateral primary osteoarthritis of knee (principal); G11.9 Hereditary ataxia, unspecified; Z68.42 Body mass index [BMI] 45.0-49.9, adult
CPT/HCPCS: 99214; G2211

== ENCOUNTER → 2025-05-21 08:18 | Outpatient (BNVA) | payer MEDICARE, SELFPAY | PROVIDERS: PCP Internal Medicine; Visit Provider Orthopaedic Surgery | DX: M17.0 Bilateral primary osteoarthritis of knee (principal); G11.9 Hereditary ataxia, unspecified; Z68.42 Body mass index [BMI] 45.0-49.9, adult | CPT/HCPCS: 99212 ==

== ENCOUNTER 2025-07-12 11:40 | Outpatient (REF) | payer MEDICARE, SELFPAY ==
[2025-07-12 13:00] LABS: MANUAL DIFF FLAG NO
[2025-07-12 13:13] LABS: Hematocrit 34.9 % (37.0-47.0); Hemoglobin 10.9 g/dl (12.0-16.0); Imm Gran Abs Auto 0.01 X10*3/uL (0.00-0.03); Imm Gran Pct Auto 0.2 % (0.0-0.4); Lymphocytes Absolute Auto 1.4 X10*3/uL (1.2-4.9); Mean Corpuscular HGB Conc 31.2 g/dl (31.0-35.0); Mean Corpuscular Hemoglobin 25.2 pg (27.0-33.0); Mean Corpuscular Volume 80.6 fL (80.0-98.0); NRBC Abs Auto 0.000 X10*3/uL (0.0-0.012); NRBC Pct Auto 0.0 /100WBC (0.0-0.2); Platelet Count 238 X10*3/uL (160-400); Red Blood Count 4.33 X10*6/uL (4.20-5.50); White Blood Count 4.7 X10*3/uL (4.8-10.8)
[2025-07-12 13:51] LABS: Alanine Aminotransferase 32 U/L (0-31); Albumin Level 4.0 g/dL (3.5-5.0); Alkaline Phosphatase 138 U/L (39-117); Anion Gap 11 (12-20); Aspartate Amino Transferase 36 U/L (5-31); Blood Urea Nitrogen 15 mg/dL (9-16); Calcium 8.6 mg/dL (8.4-10.2); Carbon Dioxide 27 mmol/L (22-29); Chloride 108 mmol/L (96-108); Cholesterol 150 mg/dL (<200); Estimated Glomerular Filt Rate > 60; Free T4 (Free Thyroxine) 0.70 ng/dL (0.71-1.85); HDL Cholesterol 59 mg/dL (>40); Potassium 4.5 mmol/L (3.3-5.1); Sodium 141 mmol/L (135-145); Thyroid Stimulating Hormone 14.30 uIU/mL (0.32-4.0); Total Protein 6.9 g/dL (6.5-8.0); Triglycerides 115 mg/dL (<150)
== END 2025-07-12 11:41 | disposition home or self-care (01) ==
LOC: HO.HMGCLDS 11:40
PROVIDERS: PCP Internal Medicine; Visit Provider Internal Medicine
DX: D64.9 Anemia, unspecified (principal); E78.00 Pure hypercholesterolemia, unspecified; E03.9 Hypothyroidism, unspecified
CPT/HCPCS: 36415; 80053; 80061; 84439; 84443; 85025

== ENCOUNTER 2025-07-16 14:30 | Outpatient (AMB) | payer MEDICARE, SELFPAY ==
[2025-07-16 15:00] VITALS: BP 124/72; PULSE 84; O2SAT 93; BMI 49.5
--- NOTE | 2025-07-16 15:00 | MHC.PC.OV ---
Vital Signs 07/16/25 15:00 Height 5 ft Weight 253 lb 4 oz BMI 49.5 BP 124/72 Blood Pressure Location Lt brachial Position Sitting Pulse 84 Pulse Source Pulse Oximeter Pulse Oximetry (%) 93 Oxygen Delivery Method Room Air Intake Visit Reasons: 4 mnth f/u [facility] [employer] Required: No Accompanied by: Self / Same As Patient Allergies fentanyl Adverse Reaction (Unknown, Verified 07/16/25 15:30) Nausea and Vomiting Medication List - Last Reconciled 07/16/25 by Obdulio Patel MD acarbose 50 mg PO TID acetaminophen 650 mg (2 x 325 mg) PO Q6H PRN albuterol sulfate 90 mcg/actuation 2 inhalations inhalation Q6-8H PRN atorvastatin 40 mg PO DAILY budesonide-formoterol 80-4.5 mcg/actuation (Symbicort) 2 puffs inhalation BID cholecalciferol (vitamin D3) 50 mcg PO DAILY docusate sodium 100 mg PO BID 30 days doxycycline hyclate 100 mg PO BID 10 days ferrous sulfate 325 mg PO DAILY PRN furosemide (Lasix) 20 mg PO DAILY levothyroxine 150 mcg PO DAILY [LIGHTWE[facility]E As directed] lisinopril 10 mg PO DAILY 90 days lorazepam 0.5 mg PO BID PRN 30 days mirtazapine 15 mg PO BEDTIME 30 days naproxen 500 mg PO Q12H PRN omeprazole 40 mg PO DAILY oxybutynin chloride ER 10 mg PO DAILY polyethylene glycol 3350 (Miralax) 17 grams PO DAILY PRN pregabalin 150 mg PO TID 30 days primidone 100 mg (2 x 50 mg) PO BID 90 days sertraline 200 mg (2 x 100 mg) PO DAILY 90 days Tobacco use date assessed: 07/16/25 Dental Screening Dental Screen Date: 07/16/25 Did you have a dental visit in the last 12 months?: No Did you have a dental problem in the last 6 months where you did not have access to dental care?: No Was dental information given to patient?: No HPI 4 mn f/u HPI Details Patient comes in today for her follow up visit States that she feels okay but she reports to feeling more tired than usual lately She denies any headaches or dizziness Denies any chest pains, no increased SOB - states that her inhalers prescribed by pulmonary has been helping her a lot No nausea/vomiting, no abdominal pain No change in bowel habits noted She had her follow up labs done a few days ago - to discuss her results [facility] Medical History Gait disturbance Wheezing on auscultation Complex partial seizure disorder Cerebellar atrophy Tremor Mild cognitive impairment SOB (shortness of breath) Cerebellar ataxia Osteoarthritis of left knee OSMANI (obstructive sleep apnea) Morbid obesity with BMI of 40.0-44.9, adult ASCUS of cervix with negative high risk HPV Anemia Obesity (BMI 30-39.9) Depression Anxiety Primary insomnia Microscopic colitis GERD without esophagitis Fibromyalgia Acquired hypothyroidism Impaired fasting glucose Benign essential hypertension Pure hypercholesterolemia Vitamin D deficiency Hypothyroidism Hypoglycemia Bradycardia Infection at site of external fixator pin Overactive bladder Surgical History Status post total left knee replacement (~12/15/22) Hx of cystoscopy Hx of foot surgery Hx of foot surgery History of colonoscopy History of gastrointestinal tract bypass S/P ORIF (open reduction internal fixation) fracture History of hemorrhoidectomy Hx of bilateral breast reduction surgery H/O section H/O arthroscopy of left knee Status post debridement Family History Father Diabetes Mental health disorder Mother CVD (cardiovascular disease) Myocardial infarction Mental health disorder Brother Colon cancer Bipolar disorder Sister Lung cancer Social History Household Members: Spouse Housing: House Are you a primary care navigator to a significant other at home: No Do you presently have visiting nurse or other home services: No Alcohol intake: current Alcohol intake frequency: does not drink Alcohol type: beer and hard liquor Comment: aware of trip hazards Patient Tobacco Use Status: Never used Tobacco e-Cigarette/Vaping Use: Never Used Second Hand Smoke Exposure: No service: No Current occupational status: disabled Current occupational exposures/hazards: No Cognitive needs: No Hearing needs: Yes Vision needs: Yes Female Reproductive History Menstrual Age of Menarche: 14 Questionnaire PHQ-9 Over the last 2 weeks, how often have you been bothered by any of the following problems? 1. Little interest or pleasure in doing things: not at all 2. Feeling down, depressed, or hopeless: not at all 3. Trouble falling or staying asleep, or sleeping too much: not at all 4. Feeling tired or having little energy: not at all 5. Poor appetite or overeating: not at all 6. Feeling bad about yourself - or that you are a failure or have let yourself or your family down: not at all 7. Trouble concentrating on things, such as reading the newspaper or watching television: not at all 8. Moving or speaking so slowly that other people could have noticed. Or the opposite - being so fidgety or restless that you have been moving around a lot more than usual: not at all 9. Thoughts that you would be better off or of hurting yourself in some way: not at all Total score: 0 Depression Screening Interpretation: Negative Depression Screening Done: Yes 83281 - PHQ-9 Billing: Yes Source: Developed by Drs. Mickey Arce, Paige Barton, Luis A Hull and colleagues, with an educational roger from [employer]. Thrive Questionnaire Date Thrive assessed: 07/16/25 I am a: Patient What is your living situation today?: I have a steady place to live Within the past 12 months, did the food you bought not last and you didn't have the money to get more?: Never true Within the past 12 months, did you worry whether your food would run out before you got money to buy more?: Never true Do you have trouble paying for medicines?: Yes Do you have trouble getting transportation to medical appointments?: Yes Do you have trouble paying your heating and electricity bill?: Yes Do you have trouble taking care of your child, family member or friend?: No Do you have trouble with day-to-day activities such as bathing, preparing meals, shopping, managing finances, etc.?: No Are you currently unemployed and looking for a job?: I choose not to answer this question Are you interested in more education?: No Please select the resources that you would like help with: None Currently or been in a relationship where the following occur: No concerns reported THRIVE Score: 2 AUDIT C Alcohol Use Questionnaire (AUDIT-C) 1. How often do you have a drink containing alcohol?: Monthly or less 2. How many drinks containing alcohol do you have on a typical day when you are drinking?: 1 or 2 3. How often do you have six or more drinks on one occasion?: Never Total Score: 1 Score Reviewed/Action Taken: Yes EVANGELINA-7 AMB Questionnaire EVANGELINA-7 Date EVANGELINA - 7 assessed: 07/16/25 Feeling nervous, anxious, or on edge: 0 = Not at all Not being able to stop or control worryin = Not at all Worrying too much about different things: 0 = Not at all Trouble relaxin = Not at all Being so restless that it is hard to sit still: 0 = Not at all Becoming easily annoyed or irritable: 0 = Not at all Feeling afraid as if something awful might happen: 0 = Not at all Total EVANGELINA-7 score (0-4 normal; 5-9 mild; 10-14 moderate; 15-21 severe): 0 Source: Developed by Drs. Mickey Arce, Paige Barton, Luis A Hull and colleagues, with an educational roger from [employer]. Review of Systems Const Denies chills, Reports fatigue, Denies fever(s) and Denies headache(s) ENT Denies dysphagia, Denies dizziness, Denies otalgia, Denies headache(s), Reports hearing loss (in both ears), Reports neck pain (chronic), Denies odynophagia and Denies sore throat Card Denies chest pain, Denies palpitations and Reports dyspnea on exertion (mild) Resp Denies chest congestion, Denies cough, Denies excessive phlegm production, Reports dyspnea on exertion (mild) and Denies wheezing GI Denies abdominal pain, Denies constipation, Denies dysphagia, Denies heartburn, Reports diarrhea (on and off), Denies nausea, Denies odynophagia and Denies vomiting Denies difficulty voiding, Reports nocturia (at times), Denies dysuria and Reports urinary incontinence (mostly at night) Musc Reports abnormal gait (unsteady - uses a walker or cane when ambulating), Reports arthralgias (both knees - s/p left knee TKA with (+)improvement of symptoms), Reports neck pain (chronic), Reports numbness (of fingers of both hands, recurrent) and Reports tingling (of fingers of both hands, recurrent) Skin/Breast Denies rash Neuro Reports abnormal gait (unsteady - uses a walker or cane when ambulating), Denies dizziness, Denies headache(s), Reports numbness (of fingers of both hands, recurrent) and Reports tingling (of fingers of both hands, recurrent) Psych Reports anxiety and Reports depression (better controlled lately) Endo Reports fatigue and Denies palpitations Aller/Immun Denies wheezing Physical exam (Primary Care) Vital Signs: Last Vital Signs Pulse 84 07/16/25 15:00 BP 124/72 07/16/25 15:00 Pulse Ox 93 07/16/25 15:00 Oxygen Delivery Method Room Air 07/16/25 15:00 BMI result Body Mass Index 49.5 Tobacco/Smoking Status: Tobacco use Status Tobacco use date assessed 07/16/25 07/16/25 15:09 Patient Tobacco Use Status Never used Tobacco 07/16/25 15:09 e-Cigarette/Vaping Use Never Used 07/16/25 15:09 PHQ-9: PHQ-9 Score PHQ-9: Total score 0 07/16/25 15:09 Depression Screening Interpretation: Negative Thrive Assessment: Date of Thrive Assessment Date Thrive assessed 07/16/25 07/16/25 15:09 Currently or been in a relationship where the following occur: No concerns reported Const General: no acute distress and alert HENMT Ears: TM's normal bilaterally and EAC's normal Throat: Yes posterior oropharynx normal and Yes tonsils normal (no TP congestion noted) Neck Neck: No lymphadenopathy and Yes tender (mild, over the cervical spine) Thyroid: Thyroid normal Resp Auscultation: no crackles, no rales, no wheezes and diminished lung sounds (slightly) bilateral Cardio Rate: regular rate Rhythm: regular rhythm Heart sounds: no murmurs GI Palpation (GI): Soft to palpation and nontender Auscultation: normal bowel sounds General: Yes no CVA tenderness Back/Spine/Pelvis Back: no CVA tenderness Cervical Spine: Cervical spine tenderness Thoracic/Lumbar Spine: lumbar spinal tenderness Skin Rashes: no rashes Extrem General: Yes no clubbing, cyanosis or edema Right lower extremity: knee Details: tenderness; no swelling and lower leg Details: tenderness Results Reviewed Results Reviewed: Laboratory Tests 07/12/25 11:43 WBC 4.7 L Hgb 10.9 L Hct 34.9 L Plt Count 238 Sodium 141 Potassium 4.5 Creatinine 0.84 Estimated GFR > 60 Fasting Glucose 112 H AST 36 H ALT 32 H Alkaline Phosphatase 138 H Triglycerides 115 Cholesterol 150 LDL Cholesterol, Calc 68 HDL Cholesterol 59 TSH 14.30 H Free T4 0.70 L Coding Level of Care Code Est Pt Level 4 (77990) Diagnoses Pure hypercholesterolemia E78.00 Benign essential hypertension I10 Impaired fasting glucose R73.01 Acquired hypothyroidism E03.9 Microscopic colitis, unspecified microscopic colitis type K52.839 Microscopic colitis type: unspecified Cervical spine arthritis M47.812 Cerebellar ataxia G11.9 Iron deficiency anemia secondary to inadequate dietary iron intake D50.8 Anemia type: iron deficiency Iron deficiency anemia type: inadequate dietary iron intake GERD without esophagitis K21.9 Fibromyalgia M79.7 Bilateral primary osteoarthritis of knee M17.0 Vitamin D deficiency E55.9 Overactive bladder N32.81 Primary insomnia F51.01 Anxiety F41.9 Episode of recurrent major depressive disorder, unspecified depression episode severity F33.9 Depression Type: major depressive disorder Major depression recurrence: recurrent Active/Remission status: currently active Major depression episode severity: unspecified Obesity (BMI 30-39.9) E66.9 Additional Codes PHQ-9 - 82795 - PHQ-9 Billing: Yes ([id number]) Assessment & Plan Assessment & Plan (1) Pure hypercholesterolemia: Code(s): E78.00 - Pure hypercholesterolemia, unspecified Category: Medical Plan: Results of her labs done a few days ago reviewed and discussed with patient Reinforced low cholesterol diet Continue Atorvastatin 40 mg QD Will recheck her labs and fasting lipids in 4 months for follow up (2) Benign essential hypertension: Code(s): I10 - Essential (primary) hypertension Category: Medical Plan: Reinforced low sodium diet - goal is systolic BP of at least 120 to 130 mm or less Continue Lisinopril 10 mg QD Patient is reminded to continue monitoring her blood pressure regularly (3) Impaired fasting glucose: Code(s): R73.01 - Impaired fasting glucose Category: Medical Plan: Her FBS was again elevated at 112 mg/dl on her labs done a few days ago; HgbA1c was normal at 5.8% when previously checked Continue Acarbose 50 mg TID - she was started on Acarbose 50 mg TID by endocrinology for NIPHS that appeared to be a complication of her bariatric surgery from a few years ago Patient recalls experiencing recurrent hypoglycemic symptoms initially when she started on the Rx but her symptoms have reportedly stabilized after some time Will recheck her FBS and HgbA1c in a few months for follow up Follow up with endocrinology as scheduled (4) Acquired hypothyroidism: Code(s): E03.9 - Hypothyroidism, unspecified Category: Medical Plan: Her TFTs were abnormal on her recent labs - her TSH has risen significantly up to 14.30 and her free T4 level has dropped down to 0.70 Patient states that she has been taking her Levothyroxine Rx everyday and as prescribed Will now increase her Levothyroxine to 175 mcg (100 mcg + 75 mcg tablets) QD - new Rx sent to pharmacy Will continue to monitor her TFTs regularly and recheck them in 3 to 4 months Follow-up with endocrinology as scheduled (5) Microscopic colitis: Code(s): K52.839 - Microscopic colitis, unspecified Category: Medical Qualifiers: Microscopic colitis type: unspecified Qualified Code(s): K52.839 - Microscopic colitis, unspecified Plan: Patient has been in remission with no flare ups for a while now Follow up with GI (Dr. Kline) as scheduled (6) Cervical spine arthritis: Code(s): M47.812 - Spondylosis without myelopathy or radiculopathy, cervical region Category: Medical Plan: Cervical spine CT done back in May 2022 revealed (+) loss of intervertebral disc height with associated hypertrophic disc osteophyte spurring with associated sclerotic degenerative endplate changes and disc osteophyte spurring at C5-C6 and C6-C7 We referred her previously to physical therapy, with some improvement of her neck pain with Tx (7) Cerebellar ataxia: Code(s): G11.9 - Hereditary ataxia, unspecified Category: Medical Plan: She was diagnosed with cerebellar ataxia by neurology (Dr. Martínez) on 10/01/2023 Follow up with neurology as scheduled (8) Anemia: Code(s): D64.9 - Anemia, unspecified Category: Medical Qualifiers: Anemia type: iron deficiency Iron deficiency anemia type: inadequate dietary iron intake Qualified Code(s): D50.8 - Other iron deficiency anemias Plan: Her H/H was again slightly low at 10.9/34.9 on her labs done a few days ago Continue Ferrous Sulfate 325 mg QD Will continue to monitor her CBC regularly (9) GERD without esophagitis: Code(s): K21.9 - Gastro-esophageal reflux disease without esophagitis Category: Medical Plan: Dietary restrictions reinforced Continue Omeprazole 40 mg QD (10) Fibromyalgia: Code(s): M79.7 - Fibromyalgia Category: Medical Plan: Continue Naproxen 500 mg BID with food as needed and Pregabalin 150 mg TID (Rx refilled) Patient is again encouraged to exercise regularly and to stay active to help manage her symptoms better (11) Bilateral primary osteoarthritis of knee: Code(s): M17.0 - Bilateral primary osteoarthritis of knee Category: Medical Plan: S/P total left knee arthroplasty with Dr. Spangler on 12/15/2022 X-rays of her right knee and right lower leg done a couple of months ago (April 2025) revealed (+) moderate to severe right knee osteoarthritis, unchanged from previous Follow up with orthopedics as scheduled (12) Vitamin D deficiency: Code(s): E55.9 - Vitamin D deficiency, unspecified Category: Medical Plan: Continue Vitamin D3 5000 units QD (13) Overactive bladder: Code(s): N32.81 - Overactive bladder Category: Medical Plan: Continue Oxybutynin ER 10 mg QD Follow up with urology as scheduled (14) Primary insomnia: Code(s): F51.01 - Primary insomnia Category: Medical Plan: Sleep hygiene reinforced Mirtazapine at bedtime has been helping with her sleep issues (15) Anxiety: Code(s): F41.9 - Anxiety disorder, unspecified Category: Medical Plan: Continue Lorazepam 0.5 mg BID PRN (16) Depression: Code(s): F32.9 - Major depressive disorder, single episode, unspecified Category: Medical Qualifiers: Depression Type: major depressive disorder Major depression recurrence: recurrent Active/Remission status: currently active Major depression episode severity: unspecified Qualified Code(s): F33.9 - Major depressive disorder, recurrent, unspecified Plan: Continue Mirtazapine 15 mg Q HS (17) Obesity (BMI 30-39.9): Code(s): E66.9 - Obesity, unspecified Category: Medical Plan: Reinforced diet; exercise and weight loss are not realistic, especially given patient's gait instability and recent diagnosis of cerebellar ataxia Plan Follow up in 4 months Orders: Orders Free T4 (Free Thyroxine) 10/22/25 E03.9 - Hypothyroidism, unspecified Comprehensive [place]. Panel Fast 10/22/25 E78.00 - Pure hypercholesterolemia, unspecified Vitamin D 25-OH Total 10/22/25 E55.9 - Vitamin D deficiency, unspecified Thyroid Stimulating Hormone 10/22/25 E03.9 - Hypothyroidism, unspecified Complete Blood Count Auto Diff 10/22/25 D64.9 - Anemia, unspecified Lipid Panel 10/22/25 E78.00 - Pure hypercholesterolemia, unspecified UA CC w/rflx Micro + Cult 10/22/25 R30.0 - Dysuria Hemoglobin A1c 10/22/25 R73.01 - Impaired fasting glucose Medications: New levothyroxine To be taken TOGETHER with Levothyroxine 75 mcg for a TOTAL of 175 mcg DAILY DOSE 100 mcg PO DAILY 90 tabs 1RF 90 days Changed From levothyroxine 150 mcg PO DAILY 90 tabs 3RF To levothyroxine To be taken TOGETHER with Levothyroxine 100 mcg for a TOTAL of 175 mcg DAILY DOSE 75 mcg PO DAILY 90 tabs 1RF 90 days
== END 2025-07-16 15:43 | disposition home or self-care (01) ==
LOC: HO.HMCH 14:31
PROVIDERS: PCP Internal Medicine; Visit Provider Internal Medicine
DX: E78.00 Pure hypercholesterolemia, unspecified (principal); G11.9 Hereditary ataxia, unspecified; E66.9 Obesity, unspecified; Z68.42 Body mass index [BMI] 45.0-49.9, adult; I10 Essential (primary) hypertension; R73.01 Impaired fasting glucose; E03.9 Hypothyroidism, unspecified; K52.839 Microscopic colitis, unspecified; M47.812 Spondylosis without myelopathy or radiculopathy, cervical region; D50.8 Other iron deficiency anemias; K21.9 Gastro-esophageal reflux disease without esophagitis; M79.7 Fibromyalgia; M17.0 Bilateral primary osteoarthritis of knee; E55.9 Vitamin D deficiency, unspecified; N32.81 Overactive bladder; F51.01 Primary insomnia; F41.9 Anxiety disorder, unspecified; F33.9 Major depressive disorder, recurrent, unspecified

== ENCOUNTER → 2025-07-16 14:30 | Outpatient (BNVA) | payer MEDICARE, SELFPAY | PROVIDERS: PCP Internal Medicine; Visit Provider Internal Medicine | DX: I10 Essential (primary) hypertension (principal); E78.00 Pure hypercholesterolemia, unspecified; R73.01 Impaired fasting glucose; E03.9 Hypothyroidism, unspecified; K52.839 Microscopic colitis, unspecified; M47.812 Spondylosis without myelopathy or radiculopathy, cervical region; G11.9 Hereditary ataxia, unspecified; D50.8 Other iron deficiency anemias; K21.9 Gastro-esophageal reflux disease without esophagitis; M79.7 Fibromyalgia; M17.0 Bilateral primary osteoarthritis of knee; E55.9 Vitamin D deficiency, unspecified; N32.81 Overactive bladder; F51.01 Primary insomnia; F41.9 Anxiety disorder, unspecified; F33.9 Major depressive disorder, recurrent, unspecified; E66.9 Obesity, unspecified | CPT/HCPCS: 96127; 99212 ==

== ENCOUNTER 2025-07-24 13:33 | Outpatient (AMB) | payer MEDICARE, SELFPAY ==
--- NOTE | 2025-07-24 13:46 | MHC.OFFVIS ---
Vital Signs 07/24/25 13:47 Height 5 ft Weight 253 lb 8.505 oz BMI 49.5 BP 130/84 Blood Pressure Location Lt brachial Position Sitting Pulse 62 Pulse Source Pulse Oximeter Pulse Oximetry (%) 96 Oxygen Delivery Method Room Air Intake Visit Reasons: wheezing, SOB Intake Note: pt is here as a new patient and states 3-4 episodes of pneumonia, and was started on symbicort and is feeling little better. no OSMANI symptoms witnessed by , but she is tired all the time but multiple medical issues happening, history of oxygen prior to weight loss. Service Or Work Dispatcher Required: No Repair Cameraman: Repair Cameraman offered & declined Allergies fentanyl Adverse Reaction (Unknown, Verified 07/24/25 14:27) Nausea and Vomiting Medication List - Last Reconciled 07/24/25 by Austyn Stephens MD acarbose 50 mg PO TID acetaminophen 650 mg (2 x 325 mg) PO Q6H PRN albuterol sulfate 90 mcg/actuation 2 inhalations inhalation Q6-8H PRN atorvastatin 40 mg PO DAILY budesonide-formoterol 80-4.5 mcg/actuation (Symbicort) 2 puffs inhalation BID cholecalciferol (vitamin D3) 50 mcg PO DAILY docusate sodium 100 mg PO BID PRN ferrous sulfate 325 mg PO DAILY PRN levothyroxine 100 mcg PO DAILY 90 days levothyroxine 75 mcg PO DAILY 90 days [LIGHTWEIGHT CANE As directed] lisinopril 10 mg PO DAILY 90 days lorazepam 0.5 mg PO BID PRN 30 days mirtazapine 15 mg PO BEDTIME 30 days naproxen 500 mg PO Q12H PRN omeprazole 40 mg PO DAILY oxybutynin chloride ER 10 mg PO DAILY polyethylene glycol 3350 (Miralax) 17 grams PO DAILY PRN pregabalin 150 mg PO TID 30 days primidone 100 mg (2 x 50 mg) PO BID 90 days sertraline 200 mg (2 x 100 mg) PO DAILY 90 days Do you need a note to return to daycare/school/sports/work: No HPI HPI wheezing, SOB: Details: THIS 65 YEARS OLD FEMALE. IS BEING SEEN FOR THE 1ST TIME BECAUSE OF ONGOING SHORTNESS OF BREATH COUGH AND WHEEZING , GROSS OBESITY, AND ALSO HISTORY OF OBSTRUCTIVE SLEEP APNEA DIAGNOSED IN 2014. SHE HAD MORBID OBESITY AND CONFIRMED TO HAVE OBSTRUCTIVE SLEEP APNEA BY A POLYSOMNOGRAM STUDY IN JULY 2015. SHE WAS STARTED ON CPAP THERAPY. WITH PRESSURE SETTING OF 12 CM. AT THAT TIME SHE STARTED PARTICIPATING IN THE. WEIGHT MANAGEMENT PROGRAM AND 2 YEARS LATER SHE UNDERWENT GASTROPLASTY, AFTER WHICH SHE LOST SIGNIFICANT AMOUNT OF WEIGHT. SHE STOPPED USING THE CPAP. AND CONTINUE TO SLEEP WELL WITHOUT THE CPAP FOR A FEW YEARS. THEN SHE STARTED EATING MORE LIBERALLY , AND REGAINED MOST OF THE WEIGHT . GRADUALLY SHE RE-DEVELOPED THE SYMPTOMS OF SLEEP APNEA. A NOW SHE IS HAVING DIFFICULT TIME IN SLEEPING, SHE IS HAVING FREQUENT AWAKENINGS , AT NIGHT AND REMAINS SOMEWHAT SLEEPY AND TIRED DURING THE DAYTIME . DURING SPRING OF THIS YEAR SHE AND HER WENT ON A CRUISE FOR ABOUT A WEEK, AND AFTER RETURNING BACK HOME SHE WAS HAVING FREQUENT COUGH WITH WHEEZING. SHE SPENT SOME TIME IN THE HOSPITAL IN JANUARY OF THIS YEAR, WAS NOTED TO HAVE LOW O2 SAT. SHE WAS STARTED ON SYMBICORT 160-4.52 PUFFS B.I.D. WITH THAT HER BREATHING IMPROVED SIGNIFICANTLY. NOW FOR THE PAST SEVERAL WEEKS SHE HAS BEEN FREE OF ANY COUGH OR WHEEZING, AND QUESTION IS IF SHE NEEDS TO CONTINUE SYMBICORT SHOULD SHE STOP IT. BECAUSE OF HER GROSS OBESITY SHE DOES GET SHORT OF BREATH WHEN SHE WALKS AROUND. SHE IS NONSMOKER.. SHE IS BEING TREATED FOR HYPERTENSION, HYPOTHYROIDISM, DIABETES MELLITUS , DEGENERATIVE ARTHRITIS OF THE SPINE. PERIPHERAL NEUROPATHY AND DEPRESSION . [facility] Medical History (Updated 07/24/25 @ 15:04 by Austyn Stephens MD) Somnolence, daytime Asthma Gait disturbance Wheezing on auscultation Complex partial seizure disorder Cerebellar atrophy Tremor Mild cognitive impairment SOB (shortness of breath) Cerebellar ataxia Osteoarthritis of left knee OSMANI (obstructive sleep apnea) Morbid obesity with BMI of 40.0-44.9, adult ASCUS of cervix with negative high risk HPV Anemia Obesity (BMI 30-39.9) Depression Anxiety Primary insomnia Microscopic colitis GERD without esophagitis Fibromyalgia Acquired hypothyroidism Impaired fasting glucose Benign essential hypertension Pure hypercholesterolemia Vitamin D deficiency Hypothyroidism Hypoglycemia Bradycardia Infection at site of external fixator pin Overactive bladder Surgical History Status post total left knee replacement (~12/15/22) Hx of cystoscopy Hx of foot surgery Hx of foot surgery History of colonoscopy History of gastrointestinal tract bypass S/P ORIF (open reduction internal fixation) fracture History of hemorrhoidectomy Hx of bilateral breast reduction surgery H/O section H/O arthroscopy of left knee Status post debridement Family History Father Diabetes Mental health disorder Mother CVD (cardiovascular disease) Myocardial infarction Mental health disorder Brother Colon cancer Bipolar disorder Sister Lung cancer Social History Household Members: Spouse Housing: House Are you a primary landcare facilitator to a significant other at home: No Do you presently have visiting nurse or other home services: No Alcohol intake: current Alcohol intake frequency: does not drink Alcohol type: beer and hard liquor Comment: aware of trip hazards Patient Tobacco Use Status: Never used Tobacco e-Cigarette/Vaping Use: Never Used Second Hand Smoke Exposure: No service: No Current occupational status: disabled Current occupational exposures/hazards: No Cognitive needs: No Hearing needs: Yes Vision needs: Yes Female Reproductive History Menstrual Age of Menarche: 14 Review of Systems Const All systems reviewed & are unremarkable except as noted in HPI and below Eyes Reports no additional complaints ENT Denies nasal discharge and Denies nasal obstruction Card Denies chest pain, Denies syncope and Denies irregular heart rhythm Resp Reports as per HPI GI Reports constipation and Reports heartburn (BEING TREATED FOR SYMPTOMS OF GERD) Musc Reports back pain and Reports arthralgias Skin/Breast Reports system reviewed and no additional complaints, except as documented Neuro Reports no additional complaints and Denies syncope Psych Reports depression Endo Reports no additional complaints Aller/Immun Reports no additional complaints Physical Exam Vital Signs: Last Vital Signs Pulse 62 07/24/25 13:47 BP 130/84 07/24/25 13:47 Pulse Ox 96 07/24/25 13:47 Oxygen Delivery Method Room Air 07/24/25 13:47 BMI result Body Mass Index 49.5 SHE IS MORBIDLY OBESE WITH A ROUND FACE SHORT NECK AND VERY NARROW OROPHARYNX Const General: comfortable, no acute distress, alert and awake Orientation/consciousness: patient oriented x3 HEENT Head: Yes normal to inspection General nose exam: No nasal polyps present and No nasal discharge present Face and sinus: Yes sinuses nontender Mouth: oropharynx abnormals (OROPHARYNX IS VERY NARROW AND CROWDED, MALLAMPATI CLASS 4.) Throat: Yes posterior oropharynx normal Eyes General: appearance normal, both eyes and all related structures Neck Neck: Yes normal visual inspection, Yes no lymphadenopathy, Yes trachea midline and Yes no JVD Thyroid: Thyroid normal Chest Chest palpation & inspection: normal inspection of the chest, normal palpation of entire chest wall and no tenderness Resp Other: PERCUSSION NOTE IS VERY DISTANT, BECAUSE OF THICK CHEST WALL. BREATH SOUNDS ARE DIMINISHED OVER THE BASILAR AREAS. THERE ARE NO AUDIBLE WHEEZES OR RHONCHI. Cardio Palpation: PMI not normal (PMI NOT PALPABLE DUE TO THICK CHEST WALL) Rate: regular rate Rhythm: regular rhythm Heart sounds: no gallops and no murmurs Peripheral pulses: Peripheral pulses 2+ throughout GI Palpation (GI): Soft to palpation, nontender, No hepatosplenomegaly present and no masses Auscultation: normal bowel sounds Back/Spine/Pelvis Thoracic/Lumbar Spine: thoracic and lumbar spine normal to inspection and thoraco-lumbar ROM limited Skin General skin exam: no rashes or lesions noted Neuro General: patient oriented x3 and no focal motor deficits Cranial nerves: Yes CN's II-XII intact bilaterally Extrem General: Yes normal to inspection, Yes no clubbing, cyanosis or edema and Yes no calf tenderness Psych Appearance: grossly normal and well kempt Speech and movement: Normal speech and movement present Assessment & Plan Assessment & Plan (1) BMI 45.0-49.9, adult: Comment: PATIENT IS MORBIDLY OBESE. HISTORY OF LOSING WEIGHT AFTER GASTROPLASTY, BUT IT LASTED FOR A FEW YEARS THEN SHE REGAINED ALL THE WEIGHT BACK. Code(s): Z68.42 - Body mass index [BMI] 45.0-49.9, adult Category: Medical Plan: I ENCOURAGED HER TO JOIN THE WEIGHT MANAGEMENT PROGRAM AGAIN, AND SHE MAY NEED REVISION OF THE GASTROPLASTY. SAY IS THAT SHE IS GOING BACK TO THE EXERCISE PROGRAM AND WILL WATCH THE DIET STRICTLY AND HOPES TO LOSE WEIGHT. (2) Asthma: Comment: SHE HAD A BOUT OF ASTHMA AND RESPIRATORY FAILURE IN JANUARY OF THIS YEAR AFTER RETURNING BACK FROM A CRUISE. HAS BEEN DOING BETTER WITH THE USE OF SYMBICORT 160-4.52 PUFFS B.I.D.. NOW FREE OF ANY COUGH OR WHEEZING FOR MORE THAN A MONTH. AND SHE WANTS TO KNOW IF SHE CAN STOP USING THE SYMBICORT Code(s): J45.909 - Unspecified asthma, uncomplicated Category: Medical Plan: ADVISE THE PATIENT TO TAPER DOWN THE USE OF SYMBICORT FROM 2 PUFFS B.I.D. TO ONLY ONCE A DAY FOR 4 WEEKS, AND THEN IF THE SYMPTOMS ARE STILL UNDER CONTROLLED THEN SHE MAY USE ONLY 1 PUFF ONCE A DAY FOR 4 WEEKS AND THEN STOPPED IN THE MEANTIME SHE IS SCHEDULED FOR HAVING PULMONARY FUNCTION TEST. AND I WILL RECHECK HER AFTER THAT. (3) OSMANI (obstructive sleep apnea): Comment: HISTORY OF OBSTRUCTIVE SLEEP APNEA PER POLYSOMNOGRAM STUDY IN 2015. SHE WAS TREATED WITH CPAP THERAPY FOR A FEW YEARS AND THEN AFTER LOSING SIGNIFICANT WEIGHT SHE HAD STOPPED USING IT. NOW THAT SHE HAS REGAINED ALL THE WEIGHT BACK SHE COMPLAINS OF FREQUENT AWAKENING, LIGHT SLEEP,, AND EXCESSIVE DAYTIME SLEEPINESS Code(s): G47.33 - Obstructive sleep apnea (adult) (pediatric) Category: Medical Plan: SHE HAS TYPICAL PHYSICAL FEATURES WELL THE SYMPTOMS OF OBSTRUCTIVE SLEEP APNEA AT THIS TIME. SHE WOULD NEED TO START USING THE CPAP AGAIN. BECAUSE HER LAST SLEEP STUDY WAS 10 YEARS AGO SHE NEEDS TO HAVE ANOTHER SLEEP STUDY. I HAVE ORDERED A HOME-BASED SLEEP STUDY TO CHECK THE RESULTS AND IF SHE HAS CONFIRMATION OF HER DIAGNOSIS OF OSMANI THEN SHE WILL BE STARTED ON CPAP THERAPY. IN THE MEANTIME I HAVE DISCUSSED WITH HIM AND HER ABOUT NECESSITY TO LOSE WEIGHT. Orders: Orders PFT pulmonary function test Today Austyn Stephens MD G47.33 - Obstructive sleep apnea (adult) (pediatric), J45.909 - Unspecified asthma, uncomplicated, R40.0 - Somnolence RT home sleep study Today Austyn Stephens MD G47.33 - Obstructive sleep apnea (adult) (pediatric), Z68.42 - Body mass index [BMI] 45.0-49.9, adult Medications: Changed From docusate sodium 100 mg PO BID 30 days 60 caps 0RF To docusate sodium 100 mg PO BID PRN Candace Escobar PA-C Coding Level of Care Code New Pt Level 4 (26907) Diagnoses BMI 45.0-49.9, adult Z68.42 Asthma J45.909 OSMANI (obstructive sleep apnea) G47.33
[2025-07-24 13:47] VITALS: BP 130/84; PULSE 62; O2SAT 96; BMI 49.5
== END 2025-07-24 14:25 | disposition home or self-care (01) ==
LOC: HO.HPS 13:34
PROVIDERS: PCP Internal Medicine; Referring Provider Nurse Practitioner Family; Visit Provider Internal Medicine
DX: Z68.42 Body mass index [BMI] 45.0-49.9, adult (principal); J45.909 Unspecified asthma, uncomplicated; G47.33 Obstructive sleep apnea (adult) (pediatric)
CPT/HCPCS: 99204

== ENCOUNTER → 2025-07-24 13:33 | Outpatient (BNVA) | payer MEDICARE, SELFPAY | PROVIDERS: PCP Internal Medicine; Referring Provider Nurse Practitioner Family; Visit Provider Internal Medicine | DX: J45.909 Unspecified asthma, uncomplicated (principal); G47.33 Obstructive sleep apnea (adult) (pediatric); E66.01 Morbid (severe) obesity due to excess calories; Z68.42 Body mass index [BMI] 45.0-49.9, adult | CPT/HCPCS: 99202 ==

== ENCOUNTER 2025-08-06 10:29 | Outpatient (AMB) | payer MEDICARE, SELFPAY ==
--- NOTE | 2025-08-06 10:41 | A.OFFVIS_ITS ---
Vital Signs 08/06/25 10:43 Height 5 ft Weight 253 lb BMI 49.4 Intake Visit Reasons: INJ - Right Knee Durolane Intake Note: Lolly is a 65 year old female who presents today for a Right Knee Durolane Injection. At her last visit we discussed TKA but in setting of BMI >45 and new onset diagnosis of Cerebellar Ataxia she is not a surgical candidate. Referral to Weight Management was made, patient did not book appt. Allergies fentanyl Adverse Reaction (Unknown, Verified 07/24/25 14:27) Nausea and Vomiting HPI Comments Details: Interval History The patient is a 65-year-old female presenting with follow-up for right knee Durolane injection. She reports that she has not previously received a Durolane injection, only regular steroid injections. The patient expresses concern about the injection, noting that she is scared as this is her first time receiving Durolane. She was informed that the Durolane injection does not provide immediate relief, unlike steroid injections, and that improvement is expected over several weeks. The patient acknowledges feeling a sensation of fullness in the knee following the injection, which was described as a common experience. Results [facility] Medical History (Updated 07/24/25 @ 15:04 by Austyn Stephens MD) Somnolence, daytime Asthma Gait disturbance Wheezing on auscultation Complex partial seizure disorder Cerebellar atrophy Tremor Mild cognitive impairment SOB (shortness of breath) Cerebellar ataxia Osteoarthritis of left knee OSMANI (obstructive sleep apnea) Morbid obesity with BMI of 40.0-44.9, adult ASCUS of cervix with negative high risk HPV Anemia Obesity (BMI 30-39.9) Depression Anxiety Primary insomnia Microscopic colitis GERD without esophagitis Fibromyalgia Acquired hypothyroidism Impaired fasting glucose Benign essential hypertension Pure hypercholesterolemia Vitamin D deficiency Hypothyroidism Hypoglycemia Bradycardia Infection at site of external fixator pin Overactive bladder Surgical History Status post total left knee replacement (~12/15/22) Hx of cystoscopy Hx of foot surgery Hx of foot surgery History of colonoscopy History of gastrointestinal tract bypass S/P ORIF (open reduction internal fixation) fracture History of hemorrhoidectomy Hx of bilateral breast reduction surgery H/O section H/O arthroscopy of left knee Status post debridement Family History Father Diabetes Mental health disorder Mother CVD (cardiovascular disease) Myocardial infarction Mental health disorder Brother Colon cancer Bipolar disorder Sister Lung cancer Social History Household Members: Spouse Housing: House Are you a primary acute care occupational therapist to a significant other at home: No Do you presently have visiting nurse or other home services: No Alcohol intake: current Alcohol intake frequency: does not drink Alcohol type: beer and hard liquor Comment: aware of trip hazards Patient Tobacco Use Status: Never used Tobacco e-Cigarette/Vaping Use: Never Used Second Hand Smoke Exposure: No service: No Current occupational status: disabled Current occupational exposures/hazards: No Cognitive needs: No Hearing needs: Yes Vision needs: Yes Female Reproductive History Menstrual Age of Menarche: 14 Physical Exam Exam Exam: Physical Exam Skin over right knee c/d/i Vital Signs: BMI result Body Mass Index 49.4 Office Procedures Joint Inj/Aspir; Non-Pain Clin Joint Injection/Drain Details: Injected Durolane. Site was prepped using aseptic technique. Patient tolerated the procedure well. Procedure: The patient tolerated the procedure well Shoulders, Hips, Knees, Knee Large Joint Injection [id number]: Right Knee Coding Procedure code (CPT) selection complete Assessment & Plan Assessment & Plan (1) Primary osteoarthritis of right knee: Code(s): M17.11 - Unilateral primary osteoarthritis, right knee Category: Medical Plan Plan 1. Right Knee Pain The patient received a Durolane injection in the right knee to manage pain. She was advised that the effects of the injection would develop gradually over several weeks, and immediate relief should not be expected. The patient was instructed to monitor her symptoms and report any significant changes or concerns. Follow-up is recommended in nine months to assess the need for another injection, depending on the benefits observed. Discussion Notes The patient expressed apprehension about receiving the Durolane injection, as it was her first time undergoing this procedure. The clinician explained that unlike steroid injections, Durolane does not provide immediate relief but works gradually over several weeks. The patient was informed about the sensation of fullness in the knee post-injection, which is a common experience. The clinician advised the patient to observe her symptoms and report any significant changes, and discussed the typical interval for repeat injections, which is approximately every nine months based on the observed benefits. Coding Level of Care Code Est Pt Level 2 (01513) Diagnoses Primary osteoarthritis of right knee M17.11 CPT Codes Shoulders, Hips, Knees, - Knee Large Joint Injection : Right Knee ([id number])
[2025-08-06 10:43] VITALS: BMI 49.4
== END 2025-08-06 11:18 | disposition home or self-care (01) ==
LOC: HO.HOS 10:30
PROVIDERS: PCP Internal Medicine; Visit Provider Orthopaedic Surgery
DX: M17.11 Unilateral primary osteoarthritis, right knee (principal)
CPT/HCPCS: 20610

== ENCOUNTER → 2025-08-06 10:29 | Outpatient (BNVA) | payer MEDICARE, SELFPAY | PROVIDERS: PCP Internal Medicine; Visit Provider Orthopaedic Surgery | DX: M17.11 Unilateral primary osteoarthritis, right knee (principal) | CPT/HCPCS: 20610; J7318 ==